=== PATIENT | female | born 1990 | race Caucasian/White ===

== ENCOUNTER → 2016-11-16 | Outpatient (CLI) | payer OTHER | LOC: RAD 15:31 | PROVIDERS: ATTEND Physician Assistant | DX: M54.12 Radiculopathy, cervical region (principal) | CPT/HCPCS: 72141 ==

== ENCOUNTER → 2017-04-09 | Outpatient (CLI) | payer OTHER ==
--- NOTE | 2017-04-10 08:03 | RADIOLOGY REPORT (SQ) ---
EXAM DESCRIPTION: CERV SP 3 VIEW OR LESS COMPLETED DATE/TIME: 04/09/2017 3:37 pm REASON FOR STUDY: CERVICAL RADICULOPATHY COMPARISON: None. NUMBER OF VIEWS: Three views TECHNIQUE: Lateral neutral flexion and extension views LIMITATIONS: None. FINDINGS: MINERALIZATION: Normal. ALIGNMENT: Anatomic. FLEXION/EXTENSION: No instability. VERTEBRAE: Vertebral bodies of normal height. DISCS: No significant osteophytes or sclerosis. Disc height maintained. LATERAL AND POSTERIOR ELEMENTS: Facets, lateral masses, and spinous processes without significant fin dings. HARDWARE: None in the spine. SOFT TISSUES: No masses or calcifications. Lung apices clear. OTHER: No other significant finding. IMPRESSION: NO SIGNIFICANT FINDING IN THE SPINE. NO INSTABILITY ON FLEXION/EXTENSION. TECHNICAL DOCUMENTATION: JOB ID: [id number] [employer]- All Rights Reserved
== END ==
LOC: RAD 15:20
PROVIDERS: ATTEND Specialist
DX: M54.12 Radiculopathy, cervical region (principal)
CPT/HCPCS: 72040

== ENCOUNTER 2017-05-31 21:29 | Emergency (ER) | payer OTHER ==
[2017-05-31 22:41] VITALS: BP 114/72
[2017-05-31 23:57] LABS: ABSOLUTE BASOPHILS # (AUTO) 0.1 10^3/uL (0.0-0.2); ABSOLUTE EOSINOPHILS # (AUTO) 0.1 10^3/uL (0.0-0.6); ABSOLUTE LYMPHOCYTES (AUTO) 1.7 10^3/uL (0.5-4.7); ABSOLUTE MONOCYTES (AUTO) 0.6 10^3/uL (0.1-1.4); ABSOLUTE NEUT (AUTO) 3.7 10^3/uL (1.7-8.2); BASOPHILS % (AUTO) 1.1 % (0-2); EOSINOPHILS % (AUTO) 0.9 % (0-6); HEMATOCRIT 39.3 % (36.0-47.0); HEMOGLOBIN 13.2 g/dL (12.0-15.5); HGB HCT DIFFERENCE 0.3; LYMPHOCYTES % (AUTO) 27.8 % (13-45); MEAN CORPUSCULAR HEMOGLOBIN 29.1 pg (27.0-33.4); MEAN CORPUSCULAR HGB CONC 33.7 g/dL (32.0-36.0); MEAN CORPUSCULAR VOLUME 86 fl (80-97); MONOCYTES % (AUTO) 9.8 % (3-13); RED BLOOD COUNT 4.55 10^6/uL (3.72-5.28); RED CELL DISTRIBUTION WIDTH 15.8 % (11.5-14.0); SEGMENTED NEUTROPHILS % (AUTO) 60.4 % (42-78); WHITE BLOOD COUNT 6.1 10^3/uL (4.0-10.5)
[2017-06-01 00:16] LABS: ALANINE AMINOTRANSFERASE 21 U/L (9-52); ALBUMIN 3.6 g/dL (3.5-5.0); ALKALINE PHOSPHATASE 126 U/L (38-126); ANION GAP 9 (5-19); ASPARTATE AMINO TRANSFERASE 21 U/L (14-36); BILIRUBIN,DIRECT 0.5 mg/dL (0.0-0.4); BILIRUBIN,TOTAL 0.5 mg/dL (0.2-1.3); BLOOD UREA NITROGEN 8 mg/dL (7-20); C-REACTIVE PROTEIN 5.9 mg/L (<10.0); CALCIUM 9.3 mg/dL (8.4-10.2); CARBON DIOXIDE 26 mmol/L (22-30); CHLORIDE 107 mmol/L (98-107); CREATININE RESULT 0.54 mg/dL (0.52-1.25); GLUCOSE 84 mg/dL (75-110); POTASSIUM 3.7 mmol/L (3.6-5.0); SODIUM 141.6 mmol/L (137-145); TOTAL PROTEIN 6.7 g/dL (6.3-8.2)
[2017-06-01 00:24] LABS: APPEARANCE,URINE SLIGHTLY-CLOUDY; BILIRUBIN,URINE NEGATIVE (NEGATIVE); GLUCOSE, URINE NEGATIVE (NEGATIVE); KETONES,URINE NEGATIVE (NEGATIVE); LEUKOCYTE ESTERASE,URINE NEGATIVE (NEGATIVE); NITRITE,URINE NEGATIVE (NEGATIVE); PROTEIN,URINE NEGATIVE (NEGATIVE); URINE SPECIFIC GRAVITY 1.014
[2017-06-01 00:39] LABS: ERYTHROCYTE SEDIMENTATION RATE 30 mm/hr (0-20)
--- NOTE | 2017-06-01 01:07 | RADIOLOGY REPORT (SQ) ---
EXAM DESCRIPTION: CHEST PA/LAT COMPLETED DATE/TIME: 06/01/2017 12:42 am REASON FOR STUDY: recent surgery, cough, fevers COMPARISON: 8.10.16 EXAM PARAMETERS: NUMBER OF VIEWS: two views TECHNIQUE: Digital Frontal and Lateral radiographic views of the chest acquired. RADIATION DOSE: NA LIMITATIONS: none FINDINGS: LUNGS AND PLEURA: No opacities, masses or pneumothorax. No pleural effusion. MEDIASTINUM AND HILAR STRUCTURES: No masses or contour abnormalities. HEART AND VASCULAR STRUCTURES: Heart normal size. No evidence for failure. BONES: No acute findings. HARDWARE: Lower cervical hardware fusion. OTHER: No other significant finding. IMPRESSION: NO SIGNIFICANT RADIOGRAPHIC FINDING IN THE CHEST. TECHNICAL DOCUMENTATION: JOB ID: [id number] [employer]- All Rights Reserved
--- NOTE | 2017-06-01 01:30 | RADIOLOGY REPORT (SQ) ---
EXAM DESCRIPTION: CT SOFT TISSUE NECK WITH COMPLETED DATE/TIME: 06/01/2017 12:45 am REASON FOR STUDY: recent ACDF, pain anteriorly and in posterior neck COMPARISON: None. TECHNIQUE: Post IV contrasted scanning from skull base through lung apices with review of bone, soft tissue and lung windows. Reconstructed coronal and sagittal MPR images reviewed. All images stored on PACS. All CT scanners at this facility use dose modulation, iterative reconstruction, and/or weight based d osing when appropriate to reduce radiation dose to as low as reasonably achievable (ALARA). [facility]: Dose Right [facility]: CareDose [facility]: Dose Right [facility]: Teradose 4D [facility]: [employer] CONTRAST TYPE AND DOSE: contrast/concentration: Isovue 370.00 mg/ml; Total Contrast Delivered: 75.0 ml; Total Saline Delivered: 40.0 ml RENAL FUNCTION: Creatinine 0.5 RADIATION DOSE: Up-to-date CT equipment and radiation dose reduction techniques were employed. CTDIv ol: 17.5 mGy. DLP: 500 mGy-cm. . LIMITATIONS: None. FINDINGS: SKULL BASE: Intact. MAJOR SALIVARY GLANDS: No solid or cystic masses. No inflammatory changes. LYMPHADENOPATHY: [id number] bilateral suprahyoid cervical and submandibular lymphadenopathy inc ludes a 1.4 x 0.6 cm lymph node deep to the left sternocleidomastoid muscle, image 36 of series 2. MUCOSAL MASSES OR ASYMMETRY: No mucosal masses or asymmetry. LARYNX/CORDS: No abnormal findings. VASCULAR STRUCTURES: The major vessels are patent. LUNG APICES: Clear. BONES: Anterior cervical hardware fusion between the C5 and C7 levels. No evidence of metal fracture or loosening. Hardware related beam hardening artifact. No CT evidence of metal fracture or loosen ing. No paraspinal collection. No significant spinal or foraminal compromise. THYROID: Normal size. No masses. PARANASAL SINUSES: Clear. OTHER: No other significant finding. IMPRESSION: 1. Nonspecific [id number] bilateral cervical lymphadenopathy. 2. Anterior cervi samanta hardware fusion between the C5 and C7 levels without CT evidence of complication. TECHNICAL DOCUMENTATION: JOB ID: [id number] Quality ID # [id number]: Final reports with documentation of one or more dose reduction techniques (e.g., Au tomated exposure control, adjustment of the mA and/or kV according to patient size, use of iterative reconstruction technique) 2010 [employer]- All Rights Reserved
--- NOTE | 2017-06-01 02:37 | ER Document Report ---
ED General - General Chief Complaint: Post Surgical Pain Stated Complaint: FEVER AND NECK PAIN Time Seen by Provider: 05/31/17 23:26 TRAVEL OUTSIDE OF THE [place] IN LAST 30 DAYS: No - HPI Severity: Moderate Notes: 27-year-old female presents emergency department stating that she had an anterior cervical discectomy and fusion last Tuesday at [facility], states that for the past 2 days she has been having fevers, chills, nausea, and decreased oral intake since Tuesday associated with a chronic cough that is unchanged as well as drainage from the surgical wound which she describes as clear. Patient states that most the pain is posterior neck going to her shoulders. Also admits rhinorrhea and postnasal drip. Denies numbness, tingling, weakness - Related Data Allergies/Adverse Reactions: ciprofloxacin [From Cipro] Allergy (Severe, Verified 02/25/16 07:49) Anaphylaxis guaifenesin [From Mucinex] Allergy (Severe, Verified 02/25/16 07:49) Anaphylaxis nitrofurantoin macrocrystalline [From Macrobid] Allergy (Severe, Verified 07:49) Anaphylaxis Penicillins Allergy (Severe, Verified 02/25/16 07:49) Anaphylaxis sulfamethoxazole [From Bactrim] Allergy (Severe, Verified 02/25/16 07:49) anaphylaxis/hives tramadol [Tramadol] Allergy (Severe, Verified 02/25/16 07:49) Anaphylaxis hydromorphone HCl [From Dilaudid] Allergy (Intermediate, Verified 02/25/16 07:49 ) Hives amoxicillin [Amoxicillin] Allergy (Verified 02/25/16 07:49) anaphylaxis/hives nitrofurantoin [From Macrobid] Allergy (Verified 02/25/16 07:49) Anaphylaxis trimethoprim [From Bactrim] Allergy (Verified 02/25/16 07:49) Past Medical History - General Information source: Patient - Social History Smoking Status: Current Every Day Smoker Chew tobacco use (# tins/day): No Smoking Education Provided: Yes - >5 mins Frequency of alcohol use: None Drug Abuse: None Family History: Reviewed & Not Pertinent - Past Medical History Cardiac Medical History: Denies: Hx Coronary Artery Disease, Hx Heart Attack, Hx Hypertension Pulmonary Medical History: Reports: Hx Asthma Denies: Hx Bronchitis, Hx COPD, Hx Pneumonia Neurological Medical History: Denies: Hx Cerebrovascular Accident, Hx Seizures Renal/ Medical History: Denies: Hx Peritoneal Dialysis GI Medical History: Denies: Hx Hepatitis, Hx Hiatal Hernia, Hx Ulcer Musculoskeltal Medical History: 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 Infectious Medical History: Denies: Hx Hepatitis Past Surgical History: Denies: Hx Hysterectomy, Hx Mastectomy, Hx Open Heart Surgery, Hx Pacemaker - Immunizations Hx Diphtheria, Pertussis, Tetanus Vaccination: Yes Review of Systems - Review of Systems Constitutional: See HPI, Fever EENT: See HPI, Nose congestion, Nose discharge, Other - neck pain Cardiovascular: No symptoms reported Respiratory: See HPI, Cough Gastrointestinal: No symptoms reported Musculoskeletal: See HPI, Neck pain Neurological/Psychological: No symptoms reported -: Yes All other systems reviewed and negative Physical Exam - Vital signs Vitals: Temp Pulse Resp BP Pulse Ox 98.3 F 91 21 H 114/72 93 05/31/17 22:37 05/31/17 22:37 05/31/17 22:37 05/31/17 22:37 05/31/17 22:37 Interpretation: Normal - Notes Notes: GENERAL: Alert, interacts well. No acute distress. HEAD: Normocephalic, atraumatic EYES: Pupils equal, round and reactive to light, extraocular movements intact. ENT: Oral mucosa moist, tongue midline. Clear rhinorrhea, turbinate edema, postnasal drip, left TM bulging, injected, clear fluid behind TM NECK: Wearing soft cervical collar, able to move neck in all directions, has some pain, no significant limitation of ROM. Trachea midline, left sided anterior incision well-approximated, no discharge, moderate induration without erythema. LUNGS: trace wheeze, no rales or rhonchi, no respiratory distress. HEART: Regular rate and rhythm, no murmurs, gallops, rubs. ABDOMEN: Soft, nontender, nondistended, bowel sounds present in all 4 quadrants. EXTREMITIES: Moves all 4 extremities spontaneously, no edema, radial and dorsalis pedis pulses 2/4 bilaterally. No cyanosis. NEUROLOGICAL: Alert and oriented x3, normal speech, biceps DTRs 2+ bilaterally. PSYCH: Normal mood, normal affect. SKIN: Warm, Dry, normal turgor, no rashes or lesions noted.. Course - Re-evaluation Re-evalutation: 06/01/17 02:43 CBC unremarkable, CMP unremarkable, C-reactive protein negative, ESR slightly elevated at 30, urinalysis negative. Chest x-ray unremarkable, CAT scan of the cervical spine and soft tissue does not show any loosening of the metallic hardware, there is nonspecific mild to moderate bilateral suprahyoid cervical and submandibular lymphadenopathy. Patient does appear to have viral upper respiratory infection and a left-sided serous otitis media. This is likely to be the cause of her neck pain and fevers, I find it unlikely that she has meningitis given how long it has been since surgery and how well she is moving her neck and how mild her symptoms are. I see no indication for antibiotics at this time as her upper respiratory infection appears viral. Patient will follow up with surgery as an outpatient inform them of her symptoms - Vital Signs Vital signs: Temp Pulse Resp BP Pulse Ox 98.3 F 91 21 H 114/72 93 05/31/17 22:37 05/31/17 22:37 05/31/17 22:37 05/31/17 22:37 05/31/17 22:37 - Laboratory Result Diagrams: 05/31/17 23:45 05/31/17 23:45 Laboratory results interpreted by me: 05/31/17 05/31/17 05/31/17 23:45 23:45 23:50 RDW 15.8 H ESR 30 H Direct Bilirubin 0.5 H Urine Urobilinogen 4.0 H Discharge - Discharge Clinical Impression: Viral upper respiratory tract infection, Acute serous otitis media of left ear without rupture Condition: Stable Disposition: HOME, SELF-CARE Additional Instructions: Today we did not find any evidence that you have an infection around her surgical site or around the hardware. It is very important that you follow-up with the surgeon as an outpatient as you are having fevers. At present I feel this is likely coming from your viral upper respiratory infection and your left- sided serous otitis media (viral ear infection). Please use the nasal steroids to help decrease swelling in your nose and this will help to decrease pain. Use Advil and Tylenol for pain and fever. Prescriptions: Fluticasone Propionate 1 spray NS BID #1 spray.susp Referrals: DONNA JOHNSON MD [Primary Care Provider] - Follow up as needed
== END 2017-06-01 03:27 | disposition home or self-care (01) ==
LOC: ER 21:29
DX: J06.9 Acute upper respiratory infection, unspecified (principal); B97.89 Other viral agents as the cause of diseases classified elsewhere; H65.02 Acute serous otitis media, left ear; Z98.1 Arthrodesis status; R50.9 Fever, unspecified; R11.0 Nausea; R05 Cough; M54.2 Cervicalgia; J34.89 Other specified disorders of nose and nasal sinuses; R09.82 Postnasal drip; J45.909 Unspecified asthma, uncomplicated; F17.200 Nicotine dependence, unspecified, uncomplicated; Z71.6 Tobacco abuse counseling; Z87.892 Personal history of anaphylaxis; Z88.1 Allergy status to other antibiotic agents; Z88.8 Allergy status to other drugs, medicaments and biological substances; Z88.0 Allergy status to penicillin; Z88.5 Allergy status to narcotic agent
CPT/HCPCS: 36415; 70491; 71020; 80053; 81001; 85025; 85652; 86140; 99284

== ENCOUNTER 2017-07-14 17:07 | Emergency (ER) | payer OTHER ==
--- NOTE | 2017-07-14 18:03 | ER Document Report ---
ED GI/ - General Chief Complaint: Urinary Frequency Stated Complaint: PAINFUL URINATION,URGENCY,BACK PAIN Mode of Arrival: Ambulatory Information source: Patient TRAVEL OUTSIDE OF THE [place] IN LAST 30 DAYS: No - HPI Patient complains to provider of: Dysuria Onset: Last week Timing/Duration: Gradual, Constant Quality of pain: Achy Severity at maximum: Moderate Severity in ED: Moderate Associated symptoms: Dysuria, Fever, Nausea, Odor, Urinary frequency, Vomiting. denies: Blood in emesis, Blood in stool, Chills, Constipation, Diarrhea, Dizzy , Hematuria, Loss of appetite, Shortness of breath, Urinary hesitancy, Vaginal discharge Exacerbated by: Denies Relieved by: Denies Notes: 07/14/17 18:00 Patient arrives with complaints of dysuria and urinary frequency for the last several days. She has a history of urinary tract infections. She states that she was treated with Keflex approximately 3 weeks ago by joss for UTI. She been feeling better until the last few days. She developed dysuria, urinary frequency. She has some right low back pain. She has had 2 episodes of nausea vomiting associated with this. She has had the chills and felt feverish but has not actually taken her temperature. She does have a history of kidney stones. She has had prior appendectomy. Patient has an extensive allergy list to antibiotics. She has a history of pyelonephritis as well. She denies any other complaints at this moment. - Related Data Allergies/Adverse Reactions: ciprofloxacin [From Cipro] Allergy (Severe, Verified 07/14/17 17:32) Anaphylaxis guaifenesin [From Mucinex] Allergy (Severe, Verified 07/14/17 17:32) Anaphylaxis nitrofurantoin macrocrystalline [From Macrobid] Allergy (Severe, Verified 17:32) Anaphylaxis Penicillins Allergy (Severe, Verified 07/14/17 17:32) Anaphylaxis sulfamethoxazole [From Bactrim] Allergy (Severe, Verified 07/14/17 17:32) anaphylaxis/hives tramadol [Tramadol] Allergy (Severe, Verified 07/14/17 17:32) Anaphylaxis hydromorphone HCl [From Dilaudid] Allergy (Intermediate, Verified 07/14/17 17:32 ) Hives amoxicillin [Amoxicillin] Allergy (Verified 07/14/17 17:32) anaphylaxis/hives nitrofurantoin [From Macrobid] Allergy (Verified 07/14/17 17:32) Anaphylaxis trimethoprim [From Bactrim] Allergy (Verified 07/14/17 17:32) Past Medical History - Social History Smoking Status: Current Every Day Smoker Chew tobacco use (# tins/day): No Frequency of alcohol use: None Drug Abuse: None Family History: Reviewed & Not Pertinent Patient has suicidal ideation: No - Past Medical History Cardiac Medical History: Denies: Hx Coronary Artery Disease, Hx Heart Attack, Hx Hypertension Pulmonary Medical History: Reports: Hx Asthma Denies: Hx Bronchitis, Hx COPD, Hx Pneumonia Neurological Medical History: Denies: Hx Cerebrovascular Accident, Hx Seizures Renal/ Medical History: Denies: Hx Peritoneal Dialysis GI Medical History: Denies: Hx Hepatitis, Hx Hiatal Hernia, Hx Ulcer Musculoskeltal Medical History: 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 HEAD: normocephalic, atraumatic EYES: conjunctiva pink without discharge, no external redness or swelling. EARS: no external swelling, no external redness NOSE: atraumatic, no external swelling MOUTH/THROAT: mucous membranes moist and pink, posterior pharynx without erythema, swelling, exudate. No trismus or drooling. NECK: soft, supple, full range of motion, no meningismus. CHEST: no distress, lungs clear and equal throughout. No wheezing, rales, rhonchi. CARDIAC: regular rate and rhythm, no murmur, normal capillary refill, normal pulses. No peripheral edema noted. ABDOMEN: Soft, nontender. No rigidity, no guarding. BACK: full range of motion, slight tenderness to the right low back. EXTREMITIES: full range of motion of all extremities. No redness, no swelling. NEURO: alert and oriented x 3, no focal deficits, full range of motion of all extremities. PYSCH: appropriate mood, affect. Patient is cooperative. SKIN: pink, warm, dry, no rash. Course - Re-evaluation Re-evalutation: 07/14/17 18:02 Based on the patient's symptoms I have offered to start an IV, check lab work, and check a CT scan to rule out kidney stone. The patient states this does not feel like prior kidney stone she has had in the past and would prefer to only have her urine checked to look for infection. I explained that I cannot come fully evaluate the pain she is having without imaging. I cannot completely rule out a kidney stone or infected kidney stone without imaging. The patient verbalized understanding of this, she states that she would prefer to have her urine checked and be treated without any further evaluation. 07/14/17 19:46 Patient is nontoxic appearing with stable vitals. Her urine shows signs of infection. She does have mild right sided low back/CVA tenderness to percussion. It is possible that she has early pyelonephritis. Is also possible that she could have a kidney stone due to her history of kidney stones. I explained that I cannot fully evaluate that without a CT, the patient declined CT or lab work at this time. She states that she is feeling fine at this time. She will be given a shot of Rocephin here in the emergency department. Urine culture will be sent. Discharged home on Omnicef for infection. Follow-up if not improving in the next 2-4 days. Follow-up sooner for increased pain, fever, persistent vomiting, or any further concerns. The patient's emergency department workup and current diagnosis were explained to the patient and or family. Follow-up instructions were provided. Medications if prescribed were discussed. Instructions for when to return to the emergency department including specific worrisome symptoms were discussed with the patient and/or family. The patient is noted to have elevated blood pressure during today's emergency department visit. The patient was informed of this finding. The patient was instructed that this may be related to pre-hypertension and requires further evaluation with a primary care provider. The patient has no hypertensive symptoms at this time. - Vital Signs Vital signs: Temp Pulse Resp BP Pulse Ox 99.0 F 95 18 125/70 95 07/14/17 17:31 07/14/17 17:31 07/14/17 17:31 07/14/17 17:31 07/14/17 17:31 - Laboratory Laboratory results interpreted by me: 07/14/17 18:00 Urine Blood SMALL H Urine Urobilinogen 2.0 H Ur Leukocyte Esterase LARGE H Discharge - Discharge Clinical Impression: Pyelonephritis UTI (urinary tract infection) Qualifiers: Urinary tract infection type: acute pyelonephritis Qualified Code(s): N10 - Acute pyelonephritis Condition: Stable Disposition: HOME, SELF-CARE Instructions: Rocephin ([facility]), Urinary Tract Infection ([facility]) Additional Instructions: Take medications as prescribed. Drink lots of water. Follow-up with your doctor in 2-4 days for recheck. Follow-up sooner for increased pain, fever, persistent vomiting, or any further concerns. Your blood pressure was elevated during today's visit. Have this rechecked with your doctor. Prescriptions: Cefdinir [Omnicef 300 mg Capsule] 2 cap PO DAILY #20 capsule
[2017-07-14 19:01] LABS: APPEARANCE,URINE SLIGHTLY-CLOUDY; BILIRUBIN,URINE NEGATIVE (NEGATIVE); GLUCOSE, URINE NEGATIVE (NEGATIVE); KETONES,URINE NEGATIVE (NEGATIVE); LEUKOCYTE ESTERASE,URINE LARGE (NEGATIVE); NITRITE,URINE NEGATIVE (NEGATIVE); PROTEIN,URINE NEGATIVE (NEGATIVE); URINE SPECIFIC GRAVITY 1.008
[2017-07-14] MEDS ORDERED: CEFTRIAXONE INJ 1000 MG VIAL IM ONE (19:39)
[2017-07-14] MEDS ORDERED: LIDOCAINE 1% INJ-PF (10 MG/ML) 30 ML SDV INFIL ONE (19:39)
[2017-07-14 20:25] VITALS: BP 124/78
== END 2017-07-14 20:24 | disposition home or self-care (01) ==
LOC: ER 17:07
DX: N10 Acute pyelonephritis (principal); R11.2 Nausea with vomiting, unspecified; R35.0 Frequency of micturition; R68.83 Chills (without fever); R30.0 Dysuria; M54.5 Low back pain; R03.0 Elevated blood-pressure reading, without diagnosis of hypertension; F17.200 Nicotine dependence, unspecified, uncomplicated; J45.909 Unspecified asthma, uncomplicated; Z87.442 Personal history of urinary calculi; Z90.49 Acquired absence of other specified parts of digestive tract; Z87.892 Personal history of anaphylaxis; Z88.1 Allergy status to other antibiotic agents; Z88.8 Allergy status to other drugs, medicaments and biological substances; Z88.0 Allergy status to penicillin; Z88.5 Allergy status to narcotic agent
CPT/HCPCS: 99283; 96372; 81025; 81001; J3490; J0696

== ENCOUNTER 2017-08-29 16:27 | Emergency (ER) | payer OTHER ==
--- NOTE | 2017-08-29 17:40 | ER Document Report ---
ED Skin Rash/Insect Bite/Abscs - General Chief Complaint: Skin Problem Stated Complaint: ABDOMINAL PAIN Time Seen by Provider: 08/29/17 16:52 Mode of Arrival: Ambulatory Information source: Patient Notes: 27-year-old female presented to ED for purulent drainage and blood from her umbilicus since this afternoon. She denies any signs or symptoms of anything else. She states she did not scratch anything and she does not know how the blood and pus got in her umbilicus. TRAVEL OUTSIDE OF THE [place] IN LAST 30 DAYS: No - HPI Patient complains to provider of: Tender/swollen area Onset: This afternoon Onset/Duration: Gradual Severity: Moderate Skin Character: Other - Sore area with purulent and bloody drainage Quality of rash: Painful Identify cause: No Exacerbated by: Other - Palpation Relieved by: Denies Similar symptoms previously: No Recently seen / treated by doctor: No - Related Data Allergies/Adverse Reactions: ciprofloxacin [From Cipro] Allergy (Severe, Verified 08/29/17 16:37) Anaphylaxis guaifenesin [From Mucinex] Allergy (Severe, Verified 08/29/17 16:37) Anaphylaxis nitrofurantoin macrocrystalline [From Macrobid] Allergy (Severe, Verified 16:37) Anaphylaxis Penicillins Allergy (Severe, Verified 08/29/17 16:37) Anaphylaxis sulfamethoxazole [From Bactrim] Allergy (Severe, Verified 08/29/17 16:37) anaphylaxis/hives tramadol [Tramadol] Allergy (Severe, Verified 08/29/17 16:37) Anaphylaxis hydromorphone HCl [From Dilaudid] Allergy (Intermediate, Verified 08/29/17 16:37 ) Hives amoxicillin [Amoxicillin] Allergy (Verified 08/29/17 16:37) anaphylaxis/hives nitrofurantoin [From Macrobid] Allergy (Verified 08/29/17 16:37) Anaphylaxis trimethoprim [From Bactrim] Allergy (Verified 08/29/17 16:37) Past Medical History - General Information source: Patient - Social History Smoking Status: Current Every Day Smoker Cigarette use (# per day): Yes - Half pack a day Chew tobacco use (# tins/day): No Smoking Education Provided: Yes - Less than 2 minutes Frequency of alcohol use: None Drug Abuse: None Occupation: None Lives with: Spouse/Significant other Family History: Reviewed & Not Pertinent. denies: Arthritis, CAD, COPD, CVA, DM , Hyperlipidemia, Hypertension, Malignancy, Thyroid Disfunction Patient has suicidal ideation: No Patient has homicidal ideation: No - Past Medical History Cardiac Medical History: Reports: Other - She states she has sinus tachycardia Pulmonary Medical History: Reports: Hx Asthma EENT Medical History: Reports: None Neurological Medical History: Reports: Hx Migraine Endocrine Medical History: Reports: None Renal/ Medical History: Reports: Hx Kidney Stones, Hx Ovarian Cysts Malignancy Medical History: Reports: None GI Medical History: Reports: Hx Gastroesophageal Reflux Disease Musculoskeltal Medical History: 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, knees, fingers Skin Medical History: Reports None Psychiatric Medical History: Reports: Hx Anxiety, Hx Attention Deficit Hyperactivity Disorder, Hx Bipolar Disorder, Hx Depression, Hx Post Traumatic Stress Disorder Traumatic Medical History: Reports: None Infectious Medical History: Reports: None Past Surgical History: Reports: Hx Appendectomy, Hx Section, Hx Orthopedic Surgery - cervical spine surgery , Other - septoplasty, bilateral knee surgery (miniscus tears, ) , right foot surgery - Immunizations Hx Diphtheria, Pertussis, Tetanus Vaccination: Yes Review of Systems - Review of Systems Constitutional: No symptoms reported EENT: No symptoms reported Cardiovascular: No symptoms reported Respiratory: No symptoms reported Gastrointestinal: Other - Patient states she has pus and blood in her bellybutton Genitourinary: No symptoms reported Female Genitourinary: No symptoms reported Musculoskeletal: No symptoms reported Skin: No symptoms reported, Other - Patient complains she has pus and blood in her bellybutton Hematologic/Lymphatic: No symptoms reported Neurological/Psychological: No symptoms reported Physical Exam - Vital signs Vitals: Temp Pulse Resp BP Pulse Ox 97.9 F 97 16 111/73 96 08/29/17 16:33 08/29/17 16:33 08/29/17 16:33 08/29/17 16:33 08/29/17 16:33 Interpretation: Normal - General General appearance: Appears well, Alert - HEENT Head: Normocephalic, Atraumatic Eyes: Normal Pupils: PERRL - Respiratory Respiratory status: No respiratory distress Chest status: Nontender Breath sounds: Normal Chest palpation: Normal - Cardiovascular Rhythm: Regular Heart sounds: Normal auscultation Murmur: No - Abdominal Inspection: Normal Distension: No distension Bowel sounds: Normal Tenderness: Tender - Umbilicus, Other - Purulent drainage with blood noted in the umbilicus this was cleaned out and the drainage removed from around her bellybutton on her abdomen. No fresh bleeding or drainage noted after it this was cleaned. Organomegaly: No organomegaly - Back Back: Normal, Nontender - Extremities General upper extremity: Normal inspection, Nontender, Normal color, Normal ROM , Normal temperature General lower extremity: Normal inspection, Nontender, Normal color, Normal ROM , Normal temperature, Normal weight bearing. No: Jacques's sign - Neurological Neuro grossly intact: Yes Cognition: Normal Orientation: AAOx4 Golden Coma Scale Eye Opening: Spontaneous Horacio Coma Scale Verbal: Oriented Golden Coma Scale Motor: Obeys Commands Golden Coma Scale Total: 15 Speech: Normal Motor strength normal: LUE, RUE, LLE, RLE Sensory: Normal - Psychological Associated symptoms: Normal affect, Normal mood - Skin Skin Temperature: Warm Skin Moisture: Dry Skin Color: Normal Location of irregularity: Abdomen Irregularity with: Tenderness, Other - Drainage Course - Re-evaluation Re-evalutation: 08/29/17 21:05 Wound culture sent on the drainage from her umbilicus bacitracin applied to the area dressing applied and patient was treated with doxycycline in the emergency room and sent home with a prescription for doxycycline. - Vital Signs Vital signs: Temp Pulse Resp BP Pulse Ox 98.6 F 91 16 114/78 95 08/29/17 17:54 08/29/17 17:54 08/29/17 16:33 08/29/17 17:54 08/29/17 17:54 Discharge - Discharge Clinical Impression: Cutaneous abscess of umbilicus Condition: Stable Disposition: HOME, SELF-CARE Instructions: Family Physicians / Practices Additional Instructions: CELLULITIS: You have an infection of your skin and underlying soft tissues called cellulitis. This is due to bacteria, which can enter through any break in the skin, or even through an irritated hair follicle. Untreated, cellulitis will usually worsen. Antibiotics are required. Usually, warm packs or warm soaks, and elevation of the infected area are recommended. You should start getting better within 24 to 36 hours. Most infections respond quickly to the right medication. Follow-up care is important, however, to check for abscess (boil) formation, unsuspected foreign body, or resistant infection. If you develop fever, chills, or if the area of infection is becoming rapidly more swollen or painful, call the doctor at once. DOXYCYCLINE: Doxycycline (Vibramycin, Doryx) is an antibiotic of the tetracycline family. This type of drug is useful for infections of the respiratory tract and genital tract, and is sometimes used for intestinal infections. Unlike most tetracyclines, doxycycline can be taken with food. It is longer acting, and (usually) less prone to side effects than regular tetracycline. Tetracycline antibiotics can stain immature teeth and SHOULD NOT BE TAKEN BY CHILDREN, NURSING MOTHERS, OR WOMEN. Tetracyclines can make you more prone to sunburn. Abdominal cramping, nausea, and diarrhea are occasional side effects. Women may experience vaginal yeast infections. Call the doctor at once if you develop hives, itching, shortness of breath , or lightheadedness. SOAP CLEANSING: Gently wash the wound daily using a mild soap (like Ivory, Phisoderm, Neutrogena). Use warm water, rubbing gently until all debris, ooze, and crusting have been washed from the wound. Allow to dry briefly (about 10 minutes) after cleaning. Repeat this cleansing at least three times a day for the first two days and then once or twice a day. ANTIBIOTIC OINTMENT PROTECTION: Your wounds are such that dressing them is not practical or optional. After cleansing, you should apply a thin coating of antibiotic ointment ( Bacitracin, not Neosporin) to the wounds at least three times daily. This lessens infection risk, and may decrease the amount of scarring. Use a q-tip or dull butter knife, not your finger, to apply this ointment. Any debris or ooze which builds up in the ointment should be gently rubbed off with a sterile gauze pad. Harder crusting may need to be gently scrubbed off with a clean wash cloth with soap and warm water, perhaps applying a warm, wet wash cloth to the wound for ten minutes first. Development of redness, severe itching, or blistering may mean allergy to the ointment. See the doctor. FOLLOW-UP CARE: If you have been referred to a physician for follow-up care, call the physician s office for an appointment as you were instructed or within the next two days. If you experience worsening or a significant change in your symptoms, notify the physician immediately or return to the Emergency Department at any time for re-evaluation. Prescriptions: Doxycycline Hyclate 100 mg PO BID #20 tablet Forms: Smoking Cessation Education
[2017-08-29] MEDS ORDERED: DOXYCYCLINE HYCLATE 100 MG TABLET PO ONE (17:41)
[2017-08-29 18:00] VITALS: BP 114/78
== END 2017-08-29 17:55 | disposition home or self-care (01) ==
LOC: ER 16:27
DX: L02.216 Cutaneous abscess of umbilicus (principal); R10.9 Unspecified abdominal pain; F17.210 Nicotine dependence, cigarettes, uncomplicated; Z88.0 Allergy status to penicillin; Z88.3 Allergy status to other anti-infective agents; Z87.442 Personal history of urinary calculi
CPT/HCPCS: 87070; 87075; 87077; 87205; 99282

== ENCOUNTER 2017-10-16 21:56 | Emergency (ER) | payer OTHER ==
[2017-10-17] MEDS ORDERED: ONDANSETRON 4 MG TAB.RAPDIS PO ONE (00:08)
--- NOTE | 2017-10-17 00:10 | ER Document Report ---
ED Medical Screen (RME) - General Chief Complaint: Abdominal Pain Stated Complaint: ABDOMINAL PAIN Time Seen by Provider: 10/17/17 00:07 Mode of Arrival: Ambulatory Information source: Patient Notes: Patient presents complaining of right upper quadrant abdominal pain for the past 4 days. Pain wraps around to the back area. Patient states the pain is worse with food. Patient does report nausea vomiting and diarrhea. Patient states she is vomited once today and had diarrhea 2 times. Patient states that Tuesday of this week she was diagnosed with a kidney infection at the [facility] and that yesterday she went to [facility] for this issue and was evaluated by a surgeon there. Patient was advised that if her symptoms were worse or not improved in the next 8 hours she was to return. Patient states she does not like to go to [facility] and therefore did not return as instructed. hx: IBS, GERD, bipolar, , appendectomy, orthopedic surgery I have greeted and performed a rapid initial assessment of this patient. A comprehensive ED assessment and evaluation of the patient, analysis of test results and completion of the medical decision making process will be conducted by additional ED providers. TRAVEL OUTSIDE OF THE [place] IN LAST 30 DAYS: No - Related Data Allergies/Adverse Reactions: ciprofloxacin [From Cipro] Allergy (Severe, Verified 10/16/17 22:26) Anaphylaxis guaifenesin [From Mucinex] Allergy (Severe, Verified 10/16/17 22:26) Anaphylaxis nitrofurantoin macrocrystalline [From Macrobid] Allergy (Severe, Verified 22:26) Anaphylaxis Penicillins Allergy (Severe, Verified 10/16/17 22:26) Anaphylaxis sulfamethoxazole [From Bactrim] Allergy (Severe, Verified 10/16/17 22:26) anaphylaxis/hives tramadol [Tramadol] Allergy (Severe, Verified 10/16/17 22:26) Anaphylaxis hydromorphone HCl [From Dilaudid] Allergy (Intermediate, Verified 10/16/17 22:26 ) Hives amoxicillin [Amoxicillin] Allergy (Verified 10/16/17 22:26) anaphylaxis/hives nitrofurantoin [From Macrobid] Allergy (Verified 10/16/17 22:26) Anaphylaxis trimethoprim [From Bactrim] Allergy (Verified 10/16/17 22:26) Past Medical History - Past Medical History Cardiac Medical History: Denies: Hx Coronary Artery Disease, Hx Heart Attack, Hx Hypertension Pulmonary Medical History: Reports: Hx Asthma Denies: Hx Bronchitis, Hx COPD, Hx Pneumonia Neurological Medical History: Reports: Hx Migraine. Denies: Hx Cerebrovascular Accident, Hx Seizures Renal/ Medical History: Reports: Hx Kidney Stones, Hx Ovarian Cysts. Denies: Hx Peritoneal Dialysis GI Medical History: Reports: Hx Gastroesophageal Reflux Disease. Denies: Hx Hepatitis, Hx Hiatal Hernia, Hx Ulcer Musculoskeltal Medical History: 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, knees, fingers Psychiatric Medical History: Reports: Hx Anxiety, Hx Attention Deficit Hyperactivity Disorder, Hx Bipolar Disorder, Hx Depression, Hx Post Traumatic Stress Disorder Infectious Medical History: Denies: Hx Hepatitis Past Surgical History: Reports: Hx Appendectomy, Hx Section, Hx Orthopedic Surgery - cervical spine surgery , Other - septoplasty, bilateral knee surgery (miniscus tears, ) , right foot surgery. Denies: Hx Hysterectomy, Hx Mastectomy, Hx Open Heart Surgery, Hx Pacemaker - Immunizations Hx Diphtheria, Pertussis, Tetanus Vaccination: Yes Physical Exam - Vital signs Vitals: Temp Pulse Resp BP Pulse Ox 98.2 F 100 16 121/67 97 10/16/17 21:56 10/16/17 21:56 10/16/17 21:56 10/16/17 21:56 10/16/17 21:56 - Abdominal Tenderness: Tender - Right upper quadrant Course - Vital Signs Vital signs: Temp Pulse Resp BP Pulse Ox 98.2 F 100 16 121/67 97 10/16/17 21:56 10/16/17 21:56 10/16/17 21:56 10/16/17 21:56 10/16/17 21:56
[2017-10-17 00:57] LABS: APPEARANCE,URINE CLEAR; BILIRUBIN,URINE NEGATIVE (NEGATIVE); COLOR,URINE STRAW; GLUCOSE, URINE NEGATIVE (NEGATIVE); KETONES,URINE NEGATIVE (NEGATIVE); LEUKOCYTE ESTERASE,URINE NEGATIVE (NEGATIVE); NITRITE,URINE NEGATIVE (NEGATIVE); PROTEIN,URINE NEGATIVE (NEGATIVE); URINE SPECIFIC GRAVITY 1.003; UROBILINOGEN,URINE NEGATIVE mg/dL (<2.0)
[2017-10-17 01:03] LABS: ABSOLUTE BASOPHILS # (AUTO) 0.1 10^3/uL (0.0-0.2); ABSOLUTE EOSINOPHILS # (AUTO) 0.3 10^3/uL (0.0-0.6); ABSOLUTE LYMPHOCYTES (AUTO) 4.1 10^3/uL (0.5-4.7); ABSOLUTE MONOCYTES (AUTO) 0.4 10^3/uL (0.1-1.4); ABSOLUTE NEUT (AUTO) 4.1 10^3/uL (1.7-8.2); EOSINOPHILS % (AUTO) 3.7 % (0-6); HEMATOCRIT 40.8 % (36.0-47.0); HEMOGLOBIN 13.9 g/dL (12.0-15.5); LYMPHOCYTES % (AUTO) 45.2 % (13-45); MEAN CORPUSCULAR HEMOGLOBIN 30.1 pg (27.0-33.4); MEAN CORPUSCULAR VOLUME 89 fl (80-97); MONOCYTES % (AUTO) 4.9 % (3-13); PLATELET COUNT 269 10^3/uL (150-450); RED BLOOD COUNT 4.61 10^6/uL (3.72-5.28); RED CELL DISTRIBUTION WIDTH 15.4 % (11.5-14.0); SEGMENTED NEUTROPHILS % (AUTO) 45.2 % (42-78); TOTAL CELLS COUNTED % (AUTO) 100 %; WHITE BLOOD COUNT 9.1 10^3/uL (4.0-10.5)
[2017-10-17 01:17] LABS: ALANINE AMINOTRANSFERASE 21 U/L (9-52); ALBUMIN 3.7 g/dL (3.5-5.0); ALKALINE PHOSPHATASE 103 U/L (38-126); ANION GAP 9 (5-19); ASPARTATE AMINO TRANSFERASE 14 U/L (14-36); BILIRUBIN,DIRECT 0.2 mg/dL (0.0-0.4); BILIRUBIN,TOTAL 0.2 mg/dL (0.2-1.3); BLOOD UREA NITROGEN 13 mg/dL (7-20); CALCIUM 9.5 mg/dL (8.4-10.2); CARBON DIOXIDE 27 mmol/L (22-30); CHLORIDE 104 mmol/L (98-107); GLUCOSE 93 mg/dL (75-110); LIPASE 38.1 U/L (23-300); POTASSIUM 4.3 mmol/L (3.6-5.0); SODIUM 140.4 mmol/L (137-145); TOTAL PROTEIN 6.3 g/dL (6.3-8.2)
--- NOTE | 2017-10-17 01:32 | RADIOLOGY REPORT (SQ) ---
EXAM DESCRIPTION: U/S ABDOMEN LIMITED W/O DOP CLINICAL HISTORY: RUQ pain COMPARISON: None. TECHNIQUE: Real-time sonographic images of the right upper abdomen were obtained using a curved multihertz transducer. Evaluation is somewhat suboptimal due to overlying bowel gas. FINDINGS: The visualized portions of the pancreas are unremarkable. The visualized portions of the aorta and IVC are unremarkable. The liver has normal contour and increased echogenicity. Hepatopedal flow in the portal vein. Common bile duct measures 0.3 cm. There is wall thickening of the gallbladder with multiple echogenic structures in the gallbladder lumen. No definite pericholecystic fluid. Positive reported sonographic Clemente sign. The right kidney measures 11.2 cm in length. No hydronephrosis, solid renal mass, or shadowing calculi. IMPRESSION: 1. Cholelithiasis with gallbladder wall thickening and positive sonographic Clemente sign. These findings could be seen with acute cholecystitis. 2. Hepatic steatosis.
[2017-10-17] MEDS ORDERED: OXYCODONE HCL IR 5 MG TABLET PO ONE (01:42)
--- NOTE | 2017-10-17 01:48 | ER Document Report ---
ED General - General Chief Complaint: Abdominal Pain Stated Complaint: ABDOMINAL PAIN Time Seen by Provider: 10/17/17 00:07 Mode of Arrival: Ambulatory Notes: Patient is a 27-year-old female who presents with complaint of right upper quadrant abdominal pain and some vomiting. She says she has been seen at [facility] twice for this in the last 2 days. Patient says pain is worse with eating. Patient says she was prescribed Tylenol for the pain. She does denies being prescribed for nausea. Her last visit she was seen by the surgeon who told her is most likely her gallbladder and that if she is still having recurrent pain after 8 hours to return to the ER they would consider taking out her gallbladder. Patient says she does not like [facility] and therefore came here instead despite her already having an established relationship with the surgeon at [facility]. Patient has no other complaints at this time. She denies any dysuria or abnormal vaginal discharge or bleeding. TRAVEL OUTSIDE OF THE [place] IN LAST 30 DAYS: No - Related Data Allergies/Adverse Reactions: ciprofloxacin [From Cipro] Allergy (Severe, Verified 10/16/17 22:26) Anaphylaxis guaifenesin [From Mucinex] Allergy (Severe, Verified 10/16/17 22:26) Anaphylaxis nitrofurantoin macrocrystalline [From Macrobid] Allergy (Severe, Verified 22:26) Anaphylaxis Penicillins Allergy (Severe, Verified 10/16/17 22:26) Anaphylaxis sulfamethoxazole [From Bactrim] Allergy (Severe, Verified 10/16/17 22:26) anaphylaxis/hives tramadol [Tramadol] Allergy (Severe, Verified 10/16/17 22:26) Anaphylaxis hydromorphone HCl [From Dilaudid] Allergy (Intermediate, Verified 10/16/17 22:26 ) Hives amoxicillin [Amoxicillin] Allergy (Verified 10/16/17 22:26) anaphylaxis/hives nitrofurantoin [From Macrobid] Allergy (Verified 10/16/17 22:26) Anaphylaxis trimethoprim [From Bactrim] Allergy (Verified 10/16/17 22:26) Past Medical History - General Information source: Patient - Social History Smoking Status: Unknown if Ever Smoked Frequency of alcohol use: None Drug Abuse: None Family History: Reviewed & Not Pertinent. denies: Arthritis, CAD, COPD, CVA, DM , Hyperlipidemia, Hypertension, Malignancy, Thyroid Disfunction - Past Medical History Cardiac Medical History: Denies: Hx Coronary Artery Disease, Hx Heart Attack, Hx Hypertension Pulmonary Medical History: Reports: Hx Asthma Denies: Hx Bronchitis, Hx COPD, Hx Pneumonia Neurological Medical History: Reports: Hx Migraine. Denies: Hx Cerebrovascular Accident, Hx Seizures Renal/ Medical History: Reports: Hx Kidney Stones, Hx Ovarian Cysts. Denies: Hx Peritoneal Dialysis GI Medical History: Reports: Hx Gastroesophageal Reflux Disease. Denies: Hx Hepatitis, Hx Hiatal Hernia, Hx Ulcer Musculoskeltal Medical History: 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, knees, fingers Psychiatric Medical History: Reports: Hx Anxiety, Hx Attention Deficit Hyperactivity Disorder, Hx Bipolar Disorder, Hx Depression, Hx Post Traumatic Stress Disorder Infectious Medical History: Denies: Hx Hepatitis Past Surgical History: Reports: Hx Appendectomy, Hx Section, Hx Orthopedic Surgery - cervical spine surgery , Other - septoplasty, bilateral knee surgery (miniscus tears, ) , right foot surgery. Denies: Hx Hysterectomy, Hx Mastectomy, Hx Open Heart Surgery, Hx Pacemaker - Immunizations Hx Diphtheria, Pertussis, Tetanus Vaccination: Yes Review of Systems - Review of Systems Notes: My Normal Review Basic REVIEW OF SYSTEMS: CONSTITUTIONAL : Denies fever, chills, or sweats. Denies recent illness. CARDIOVASCULAR: Denies chest pain. RESPIRATORY: Denies cough, cold, or chest congestion. Denies shortness of breath, difficulty breathing, or wheezing. GASTROINTESTINAL: Right upper quadrant abdominal pain. Some nausea and vomiting GENITOURINARY: Denies difficulty urinating, painful urination, burning, frequency, or blood in urine. FEMALE GENITOURINARY: Denies vaginal bleeding, abnormal or irregular periods. LMP: MUSCULOSKELETAL: Denies neck or back pain or joint pain or swelling. SKIN: Denies rash or skin lesions. NEUROLOGICAL: Denies altered mental status or loss of consciousness. Denies headache. Denies weakness or paralysis or loss of use of either side. Denies problems with gait or speech. Denies sensory or motor loss. ALL OTHER SYSTEMS REVIEWED AND NEGATIVE. Physical Exam - Vital signs Vitals: Temp Pulse Resp BP Pulse Ox 98.2 F 100 16 121/67 97 10/16/17 21:56 10/16/17 21:56 10/16/17 21:56 10/16/17 21:56 10/16/17 21:56 - Notes Notes: General Appearance: Well nourished, alert, cooperative, no acute distress, mild obvious discomfort. Vitals: reviewed, See vital signs table. Head: no swelling or tenderness to the head Eyes: PERRL, EOMI, Conjuctiva clear Mouth: No decreasd moisture Throat: No tonsillar inflammation, No airway obstruction, No lymphadenopathy Lungs: No wheezing, No rales, No rhonci, No accessory muscle use, good air exchange bilaterally. Heart: Normal rate, Regular rythm, No murmur, no rub Abdomen: Normal BS, soft, No rigidity, mild right upper quadrant abdominal tenderness palpation, No guarding, no rebound, no abdominal masses, no organomegaly Extremities: strength 5/5 in all extremities, good pulses in all extremities, no swelling or tenderness in the extremities, no edema. Skin: warm, dry, appropriate color, no rash Neuro: speech clear, oriented x 3, normal affect, responds appropriately to questions. Course - Re-evaluation Re-evalutation: 10/17/17 07:01 Patient's ultrasound and laboratory evaluation is unremarkable. Her history and clinical exam is consistent with gallbladder disease. I informed her that I am happy to refer her to her surgery clinic to talk about elective cholecystectomy. Patient's says that she is unsure if her insurance would cover this and she has might take a while to refer back to them. I informed her that we are happy to re-see her any time however she only has an established relationship with the surgeon at [facility] and therefore should probably get her gallbladder taken out faster if she falls back up with her surgeon and saw her at [facility]. Patient is understanding of this. Patient requested oxycodone for pain. I did review her with colonic controlled substance database report and the patient received a 30 day prescription of oxycodone on October 02. She should therefore still have plenty of pills left. Patient says the reason why she is always because she was told she could take them more often than what was prescribed. I informed her I cannot refill her oxycodone prescription based on the fact that her database report suggest that she should still have plenty of pills left. Patient is understanding of this. I told her I would treat her pain here but she will be discharged. She is encouraged to return to ER immediately if she has recurrent pain, fevers, or intractable vomiting. I had will prescribe her Zofran. I did talk to her at length about a nonfat diet and foods to avoid. Patient agrees with plan will be discharged home. Dictation of this chart was performed using voice recognition software; therefore, there may be some unintended grammatical errors. - Vital Signs Vital signs: Temp Pulse Resp BP Pulse Ox 98.7 F 100 20 114/70 96 10/17/17 02:35 10/16/17 21:56 10/17/17 02:35 10/17/17 02:35 10/17/17 00:49 - Laboratory Result Diagrams: 10/17/17 00:50 10/17/17 00:50 Laboratory results interpreted by me: 10/17/17 00:50 RDW 15.4 H Lymphocytes % 45.2 H Discharge - Discharge Clinical Impression: Abdominal pain Qualifiers: Abdominal location: right upper quadrant Qualified Code(s): R10.11 - Right upper quadrant pain Condition: Good Disposition: HOME, SELF-CARE Additional Instructions: GALLBLADDER DISEASE: Your evaluation shows evidence of gallbladder disease. The gallbladder is a pouch under the liver which stores bile. Stones, infection, or irritation of the gallbladder cause attacks of pain. Certain foods -- fats in particular -- may provoke attacks. The usual treatment for gallbladder disease is surgical removal of the gallbladder -- called a cholecystectomy. You will be referred to a physician qualified to advise you on the best treatment for your problem. Hospitalization is not necessary. Take clear liquids only until you are painfree. After that, you should stay on a low-fat diet, with frequent SMALL meals. Call the doctor or return at once if you develop severe pain, repeated vomiting, fever, or jaundice (a yellow color in the skin and whites of the eyes) . LOW-FAT DIET: The physician has recommended a low-fat diet. This diet is often used for gallbladder or pancreas problems. Your meals should be high-carbohydrate (potato, apples, noodles, breads, vegetables). Eat fish or skinless chicken (boiled or baked rather than fried) for protein. Beans and peas are good sources of fat-free protein. Soups are usually very low-fat. Don't eat anything fried. Avoid red meats. Avoid most dairy products. Skim milk and non-fat yogurt are OK. Most popular cheeses are very high-fat. Don't add butter or sauces -- use lemon or pepper instead. If you like salads, use one of the new "non-fat" dressings. "Fast Food" is "fat food." There is virtually nothing from a typical fast- food restaurant that you can eat. Fish patties and chicken nuggets are almost always deep-fat fried. "Special Sauces" are mostly fat. ANTINAUSEA MEDICATION: You have been given a medication to suppress nausea and vomiting. This type of medication can be given as a shot, pill, or suppository. It will usually last for many hours. Pills and shots usually last six to eight hours, suppositories last about 12 hours. For the typical illness, only one or two doses of the medication may be necessary. Mild lightheadedness may occur. This type of medicine can cause drowsiness. Do not drive or operate dangerous machinery while under its influence. Do not mix with alcohol. See your doctor at once if you have muscle spasms or tightness, or uncontrollable motions (particularly of the neck, mouth, or jaw). Persistent vomiting or severe lightheadedness should also be evaluated by the physician. FOLLOW-UP CARE: If you have been referred to a physician for follow-up care, call the physician s office for an appointment as you were instructed or within the next two days. If you experience worsening or a significant change in your symptoms, notify the physician immediately or return to the Emergency Department at any time for re-evaluation. Please consider following up with the Surgeon at [facility] that already evaluated you as you will most liley be able to acquire faster treatment being that you are already established with that surgeon since you were evaluated by him at [facility] and you have [facility]. If you are unable to see [facility] you are welcome to follow up with our surgery clinic, Dr. Davis, for reevaluation and further treatment for your symptoms which I suspect is coming from your gallbladder. You should also see a GI physician since you had episodes of dark emesis last week. Please continue to take prilosec 40mg every day and avoid acidic foods, meats, fatty food, coffee, tea, and any spicy foods. Return to the ER if you have vomiting of blood, worsening pain, intractable vomiting, or feel unwell. Please do not smoke. Prescriptions: Ondansetron [Zofran Odt 4 mg Tablet] 1 tab PO Q4H PRN #15 tab.rapdis PRN Reason: For Nausea/Vomiting Forms: Return to Work Referrals: LEONEL DAVIS MD [ACTIVE STAFF] - Follow up in 3-5 days KAYLA CLEARY MD [ACTIVE STAFF] - Follow up in 3-5 days
[2017-10-17 03:05] VITALS: BP 114/70
== END 2017-10-17 03:04 | disposition home or self-care (01) ==
LOC: ER 21:56
DX: R10.11 Right upper quadrant pain (principal); R11.10 Vomiting, unspecified
CPT/HCPCS: 99284; 36415; 83690; 85025; 81025; 80053; 81001; 76705; S0119

== ENCOUNTER 2017-11-13 13:37 | Emergency (ER) | payer OTHER ==
[2017-11-13] MEDS ORDERED: NORMAL SALINE 1000 ML 1,000 ML IV ONE (14:07)
--- NOTE | 2017-11-13 14:10 | ER Document Report ---
ED Medical Screen (RME) - General Chief Complaint: Chest Pain Stated Complaint: DIZZY,SHAKING,HEADACHE Time Seen by Provider: 11/13/17 14:06 Mode of Arrival: Ambulatory Information source: Patient TRAVEL OUTSIDE OF THE [place] IN LAST 30 DAYS: No - HPI Patient complains to provider of: tachycardia; light-headed Onset: Just prior to arrival - pt with episode of light-headedness and dizziness earlier this afternoon with near syncope and tachycardia. - Related Data Allergies/Adverse Reactions: ciprofloxacin [From Cipro] Allergy (Severe, Verified 11/13/17 13:38) Anaphylaxis guaifenesin [From Mucinex] Allergy (Severe, Verified 11/13/17 13:38) Anaphylaxis nitrofurantoin macrocrystalline [From Macrobid] Allergy (Severe, Verified 13:38) Anaphylaxis Penicillins Allergy (Severe, Verified 11/13/17 13:38) Anaphylaxis sulfamethoxazole [From Bactrim] Allergy (Severe, Verified 11/13/17 13:38) anaphylaxis/hives tramadol [Tramadol] Allergy (Severe, Verified 11/13/17 13:38) Anaphylaxis hydromorphone HCl [From Dilaudid] Allergy (Intermediate, Verified 11/13/17 13:38 ) Hives amoxicillin [Amoxicillin] Allergy (Verified 11/13/17 13:38) anaphylaxis/hives nitrofurantoin [From Macrobid] Allergy (Verified 11/13/17 13:38) Anaphylaxis trimethoprim [From Bactrim] Allergy (Verified 11/13/17 13:38) Past Medical History - Past Medical History Cardiac Medical History: Denies: Hx Coronary Artery Disease, Hx Heart Attack, Hx Hypertension Pulmonary Medical History: Reports: Hx Asthma Denies: Hx Bronchitis, Hx COPD, Hx Pneumonia Neurological Medical History: Reports: Hx Migraine. Denies: Hx Cerebrovascular Accident, Hx Seizures Renal/ Medical History: Reports: Hx Kidney Stones, Hx Ovarian Cysts. Denies: Hx Peritoneal Dialysis GI Medical History: Reports: Hx Gastroesophageal Reflux Disease. Denies: Hx Hepatitis, Hx Hiatal Hernia, Hx Ulcer Musculoskeltal Medical History: 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, knees, fingers Psychiatric Medical History: Reports: Hx Anxiety, Hx Attention Deficit Hyperactivity Disorder, Hx Bipolar Disorder, Hx Depression, Hx Post Traumatic Stress Disorder Infectious Medical History: Denies: Hx Hepatitis Past Surgical History: Reports: Hx Appendectomy, Hx Section, Hx Orthopedic Surgery - cervical spine surgery , Other - septoplasty, bilateral knee surgery (miniscus tears, ) , right foot surgery. Denies: Hx Hysterectomy, Hx Mastectomy, Hx Open Heart Surgery, Hx Pacemaker - Immunizations Hx Diphtheria, Pertussis, Tetanus Vaccination: Yes Physical Exam - Vital signs Vitals: Temp Pulse Resp BP Pulse Ox 98.6 F 78 16 116/73 95 11/13/17 13:50 11/13/17 13:50 11/13/17 13:50 11/13/17 13:50 11/13/17 13:50 Course - Vital Signs Vital signs: Temp Pulse Resp BP Pulse Ox 98.6 F 78 16 116/73 95 11/13/17 13:50 11/13/17 13:50 11/13/17 13:50 11/13/17 13:50 11/13/17 13:50
[2017-11-13 14:50] LABS: APPEARANCE,URINE CLEAR; BILIRUBIN,URINE NEGATIVE (NEGATIVE); COLOR,URINE YELLOW; GLUCOSE, URINE NEGATIVE (NEGATIVE); KETONES,URINE NEGATIVE (NEGATIVE); LEUKOCYTE ESTERASE,URINE NEGATIVE (NEGATIVE); NITRITE,URINE NEGATIVE (NEGATIVE); PROTEIN,URINE NEGATIVE (NEGATIVE); URINE SPECIFIC GRAVITY 1.003; UROBILINOGEN,URINE NEGATIVE mg/dL (<2.0)
[2017-11-13 15:01] LABS: ABSOLUTE BASOPHILS # (AUTO) 0.1 10^3/uL (0.0-0.2); ABSOLUTE EOSINOPHILS # (AUTO) 0.2 10^3/uL (0.0-0.6); ABSOLUTE LYMPHOCYTES (AUTO) 3.1 10^3/uL (0.5-4.7); ABSOLUTE MONOCYTES (AUTO) 0.4 10^3/uL (0.1-1.4); ABSOLUTE NEUT (AUTO) 3.9 10^3/uL (1.7-8.2); BASOPHILS % (AUTO) 0.9 % (0-2); EOSINOPHILS % (AUTO) 2.3 % (0-6); HEMATOCRIT 42.4 % (36.0-47.0); HEMOGLOBIN 14.3 g/dL (12.0-15.5); LYMPHOCYTES % (AUTO) 40.1 % (13-45); MEAN CORPUSCULAR HEMOGLOBIN 30.4 pg (27.0-33.4); MEAN CORPUSCULAR HGB CONC 33.7 g/dL (32.0-36.0); MEAN CORPUSCULAR VOLUME 90 fl (80-97); MONOCYTES % (AUTO) 5.7 % (3-13); PLATELET COUNT 305 10^3/uL (150-450); RED CELL DISTRIBUTION WIDTH 14.1 % (11.5-14.0); TOTAL CELLS COUNTED % (AUTO) 100 %; WHITE BLOOD COUNT 7.7 10^3/uL (4.0-10.5)
[2017-11-13 15:14] LABS: ALANINE AMINOTRANSFERASE 19 U/L (9-52); ALBUMIN 4.2 g/dL (3.5-5.0); ALKALINE PHOSPHATASE 115 U/L (38-126); ANION GAP 9 (5-19); ASPARTATE AMINO TRANSFERASE 18 U/L (14-36); BILIRUBIN,DIRECT 0.3 mg/dL (0.0-0.4); BILIRUBIN,TOTAL 0.3 mg/dL (0.2-1.3); BLOOD UREA NITROGEN 12 mg/dL (7-20); CALCIUM 9.6 mg/dL (8.4-10.2); CARBON DIOXIDE 28 mmol/L (22-30); CHLORIDE 104 mmol/L (98-107); GLUCOSE 81 mg/dL (75-110); SODIUM 140.5 mmol/L (137-145); TOTAL PROTEIN 7.5 g/dL (6.3-8.2)
[2017-11-13] MEDS ORDERED: KETOROLAC TROMETHAMINE 60 MG/2 ML SDV IV ONE (15:35)
[2017-11-13] MEDS ORDERED: PROCHLORPERAZINE EDISYLATE INJ 10 MG/2 ML VIAL IV ONE (15:35)
[2017-11-13] MEDS ORDERED: DIPHENHYDRAMINE HCL 50 MG/ML VIAL IV ONE (15:35)
--- NOTE | 2017-11-13 15:55 | ER Document Report ---
ED General - General Mode of Arrival: Ambulatory Information source: Patient TRAVEL OUTSIDE OF THE [place] IN LAST 30 DAYS: No <MUNA DUKES - Last Filed: 11/13/17 22:28> <MARLEEN CUMMINGS - Last Filed: 11/13/17 22:33> - General Chief Complaint: Chest Pain Stated Complaint: DIZZY,SHAKING,HEADACHE Time Seen by Provider: 11/13/17 14:06 Notes: Patient is a 27 year old female that presents to the emergency department today with complaints of feeling lightheaded and dizzy for the last x3-4 days. Significant other at bedside describes episodes beginning last night where the patient appeared to not be able to "see or talk" and "was twitching". Patient states she sees "spots and flashes of color" during these episodes. Patient states she can hear everything but she feels like she cannot talk. All of these episodes occurred while the patient was standing and she remained standing during the entire episode. Patient has a history of migraine headaches and she states that the headache she has today is worse in intensity and is in a different location than her normal headaches. Patient states that her headache today is more frontal in location which is different from her normal headaches which start in her neck and work their way up the back of her head. Patient has neck pain currently which is baseline for her. Patient states she has had some nausea as well. Patient denies a sore throat, ear pain, vomiting, or diarrhea. ( MUNA DUKES) - Related Data Allergies/Adverse Reactions: ciprofloxacin [From Cipro] Allergy (Severe, Verified 11/13/17 13:38) Anaphylaxis guaifenesin [From Mucinex] Allergy (Severe, Verified 11/13/17 13:38) Anaphylaxis nitrofurantoin macrocrystalline [From Macrobid] Allergy (Severe, Verified 13:38) Anaphylaxis Penicillins Allergy (Severe, Verified 11/13/17 13:38) Anaphylaxis sulfamethoxazole [From Bactrim] Allergy (Severe, Verified 11/13/17 13:38) anaphylaxis/hives tramadol [Tramadol] Allergy (Severe, Verified 11/13/17 13:38) Anaphylaxis hydromorphone HCl [From Dilaudid] Allergy (Intermediate, Verified 11/13/17 13:38 ) Hives amoxicillin [Amoxicillin] Allergy (Verified 11/13/17 13:38) anaphylaxis/hives nitrofurantoin [From Macrobid] Allergy (Verified 11/13/17 13:38) Anaphylaxis trimethoprim [From Bactrim] Allergy (Verified 11/13/17 13:38) Past Medical History - General Information source: Patient - Social History Smoking Status: Current Every Day Smoker Cigarette use (# per day): Yes Chew tobacco use (# tins/day): No Frequency of alcohol use: Occasional Drug Abuse: None Family History: Reviewed & Not Pertinent Patient has suicidal ideation: No Patient has homicidal ideation: No Pulmonary Medical History: Reports: Hx Asthma Neurological Medical History: Reports: Hx Migraine Renal/ Medical History: Reports: Hx Kidney Stones, Hx Ovarian Cysts. Denies: Hx Peritoneal Dialysis GI Medical History: Reports: Hx Gastroesophageal Reflux Disease Musculoskeltal Medical History: 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, knees, fingers Psychiatric Medical History: Reports: Hx Anxiety, Hx Attention Deficit Hyperactivity Disorder, Hx Bipolar Disorder, Hx Depression, Hx Post Traumatic Stress Disorder Infectious Medical History: Denies: Hx Hepatitis Past Surgical History: Reports: Hx Appendectomy, Hx Section, Hx Orthopedic Surgery - cervical spine surgery , Other - septoplasty, bilateral knee surgery (miniscus tears, ) , right foot surgery. Denies: Hx Hysterectomy, Hx Mastectomy, Hx Open Heart Surgery, Hx Pacemaker - Immunizations Hx Diphtheria, Pertussis, Tetanus Vaccination: Yes <MUNA DUKES - Last Filed: 11/13/17 22:28> - Social History Smoking Education Provided: Yes - 4 mins <MARLEEN CUMMINGS - Last Filed: 11/13/17 22:33> Review of Systems - Review of Systems Constitutional: No symptoms reported EENT: See HPI, Other - "seeing spots and colors". denies: Nose pain, Throat pain Cardiovascular: See HPI, Dizziness, Lightheaded Respiratory: No symptoms reported Gastrointestinal: See HPI, Nausea. denies: Diarrhea, Vomiting Genitourinary: No symptoms reported Female Genitourinary: No symptoms reported Musculoskeletal: No symptoms reported Skin: See HPI, Other - clammy Hematologic/Lymphatic: No symptoms reported Neurological/Psychological: See HPI, Seizure - ?, Headaches -: Yes All other systems reviewed and negative <MUNA DUKES - Last Filed: 11/13/17 22:28> Physical Exam <MUNA DUKES - Last Filed: 11/13/17 22:28> <MARLEEN CUMMINGS - Last Filed: 11/13/17 22:33> - Vital signs Vitals: Temp Pulse Resp BP Pulse Ox 98.6 F 78 16 116/73 95 11/13/17 13:50 11/13/17 13:50 11/13/17 13:50 11/13/17 13:50 11/13/17 13:50 - Notes Notes: PHYSICAL EXAM GENERAL: Alert, interacts well. No acute distress. HEAD: Normocephalic, atraumatic. EYES: Pupils equal, round, and reactive to light. Extraocular movements intact. ENT: Oral mucosa moist, tongue midline. Nares patent, no nasal septal hematoma, TM's intact, TMs injected bilaterally, clear fluid behind both TMs, bulging bilaterally. No posterior pharynx erythema or exudate. Frontal sinus tenderness to percussion bilaterally. NECK: Full range of motion. Supple. Trachea midline. LUNGS: Clear to auscultation bilaterally, no wheezes, rales, or rhonchi. No respiratory distress. HEART: Regular rate and rhythm. No murmurs, gallops, or rubs. ABDOMEN: Soft, non-tender. Non-distended. Bowel sounds present in all 4 quadrants. EXTREMITIES: Moves all 4 extremities spontaneously. No edema, radial and dorsalis pedis pulses 2/4 bilaterally. No cyanosis. NEUROLOGICAL: Alert and oriented x3. Normal speech. Cranial nerves II through XII grossly intact. Biceps and patellar DTRs 2+ bilaterally. Finger to nose and heel to malik test intact bilaterally. Mildly photophobic. PSYCH: Normal affect, normal mood. SKIN: Warm, dry, normal turgor. No rashes or lesions noted. (MUNA DUKES) Course - Laboratory Result Diagrams: 11/13/17 14:34 11/13/17 14:34 <MUNA DUKES - Last Filed: 11/13/17 22:28> - Laboratory Result Diagrams: 11/13/17 14:34 11/13/17 14:34 <MARLEEN CUMMINGS - Last Filed: 11/13/17 22:33> - Re-evaluation Re-evalutation: 11/13/17 17:37 CBC unremarkable, CMP unremarkable, urinalysis shows small blood but 0 RBCs, test is negative, EKG is nonischemic. Patient is feeling much better after migraine cocktail and a liter of fluids. She received Toradol, Compazine and Benadryl. Patient has frontal sinus tenderness to percussion with clear fluid behind her tympanic membranes, I suspect that a viral sinusitis is causing her pain and is triggering migraines. Patient will be discharged to home with nasal steroids and nasal saline rinses. The fact that the patient is staying conscious through the streaking episodes and is not following to the ground points away from epileptiform seizures. Discussed with patient that I do not think she is having seizures. Patient will be discharged home. (MARLEEN CUMMINGS) - Vital Signs Vital signs: Temp Pulse Resp BP Pulse Ox 98.6 F 63 18 123/75 97 11/13/17 17:59 11/13/17 17:59 11/13/17 17:59 11/13/17 17:59 11/13/17 17:59 - Laboratory Laboratory results interpreted by me: 11/13/17 11/13/17 14:26 14:34 RDW 14.1 H Urine Blood SMALL H - EKG Interpretation by Me Additional EKG results interpreted by me: 11/13/17 17:38 EKG shows sinus rhythm at a rate of 72, normal axis, normal intervals, no ST segment elevations or depressions, no T-wave inversions per my interpretation. ( MARLEEN CUMMINGS) Discharge <MUNA DUKES - Last Filed: 11/13/17 22:28> <MARLEEN CUMMINGS - Last Filed: 11/13/17 22:33> - Discharge Clinical Impression: Frontal headache, Acute viral sinusitis, Tobacco abuse, Tobacco abuse counseling Condition: Stable Disposition: HOME, SELF-CARE Additional Instructions: I suspect you have a viral sinus infection of your frontal sinuses. This is what is causing the headache in your forehead. I suspect this is triggering you to have migraines as well. Please use nasal saline rinses such as a NetiPot or NeilMed Sinus Rinses. Please also use nasal steroid such as Flonase or Nasonex 1 squirt per nostril twice a day. Return for fevers, neck stiffness that is unusual for you or any new or concerning symptoms. Prescriptions: Fluticasone Propionate [Flonase Nasal Windsor 50 Mcg/Windsor 16 gm] 1 spray NASL Q12 #1 inhaler Forms: Smoking Cessation Education Scribe Attestation: 11/13/17 22:33 I personally performed the services described in the documentation, reviewed and edited the documentation which was dictated to the scribe in my presence, and it accurately records my words and actions. (MARLEEN CUMMINGS) Scribe Documentation - Scribe Written by Mehul:: Mehul Redmond, [id number] acting as scribe for :: Daisy <MUNA DUKES - Last Filed: 11/13/17 22:28>
[2017-11-13 18:01] VITALS: BP 123/75
--- NOTE | 2017-11-13 20:53 | EKG REPORT ---
SEVERITY:- NORMAL ECG - SINUS RHYTHM : Confirmed by: Charli Valente 13-Nov-2017 20:52:58
== END 2017-11-13 18:00 | disposition home or self-care (01) ==
LOC: ER 13:37
DX: J01.90 Acute sinusitis, unspecified (principal); B97.89 Other viral agents as the cause of diseases classified elsewhere; R42 Dizziness and giddiness; H53.8 Other visual disturbances; H53.149 Visual discomfort, unspecified; R11.0 Nausea; J45.909 Unspecified asthma, uncomplicated; F17.210 Nicotine dependence, cigarettes, uncomplicated; Z71.6 Tobacco abuse counseling
CPT/HCPCS: 93005; 99406; 99285; 96361; 96374; 96375; 36415; 85025; 81025; 80053; 81001; 93010; J1200; J1885; J0780; J7030

== ENCOUNTER 2018-02-21 14:55 | Day surgery (SDC) | payer OTHER | END 2018-02-21 16:50 | disposition home or self-care (01) | LOC: END 14:55 | PROVIDERS: ATTEND Internal Medicine Gastroenterology | DX: K21.9 Gastro-esophageal reflux disease without esophagitis (principal) ==

== ENCOUNTER 2019-03-14 15:21 | Emergency (ER) | payer OTHER ==
[2019-03-14 15:40] VITALS: BP 115/73
--- NOTE | 2019-03-14 15:57 | ER Document Report ---
ED Medical Screen (RME) - General Chief Complaint: Abdominal Pain Stated Complaint: ABDOMINAL PAIN Time Seen by Provider: 03/14/19 15:55 Primary Care Provider: HIPOLITO SCHWARZ MD [Primary Care Provider] - Follow up as needed Mode of Arrival: Ambulatory Information source: Patient Notes: 28-year-old female presented to ED for complaint of left pelvic pain. She sta rohit she is not having any vaginal bleeding any nausea vomiting any vaginal discharge and her last bowel movement was last night. She states she had an ovarian cyst about 3 months ago and this feels the same as that did. She states she did not follow-up with WEB SITE ADMINISTRATOR after the last ovarian cyst. I have greeted and performed a rapid initial assessment of this patient. A comprehensive ED assessment and evaluation of the patient, analysis of test results and completion of medical decision making process will be conducted by an additional ED providers. Dictation of this chart was performed using voice recognition software; therefore, there may be some unintended grammatical errors. TRAVEL OUTSIDE OF THE [place] IN LAST 30 DAYS: No - Related Data Allergies/Adverse Reactions: ciprofloxacin [From Cipro] Allergy (Severe, Verified 11/13/17 13:38) Anaphylaxis guaifenesin [From Mucinex] Allergy (Severe, Verified 11/13/17 13:38) Anaphylaxis nitrofurantoin macrocrystalline [From Macrobid] Allergy (Severe, Verified 11/13/17 13:38) Anaphylaxis Penicillins Allergy (Severe, Verified 11/13/17 13:38) Anaphylaxis sulfamethoxazole [From Bactrim] Allergy (Severe, Verified 11/13/17 13:38) anaphylaxis/hives tramadol [Tramadol] Allergy (Severe, Verified 11/13/17 13:38) Anaphylaxis hydromorphone HCl [From Dilaudid] Allergy (Intermediate, Verified 11/13/17 13:38) Hives amoxicillin [Amoxicillin] Allergy (Verified 11/13/17 13:38) anaphylaxis/hives nitrofurantoin [From Macrobid] Allergy (Verified 11/13/17 13:38) Anaphylaxis trimethoprim [From Bactrim] Allergy (Verified 11/13/17 13:38) Past Medical History - Past Medical History Cardiac Medical History: Denies: Hx Coronary Artery Disease, Hx Heart Attack, Hx Hypertension Pulmonary Medical History: Reports: Hx Asthma Denies: Hx Bronchitis, Hx COPD, Hx Pneumonia Neurological Medical History: Reports: Hx Migraine. Denies: Hx Cerebrovascular Accident, Hx Seizures Renal/ Medical History: Reports: Hx Kidney Stones, Hx Ovarian Cysts. Denies: Hx Peritoneal Dialysis GI Medical History: Reports: Hx Gastroesophageal Reflux Disease. Denies: Hx Hepatitis, Hx Hiatal Hernia, Hx Ulcer Musculoskeltal Medical History: 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, knees, fingers Psychiatric Medical History: Reports: Hx Anxiety, Hx Attention Deficit Hyperactivity Disorder, Hx Bipolar Disorder, Hx Depression, Hx Post Traumatic Stress Disorder Infectious Medical History: Denies: Hx Hepatitis Past Surgical History: Reports: Hx Appendectomy, Hx Section, Hx Orthopedic Surgery - cervical spine surgery , Other - septoplasty, bilateral knee surgery (miniscus tears, ) , right foot surgery. Denies: Hx Hysterectomy, Hx Mastectomy, Hx Open Heart Surgery, Hx Pacemaker - Immunizations Hx Diphtheria, Pertussis, Tetanus Vaccination: Yes Physical Exam - Vital signs Vitals: Temp Pulse Resp BP Pulse Ox 98.4 F 103 H 13 115/73 96 03/14/19 15:39 03/14/19 15:39 03/14/19 15:39 03/14/19 15:39 03/14/19 15:39 Course - Vital Signs Vital signs: Temp Pulse Resp BP Pulse Ox 98.4 F 103 H 13 115/73 96 03/14/19 15:39 03/14/19 15:39 03/14/19 15:39 03/14/19 15:39 03/14/19 15:39 Doctor's Discharge - Discharge Referrals: HIPOLITO SCHWARZ MD [Primary Care Provider] - Follow up as needed
[2019-03-14 16:49] LABS: ABSOLUTE EOSINOPHILS # (AUTO) 0.3 10^3/uL (0.0-0.6); ABSOLUTE LYMPHOCYTES (AUTO) 3.2 10^3/uL (0.5-4.7); ABSOLUTE MONOCYTES (AUTO) 0.5 10^3/uL (0.1-1.4); BASOPHILS % (AUTO) 0.5 % (0-2); EOSINOPHILS % (AUTO) 2.5 % (0-6); HEMATOCRIT 41.3 % (36.0-47.0); HEMOGLOBIN 14.2 g/dL (12.0-15.5); MEAN CORPUSCULAR HEMOGLOBIN 32.7 pg (27.0-33.4); MEAN CORPUSCULAR HGB CONC 34.5 g/dL (32.0-36.0); MEAN CORPUSCULAR VOLUME 95 fl (80-97); MONOCYTES % (AUTO) 5.3 % (3-13); PLATELET COUNT 264 10^3/uL (150-450); RED BLOOD COUNT 4.35 10^6/uL (3.72-5.28); RED CELL DISTRIBUTION WIDTH 13.7 % (11.5-14.0); SEGMENTED NEUTROPHILS % (AUTO) 59.7 % (42-78); TOTAL CELLS COUNTED % (AUTO) 100 %
[2019-03-14 16:50] LABS: APPEARANCE,URINE SLIGHTLY-CLOUDY; BILIRUBIN,URINE NEGATIVE (NEGATIVE); COLOR,URINE YELLOW; GLUCOSE, URINE NEGATIVE (NEGATIVE); KETONES,URINE NEGATIVE (NEGATIVE); LEUKOCYTE ESTERASE,URINE NEGATIVE (NEGATIVE); NITRITE,URINE NEGATIVE (NEGATIVE); PROTEIN,URINE NEGATIVE (NEGATIVE); URINE SPECIFIC GRAVITY 1.017; UROBILINOGEN,URINE NEGATIVE mg/dL (<2.0)
[2019-03-14 17:09] LABS: ALANINE AMINOTRANSFERASE 22 U/L (9-52); ALBUMIN 4.1 g/dL (3.5-5.0); ALKALINE PHOSPHATASE 87 U/L (38-126); ANION GAP 8 (5-19); ASPARTATE AMINO TRANSFERASE 19 U/L (14-36); BILIRUBIN,DIRECT 0.2 mg/dL (0.0-0.4); BILIRUBIN,TOTAL 0.2 mg/dL (0.2-1.3); BLOOD UREA NITROGEN 16 mg/dL (7-20); CALCIUM 9.4 mg/dL (8.4-10.2); CARBON DIOXIDE 26 mmol/L (22-30); CHLORIDE 106 mmol/L (98-107); GLUCOSE 99 mg/dL (75-110); POTASSIUM 4.4 mmol/L (3.6-5.0); SODIUM 140.1 mmol/L (137-145); TOTAL PROTEIN 7.1 g/dL (6.3-8.2)
[2019-03-14] MEDS ORDERED: OXYCODONE-ACETAMINOPHEN 5-325 MG TABLET PO ONE (17:51)
--- NOTE | 2019-03-14 17:56 | ER Document Report ---
HPI - HPI Patient complains to provider of: Pelvic pain Time Seen by Provider: 03/14/19 15:55 Onset: This afternoon Onset/Duration: Gradual Quality of pain: Achy Pain Level: 4 Context: Patient presents complaining of left lower pelvic pain that started today. Patient denies any vaginal bleeding discharge urinary symptoms nausea vomiting or diarrhea. Patient states that she has a history of ovarian cyst and suspects the same today. Patient denies any concerns about any STI. Associated Symptoms: Other - Left lower quadrant pain Exacerbated by: Movement Relieved by: Denies Similar symptoms previously: Yes Recently seen / treated by doctor: No - ROS ROS below otherwise negative: Yes Systems Reviewed and Negative: Yes All other systems reviewed and negative - CONSTITUTIONAL Constitutional: DENIES: Fever, Chills - RESPIRATORY Respiratory: DENIES: Coughing - GASTROINTESTINAL Gastrointestinal: REPORTS: Abdominal Pain. DENIES: Nausea, Patient vomiting, D iarrhea - URINARY Urinary: DENIES: Dysuria, Urgency, Frequency - REPRODUCTIVE Reproductive: DENIES: :, Abnormal bleeding / discharge - MUSCULOSKELETAL Musculoskeletal: DENIES: Back Pain - DERM Skin Color: Normal Skin Problems: None Past Medical History - General Information source: Patient - Social History Smoking Status: Current Every Day Smoker Chew tobacco use (# tins/day): No Smoking Education Provided: Yes Frequency of alcohol use: None Drug Abuse: None Occupation: None Lives with: Spouse/Significant other Family History: Reviewed & Not Pertinent Patient has suicidal ideation: No Patient has homicidal ideation: No Pulmonary Medical History: Reports: Hx Asthma Neurological Medical History: Reports: Hx Migraine Renal/ Medical History: Reports: Hx Kidney Stones, Hx Ovarian Cysts GI Medical History: Reports: Hx Gastroesophageal Reflux Disease Musculoskeletal Medical History: 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, knees, fingers Psychiatric Medical History: Reports: Hx Anxiety, Hx Attention Deficit Hyperactivity Disorder, Hx Bipolar Disorder, Hx Depression, Hx Post Traumatic Stress Disorder Past Surgical History: Reports: Hx Appendectomy, Hx Section, Hx Orthopedic Surgery - cervical spine surgery -2016, Other - septoplasty, bilateral knee surgery (miniscus tears, ) , right foot surgery - Immunizations Hx Diphtheria, Pertussis, Tetanus Vaccination: Yes Vertical Provider Document - CONSTITUTIONAL Agree With Documented VS: Yes Exam Limitations: No Limitations General Appearance: WD/WN, No Apparent Distress - INFECTION CONTROL TRAVEL OUTSIDE OF THE [place] IN LAST 30 DAYS: No - HEENT HEENT: Atraumatic, Normocephalic - NECK Neck: Normal Inspection, Supple. negative: Lymphadenopathy-Left, Lymphadenopathy-Right - RESPIRATORY Respiratory: Breath Sounds Normal, No Respiratory Distress - CARDIOVASCULAR Cardiovascular: Regular Rate, Regular Rhythm, No Murmur - GI/ABDOMEN Gastrointestinal: Abdomen Soft, Abdomen Tender - LLQ pelvic tenderness. negative: Abdominal Guarding - BACK Back: Normal Inspection. negative: CVA Tenderness-Right, CVA Tenderness-Left - MUSCULOSKELETAL/EXTREMETIES Musculoskeletal/Extremeties: MAEW - NEURO Level of Consciousness: Awake, Alert, Appropriate Motor/Sensory: No Motor Deficit - DERM Integumentary: Warm, Dry, No Rash Course - Re-evaluation Re-evalutation: 03/14/19 17:52 Patient presents with left lower pelvic pain. Patient states she has history of ovarian cyst and states that this feels typical of ovarian cyst she has had in the past. Patient declines any additional testing or ultrasound to be performed today. Patient states that she feels as though that is a waste of time as she has had this chronically in the past. Patient states that she would just like something for her pain here at this time. Patient states that she has taken Percocet in the past. Review of prescription profile and computer demonstrates that patient has an active prescription for Percocet filled on 02/16/2019 for 30-day supply with 90 tablets. Patient states she does not have this medication anymore because she turned it in to the pharmacy so that she did not have it in her home around her child. Offered patient additional testing to include ultrasound to evaluate for possible TOA or torsion. Patient declines this test at this time stating that she would just like something to help manage her symptoms and would like to be discharged home. Patient with benign diagnostic evaluation while here in the ER today. Patient presents with abdominal pain without signs of peritonitis or other life-threatening or serious etiology. Patient appears stable for discharge and has been instructed to return immediately if the symptoms worsen in any way for reevaluation. - Vital Signs Vital signs: Temp Pulse Resp BP Pulse Ox 98.4 F 103 H 13 115/73 96 03/14/19 15:39 03/14/19 15:39 03/14/19 15:39 03/14/19 15:39 03/14/19 15:39 - Laboratory Result Diagrams: 03/14/19 16:18 03/14/19 16:18 Laboratory results interpreted by me: 03/14/19 16:18 Urine Ascorbic Acid 20 H 03/14/19 17:52 Labs- Entire Visit 03/14/19 03/14/19 03/14/19 16:18 16:18 16:18 WBC 10.0 RBC 4.35 Hgb 14.2 Hct 41.3 MCV 95 MCH 32.7 MCHC 34.5 RDW 13.7 Plt Count 264 Seg Neutrophils % 59.7 Lymphocytes % 32.0 Monocytes % 5.3 Eosinophils % 2.5 Basophils % 0.5 Absolute Neutrophils 6.0 Absolute Lymphocytes 3.2 Absolute Monocytes 0.5 Absolute Eosinophils 0.3 Absolute Basophils 0.0 Sodium 140.1 Potassium 4.4 Chloride 106 Carbon Dioxide 26 Anion Gap 8 BUN 16 Creatinine 0.67 Est GFR ( Amer) > 60 Est GFR (Non-Af Amer) > 60 Glucose 99 Calcium 9.4 Total Bilirubin 0.2 Direct Bilirubin 0.2 Neonat Total Bilirubin Not Reportable Neonat Direct Bilirubin Not Reportable Neonat Indirect Bili Not Reportable AST 19 ALT 22 Alkaline Phosphatase 87 Total Protein 7.1 Albumin 4.1 Beta HCG, Quant < 2.39 Total Beta HCG NEGATIVE Urine Color YELLOW Urine Appearance SLIGHTLY-CLOUDY Urine pH 6.0 Ur Specific [place] 1.017 Urine Protein NEGATIVE Urine Glucose (UA) NEGATIVE Urine Ketones NEGATIVE Urine Blood NEGATIVE Urine Nitrite NEGATIVE Urine Bilirubin NEGATIVE Urine Urobilinogen NEGATIVE Ur Leukocyte Esterase NEGATIVE Urine WBC (Auto) 3 Urine RBC (Auto) 1 Squamous Epi Cells Auto 11 Urine Mucus (Auto) RARE Urine Ascorbic Acid 20 H Discharge - Discharge Clinical Impression: Pelvic pain, Hx of ovarian cyst Condition: Stable Disposition: HOME, SELF-CARE Instructions: Pelvic Pain ([facility]) Additional Instructions: Return immediately for any new or worsening symptoms Followup with your primary care provider, call tomorrow to make a followup appointment Follow-up with a underground conduit installer for further evaluation of pelvic pain Forms: Smoking Cessation Education Referrals: HIPOLITO SCHWARZ MD [Primary Care Provider] - Follow up as needed [facility] [Provider Group] - Follow up as needed
== END 2019-03-14 18:09 | disposition home or self-care (01) ==
LOC: ER 15:21
DX: R10.2 Pelvic and perineal pain (principal); R10.32 Left lower quadrant pain; F17.200 Nicotine dependence, unspecified, uncomplicated; J45.909 Unspecified asthma, uncomplicated; Z87.42 Personal history of other diseases of the female genital tract; Z87.442 Personal history of urinary calculi; Z90.49 Acquired absence of other specified parts of digestive tract
CPT/HCPCS: 36415; 80053; 81001; 84702; 85025; 99284

== ENCOUNTER 2019-03-30 20:47 | Emergency (ER) | payer OTHER ==
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
[2019-03-30] MEDS ORDERED: OXYCODONE-ACETAMINOPHEN 5-325 MG TABLET PO ONE (23:04)
[2019-03-30 23:16] VITALS: BP 131/72
== END 2019-03-30 23:43 | disposition home or self-care (01) ==
LOC: ER 20:47
DX: G89.4 Chronic pain syndrome (principal)
CPT/HCPCS: 99281

== ENCOUNTER 2019-05-05 16:36 | Emergency (ER) | payer OTHER ==
[2019-05-05] MEDS ORDERED: ONDANSETRON 4 MG TAB.RAPDIS PO ONE (17:10)
--- NOTE | 2019-05-05 17:14 | ER Document Report ---
ED Medical Screen (RME) - General Chief Complaint: Pelvic Pain Stated Complaint: PELVIC PAIN Time Seen by Provider: 05/05/19 17:07 Primary Care Provider: DENISE DOE, TELEPHONE SERVICES SALES REPRESENTATIVE [Primary Care Provider] - Follow up as needed Mode of Arrival: Ambulatory Information source: Patient Notes: This 25-year-old female presents emergency department with left lower quad abdominal pain and reports of pelvic pain. She denies fever pain with void vaginal discharge vaginal bleeding. Reports the pain will come and she will vomit. Reports she is vomited at least 5 times today. Reports she has a history of IBS Crohn's and diverticulitis. She also has history of ovarian cyst. Patient reports she does have unprotected sex last menstrual period was April 27. Left lower quad abdomen is tender to palpate. Last Motrin was at 1600. I have greeted and performed a rapid initial assessment of this patient. A comprehensive ED assessment and evaluation of the patient, analysis of test results and completion of the medical decision making process will be conducted by additional ED providers. Dictation of this chart was performed using voice recognition software; therefore, there may be some unintended grammatical errors. TRAVEL OUTSIDE OF THE [place] IN LAST 30 DAYS: No - Related Data Allergies/Adverse Reactions: ciprofloxacin [From Cipro] Allergy (Severe, Verified 11/13/17 13:38) Anaphylaxis guaifenesin [From Mucinex] Allergy (Severe, Verified 11/13/17 13:38) Anaphylaxis nitrofurantoin macrocrystalline [From Macrobid] Allergy (Severe, Verified 11/13/17 13:38) Anaphylaxis Penicillins Allergy (Severe, Verified 11/13/17 13:38) Anaphylaxis sulfamethoxazole [From Bactrim] Allergy (Severe, Verified 11/13/17 13:38) anaphylaxis/hives tramadol [Tramadol] Allergy (Severe, Verified 11/13/17 13:38) Anaphylaxis hydromorphone HCl [From Dilaudid] Allergy (Intermediate, Verified 11/13/17 13:38) Hives acetaminophen [From [place]] Allergy (Verified 05/05/19 16:37) amoxicillin [Amoxicillin] Allergy (Verified 11/13/17 13:38) anaphylaxis/hives hydrocodone [From [place]] Allergy (Verified 05/05/19 16:37) nitrofurantoin [From Macrobid] Allergy (Verified 11/13/17 13:38) Anaphylaxis trimethoprim [From Bactrim] Allergy (Verified 11/13/17 13:38) Past Medical History - Social History Chew tobacco use (# tins/day): No Frequency of alcohol use: None Drug Abuse: None - Past Medical History Cardiac Medical History: Denies: Hx Coronary Artery Disease, Hx Heart Attack, Hx Hypertension Pulmonary Medical History: Reports: Hx Asthma Denies: Hx Bronchitis, Hx COPD, Hx Pneumonia Neurological Medical History: Reports: Hx Migraine. Denies: Hx Cerebrovascular Accident, Hx Seizures Renal/ Medical History: Reports: Hx Kidney Stones, Hx Ovarian Cysts. Denies: Hx Peritoneal Dialysis GI Medical History: Reports: Hx Gastroesophageal Reflux Disease. Denies: Hx Hepatitis, Hx Hiatal Hernia, Hx Ulcer Musculoskeltal Medical History: 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, knees, fingers Psychiatric Medical History: Reports: Hx Anxiety, Hx Attention Deficit Hyperactivity Disorder, Hx Bipolar Disorder, Hx Depression, Hx Post Traumatic Stress Disorder Infectious Medical History: Denies: Hx Hepatitis Past Surgical History: Reports: Hx Appendectomy, Hx Section, Hx Orthopedic Surgery - cervical spine surgery , Other - septoplasty, bilateral knee surgery (miniscus tears, ) , right foot surgery. Denies: Hx Hysterectomy, Hx Mastectomy, Hx Open Heart Surgery, Hx Pacemaker - Immunizations Hx Diphtheria, Pertussis, Tetanus Vaccination: Yes Physical Exam - Vital signs Vitals: Temp Pulse Resp BP Pulse Ox 98.0 F 85 16 121/77 96 05/05/19 16:40 05/05/19 16:40 05/05/19 16:40 05/05/19 16:40 05/05/19 16:40 Course - Vital Signs Vital signs: Temp Pulse Resp BP Pulse Ox 98.0 F 85 16 121/77 96 05/05/19 16:40 05/05/19 16:40 05/05/19 16:40 05/05/19 16:40 05/05/19 16:40 Doctor's Discharge - Discharge Referrals: DENISE DOE NP [Primary Care Provider] - Follow up as needed
[2019-05-05 18:11] LABS: ABSOLUTE EOSINOPHILS # (AUTO) 0.2 10^3/uL (0.0-0.6); ABSOLUTE LYMPHOCYTES (AUTO) 3.5 10^3/uL (0.5-4.7); ABSOLUTE MONOCYTES (AUTO) 0.4 10^3/uL (0.1-1.4); ABSOLUTE NEUT (AUTO) 4.4 10^3/uL (1.7-8.2); APPEARANCE,URINE CLEAR; BASOPHILS % (AUTO) 0.6 % (0-2); BILIRUBIN,URINE NEGATIVE (NEGATIVE); COLOR,URINE YELLOW; EOSINOPHILS % (AUTO) 2.2 % (0-6); GLUCOSE, URINE NEGATIVE (NEGATIVE); HEMATOCRIT 40.1 % (36.0-47.0); HEMOGLOBIN 13.6 g/dL (12.0-15.5); KETONES,URINE NEGATIVE (NEGATIVE); LEUKOCYTE ESTERASE,URINE NEGATIVE (NEGATIVE); MEAN CORPUSCULAR HEMOGLOBIN 31.9 pg (27.0-33.4); MEAN CORPUSCULAR VOLUME 94 fl (80-97); MONOCYTES % (AUTO) 5.2 % (3-13); NITRITE,URINE NEGATIVE (NEGATIVE); PLATELET COUNT 231 10^3/uL (150-450); PROTEIN,URINE NEGATIVE (NEGATIVE); RED BLOOD COUNT 4.27 10^6/uL (3.72-5.28); RED CELL DISTRIBUTION WIDTH 12.8 % (11.5-14.0); TOTAL CELLS COUNTED % (AUTO) 100 %; URINE SPECIFIC GRAVITY 1.023; UROBILINOGEN,URINE NEGATIVE mg/dL (<2.0); WHITE BLOOD COUNT 8.6 10^3/uL (4.0-10.5)
[2019-05-05 18:24] LABS: ALKALINE PHOSPHATASE 92 U/L (38-126); ANION GAP 8 (5-19); ASPARTATE AMINO TRANSFERASE 18 U/L (14-36); BILIRUBIN,DIRECT 0.2 mg/dL (0.0-0.4); BILIRUBIN,TOTAL 0.2 mg/dL (0.2-1.3); BLOOD UREA NITROGEN 17 mg/dL (7-20); CALCIUM 9.4 mg/dL (8.4-10.2); CARBON DIOXIDE 25 mmol/L (22-30); CHLORIDE 107 mmol/L (98-107); GLUCOSE 93 mg/dL (75-110); POTASSIUM 4.4 mmol/L (3.6-5.0)
--- NOTE | 2019-05-05 21:31 | ER Document Report ---
ED GI/ - General Chief Complaint: Pelvic Pain Stated Complaint: PELVIC PAIN Time Seen by Provider: 05/05/19 17:07 Primary Care Provider: DENISE DOE NP [NO LOCAL MD] - Follow up as needed Mode of Arrival: Ambulatory Notes: 29-year-old female patient emergency part chief complaint of left lower quadrant pain. Patient states that she has a long-standing history of pelvic pain. History of ovarian cyst. Patient takes that she has another ovarian cyst. Wants something for the pain. States her last menstrual period was April 27. Denies any fever, chills, sweats. States that she starts vomiting due to the pain. Denies any excessive vaginal discharge. TRAVEL OUTSIDE OF THE [place] IN LAST 30 DAYS: No - HPI Patient complains to provider of: Pelvic pain Onset: Yesterday Timing/Duration: Gradual Quality of pain: Throbbing Severity at maximum: Moderate Pain Level: 3 Location: LLQ Vaginal bleeding (Compared to normal period): None - Related Data Allergies/Adverse Reactions: ciprofloxacin [From Cipro] Allergy (Severe, Verified 11/13/17 13:38) Anaphylaxis guaifenesin [From Mucinex] Allergy (Severe, Verified 11/13/17 13:38) Anaphylaxis nitrofurantoin macrocrystalline [From Macrobid] Allergy (Severe, Verified 11/13/17 13:38) Anaphylaxis Penicillins Allergy (Severe, Verified 11/13/17 13:38) Anaphylaxis sulfamethoxazole [From Bactrim] Allergy (Severe, Verified 11/13/17 13:38) anaphylaxis/hives tramadol [Tramadol] Allergy (Severe, Verified 11/13/17 13:38) Anaphylaxis hydromorphone HCl [From Dilaudid] Allergy (Intermediate, Verified 11/13/17 13:38) Hives acetaminophen [From [place]] Allergy (Verified 05/05/19 16:37) amoxicillin [Amoxicillin] Allergy (Verified 11/13/17 13:38) anaphylaxis/hives hydrocodone [From [place]] Allergy (Verified 05/05/19 16:37) nitrofurantoin [From Macrobid] Allergy (Verified 11/13/17 13:38) Anaphylaxis trimethoprim [From Bactrim] Allergy (Verified 11/13/17 13:38) Past Medical History - General Information source: Patient - Social History Smoking Status: Current Every Day Smoker Chew tobacco use (# tins/day): No Frequency of alcohol use: None Drug Abuse: None Lives with: Spouse/Significant other Family History: Reviewed & Not Pertinent Patient has suicidal ideation: No Patient has homicidal ideation: No - Past Medical History Cardiac Medical History: Denies: Hx Coronary Artery Disease, Hx Heart Attack, Hx Hypertension Pulmonary Medical History: Reports: Hx Asthma Denies: Hx Bronchitis, Hx COPD, Hx Pneumonia Neurological Medical History: Reports: Hx Migraine. Denies: Hx Cerebrovascular Accident, Hx Seizures Renal/ Medical History: Reports: Hx Kidney Stones, Hx Ovarian Cysts. Denies: Hx Peritoneal Dialysis GI Medical History: Reports: Hx Gastroesophageal Reflux Disease. Denies: Hx Hepatitis, Hx Hiatal Hernia, Hx Ulcer Musculoskeletal Medical History: 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, knees, fingers Psychiatric Medical History: Reports: Hx Anxiety, Hx Attention Deficit Hyperactivity Disorder, Hx Bipolar Disorder, Hx Depression, Hx Post Traumatic Stress Disorder Infectious Medical History: Denies: Hx Hepatitis Past Surgical History: Reports: Hx Appendectomy, Hx Section, Hx Orthopedic Surgery - cervical spine surgery , Other - septoplasty, bilateral knee surgery (miniscus tears, ) , right foot surgery. Denies: Hx Hysterectomy, Hx Mastectomy, Hx Open Heart Surgery, Hx Pacemaker - Immunizations Hx Diphtheria, Pertussis, Tetanus Vaccination: Yes Review of Systems - Review of Systems Notes: Constitutional: denies: Chills, Diaphoresis, Fever, Malaise, Weakness EENT: denies: Eye discharge, Blurred vision, Tearing, Double vision, Nose congestion, Nose discharge, Throat swelling, Mouth pain Cardiovascular: denies: Palpitations, Heart racing, Orthopnea, Dyspnea, Chest pain Respiratory: denies: Cough, Hurts to breathe, Wheezing, Shortness of breath Gastrointestinal: denies: Abdominal pain, Diarrhea, Black stools, bright red blood in stool, +Nausea, +Vomiting, Genitourinary: denies: Burning, Dysuria, Discharge, Frequency, Flank pain, Hematuria, + left lower quadrant pelvic pain Musculoskeletal: denies: Joint pain, Joint swelling, Muscle pain, Muscle stiffness, back pain Hematologic/Lymphatic: denies: Anemia, Easy bleeding, Easy bruising, Blood clots Neurological/Psychological: denies: Confusion, Dementia, Depression, Loss of consciousness Skin: No lesions, no masses, no skin breakdown, no abscesses Physical Exam - Vital signs Vitals: Temp Pulse Resp BP Pulse Ox 98.0 F 85 16 121/77 96 05/05/19 16:40 05/05/19 16:40 05/05/19 16:40 05/05/19 16:40 05/05/19 16:40 Interpretation: Normal - General General appearance: Appears well, Alert - HEENT Head: Normocephalic, Atraumatic Eyes: Normal Pupils: PERRL - Respiratory Respiratory status: No respiratory distress Chest status: Nontender Breath sounds: Normal Chest palpation: Normal - Cardiovascular Rhythm: Regular Heart sounds: Normal auscultation Murmur: No - Abdominal Inspection: Normal Distension: No distension Bowel sounds: Normal Tenderness: Tender - Tenderness in the left lower quadrant Organomegaly: No organomegaly - Genitourinary External exam: Normal Speculum exam: Normal Vaginal bleeding: None Bimanuel exam: Adnexal tenderness - left - Back Back: Normal, Nontender - Extremities General upper extremity: Normal inspection, Nontender, Normal color, Normal ROM, Normal temperature General lower extremity: Normal inspection, Nontender, Normal color, Normal ROM, Normal temperature, Normal weight bearing. No: Jacques's sign - Neurological Neuro grossly intact: Yes Cognition: Normal Orientation: AAOx4 [place] Coma Scale Eye Opening: Spontaneous [place] Coma Scale Verbal: Oriented [place] Coma Scale Motor: Obeys Commands Horacio Coma Scale Total: 15 Speech: Normal Motor strength normal: LUE, RUE, LLE, RLE Sensory: Normal - Psychological Associated symptoms: Normal affect, Normal mood - Skin Skin Temperature: Warm Skin Moisture: Dry Skin Color: Normal Course - Re-evaluation Re-evalutation: 05/05/19 21:48 She has been seen here multiple times for similar complaint. She has frequent narcotic prescriptions. 05/05/19 23:05 Pelvic exam is grossly unremarkable. Wet mount did show budding yeast so we will give her some Diflucan. Patient admits that this is a recurrent issue. I review of her prescriptions show that she should still have Percocet available as she has a 30-day supply prescribed on 09 April and dispense 90 Percocets. She did receive a shot of morphine and some Toradol. At this time I believe that her emergency work-up is complete. I find no evidence that she is having any acute life-threatening injuries or illnesses. She has been properly treated for her pain. Her labs are unremarkable. She is not . She does not appear to have a ovarian torsion. She does not have any peritoneal signs. Patient remained stable for discharge at this time. 05/05/19 23:07 Laboratory 05/05/19 05/05/19 05/05/19 17:56 17:56 17:56 WBC 8.6 RBC 4.27 Hgb 13.6 Hct 40.1 MCV 94 MCH 31.9 MCHC 34.0 RDW 12.8 Plt Count 231 Seg Neutrophils % 51.0 Lymphocytes % 41.0 Monocytes % 5.2 Eosinophils % 2.2 Basophils % 0.6 Absolute Neutrophils 4.4 Absolute Lymphocytes 3.5 Absolute Monocytes 0.4 Absolute Eosinophils 0.2 Absolute Basophils 0.0 Sodium 139.9 Potassium 4.4 Chloride 107 Carbon Dioxide 25 Anion Gap 8 BUN 17 Creatinine 0.58 Est GFR ( Amer) > 60 Est GFR (Non-Af Amer) > 60 Glucose 93 Calcium 9.4 Total Bilirubin 0.2 Direct Bilirubin 0.2 Neonat Total Bilirubin Not Reportable Neonat Direct Bilirubin Not Reportable Neonat Indirect Bili Not Reportable AST 18 ALT 16 Alkaline Phosphatase 92 Total Protein 7.0 Albumin 4.0 Lipase 40.6 Urine Color YELLOW Urine Appearance CLEAR Urine pH 6.0 Ur Specific [place] 1.023 Urine Protein NEGATIVE Urine Glucose (UA) NEGATIVE Urine Ketones NEGATIVE Urine Blood NEGATIVE Urine Nitrite NEGATIVE Urine Bilirubin NEGATIVE Urine Urobilinogen NEGATIVE Ur Leukocyte Esterase NEGATIVE Urine RBC (Auto) 11 Squamous Epi Cells Auto 2 Urine Mucus (Auto) RARE Urine Ascorbic Acid NEGATIVE Urine HCG, Qual NEGATIVE Bacteria (Wet Prep) Trichomonas (Wet Prep) Vaginal WBC Vaginal RBC Vaginal Yeast 05/05/19 22:40 WBC RBC Hgb Hct MCV MCH MCHC RDW Plt Count Seg Neutrophils % Lymphocytes % Monocytes % Eosinophils % Basophils % Absolute Neutrophils Absolute Lymphocytes Absolute Monocytes Absolute Eosinophils Absolute Basophils Sodium Potassium Chloride Carbon Dioxide Anion Gap BUN Creatinine Est GFR ( Amer) Est GFR (Non-Af Amer) Glucose Calcium Total Bilirubin Direct Bilirubin Neonat Total Bilirubin Neonat Direct Bilirubin Neonat Indirect Bili AST ALT Alkaline Phosphatase Total Protein Albumin Lipase Urine Color Urine Appearance Urine pH Ur Specific [place] Urine Protein Urine Glucose (UA) Urine Ketones Urine Blood Urine Nitrite Urine Bilirubin Urine Urobilinogen Ur Leukocyte Esterase Urine RBC (Auto) Squamous Epi Cells Auto Urine Mucus (Auto) Urine Ascorbic Acid Urine HCG, Qual Bacteria (Wet Prep) 4+ BACTERIA SEEN Trichomonas (Wet Prep) NO TRICHOMONAS SEEN Vaginal WBC FEW WBCS SEEN Vaginal RBC NO RBCS SEEN Vaginal Yeast BUDDING YEAST SEEN Transvaginal US 05/05/19 21:38 IMPRESSION: No acute findings. Right ovary is not visualized. - Vital Signs Vital signs: Temp Pulse Resp BP Pulse Ox 98.0 F 85 16 121/77 96 05/05/19 16:40 05/05/19 16:40 05/05/19 16:40 05/05/19 16:40 05/05/19 16:40 - Laboratory Result Diagrams: 05/05/19 17:56 05/05/19 17:56 Discharge - Discharge Clinical Impression: Pelvic pain Condition: Good Disposition: HOME, SELF-CARE Instructions: [facility], Pain Medication Injection ([facility]), Toradol Injection ([facility]), Pelvic Pain ([facility]), Vaginal Yeast Infection ([facility]) Additional Instructions: Please continue with your pain medication at home. Follow-up with [facility]. Return for any worsening symptoms or concerns. Referrals: DENISE DOE NP [NO LOCAL MD] - Follow up as needed [facility] [Provider Group] - Follow up in 1 week
[2019-05-05] MEDS ORDERED: MORPHINE SULFATE 10 MG/ML INJ IM ONE (21:39)
[2019-05-05] MEDS ORDERED: KETOROLAC TROMETHAMINE 60 MG/2 ML SDV IM ONE (21:39)
--- NOTE | 2019-05-05 22:54 | RADIOLOGY REPORT (SQ) ---
EXAM DESCRIPTION: US PELVIS TRANSVAGINAL COMPLETED DATE/TME: 05/05/2019 21:38 CLINICAL HISTORY: 29 years Female, LLQ pain Comparison: None. Technique: Transvaginal. LIMITATIONS: None. FINDINGS: 8-cm uterus, 1.2-cm endometrial stripe thickness, nonvisualized right ovary, and 3.6-cm left ovary appear otherwise unremarkable in size, shape, echotexture, and vascularity. No free fluid. IMPRESSION: No acute findings. Right ovary is not visualized.
[2019-05-05 23:03] LABS: BACTERIA (WET MOUNT) 4+ BACTERIA SEEN; RBCS (WET MOUNT) NO RBCS SEEN; T.VAGINALIS (WET MOUNT) NO TRICHOMONAS SEEN; WBCS (WET MOUNT) FEW WBCS SEEN; YEAST (WET MOUNT) BUDDING YEAST SEEN
[2019-05-05] MEDS ORDERED: FLUCONAZOLE 100 MG TABLET PO ONE (23:04)
[2019-05-05] MEDS ORDERED: OXYCODONE-ACETAMINOPHEN 5-325 MG TABLET PO ONE (23:08)
[2019-05-05 23:24] VITALS: BP 115/74
[2019-05-06 00:20] LABS: CHLAM PCR NOT DETECTED (NOT DETECT)
== END 2019-05-05 23:25 | disposition home or self-care (01) ==
LOC: ER 16:36
DX: R10.2 Pelvic and perineal pain (principal); R10.32 Left lower quadrant pain; R11.10 Vomiting, unspecified; F17.200 Nicotine dependence, unspecified, uncomplicated
CPT/HCPCS: 99285; 96372; 36415; 87210; 83690; 85025; 81025; 80053; 81001; 87491; 87591; 76830; 93976; J1885; S0119; J2270

== ENCOUNTER 2019-05-06 23:18 | Emergency (ER) | payer OTHER ==
[2019-05-07] MEDS ORDERED: ONDANSETRON HCL INJ/PF 4 MG/2 ML SDV IV ONE (01:15)
[2019-05-07] MEDS ORDERED: NORMAL SALINE 1000 ML 1,000 ML IV ONE (01:15)
[2019-05-07] MEDS ORDERED: KETOROLAC TROMETHAMINE INJ/PF 30 MG/1 ML SDV IV ONE (01:15)
--- NOTE | 2019-05-07 01:18 | ER Document Report ---
ED Medical Screen (RME) - General Chief Complaint: Pelvic Pain Stated Complaint: PELVIC PAIN Time Seen by Provider: 05/07/19 01:10 Primary Care Provider: MARISA SMITH DO [Primary Care Provider] - Follow up as needed Notes: Patient is a 29-year-old female presents to the emergency department with a chief complaint of left lower quadrant pain. Patient states she was seen in the emergency department yesterday for the same type of pain and diagnosed with a yeast infection. Patient states that doctors in the past have told her she may have endometriosis but she has not followed up with an [facility]. Patient states that she was told to return if her symptoms worsen which is why she is here in the emergency department today. Patient states she has vomited 4 times today due to the increase in pain. Patient denies urinary symptoms. Patient states that the discomfort is like a sharp stabbing-like pain in the left lower quadrant that is nonradiating. Patient reports she had a normal bowel movement today. Patient states that she is here to get some pain control. TRAVEL OUTSIDE OF THE [place] IN LAST 30 DAYS: No - Related Data Allergies/Adverse Reactions: ciprofloxacin [From Cipro] Allergy (Severe, Verified 05/07/19 01:09) Anaphylaxis guaifenesin [From Mucinex] Allergy (Severe, Verified 05/07/19 01:09) Anaphylaxis nitrofurantoin macrocrystalline [From Macrobid] Allergy (Severe, Verified 05/07/19 01:09) Anaphylaxis Penicillins Allergy (Severe, Verified 05/07/19 01:09) Anaphylaxis sulfamethoxazole [From Bactrim] Allergy (Severe, Verified 05/07/19 01:09) anaphylaxis/hives tramadol [Tramadol] Allergy (Severe, Verified 05/07/19 01:09) Anaphylaxis hydromorphone HCl [From Dilaudid] Allergy (Intermediate, Verified 05/07/19 01:0 9) Hives amoxicillin [Amoxicillin] Allergy (Verified 05/07/19 01:09) anaphylaxis/hives hydrocodone [From [place]] Allergy (Verified 05/07/19 01:09) nitrofurantoin [From Macrobid] Allergy (Verified 05/07/19 01:09) Anaphylaxis trimethoprim [From Bactrim] Allergy (Verified 05/07/19 01:09) Past Medical History - Social History Frequency of alcohol use: None Drug Abuse: None - Past Medical History Cardiac Medical History: Denies: Hx Coronary Artery Disease, Hx Heart Attack, Hx Hypertension Pulmonary Medical History: Reports: Hx Asthma Denies: Hx Bronchitis, Hx COPD, Hx Pneumonia Neurological Medical History: Reports: Hx Migraine. Denies: Hx Cerebrovascular Accident, Hx Seizures Renal/ Medical History: Reports: Hx Kidney Stones, Hx Ovarian Cysts. Denies: Hx Peritoneal Dialysis GI Medical History: Reports: Hx Gastroesophageal Reflux Disease. Denies: Hx Hepatitis, Hx Hiatal Hernia, Hx Ulcer Musculoskeltal Medical History: 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, knees, fingers Psychiatric Medical History: Reports: Hx Anxiety, Hx Attention Deficit Hyperactivity Disorder, Hx Bipolar Disorder, Hx Depression, Hx Post Traumatic Stress Disorder Infectious Medical History: Denies: Hx Hepatitis Past Surgical History: Reports: Hx Appendectomy, Hx Section, Hx Orthopedic Surgery - cervical spine surgery , Other - septoplasty, bilateral knee surgery (miniscus tears, ) , right foot surgery. Denies: Hx Hysterectomy, Hx Mastectomy, Hx Open Heart Surgery, Hx Pacemaker - Immunizations Hx Diphtheria, Pertussis, Tetanus Vaccination: Yes Physical Exam - Vital signs Vitals: Temp Pulse Resp BP Pulse Ox 98 F 108 H 20 117/57 L 100 05/06/19 23:20 05/06/19 23:20 05/06/19 23:20 05/06/19 23:20 05/06/19 23:20 - Abdominal Inspection: Normal Distension: No distension Bowel sounds: Normal Tenderness: Tender - LLQ tenderness Organomegaly: No organomegaly Course - Re-evaluation Re-evalutation: 05/07/19 01:17 We will give the patient IV fluids, Zofran for her nausea and Toradol for her pain to start. I have greeted and performed a rapid initial assessment of this patient. A comprehensive ED assessment and evaluation of the patient, analysis of test results and completion of the medical decision making process will be conducted by additional ED providers. - Vital Signs Vital signs: Temp Pulse Resp BP Pulse Ox 98 F 108 H 20 117/57 L 100 05/06/19 23:20 05/06/19 23:20 05/06/19 23:20 05/06/19 23:20 05/06/19 23:20 Doctor's Discharge - Discharge Referrals: MARISA SMITH DO [Primary Care Provider] - Follow up as needed
[2019-05-07] MEDS ORDERED: OXYCODONE-ACETAMINOPHEN 5-325 MG TABLET PO ONE (03:02)
--- NOTE | 2019-05-07 03:03 | ER Document Report ---
ED GI/ - General Chief Complaint: Pelvic Pain Stated Complaint: PELVIC PAIN Time Seen by Provider: 05/07/19 01:10 Primary Care Provider: MARISA SMITH DO [Primary Care Provider] - Follow up as needed Notes: Patient is a 29-year-old female that comes emergency department for chief complaint of left lower quadrant pain. She states that she was seen here yesterday, had a work-up, she states she was told that it was most likely endometriosis that was hurting, and she was treated for a yeast infection. She had an ultrasound, pelvic exam, and laboratory work-up at that time. She states she felt better when she went home but then she started hurting again, she states she vomited 4 times today. She states she vomited from the pain. She denies flank pain, fever/chills, vaginal discharge. Past medical history includes appendectomy, kidney stones, ovarian cysts, fibromyalgia, neck surgery, bipolar/anxiety, IBS. States she had a normal bowel movement earlier today. TRAVEL OUTSIDE OF THE [place] IN LAST 30 DAYS: No - Related Data Allergies/Adverse Reactions: ciprofloxacin [From Cipro] Allergy (Severe, Verified 05/07/19 01:09) Anaphylaxis guaifenesin [From Mucinex] Allergy (Severe, Verified 05/07/19 01:09) Anaphylaxis nitrofurantoin macrocrystalline [From Macrobid] Allergy (Severe, Verified 05/07/19 01:09) Anaphylaxis Penicillins Allergy (Severe, Verified 05/07/19 01:09) Anaphylaxis sulfamethoxazole [From Bactrim] Allergy (Severe, Verified 05/07/19 01:09) anaphylaxis/hives tramadol [Tramadol] Allergy (Severe, Verified 05/07/19 01:09) Anaphylaxis hydromorphone HCl [From Dilaudid] Allergy (Intermediate, Verified 05/07/19 01:09) Hives amoxicillin [Amoxicillin] Allergy (Verified 05/07/19 01:09) anaphylaxis/hives hydrocodone [From [place]] Allergy (Verified 05/07/19 01:09) nitrofurantoin [From Macrobid] Allergy (Verified 05/07/19 01:09) Anaphylaxis trimethoprim [From Bactrim] Allergy (Verified 05/07/19 01:09) Past Medical History - General Information source: Patient - Social History Smoking Status: Current Every Day Smoker Frequency of alcohol use: None Drug Abuse: None Lives with: Family Family History: Reviewed & Not Pertinent Patient has suicidal ideation: No Patient has homicidal ideation: No - Past Medical History Cardiac Medical History: Denies: Hx Coronary Artery Disease, Hx Heart Attack, Hx Hypertension Pulmonary Medical History: Reports: Hx Asthma Denies: Hx Bronchitis, Hx COPD, Hx Pneumonia Neurological Medical History: Reports: Hx Migraine. Denies: Hx Cerebrovascular Accident, Hx Seizures Renal/ Medical History: Reports: Hx Kidney Stones, Hx Ovarian Cysts. Denies: Hx Peritoneal Dialysis GI Medical History: Reports: Hx Gastroesophageal Reflux Disease. Denies: Hx Hepatitis, Hx Hiatal Hernia, Hx Ulcer Musculoskeletal Medical History: 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, knees, fingers Psychiatric Medical History: Reports: Hx Anxiety, Hx Attention Deficit Hyperactivity Disorder, Hx Bipolar Disorder, Hx Depression, Hx Post Traumatic Stress Disorder Infectious Medical History: Denies: Hx Hepatitis Past Surgical History: Reports: Hx Appendectomy, Hx Section, Hx Orthopedic Surgery - cervical spine surgery , Other - septoplasty, bilateral knee surgery (miniscus tears, ) , right foot surgery. Denies: Hx Hysterectomy, Hx Mastectomy, Hx Open Heart Surgery, Hx Pacemaker - Immunizations Hx Diphtheria, Pertussis, Tetanus Vaccination: Yes Review of Systems - Review of Systems Constitutional: No symptoms reported EENT: No symptoms reported Cardiovascular: No symptoms reported Respiratory: No symptoms reported Gastrointestinal: See HPI Genitourinary: No symptoms reported Female Genitourinary: See HPI Musculoskeletal: No symptoms reported Skin: No symptoms reported Hematologic/Lymphatic: No symptoms reported Neurological/Psychological: No symptoms reported Physical Exam - Vital signs Vitals: Temp Pulse Resp BP Pulse Ox 98 F 108 H 20 117/57 L 100 05/06/19 23:20 05/06/19 23:20 05/06/19 23:20 05/06/19 23:20 05/06/19 23:20 - Notes Notes: GENERAL: Sleeping but easily aroused. No signs of distress. HEAD: Normocephalic, atraumatic. EYES: Pupils equal, round, and reactive to light. Extraocular movements intact. ENT: Oral mucosa moist, tongue midline. Oropharynx unremarkable. Airway patent. LUNGS: Clear to auscultation bilaterally, no wheezes, rales, or rhonchi. No respiratory distress. HEART: Regular rate and rhythm. No murmur ABDOMEN: Mild distention. No rigidity, guarding, or significant tenderness. Mild tenderness in the general left lower quadrant. Bowel sounds present in all 4 quadrants. GENITOURINARY: Deferred EXTREMITIES: Moves all 4 extremities spontaneously. No edema, normal radial and dorsalis pedis pulses bilaterally. No cyanosis. BACK: no cervical, thoracic, lumbar midline tenderness. No saddle anesthesia, normal distal neurovascular exam. Moves all extremities in full range of motion. NEUROLOGICAL: Alert and oriented x3. Normal speech. Cranial nerves II through XII grossly intact. PSYCH: Normal affect, normal mood. SKIN: Warm, dry, normal turgor. No rashes or lesions noted. Course - Re-evaluation Re-evalutation: Patient sleeping but easily aroused on my exam. She has some left lower quadrant pain in the abdomen and lower abdomen/pelvic area, however this is not severe. She appears mildly distended but not rigid, there is no guarding. Vital signs unremarkable. CBC, chemistry, urinalysis unremarkable. X-ray showing retained stool throughout the colon, patient does take chronic pain medication. Pelvic exam performed yesterday, ultrasound performed yesterday, test yesterday was negative. Discussed with patient. I do suspect her left lower quadrant pain is from her retained stool, based on her exam and both work-ups I do not suspect acute abdomen or current infection. She remains very well-appearing on exam. I offered magnesium citrate, lactulose, etc., patient declines, she states she will take her MiraLAX at home. She does accept symptom management. Discussed follow-up and return precautions. Patient states understanding and agreement. - Vital Signs Vital signs: Temp Pulse Resp BP Pulse Ox 97.8 F 83 17 106/59 L 100 05/07/19 06:12 05/07/19 06:12 05/07/19 06:12 05/07/19 06:12 05/07/19 06:12 - Laboratory Result Diagrams: 05/07/19 03:36 05/07/19 04:05 Laboratory results interpreted by me: 05/07/19 05/07/19 03:36 04:05 WBC 10.9 H Chloride 111 H Discharge - Discharge Clinical Impression: Abdominal pain Qualifiers: Abdominal location: generalized Qualified Code(s): R10.84 - Generalized abdominal pain Condition: Stable Disposition: HOME, SELF-CARE Additional Instructions: Your work-up shows retained stool in the colon, otherwise no abnormality is noted. I recommend that you drink 1/4 to 1/2 of magnesium citrate (over the counter), then if after several hours you do not have bowel movement results drink another 1/4 to half. You may need to take your stool softener for the next 2-4 days as well. Take bentyl for cramping, Phenergan for nausea. Follow-up with primary care. Return if you worsen including resume vomiting, fever, severe worsening pain, or any other concerning symptoms. Prescriptions: Dicyclomine HCl [Bentyl 20 mg Tablet] 20 mg PO QID PRN #20 tablet PRN Reason: Promethazine HCl [Phenergan 25 mg Tablet] 25 mg PO Q6H PRN #20 tablet PRN Reason: Referrals: MARISA SMITH, [Primary Care Provider] - Follow up as needed
[2019-05-07 03:49] LABS: ABSOLUTE BASOPHILS # (AUTO) 0.1 10^3/uL (0.0-0.2); ABSOLUTE EOSINOPHILS # (AUTO) 0.2 10^3/uL (0.0-0.6); ABSOLUTE LYMPHOCYTES (AUTO) 3.8 10^3/uL (0.5-4.7); ABSOLUTE MONOCYTES (AUTO) 0.5 10^3/uL (0.1-1.4); ABSOLUTE NEUT (AUTO) 6.3 10^3/uL (1.7-8.2); EOSINOPHILS % (AUTO) 2.3 % (0-6); HEMATOCRIT 37.3 % (36.0-47.0); HEMOGLOBIN 12.6 g/dL (12.0-15.5); LYMPHOCYTES % (AUTO) 35.2 % (13-45); MEAN CORPUSCULAR HGB CONC 33.7 g/dL (32.0-36.0); MEAN CORPUSCULAR VOLUME 95 fl (80-97); MONOCYTES % (AUTO) 4.3 % (3-13); PLATELET COUNT 199 10^3/uL (150-450); RED BLOOD COUNT 3.94 10^6/uL (3.72-5.28); RED CELL DISTRIBUTION WIDTH 12.9 % (11.5-14.0); SEGMENTED NEUTROPHILS % (AUTO) 57.2 % (42-78); TOTAL CELLS COUNTED % (AUTO) 100 %; WHITE BLOOD COUNT 10.9 10^3/uL (4.0-10.5)
--- NOTE | 2019-05-07 04:13 | RADIOLOGY REPORT (SQ) ---
EXAM DESCRIPTION: XR ABDOMEN SUPINE AND ERECT WITH CHEST (ABD ACUTE SERIES) COMPLETED DATE/TME: 05/07/2019 03:01 CLINICAL HISTORY: 29 years Female, sharp abd pain/swelling, hx abd surgeries Comparison: None. NUMBER OF VIEWS/TECHNIQUE: 3 LIMITATIONS: None. FINDINGS: Intestinal gas pattern is within normal limits. Paucity of bowel gas. Colonic stool retention. No suspicious calcification. Grossly intact skeletal structures. No acute cardiopulmonary findings. IMPRESSION: No acute findings.
[2019-05-07 04:28] LABS: APPEARANCE,URINE CLEAR; BILIRUBIN,URINE NEGATIVE (NEGATIVE); COLOR,URINE YELLOW; GLUCOSE, URINE NEGATIVE (NEGATIVE); KETONES,URINE NEGATIVE (NEGATIVE); LEUKOCYTE ESTERASE,URINE NEGATIVE (NEGATIVE); NITRITE,URINE NEGATIVE (NEGATIVE); PROTEIN,URINE NEGATIVE (NEGATIVE); URINE SPECIFIC GRAVITY 1.012; UROBILINOGEN,URINE NEGATIVE mg/dL (<2.0)
[2019-05-07 04:39] LABS: ANION GAP 6 (5-19); BLOOD UREA NITROGEN 16 mg/dL (7-20); CALCIUM 8.5 mg/dL (8.4-10.2); CARBON DIOXIDE 24 mmol/L (22-30); CHLORIDE 111 mmol/L (98-107); GLUCOSE 81 mg/dL (75-110)
[2019-05-07] MEDS ORDERED: MAGNESIUM CITRATE 296 ML BOTTLE PO ONE (05:43)
[2019-05-07 06:14] VITALS: BP 106/59
== END 2019-05-07 06:12 | disposition home or self-care (01) ==
LOC: ER 23:18
DX: R10.84 Generalized abdominal pain (principal); R10.2 Pelvic and perineal pain; R10.32 Left lower quadrant pain; F17.200 Nicotine dependence, unspecified, uncomplicated; Z88.3 Allergy status to other anti-infective agents; Z88.0 Allergy status to penicillin; Z88.6 Allergy status to analgesic agent; Z87.442 Personal history of urinary calculi
CPT/HCPCS: 99284; 96361; 96374; 96375; 36415; 85025; 80048; 81001; 74022; J3490; J1885; J2405; J7030

== ENCOUNTER 2019-05-24 11:16 | Emergency (ER) | payer OTHER ==
--- NOTE | 2019-05-24 12:12 | RADIOLOGY REPORT (SQ) ---
EXAM DESCRIPTION: RIBS RIGHT W/PA CHEST COMPLETED DATE/TIME: 05/24/2019 12:02 pm REASON FOR STUDY: fell on right rib, hx of previous rib fx on right COMPARISON: None. TECHNIQUE: Frontal view of the chest and additional views of the right ribs acquired. NUMBER OF VIEWS: 4 LIMITATIONS: None. FINDINGS: FRONTAL CXR: No pneumothorax. No pleural effusion. No atelectasis or infiltrates. RIBS: Acute anterolateral 9th rib fracture. Healed 7th rib fracture. . OTHER: No other significant finding. IMPRESSION: Acute anterolateral 9th rib fracture. No pneumothorax. COMMENT: SITE OF TRAUMA/COMPLAINT MARKED/STAMP COMPLETED: Yes TECHNICAL DOCUMENTATION: JOB ID: [id number]- All Rights Reserved Reading location - IP/workstation name: [email or web address]
[2019-05-24] MEDS ORDERED: KETOROLAC TROMETHAMINE 60 MG/2 ML SDV IM ONE (12:41)
[2019-05-24] MEDS ORDERED: MORPHINE SULFATE 10 MG/ML INJ IM ONE (12:49)
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
[2019-05-24 13:21] VITALS: BP 103/67
== END 2019-05-24 13:22 | disposition home or self-care (01) ==
LOC: ER 11:16
DX: S22.31XD Fracture of one rib, right side, subsequent encounter for fracture with routine healing (principal); R07.81 Pleurodynia; W51.XXXA Accidental striking against or bumped into by another person, initial encounter; W10.9XXD Fall (on) (from) unspecified stairs and steps, subsequent encounter; J45.909 Unspecified asthma, uncomplicated
CPT/HCPCS: 71101; J2270

== ENCOUNTER 2019-05-24 20:05 | Emergency (ER) | payer SELFPAY ==
[2019-05-24] MEDS ORDERED: OXYCODONE-ACETAMINOPHEN 5-325 MG TABLET PO ONE (22:04)
--- NOTE | 2019-05-24 22:08 | ER Document Report ---
ED Medical Screen (RME) - General Chief Complaint: Rib Pain Stated Complaint: RIB PAIN Time Seen by Provider: 05/24/19 22:03 Notes: Patient is a 29-year-old female presents to the emergency department for right upper rib pain. States she was seen at this facility earlier today, diagnosed with rib fractures. States when she got home she was attempting to get away from a stray cats when she accidentally fell onto a wood plank on her right s eris. Patient states she now has increased pain in the right side and is also noted some blood-tinged sputum when she coughs. GENERAL: Alert, interacts well. No acute distress. LUNGS: Shallow breaths yet clear to auscultation bilaterally, no wheezes, rales, or rhonchi. Chest: No crepitus felt, no erythema ecchymosis noted anterior posterior chest wall I have greeted and performed a rapid initial assessment of this patient. A comprehensive ED assessment and evaluation of the patient, analysis of test results and completion of the medical decision making process will be conducted by additional ED providers. I have specifically instructed the patient or family members with the patient to immediately return to any nursing staff should anything change in the patient's condition or with their chief complaint. This medical record was dictated with voice recognizing software. There may be grammatical, syntax errors that are unintended. TRAVEL OUTSIDE OF THE [place] IN LAST 30 DAYS: No - Related Data Allergies/Adverse Reactions: ciprofloxacin [From Cipro] Allergy (Severe, Verified 05/24/19 11:22) Anaphylaxis guaifenesin [From Mucinex] Allergy (Severe, Verified 05/24/19 11:22) Anaphylaxis nitrofurantoin macrocrystalline [From Macrobid] Allergy (Severe, Verified 05/24/19 11:22) Anaphylaxis Penicillins Allergy (Severe, Verified 05/24/19 11:22) Anaphylaxis sulfamethoxazole [From Bactrim] Allergy (Severe, Verified 05/24/19 11:22) anaphylaxis/hives tramadol [Tramadol] Allergy (Severe, Verified 05/24/19 11:22) Anaphylaxis hydromorphone HCl [From Dilaudid] Allergy (Intermediate, Verified 05/24/19 11:22) Hives amoxicillin [Amoxicillin] Allergy (Verified 05/24/19 11:22) anaphylaxis/hives hydrocodone [From [employer]] Allergy (Verified 05/24/19 11:22) nitrofurantoin [From Macrobid] Allergy (Verified 05/24/19 11:22) Anaphylaxis trimethoprim [From Bactrim] Allergy (Verified 05/24/19 11:22) Past Medical History - Past Medical History Cardiac Medical History: Denies: Hx Coronary Artery Disease, Hx Heart Attack, Hx Hypertension Pulmonary Medical History: Reports: Hx Asthma Denies: Hx Bronchitis, Hx COPD, Hx Pneumonia Neurological Medical History: Reports: Hx Migraine. Denies: Hx Cerebrovascular Accident, Hx Seizures Renal/ Medical History: Reports: Hx Kidney Stones, Hx Ovarian Cysts. Denies: Hx Peritoneal Dialysis GI Medical History: Reports: Hx Gastroesophageal Reflux Disease. Denies: Hx Hepatitis, Hx Hiatal Hernia, Hx Ulcer Musculoskeltal Medical History: 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, knees, fingers Psychiatric Medical History: Reports: Hx Anxiety, Hx Attention Deficit Hyperactivity Disorder, Hx Bipolar Disorder, Hx Depression, Hx Post Traumatic Stress Disorder Infectious Medical History: Denies: Hx Hepatitis Past Surgical History: Reports: Hx Appendectomy, Hx Section, Hx Orthopedic Surgery - cervical spine surgery , Other - septoplasty, bilateral knee surgery (miniscus tears, ) , right foot surgery. Denies: Hx Hysterectomy, Hx Mastectomy, Hx Open Heart Surgery, Hx Pacemaker - Immunizations Hx Diphtheria, Pertussis, Tetanus Vaccination: Yes Physical Exam - Vital signs Vitals: Temp Pulse Resp BP Pulse Ox 98.5 F 104 H 17 125/74 96 05/24/19 20:39 05/24/19 20:39 05/24/19 20:39 05/24/19 20:39 05/24/19 20:39 Course - Vital Signs Vital signs: Temp Pulse Resp BP Pulse Ox 98.5 F 104 H 17 125/74 96 05/24/19 20:39 05/24/19 20:39 05/24/19 20:39 05/24/19 20:39 05/24/19 20:39
--- NOTE | 2019-05-24 23:02 | RADIOLOGY REPORT (SQ) ---
EXAM DESCRIPTION: XR RIBS UNILATERAL WITH CHEST COMPLETED DATE/TME: 05/24/2019 22:04 CLINICAL HISTORY: 29 years, Female, right side pain/re-injury after dx rib fx COMPARISON: 05/07/2019 chest x-ray NUMBER OF VIEWS: 3 TECHNIQUE: Frontal view the chest and 2 views of the right ribs LIMITATIONS: None. FINDINGS: The heart size is normal. Lungs are clear. No pneumothorax. There are old healed fractures of the posterior right ninth and 10th ribs. Negative for acute right rib fracture. IMPRESSION: Old healed fractures of the posterior right ninth and 10th ribs. Remainder is unremarkable copyright 2010 [id number]- All Rights Reserved
[2019-05-25] MEDS ORDERED: MORPHINE SULFATE 10 MG/ML INJ IM ONE (01:11)
--- NOTE | 2019-05-25 01:14 | ER Document Report ---
ED General - General Chief Complaint: Rib Pain Stated Complaint: RIB PAIN Time Seen by Provider: 05/24/19 22:03 TRAVEL OUTSIDE OF THE [place] IN LAST 30 DAYS: No - Related Data Allergies/Adverse Reactions: ciprofloxacin [From Cipro] Allergy (Severe, Verified 05/24/19 11:22) Anaphylaxis guaifenesin [From Mucinex] Allergy (Severe, Verified 05/24/19 11:22) Anaphylaxis nitrofurantoin macrocrystalline [From Macrobid] Allergy (Severe, Verified 05/24/19 11:22) Anaphylaxis Penicillins Allergy (Severe, Verified 05/24/19 11:22) Anaphylaxis sulfamethoxazole [From Bactrim] Allergy (Severe, Verified 05/24/19 11:22) anaphylaxis/hives tramadol [Tramadol] Allergy (Severe, Verified 05/24/19 11:22) Anaphylaxis hydromorphone HCl [From Dilaudid] Allergy (Intermediate, Verified 05/24/19 11:22) Hives amoxicillin [Amoxicillin] Allergy (Verified 05/24/19 11:22) anaphylaxis/hives hydrocodone [From [place]] Allergy (Verified 05/24/19 11:22) nitrofurantoin [From Macrobid] Allergy (Verified 05/24/19 11:22) Anaphylaxis trimethoprim [From Bactrim] Allergy (Verified 05/24/19 11:22) Past Medical History - Social History Smoking Status: Unknown if Ever Smoked Family History: Reviewed & Not Pertinent Patient has suicidal ideation: No Patient has homicidal ideation: No - Past Medical History Cardiac Medical History: Denies: Hx Coronary Artery Disease, Hx Heart Attack, Hx Hypertension Pulmonary Medical History: Reports: Hx Asthma Denies: Hx Bronchitis, Hx COPD, Hx Pneumonia Neurological Medical History: Reports: Hx Migraine. Denies: Hx Cerebrovascular Accident, Hx Seizures Renal/ Medical History: Reports: Hx Kidney Stones, Hx Ovarian Cysts. Denies: Hx Peritoneal Dialysis GI Medical History: Reports: Hx Gastroesophageal Reflux Disease. Denies: Hx Hepatitis, Hx Hiatal Hernia, Hx Ulcer Musculoskeletal Medical History: 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, knees, fingers Psychiatric Medical History: Reports: Hx Anxiety, Hx Attention Deficit Hyperactivity Disorder, Hx Bipolar Disorder, Hx Depression, Hx Post Traumatic Stress Disorder Infectious Medical History: Denies: Hx Hepatitis Past Surgical History: Reports: Hx Appendectomy, Hx Section, Hx Orthopedic Surgery - cervical spine surgery , Other - septoplasty, bilateral knee surgery (miniscus tears, ) , right foot surgery. Denies: Hx Hysterectomy, Hx Mastectomy, Hx Open Heart Surgery, Hx Pacemaker - Immunizations Hx Diphtheria, Pertussis, Tetanus Vaccination: Yes Physical Exam - Vital signs Vitals: Temp Pulse Resp BP Pulse Ox 98.5 F 104 H 17 125/74 96 05/24/19 20:39 05/24/19 20:39 05/24/19 20:39 05/24/19 20:39 05/24/19 20:39 Course - Vital Signs Vital signs: Temp Pulse Resp BP Pulse Ox 98.5 F 104 H 17 125/74 96 05/24/19 20:39 05/24/19 20:39 05/24/19 20:39 05/24/19 20:39 05/24/19 20:39 - Diagnostic Test Radiology reviewed: Image reviewed, Reports reviewed Discharge - Discharge Clinical Impression: Rib fracture Qualifiers: Encounter type: initial encounter Rib fracture type: multiple ribs Fracture type: closed Laterality: right Qualified Code(s): S22.41XA - Multiple fractures of ribs, right side, initial encounter for closed fracture Fall Qualifiers: Encounter type: initial encounter Qualified Code(s): W19.XXXA - Unspecified fall, initial encounter Condition: Good Instructions: Rib Injuries and Fractures ([facility]) Additional Instructions: You were prescribed 90 oxycodone tablets on May 09, 2019. I cannot prescribe you any further narcotic medications. It is illegal for the emergency department to treat chronic pain. Please see your primary care physician for any further pain management that is not controlled with Naprosyn or Tylenol.. Your chest wall pain is due to bruising fracture of your ribs. This pain can last for up to 6 weeks. It is very important that you continue to take purposeful deep breaths. For your pain: Continue to take ibuprofen 600 mg every 6 hours or Tylenol 1000 mg every 6 hours. Apply local lidocaine to the area per bottle instructions. There is a product sold [id number] called "Aspercreme with lidocaine" that you can use for this purpose. Please follow-up with her primary care doctor in the next 2-3 days. Return to the emergency department immediately if you develop worsening shortness of breath, increased pain, begin coughing blood, pass out, or have any other symptoms that are worrisome to you. You have been seen in the Emergency Department (ED) today following a fall. Your workup today did not reveal any injuries that require you to stay in the hospital. You can expect, though, to be stiff and sore for the next several days. You can take Tylenol 1000 mg every 6 hours as needed for pain. You can apply a hot pack or electric heating pad to the sore areas. You can also use topical "Aspercreme with lidocaine" to sore areas as needed. Please follow up with your primary care doctor as soon as possible regarding today's ED visit and your recent fall. Call your doctor or return to the ED if you develop a sudden or severe headache, confusion, slurred speech, facial droop, weakness or numbness in any arm or leg, extreme fatigue, vomiting more than two times, severe abdominal pain, or other symptoms that concern you. Recommendations: It is recommended to followup with a primary care doctor within the next 2 days. If you do not have a primary care doctor or you are unable to get an apointment during that time, I left the number for some internal medicine physicians that are affiliated with this [facility]. Dr. Abigail Mccollum [phone], [place] [id number] [phone] Dr Matthews Address: [address] [place] [address] [place] [address] Dr Isbell Address: [address] [place] [address] [place] [address] Forms: Smoking Cessation Education
--- NOTE | 2019-05-25 01:23 | ER Document Report ---
ED General - General Chief Complaint: Rib Pain Stated Complaint: RIB PAIN Time Seen by Provider: 05/24/19 22:03 Mode of Arrival: Ambulatory Information source: Patient, [facility] Records Notes: 29-year-old female with PTSD, bipolar disorder, depression, anxiety presents for the second time today with complaint of right-sided rib pain. Patient reports to me that she fell twice today due to a stray cat trying to get into the house. She states that she fell striking her ribs against a piece of wood. She denies head injury, loss of consciousness. Patient was seen earlier today and gave a completely different history of her rib pain. She reported to this morning's provider that her son jumped on her ribs causing her to have pain. She did not report a fall to the provider this morning but is currently. Patient also did not report to me that she was seen at [facility] for similar symptoms and was prescribed 90 oxycodone's at that time. Patient has pain with breathing. TRAVEL OUTSIDE OF THE [place] IN LAST 30 DAYS: No - HPI Onset: Other Onset/Duration: Gradual, Persistent, Worse Quality of pain: Throbbing Severity: Moderate Pain Level: 2 Associated symptoms: Chest pain, Hurts to breath, Shortness of breath. denies: Nonproductive cough, Productive cough, Fever, Nausea, Vomiting, Sweating, Weakness Exacerbated by: Movement, Coughing Relieved by: Other - Oxycodone Similar symptoms previously: Yes Recently seen / treated by doctor: Yes - Related Data Allergies/Adverse Reactions: ciprofloxacin [From Cipro] Allergy (Severe, Verified 05/24/19 11:22) Anaphylaxis guaifenesin [From Mucinex] Allergy (Severe, Verified 05/24/19 11:22) Anaphylaxis nitrofurantoin macrocrystalline [From Macrobid] Allergy (Severe, Verified 05/24/19 11:22) Anaphylaxis Penicillins Allergy (Severe, Verified 05/24/19 11:22) Anaphylaxis sulfamethoxazole [From Bactrim] Allergy (Severe, Verified 05/24/19 11:22) anaphylaxis/hives tramadol [Tramadol] Allergy (Severe, Verified 05/24/19 11:22) Anaphylaxis hydromorphone HCl [From Dilaudid] Allergy (Intermediate, Verified 05/24/19 11:22) Hives amoxicillin [Amoxicillin] Allergy (Verified 05/24/19 11:22) anaphylaxis/hives hydrocodone [From [place]] Allergy (Verified 05/24/19 11:22) nitrofurantoin [From Macrobid] Allergy (Verified 05/24/19 11:22) Anaphylaxis trimethoprim [From Bactrim] Allergy (Verified 05/24/19 11:22) Past Medical History - General Information source: Patient, [facility] Records - Social History Smoking Status: Current Every Day Smoker Frequency of alcohol use: None Drug Abuse: None Lives with: Spouse/Significant other Family History: Reviewed & Not Pertinent Patient has suicidal ideation: No Patient has homicidal ideation: No - Past Medical History Cardiac Medical History: Denies: Hx Coronary Artery Disease, Hx Heart Attack, Hx Hypertension Pulmonary Medical History: Reports: Hx Asthma Denies: Hx Bronchitis, Hx COPD, Hx Pneumonia Neurological Medical History: Reports: Hx Migraine. Denies: Hx Cerebrovascular Accident, Hx Seizures Renal/ Medical History: Reports: Hx Kidney Stones, Hx Ovarian Cysts. Denies: Hx Peritoneal Dialysis GI Medical History: Reports: Hx Gastroesophageal Reflux Disease. Denies: Hx Hepatitis, Hx Hiatal Hernia, Hx Ulcer Musculoskeletal Medical History: 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, knees, fingers Psychiatric Medical History: Reports: Hx Anxiety, Hx Attention Deficit Hyperactivity Disorder, Hx Bipolar Disorder, Hx Depression, Hx Post Traumatic Stress Disorder Infectious Medical History: Denies: Hx Hepatitis Past Surgical History: Reports: Hx Appendectomy, Hx Section, Hx Orthopedic Surgery - cervical spine surgery , Other - septoplasty, bilateral knee surgery (miniscus tears, ) , right foot surgery. Denies: Hx Hysterectomy, Hx Mastectomy, Hx Open Heart Surgery, Hx Pacemaker - Immunizations Hx Diphtheria, Pertussis, Tetanus Vaccination: Yes Review of Systems - Review of Systems Notes: REVIEW OF SYSTEMS: CONSTITUTIONAL : Denies fever, chills, or sweats. Denies recent illness. Denies weight loss, recent hospitalizations. EENT: Denies visual changes, eye pain. Denies sore throat, oral lesions, difficulty swallowing. CARDIOVASCULAR: Denies chest pain. Denies palpitations. Denies lower extremity edema. RESPIRATORY: Denies cough. Denies shortness of breath, wheezing. GASTROINTESTINAL: Denies abdominal pain or distention. Denies nausea, vomiting, or diarrhea. Denies blood in vomitus, stools, or per rectum. Denies black, tarry stools. Denies constipation. GENITOURINARY: Denies difficulty urinating, painful urination, frequency, blood in urine, or vaginal discharge. MUSCULOSKELETAL: Denies back or neck pain or stiffness. Denies joint pain or swelling. SKIN: Denies rash, lesions or sores. HEMATOLOGIC : Denies easy bruising or bleeding. LYMPHATIC: Denies swollen glands. NEUROLOGICAL: Denies confusion or altered mental status. Denies loss of consciousness. Denies dizziness or lightheadedness. Denies headache. Denies weakness or paralysis. Denies problems difficulty with ambulation, slurred speech. Denies sensory loss, numbness, or tingling. Denies seizures. PSYCHIATRIC: Denies anxiety or stress. Denies depression, suicidal ideation, or homicidal ideation. Denies visual or auditory hallucinations. Physical Exam - Vital signs Vitals: Temp Pulse Resp BP Pulse Ox 98.5 F 104 H 17 125/74 96 05/24/19 20:39 05/24/19 20:39 05/24/19 20:39 05/24/19 20:39 05/24/19 20:39 - Notes Notes: PHYSICAL EXAMINATION: GENERAL: Well-appearing, well-nourished and in no acute distress. HEAD: Atraumatic, normocephalic. Poor dentition EYES: Pupils equal round and reactive to light, extraocular movements intact, conjunctiva are normal. ENT: Nares patent, oropharynx clear without exudates. Moist mucous membranes. NECK: Normal range of motion, supple without lymphadenopathy LUNGS: Breath sounds clear to auscultation bilaterally and equal. No wheezes rales or rhonchi. Tenderness with palpation over the right inferior lateral rib cage without associated ecchymosis, crepitus, flail segment, evidence of trauma. HEART: Regular rate and rhythm without murmurs ABDOMEN: Soft, nontender, nondistended abdomen. No guarding, no rebound. No masses appreciated. Female : deferred Musculoskeletal: Normal range of motion, no pitting or edema. No cyanosis. NEUROLOGICAL: Cranial nerves grossly intact. Normal speech, normal gait. Normal sensory, motor exams PSYCH: Normal mood, normal affect. SKIN: Warm, Dry, normal turgor, no rashes or lesions noted. Course - Re-evaluation Re-evalutation: 05/25/19 01:27 Ribs w/Chest X-Ray 05/24/19 22:04 IMPRESSION: Old healed fractures of the posterior right ninth and 10th ribs. Remainder is unremarkable copyright 2011 [employer] All Rights Reserved Temp Pulse Resp BP Pulse Ox 98.5 F 104 H 17 125/74 96 05/24/19 20:39 05/24/19 20:39 05/24/19 20:39 05/24/19 20:39 05/24/19 20:39 29-year-old female presents for the second time today with complaint of right- sided rib pain. Patient reports to this provider that she had 2 falls today, one this morning and one tonight due to a stray cat trying to get into the home. After reviewing the providers note from this morning this is not the same history that was given. This morning patient stated that her son jumped onto her chest yesterday evening causing her pain. Patient was also seen at [facility] for rib pain where she was diagnosed with a rib fracture and prescribed 90 oxycodone's at that time. Patient was not forthcoming with this information. She did get oxycodone from the provider in triage but will not be discharged home with any narcotic medication. She was advised to use her Naprosyn that was prescribed to her this morning. Patient was evaluated and treated as appropriate for the patient's presenting symptoms and complaint, with consideration of any critical or life threatening conditions that may be associated with their obtained history and exam as noted above. All results were discussed with patient and significant other who is at the bedside. Patient provided the opportunity to ask questions, and express concerns. Patient was educated on treatments based on their presumed diagnosis as noted above. At this time we will discharge the patient with return precautions and follow-up recommendations. Verbal discharge instructions given a the bedside. Medication warnings reviewed. Patient is in agreement with this plan and has verbalized understanding of return precautions. After careful consideration I feel that that patient can be safely discharged from the emergency department, they were advised to followup with a primary care physician in 2-3 days. Dictation on this chart was performed using voice recognition software and may result in unintended grammatical, spelling, syntax or errors. 05/25/19 01:29 - Vital Signs Vital signs: Temp Pulse Resp BP Pulse Ox 98.5 F 104 H 17 125/74 96 05/24/19 20:39 05/24/19 20:39 05/24/19 20:39 05/24/19 20:39 05/24/19 20:39 - Diagnostic Test Radiology reviewed: Image reviewed, Reports reviewed Discharge - Discharge Clinical Impression: Rib fracture Qualifiers: Encounter type: initial encounter Rib fracture type: multiple ribs Fracture type: closed Laterality: right Qualified Code(s): S22.41XA - Multiple fractures of ribs, right side, initial encounter for closed fracture Fall Qualifiers: Encounter type: initial encounter Qualified Code(s): W19.XXXA - Unspecified fall, initial encounter Condition: Good Disposition: HOME, SELF-CARE Instructions: Rib Injuries and Fractures ([facility]) Additional Instructions: You were prescribed 90 oxycodone tablets on May 09, 2019. I cannot prescribe you any further narcotic medications. It is illegal for the emergency department to treat chronic pain. Please see your primary care physician for any further pain management that is not controlled with Naprosyn or Tylenol.. Your chest wall pain is due to bruising fracture of your ribs. This pain can last for up to 6 weeks. It is very important that you continue to take purposeful deep breaths. For your pain: Continue to take ibuprofen 600 mg every 6 hours or Tylenol 1000 mg every 6 hours. Apply local lidocaine to the area per bottle instructions. There is a product sold [id number] called "Aspercreme with lidocaine" that you can use for this purpose. Please follow-up with her primary care doctor in the next 2-3 days. Return to the emergency department immediately if you develop worsening shortness of breath, increased pain, begin coughing blood, pass out, or have any other symptoms that are worrisome to you. You have been seen in the Emergency Department (ED) today following a fall. Your workup today did not reveal any injuries that require you to stay in the hospital. You can expect, though, to be stiff and sore for the next several days. You can take Tylenol 1000 mg every 6 hours as needed for pain. You can apply a hot pack or electric heating pad to the sore areas. You can also use topical "Aspercreme with lidocaine" to sore areas as needed. Please follow up with your primary care doctor as soon as possible regarding today's ED visit and your recent fall. Call your doctor or return to the ED if you develop a sudden or severe headache, confusion, slurred speech, facial droop, weakness or numbness in any arm or leg, extreme fatigue, vomiting more than two times, severe abdominal pain, or other symptoms that concern you. Recommendations: It is recommended to followup with a primary care doctor within the next 2 days. If you do not have a primary care doctor or you are unable to get an apointment during that time, I left the number for some internal medicine physicians that are affiliated with this [facility]. Dr. Abigail Nguyễn [facility] [address], [place] [address] [phone] [address] Matthews Address: [address] [place] [address] [place] [address] Dr sIbell Address: [address] [place] [address] [place] [address] Forms: Smoking Cessation Education
[2019-05-25 01:47] VITALS: BP 103/67
== END 2019-05-25 01:47 | disposition home or self-care (01) ==
LOC: ER 20:05
DX: S22.41XA Multiple fractures of ribs, right side, initial encounter for closed fracture (principal); R07.81 Pleurodynia; W19.XXXA Unspecified fall, initial encounter; F17.200 Nicotine dependence, unspecified, uncomplicated; Z88.0 Allergy status to penicillin; Z88.6 Allergy status to analgesic agent; Z88.3 Allergy status to other anti-infective agents; Z87.442 Personal history of urinary calculi
CPT/HCPCS: J2270

== ENCOUNTER 2019-06-04 08:08 | Emergency (ER) | payer SELFPAY ==
[2019-06-04 08:15] VITALS: BP 121/73
[2019-06-04] MEDS ORDERED: KETOROLAC TROMETHAMINE 60 MG/2 ML SDV IM ONE (08:26)
--- NOTE | 2019-06-04 08:29 | ER Document Report ---
ED General - General Chief Complaint: Headache Stated Complaint: RIB/HEAD PAIN Time Seen by Provider: 06/04/19 08:21 Notes: 29-year female presents with headache "I think all the hardware in my neck and it being cold out" for about 1 day. She also has right chest wall pain worse with breathing and touching after her son jumped on her right chest decided some old rib fractures. Coincidentally she also ran out of her chronic oxycodone in the pain clinic is closed today. TRAVEL OUTSIDE OF THE [place] IN LAST 30 DAYS: No - Related Data Allergies/Adverse Reactions: ciprofloxacin [From Cipro] Allergy (Severe, Verified 06/04/19 08:09) Anaphylaxis guaifenesin [From Mucinex] Allergy (Severe, Verified 06/04/19 08:09) Anaphylaxis nitrofurantoin macrocrystalline [From Macrobid] Allergy (Severe, Verified 06/04/19 08:09) Anaphylaxis Penicillins Allergy (Severe, Verified 06/04/19 08:09) Anaphylaxis sulfamethoxazole [From Bactrim] Allergy (Severe, Verified 06/04/19 08:09) anaphylaxis/hives tramadol [Tramadol] Allergy (Severe, Verified 06/04/19 08:09) Anaphylaxis hydromorphone HCl [From Dilaudid] Allergy (Intermediate, Verified 06/04/19 08:09) Hives amoxicillin [Amoxicillin] Allergy (Verified 06/04/19 08:09) anaphylaxis/hives hydrocodone [From [place]] Allergy (Verified 06/04/19 08:09) nitrofurantoin [From Macrobid] Allergy (Verified 06/04/19 08:09) Anaphylaxis trimethoprim [From Bactrim] Allergy (Verified 06/04/19 08:09) Past Medical History - Social History Smoking Status: Current Every Day Smoker Chew tobacco use (# tins/day): No Frequency of alcohol use: None Drug Abuse: None Family History: Reviewed & Not Pertinent Patient has suicidal ideation: No Patient has homicidal ideation: No - Past Medical History Cardiac Medical History: Denies: Hx Coronary Artery Disease, Hx Heart Attack, Hx Hypertension Pulmonary Medical History: Reports: Hx Asthma Denies: Hx Bronchitis, Hx COPD, Hx Pneumonia Neurological Medical History: Reports: Hx Migraine. Denies: Hx Cerebrovascular Accident, Hx Seizures Renal/ Medical History: Reports: Hx Kidney Stones, Hx Ovarian Cysts. Denies: Hx Peritoneal Dialysis GI Medical History: Reports: Hx Gastroesophageal Reflux Disease. Denies: Hx Hepatitis, Hx Hiatal Hernia, Hx Ulcer Musculoskeletal Medical History: 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, knees, fingers Psychiatric Medical History: Reports: Hx Anxiety, Hx Attention Deficit Hyperactivity Disorder, Hx Bipolar Disorder, Hx Depression, Hx Post Traumatic Stress Disorder Infectious Medical History: Denies: Hx Hepatitis Past Surgical History: Reports: Hx Appendectomy, Hx Section, Hx Orthopedic Surgery - cervical spine surgery , Other - septoplasty, bilateral knee surgery (miniscus tears, ) , right foot surgery. Denies: Hx Hysterectomy, Hx Mastectomy, Hx Open Heart Surgery, Hx Pacemaker - Immunizations Hx Diphtheria, Pertussis, Tetanus Vaccination: Yes Review of Systems - Review of Systems Notes: REVIEW OF SYSTEMS GEN: Denies fever, chills, weight loss ENT: Denies sore throat, nasal discharge, ear pain EYES: Denies blurry vision, eye pain, discharge CV: Denies chest pain, palpitations, edema RESP: Chest wall pain no shortness of breath GI: Denies abdominal pain, nausea, vomiting, diarrhea MSK: Neck pain SKIN: Denies rash, skin lesions LYMPH: Denies swollen glands/lymph nodes NEURO: Denies focal weakness or numbness, dizziness PSYCH: Denies depression, suicidal or homicidal ideation PHYSICAL EXAMINATION General: No acute distress, well-nourished Head: Atraumatic, normocephalic ENT: Mouth normal, oropharynx moist, no exudates or tonsillar enlargement Eyes: Conjunctiva normal, pupils equal, lids normal Neck: No JVD, supple, no guarding CVS: Normal rate, regular rhythm, no murmurs Resp: No resp distress, equal and normal breath sounds bilaterally right chest wall tenderness GI: Nondistended, soft, no tenderness to palpation, no rebound or guarding Ext: No deformities, no edema, normal range of motion in upper and lower ext Back: No CVA or midline TTP Skin: No rash, warm Lymphatic: No lymphadeopathy noted Neuro: Awake, alert. Face symmetric. GCS 15. Physical Exam - Vital signs Vitals: Pulse Resp BP Pulse Ox 84 16 121/73 95 06/04/19 08:12 06/04/19 08:12 06/04/19 08:12 06/04/19 08:12 Course - Re-evaluation Re-evalutation: 06/04/19 08:28 Patient presents with repeat chest wall trauma normal vital signs low suspicion for broken ribs or pneumothorax. She was seen here about a week and a half ago for the same thing during which she said she had rib fractures although her x- ray at that point showed healing old rib fractures. Still has a mild headache but no meningismus or neurologic symptoms to suggest infection also likely exacerbation of chronic neck issues. During a massiel discussion regarding pain management letter know that she will not be receiving narcotics today or prescription for such, we will treat her pain with Toradol rule out pneumothorax and send her home to follow-up with pain clinic I have discussed with the patient there likely diagnosis, aftercare plan, follow-up plans and my usual and customary return precautions. They verbalized understanding of this. 06/04/19 08:31 Informed by nursing 830 that the patient had eloped from the ED without her discharge instructions prior to her x-ray. I do not think she needs to be emergently brought back for the film - Vital Signs Vital signs: Temp Pulse Resp BP Pulse Ox 98.2 F 84 16 121/73 95 06/04/19 08:27 06/04/19 08:12 06/04/19 08:12 06/04/19 08:12 06/04/19 08:12 Discharge - Discharge Clinical Impression: Chest wall pain, Drug-seeking behavior Condition: Good Disposition: HOME, SELF-CARE Instructions: Anti-Inflammatory Medication ([facility]), Chest Wall Pain ([facility]) Additional Instructions: Please call your pain management clinic for all narcotic medicine going forward
== END 2019-06-04 08:36 | disposition home or self-care (01) ==
LOC: ER 08:08
DX: R07.89 Other chest pain (principal); Z76.5 Malingerer [conscious simulation]; R51 Headache; R07.81 Pleurodynia; Z79.899 Other long term (current) drug therapy; F17.200 Nicotine dependence, unspecified, uncomplicated; J45.909 Unspecified asthma, uncomplicated
CPT/HCPCS: 99283

== ENCOUNTER 2019-06-24 19:21 | Emergency (ER) | payer SELFPAY ==
[2019-06-24] MEDS ORDERED: ONDANSETRON 4 MG TAB.RAPDIS PO ONE (19:38)
--- NOTE | 2019-06-24 19:41 | ER Document Report ---
ED Medical Screen (RME) - General Stated Complaint: ABDOMINAL PAIN Time Seen by Provider: 06/24/19 19:32 Mode of Arrival: Ambulatory Information source: Patient Notes: This 29-year-old female with history of diverticulitis IBS and ovarian cyst presents to the emergency department with complaints of left-sided abdominal pain lower abdominal pain for the past 3 days. Reports she is extremely nauseated denies fever vomiting diarrhea. Denies pain with void. I have greeted and performed a rapid initial assessment of this patient. A comprehensive ED assessment and evaluation of the patient, analysis of test results and completion of the medical decision making process will be conducted by additional ED providers. Dictation of this chart was performed using voice recognition software; therefore, there may be some unintended grammatical errors. TRAVEL OUTSIDE OF THE [place] IN LAST 30 DAYS: No - Related Data Allergies/Adverse Reactions: ciprofloxacin [From Cipro] Allergy (Severe, Verified 06/04/19 08:09) Anaphylaxis guaifenesin [From Mucinex] Allergy (Severe, Verified 06/04/19 08:09) Anaphylaxis nitrofurantoin macrocrystalline [From Macrobid] Allergy (Severe, Verified 06/04/19 08:09) Anaphylaxis Penicillins Allergy (Severe, Verified 06/04/19 08:09) Anaphylaxis sulfamethoxazole [From Bactrim] Allergy (Severe, Verified 06/04/19 08:09) anaphylaxis/hives tramadol [Tramadol] Allergy (Severe, Verified 06/04/19 08:09) Anaphylaxis hydromorphone HCl [From Dilaudid] Allergy (Intermediate, Verified 06/04/19 08:09) Hives amoxicillin [Amoxicillin] Allergy (Verified 06/04/19 08:09) anaphylaxis/hives hydrocodone [From [place]] Allergy (Verified 06/04/19 08:09) nitrofurantoin [From Macrobid] Allergy (Verified 06/04/19 08:09) Anaphylaxis trimethoprim [From Bactrim] Allergy (Verified 06/04/19 08:09) Past Medical History - Past Medical History Cardiac Medical History: Denies: Hx Coronary Artery Disease, Hx Heart Attack, Hx Hypertension Pulmonary Medical History: Reports: Hx Asthma Denies: Hx Bronchitis, Hx COPD, Hx Pneumonia Neurological Medical History: Reports: Hx Migraine. Denies: Hx Cerebrovascular Accident, Hx Seizures Renal/ Medical History: Reports: Hx Kidney Stones, Hx Ovarian Cysts. Denies: Hx Peritoneal Dialysis GI Medical History: Reports: Hx Gastroesophageal Reflux Disease. Denies: Hx Hepatitis, Hx Hiatal Hernia, Hx Ulcer Musculoskeltal Medical History: 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, knees, fingers Psychiatric Medical History: Reports: Hx Anxiety, Hx Attention Deficit Hyperactivity Disorder, Hx Bipolar Disorder, Hx Depression, Hx Post Traumatic Stress Disorder Infectious Medical History: Denies: Hx Hepatitis Past Surgical History: Reports: Hx Appendectomy, Hx Section, Hx Orthopedic Surgery - cervical spine surgery , Other - septoplasty, bilateral knee surgery (miniscus tears, ) , right foot surgery. Denies: Hx H ysterectomy, Hx Mastectomy, Hx Open Heart Surgery, Hx Pacemaker - Immunizations Hx Diphtheria, Pertussis, Tetanus Vaccination: Yes
[2019-06-24 20:15] LABS: ABSOLUTE BASOPHILS # (AUTO) 0.1 10^3/uL (0.0-0.2); ABSOLUTE EOSINOPHILS # (AUTO) 0.1 10^3/uL (0.0-0.6); ABSOLUTE LYMPHOCYTES (AUTO) 3.6 10^3/uL (0.5-4.7); ABSOLUTE MONOCYTES (AUTO) 0.4 10^3/uL (0.1-1.4); ABSOLUTE NEUT (AUTO) 3.4 10^3/uL (1.7-8.2); BASOPHILS % (AUTO) 1.7 % (0-2); EOSINOPHILS % (AUTO) 1.8 % (0-6); HEMATOCRIT 43.3 % (36.0-47.0); HEMOGLOBIN 14.6 g/dL (12.0-15.5); LYMPHOCYTES % (AUTO) 47.4 % (13-45); MEAN CORPUSCULAR HEMOGLOBIN 31.5 pg (27.0-33.4); MEAN CORPUSCULAR HGB CONC 33.7 g/dL (32.0-36.0); MEAN CORPUSCULAR VOLUME 93 fl (80-97); MONOCYTES % (AUTO) 4.9 % (3-13); PLATELET COUNT 255 10^3/uL (150-450); RED BLOOD COUNT 4.64 10^6/uL (3.72-5.28); RED CELL DISTRIBUTION WIDTH 13.4 % (11.5-14.0); SEGMENTED NEUTROPHILS % (AUTO) 44.2 % (42-78); TOTAL CELLS COUNTED % (AUTO) 100 %; WHITE BLOOD COUNT 7.6 10^3/uL (4.0-10.5)
[2019-06-24 20:26] LABS: APPEARANCE,URINE CLOUDY; BILIRUBIN,URINE NEGATIVE (NEGATIVE); COLOR,URINE YELLOW; GLUCOSE, URINE NEGATIVE (NEGATIVE); KETONES,URINE NEGATIVE (NEGATIVE); LEUKOCYTE ESTERASE,URINE SMALL (NEGATIVE); NITRITE,URINE NEGATIVE (NEGATIVE); PROTEIN,URINE NEGATIVE (NEGATIVE); URINE SPECIFIC GRAVITY 1.017; UROBILINOGEN,URINE NEGATIVE mg/dL (<2.0)
[2019-06-24 20:46] LABS: ALBUMIN 4.2 g/dL (3.5-5.0); ALKALINE PHOSPHATASE 87 U/L (38-126); ANION GAP 9 (5-19); ASPARTATE AMINO TRANSFERASE 18 U/L (14-36); BILIRUBIN,DIRECT 0.1 mg/dL (0.0-0.4); BILIRUBIN,TOTAL 0.3 mg/dL (0.2-1.3); BLOOD UREA NITROGEN 7 mg/dL (7-20); CALCIUM 9.6 mg/dL (8.4-10.2); CARBON DIOXIDE 26 mmol/L (22-30); CHLORIDE 104 mmol/L (98-107); GLUCOSE 87 mg/dL (75-110); POTASSIUM 4.2 mmol/L (3.6-5.0); TOTAL PROTEIN 7.4 g/dL (6.3-8.2)
--- NOTE | 2019-06-24 21:12 | RADIOLOGY REPORT (SQ) ---
EXAM DESCRIPTION: US PELVIS TRANSVAGINAL COMPLETED DATE/TME: 06/24/2019 19:38 CLINICAL HISTORY: 29 years, Female, low abd pain left side pain hx ovarian cyst COMPARISON: None. TECHNIQUE: Axial 2-D grayscale images of the pelvis were acquired. Doppler was utilized. LIMITATIONS: None. FINDINGS: Uterus measures 7.8 x 3.6 x 4.4 cm in size. Endometrial stripe thickness measures 9 mm, within normal limits for a premenopausal female. Cervix is closed, measuring 2.5 cm in length. Right ovary measures 2.7 x 1.8 x 1.9 cm in size. It demonstrates normal echogenicity as well as normal low resistance arterial waveforms/venous flow. Left ovary measures 2.7 x 2.1 x 1.8 cm in size. It also demonstrates normal echogenicity as well as normal low resistance arterial waveforms/venous flow. No significant free fluid is noted within the pelvis. IMPRESSION: No acute sonographic abnormality. copyright [address] All Rights Reserved
[2019-06-24] MEDS ORDERED: OXYCODONE-ACETAMINOPHEN 5-325 MG TABLET PO ONE (22:03)
--- NOTE | 2019-06-24 22:21 | ER Document Report ---
ED GI/ - General Chief Complaint: Abdominal Pain Stated Complaint: ABDOMINAL PAIN Time Seen by Provider: 06/24/19 19:32 Mode of Arrival: Ambulatory Notes: RMMarti note: This 29-year-old female with history of diverticulitis IBS and ovarian cyst presents to the emergency department with complaints of left-sided abdominal pain lower abdominal pain for the past 3 days. Reports she is extremely nauseated denies fever vomiting diarrhea. Denies pain with void. My HPI: Patient has been treated with antinausea medication in the emergency department she is currently denying any nausea. Continues to deny any diarrhea or fevers. She is denying any dysuria or vaginal discharge. On my assessment she does have left lower abdominal pain noted. Patient voices she does have a history of diverticulitis and this pain feels "similar." Patient voices she is allergic to penicillins, Cipro, Bactrim, Macrobid, Dilaudid, [place]. TRAVEL OUTSIDE OF THE [place] IN LAST 30 DAYS: No - Related Data Allergies/Adverse Reactions: ciprofloxacin [From Cipro] Allergy (Severe, Verified 06/04/19 08:09) Anaphylaxis guaifenesin [From Mucinex] Allergy (Severe, Verified 06/04/19 08:09) Anaphylaxis nitrofurantoin macrocrystalline [From Macrobid] Allergy (Severe, Verified 06/04/19 08:09) Anaphylaxis Penicillins Allergy (Severe, Verified 06/04/19 08:09) Anaphylaxis sulfamethoxazole [From Bactrim] Allergy (Severe, Verified 06/04/19 08:09) anaphylaxis/hives tramadol [Tramadol] Allergy (Severe, Verified 06/04/19 08:09) Anaphylaxis hydromorphone HCl [From Dilaudid] Allergy (Intermediate, Verified 06/04/19 08:09) Hives amoxicillin [Amoxicillin] Allergy (Verified 06/04/19 08:09) anaphylaxis/hives hydrocodone [From [place]] Allergy (Verified 06/04/19 08:09) nitrofurantoin [From Macrobid] Allergy (Verified 06/04/19 08:09) Anaphylaxis trimethoprim [From Bactrim] Allergy (Verified 06/04/19 08:09) Past Medical History - General Information source: Patient - Social History Smoking Status: Current Every Day Smoker Chew tobacco use (# tins/day): No Drug Abuse: None Family History: Reviewed & Not Pertinent Patient has suicidal ideation: No Patient has homicidal ideation: No - Past Medical History Cardiac Medical History: Denies: Hx Coronary Artery Disease, Hx Heart Attack, Hx Hypertension Pulmonary Medical History: Reports: Hx Asthma Denies: Hx Bronchitis, Hx COPD, Hx Pneumonia Neurological Medical History: Reports: Hx Migraine. Denies: Hx Cerebrovascular Accident, Hx Seizures Renal/ Medical History: Reports: Hx Kidney Stones, Hx Ovarian Cysts. Denies: Hx Peritoneal Dialysis GI Medical History: Reports: Hx Gastroesophageal Reflux Disease. Denies: Hx Hepatitis, Hx Hiatal Hernia, Hx Ulcer Musculoskeletal Medical History: 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, knees, fingers Psychiatric Medical History: Reports: Hx Anxiety, Hx Attention Deficit Hyperactivity Disorder, Hx Bipolar Disorder, Hx Depression, Hx Post Traumatic Stress Disorder Infectious Medical History: Denies: Hx Hepatitis Past Surgical History: Reports: Hx Appendectomy, Hx Section, Hx Orthopedic Surgery - cervical spine surgery , Other - septoplasty, bilateral knee surgery (miniscus tears, ) , right foot surgery. Denies: Hx Hysterectomy, Hx Mastectomy, Hx Open Heart Surgery, Hx Pacemaker - Immunizations Hx Diphtheria, Pertussis, Tetanus Vaccination: Yes Review of Systems - Review of Systems Constitutional: denies: Fever EENT: No symptoms reported Cardiovascular: No symptoms reported Respiratory: No symptoms reported Gastrointestinal: See HPI Genitourinary: See HPI Female Genitourinary: No symptoms reported Musculoskeletal: No symptoms reported Skin: No symptoms reported Hematologic/Lymphatic: No symptoms reported Neurological/Psychological: No symptoms reported Physical Exam - Vital signs Vitals: Temp Pulse Resp BP Pulse Ox 97.9 F 103 H 18 131/70 H 99 06/24/19 19:35 06/24/19 19:35 06/24/19 19:35 06/24/19 19:35 06/24/19 19:35 - Notes Notes: GENERAL: Alert, interacts well. No acute distress. HEAD: Normocephalic, atraumatic. EYES: Pupils equal, round, and reactive to light. Extraocular movements intact. ENT: Oral mucosa moist, tongue midline. NECK: Full range of motion. Supple. Trachea midline. LUNGS: Clear to auscultation bilaterally, no wheezes, rales, or rhonchi. No respiratory distress. HEART: Regular rate and rhythm. No murmur ABDOMEN: Soft, no McBurney's point tenderness, no Clemente sign noted. Non- distended. Bowel sounds present in all 4 quadrants. Generalized left lower abdominal pain noted, no pelvic pain noted bilaterally. EXTREMITIES: Moves all 4 extremities spontaneously. No edema, normal radial and dorsalis pedis pulses bilaterally. No cyanosis. BACK: no cervical, thoracic, lumbar midline tenderness. No saddle anesthesia, normal distal neurovascular exam. No CVA tenderness noted bilaterally. NEUROLOGICAL: Alert and oriented x3. Normal speech. cranial nerves II through XII grossly intact PSYCH: Normal affect, normal mood. SKIN: Warm, dry, normal turgor. No rashes or lesions noted. Course - Re-evaluation Re-evalutation: 06/24/19 22:16 Laboratory 06/24/19 06/24/19 06/24/19 19:53 19:53 19:53 WBC 7.6 RBC 4.64 Hgb 14.6 Hct 43.3 MCV 93 MCH 31.5 MCHC 33.7 RDW 13.4 Plt Count 255 Lymph % (Auto) 47.4 H Glenn % (Auto) 4.9 Eos % (Auto) 1.8 Baso % (Auto) 1.7 Absolute Neuts (auto) 3.4 Absolute Lymphs (auto) 3.6 Absolute Monos (auto) 0.4 Absolute Eos (auto) 0.1 Absolute Basos (auto) 0.1 Seg Neutrophils % 44.2 Sodium 138.7 Potassium 4.2 Chloride 104 Carbon Dioxide 26 Anion Gap 9 BUN 7 Creatinine 0.61 Est GFR ( Amer) > 60 Est GFR (MDRD) Non-Af > 60 Glucose 87 Calcium 9.6 Total Bilirubin 0.3 Direct Bilirubin 0.1 Neonat Total Bilirubin Not Reportable Neonat Direct Bilirubin Not Reportable Neonat Indirect Bili Not Reportable AST 18 ALT 17 Alkaline Phosphatase 87 Total Protein 7.4 Albumin 4.2 Urine Color YELLOW Urine Appearance CLOUDY Urine pH 6.0 Ur Specific [place] 1.017 Urine Protein NEGATIVE Urine Glucose (UA) NEGATIVE Urine Ketones NEGATIVE Urine Blood NEGATIVE Urine Nitrite NEGATIVE Urine Bilirubin NEGATIVE Urine Urobilinogen NEGATIVE Ur Leukocyte Esterase SMALL H Urine WBC (Auto) 3 Urine RBC (Auto) 2 Urine Bacteria (Auto) 2+ Squamous Epi Cells Auto 33 Urine Mucus (Auto) MANY Urine Ascorbic Acid NEGATIVE Urine HCG, Qual NEGATIVE Transvaginal US 06/24/19 19:38 IMPRESSION: No acute sonographic abnormality. copyright 2010 [employer]- All Rights Reserved Initial labs and imaging ordered by E provider. Upon my assessment patient is denying any nausea, complaining of generalized pain. States Percocet is the only narcotic pain medicine she is able to take without anaphylaxis. Patient also voices anaphylaxis to multiple antibiotics. States she was told when she was a child her mother told her she was allergic to penicillin. States all other antibiotics are true anaphylactic reactions. States she does have an epinephrine pen at home. I discussed multiple treatment modalities with her at bedside. I discussed clear liquid diet for the next 4 days, pain medication, stool softeners, nausea medication with close follow-up at [facility]. Have also discussed giving her a trial dose of Augmentin here in the emergency department as she is unsure of her exact allergy. Discussed we could then treat her should she have an anaphylactic reaction. Patient voices she does not want to try the option. States she will try clear liquid diet for home and follow-up at [facility]. Patient's labs show no signs of leukocytosis, patient is afebrile in the emergency department. There is no need for CT imaging at this time. Discussed likely diagnosis of diverticulitis and treatment modalities at length with patient at bedside. At this time will discharge with return precautions and follow-up recommendations. Verbal discharge instructions given a the bedside and opportunity for questions given. Medication warnings reviewed. Patient is in agreement with this plan and has verbalized understanding of return precautions and the need for primary care follow-up in the next 24-72 hours. This medical record was dictated with voice recognizing software. There may be grammatical, syntax errors that are unintended. - Vital Signs Vital signs: Temp Pulse Resp BP Pulse Ox 97.9 F 103 H 18 131/70 H 99 06/24/19 19:35 06/24/19 19:35 06/24/19 19:35 06/24/19 19:35 06/24/19 19:35 - Laboratory Result Diagrams: 06/24/19 19:53 06/24/19 19:53 Laboratory results interpreted by me: 06/24/19 06/24/19 19:53 19:53 Lymph % (Auto) 47.4 H Ur Leukocyte Esterase SMALL H Discharge - Discharge Clinical Impression: Diverticulitis Condition: Stable Disposition: HOME, SELF-CARE Instructions: Diverticulitis ([facility]) Additional Instructions: As we discussed you have been seen and treated in the emergency department for likely diverticulitis. You have opted for no antibiotic treatment at this time. Please make sure you are partaking in a clear liquid diet for the next 4 days. Please also take medications as prescribed. Please follow-up with [facility], [facility] in the next 24 to 48 hours for abdominal reexam. Please also return to the emergency room for any concerns. Prescriptions: Docusate Sodium [Colace 100 mg Capsule] 100 mg PO DAILY #30 capsule Oxycodone HCl/Acetaminophen [Percocet 5-325 mg Tablet] 1 - 2 tab PO Q4H PRN #15 tablet PRN Reason: Ondansetron [Zofran Odt 4 mg Tablet] 1 - 2 tab PO Q6 PRN #20 tab.rapdis PRN Reason: For Nausea/Vomiting Forms: Return to Work Referrals: [facility] [Provider Group] - Follow up as needed [facility] [Provider Group] - Follow up as needed
[2019-06-24 22:35] VITALS: BP 138/65
== END 2019-06-24 22:32 | disposition home or self-care (01) ==
LOC: ER 19:21
DX: K57.92 Diverticulitis of intestine, part unspecified, without perforation or abscess without bleeding (principal); R11.0 Nausea; F17.200 Nicotine dependence, unspecified, uncomplicated; J45.909 Unspecified asthma, uncomplicated; Z87.892 Personal history of anaphylaxis; Z88.0 Allergy status to penicillin; Z88.1 Allergy status to other antibiotic agents; Z88.5 Allergy status to narcotic agent; Z88.8 Allergy status to other drugs, medicaments and biological substances
CPT/HCPCS: 99284; 36415; 87086; 85025; 81025; 80053; 81001; 76830; 93976; S0119

== ENCOUNTER 2019-06-29 15:21 | Emergency (ER) | payer SELFPAY ==
[2019-06-29] MEDS ORDERED: MORPHINE SULFATE 10 MG/ML INJ IV ONE (15:51)
[2019-06-29] MEDS ORDERED: RINGERS SOLUTION,LACTATED 1,000 ML IV ONE (15:51)
[2019-06-29] MEDS ORDERED: ONDANSETRON HCL INJ/PF 4 MG/2 ML SDV IV ONE (15:52)
--- NOTE | 2019-06-29 15:55 | ER Document Report ---
ED General - General Chief Complaint: Abdominal Pain Stated Complaint: ABDOMINAL PAIN Time Seen by Provider: 06/29/19 15:43 TRAVEL OUTSIDE OF THE [place] IN LAST 30 DAYS: No - HPI Notes: Patient presents with left lower quadrant pain intermittent nausea and vomiting. She states she has a history of diverticulitis was here on the of this month evaluated with transvaginal ultrasound because she also has a history of ovarian cyst. Per the records in the EMR she deferred any antibiotics to treat diverticulosis at this time is opted for clear fluids. Her symptoms are worsening so she presents to the emergency department. She denies any cough or congestion denies any chest pain or shortness of breath. [place] any vaginal discharge or concern for vaginal infection. - Related Data Allergies/Adverse Reactions: ciprofloxacin [From Cipro] Allergy (Severe, Verified 06/29/19 16:08) Anaphylaxis guaifenesin [From Mucinex] Allergy (Severe, Verified 06/29/19 16:08) Anaphylaxis nitrofurantoin macrocrystalline [From Macrobid] Allergy (Severe, Verified 06/29/19 16:08) Anaphylaxis Penicillins Allergy (Severe, Verified 06/29/19 16:08) Anaphylaxis sulfamethoxazole [From Bactrim] Allergy (Severe, Verified 06/29/19 16:08) anaphylaxis/hives tramadol [Tramadol] Allergy (Severe, Verified 06/29/19 16:08) Anaphylaxis hydromorphone HCl [From Dilaudid] Allergy (Intermediate, Verified 06/29/19 16:08) Hives amoxicillin [Amoxicillin] Allergy (Verified 06/29/19 16:08) anaphylaxis/hives hydrocodone [From [place]] Allergy (Verified 06/29/19 16:08) nitrofurantoin [From Macrobid] Allergy (Verified 06/29/19 16:08) Anaphylaxis trimethoprim [From Bactrim] Allergy (Verified 06/29/19 16:08) Past Medical History - Social History Smoking Status: Current Every Day Smoker Family History: Reviewed & Not Pertinent Patient has suicidal ideation: No Patient has homicidal ideation: No - Past Medical History Cardiac Medical History: Denies: Hx Coronary Artery Disease, Hx Heart Attack, Hx Hypertension Pulmonary Medical History: Reports: Hx Asthma Denies: Hx Bronchitis, Hx COPD, Hx Pneumonia Neurological Medical History: Reports: Hx Migraine. Denies: Hx Cerebrovascular Accident, Hx Seizures Renal/ Medical History: Reports: Hx Kidney Stones, Hx Ovarian Cysts. Denies: Hx Peritoneal Dialysis GI Medical History: Reports: Hx Gastroesophageal Reflux Disease. Denies: Hx Hepatitis, Hx Hiatal Hernia, Hx Ulcer Musculoskeletal Medical History: 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, knees, fingers Psychiatric Medical History: Reports: Hx Anxiety, Hx Attention Deficit Hyperactivity Disorder, Hx Bipolar Disorder, Hx Depression, Hx Post Traumatic Stress Disorder Infectious Medical History: Denies: Hx Hepatitis Past Surgical History: Reports: Hx Appendectomy, Hx Section, Hx Orthop edic Surgery - cervical spine surgery , Other - septoplasty, bilateral knee surgery (miniscus tears, ) , right foot surgery. Denies: Hx Hysterectomy, Hx Mastectomy, Hx Open Heart Surgery, Hx Pacemaker - Immunizations Hx Diphtheria, Pertussis, Tetanus Vaccination: Yes Review of Systems - Review of Systems Constitutional: No symptoms reported EENT: No symptoms reported Cardiovascular: No symptoms reported Respiratory: No symptoms reported Gastrointestinal: See HPI Genitourinary: No symptoms reported Female Genitourinary: No symptoms reported Musculoskeletal: No symptoms reported Skin: No symptoms reported Hematologic/Lymphatic: No symptoms reported Neurological/Psychological: No symptoms reported Physical Exam - Vital signs Vitals: Temp Pulse Resp BP Pulse Ox 98.0 F 89 18 110/78 94 06/29/19 15:25 06/29/19 15:25 06/29/19 15:25 06/29/19 15:25 06/29/19 15:25 - General General appearance: Appears well, Alert - HEENT Head: Normocephalic, Atraumatic Eyes: Normal Pupils: PERRL - Respiratory Respiratory status: No respiratory distress Chest status: Nontender Breath sounds: Normal Chest palpation: Normal - Cardiovascular Rhythm: Regular Heart sounds: Normal auscultation Murmur: No - Abdominal Inspection: Normal Distension: No distension Bowel sounds: Normal Tenderness: Other - Left lower quadrant tenderness to palpation - Back Back: Normal, Nontender - Neurological Neuro grossly intact: Yes Cognition: Normal Orientation: AAOx4 Sensory: Normal Course - Re-evaluation Re-evalutation: 06/29/19 19:06 CT abdomen shows no acute abnormalities, labs are within normal limits are nonsignificant. When she was here several days ago she had a normal transvaginal ultrasound as well. She does have history of depression takes many antidepressant medications. I feel like her symptoms were related to brain gut syndrome versus spasms and will provide Bentyl and MiraLAX with reevaluation next 3 to 5 days if symptoms are not improving. Return precautions provided. Gas - Vital Signs Vital signs: Temp Pulse Resp BP Pulse Ox 98.0 F 89 18 110/78 94 06/29/19 15:25 06/29/19 15:25 06/29/19 15:25 06/29/19 15:25 06/29/19 15:25 - Laboratory Result Diagrams: 06/29/19 16:30 06/29/19 16:30 Laboratory results interpreted by me: 06/29/19 16:30 BUN 6 L Lipase 18.9 L Discharge - Discharge Clinical Impression: Left lower quadrant pain Condition: Good Disposition: HOME, SELF-CARE Instructions: Antispasmodics ([facility]), Abdominal Pain ([facility]) Prescriptions: Dicyclomine HCl [Bentyl 20 mg Tablet] 20 mg PO TID #60 tablet Polyethylene Glycol 3350 [Miralax Powder 17 gm/Packet] 1 packet PO DAILY #30 pkg Referrals: [facility] [NO LOCAL MD] - Follow up as needed
[2019-06-29 16:57] LABS: ABSOLUTE EOSINOPHILS # (AUTO) 0.1 10^3/uL (0.0-0.6); ABSOLUTE LYMPHOCYTES (AUTO) 2.5 10^3/uL (0.5-4.7); ABSOLUTE MONOCYTES (AUTO) 0.4 10^3/uL (0.1-1.4); ABSOLUTE NEUT (AUTO) 2.9 10^3/uL (1.7-8.2); BASOPHILS % (AUTO) 0.8 % (0-2); EOSINOPHILS % (AUTO) 1.5 % (0-6); HEMATOCRIT 41.7 % (36.0-47.0); HEMOGLOBIN 14.1 g/dL (12.0-15.5); LYMPHOCYTES % (AUTO) 41.6 % (13-45); MEAN CORPUSCULAR HEMOGLOBIN 31.5 pg (27.0-33.4); MEAN CORPUSCULAR HGB CONC 33.8 g/dL (32.0-36.0); MEAN CORPUSCULAR VOLUME 93 fl (80-97); MONOCYTES % (AUTO) 6.2 % (3-13); PLATELET COUNT 257 10^3/uL (150-450); RED BLOOD COUNT 4.48 10^6/uL (3.72-5.28); RED CELL DISTRIBUTION WIDTH 13.8 % (11.5-14.0); SEGMENTED NEUTROPHILS % (AUTO) 49.9 % (42-78); TOTAL CELLS COUNTED % (AUTO) 100 %; WHITE BLOOD COUNT 5.9 10^3/uL (4.0-10.5)
[2019-06-29 17:15] LABS: ALKALINE PHOSPHATASE 98 U/L (38-126); ANION GAP 9 (5-19); ASPARTATE AMINO TRANSFERASE 18 U/L (14-36); BILIRUBIN,DIRECT 0.2 mg/dL (0.0-0.4); BILIRUBIN,TOTAL 0.3 mg/dL (0.2-1.3); BLOOD UREA NITROGEN 6 mg/dL (7-20); CALCIUM 9.5 mg/dL (8.4-10.2); CARBON DIOXIDE 24 mmol/L (22-30); CHLORIDE 105 mmol/L (98-107); GLUCOSE 94 mg/dL (75-110); POTASSIUM 4.4 mmol/L (3.6-5.0); TOTAL PROTEIN 6.9 g/dL (6.3-8.2)
[2019-06-29 17:36] LABS: APPEARANCE,URINE SLIGHTLY-CLOUDY; BILIRUBIN,URINE NEGATIVE (NEGATIVE); COLOR,URINE YELLOW; GLUCOSE, URINE NEGATIVE (NEGATIVE); KETONES,URINE NEGATIVE (NEGATIVE); LEUKOCYTE ESTERASE,URINE NEGATIVE (NEGATIVE); NITRITE,URINE NEGATIVE (NEGATIVE); PROTEIN,URINE NEGATIVE (NEGATIVE); URINE SPECIFIC GRAVITY 1.019; UROBILINOGEN,URINE NEGATIVE mg/dL (<2.0)
--- NOTE | 2019-06-29 18:23 | RADIOLOGY REPORT (SQ) ---
EXAM DESCRIPTION: CT ABD/PELVIS WITH IV ONLY COMPLETED DATE/TIME: 06/29/2019 5:58 pm REASON FOR STUDY: LLQ pain, hx of diverticulitis COMPARISON: None. TECHNIQUE: CT scan of the abdomen and pelvis performed using helical scanning technique with dynamic intravenous contrast injection. No oral contrast. Images reviewed with lung, soft tissue, and bone w indows. Reconstructed coronal and sagittal MPR images reviewed. Delayed images for evaluation of the urinary system also acquired. All images stored on PACS. All CT scanners at this facility use dose modulation, iterative reconstruction, and/or weight based d osing when appropriate to reduce radiation dose to as low as reasonably achievable (ALARA). [facility]: Dose Right [facility]: CareDose [facility]: Dose Right [facility]: Teradose 4D [facility]: Karma CONTRAST TYPE AND DOSE: contrast/concentration: Isovue 350.00 mg/ml; Total Contrast Delivered: 100.0 ml; Total Saline Delivered: 72.0 ml RENAL FUNCTION: GFR > 60. RADIATION DOSE: CT Rad equipment meets quality standard of care and radiation dose reduction techniq ues were employed. CTDIvol: 9.8 - 14.0 mGy. DLP: 1279 mGy-cm.. LIMITATIONS: None. FINDINGS: LOWER CHEST: No significant findings. LIVER: Normal size. No enhancing masses. No dilated ducts. SPLEEN: Normal size. No focal lesions. PANCREAS: No masses identified. No significant calcifications. No adjacent inflammation or peripancre atic fluid collections. Pancreatic duct not dilated. GALLBLADDER: No calcified stones. No inflammatory changes to suggest cholecystitis. ADRENAL GLANDS: No significant masses. RIGHT KIDNEY AND URETER: No cysts identified. No solid masses identified. No calcified stones. No hyd ronephrosis or hydroureter. LEFT KIDNEY AND URETER: No cysts identified. No solid masses identified. No calcified stones. No hydr onephrosis or hydroureter. AORTA AND VESSELS: No aneurysm. No dissection. Renal arteries, SMA, celiac without significant stenos is. RETROPERITONEUM: No bulky retroperitoneal adenopathy. BOWEL AND PERITONEAL CAVITY: No obstruction or inflammatory changes. No free fluid. APPENDIX: Surgically absent. PELVIS: No mass. No free fluid. Unremarkable bladder. ABDOMINAL WALL: No masses. No hernias. BONES: No acute findings. OTHER: No other significant finding. IMPRESSION: NO ACUTE FINDINGS IN THE ABDOMEN OR PELVIS ON CT SCAN WITH IV CONTRAST. TECHNICAL DOCUMENTATION: JOB ID: [id number] [place]-72 Quality ID # [id number]: Final reports with documentation of one or more dose reduction techniques (e.g., Au tomated exposure control, adjustment of the mA and/or kV according to patient size, use of iterative reconstruction technique) 2010 [employer]- All Rights Reserved Reading location - IP/workstation name: [employer]
[2019-06-29] MEDS ORDERED: DICYCLOMINE HCL 20 MG TABLET PO ONE (19:09)
[2019-06-29 19:32] VITALS: BP 110/70
== END 2019-06-29 19:33 | disposition home or self-care (01) ==
LOC: ER 15:21
DX: R10.32 Left lower quadrant pain (principal); R11.2 Nausea with vomiting, unspecified; F17.200 Nicotine dependence, unspecified, uncomplicated; Z88.3 Allergy status to other anti-infective agents; Z88.0 Allergy status to penicillin
CPT/HCPCS: 99284; 96361; 96374; 96375; 36415; 83690; 83735; 84703; 85025; 80053; 81001; 74177; J3490; J2270; J2405; J7120

== ENCOUNTER 2019-07-02 21:36 | Emergency (ER) | payer SELFPAY ==
[2019-07-02] MEDS ORDERED: NORMAL SALINE 1000 ML 1,000 ML IV ONE (22:44)
[2019-07-02] MEDS ORDERED: PROMETHAZINE HCL 25 MG TABLET PO ONE (22:44)
--- NOTE | 2019-07-02 22:47 | ER Document Report ---
ED Medical Screen (RME) - General Chief Complaint: Abdominal Pain Stated Complaint: ABDOMINAL AND RECTAL PAIN Time Seen by Provider: 07/02/19 22:39 Notes: 29-year-old female chief complaint of sharp generalized abdominal pain and nausea, pain is worst in the left lower quadrant, she also states that "something is sticking out of the rectum", she states it does not look like a hemorrhoid and she is worried it is something worse. She states she has not had a bowel movement in over a week, history of IBS-C, anxiety/depression, bipolar, PTSD reportedly. Denies abdominal surgeries. States she was here over the past couple of days including CAT scan evaluation and was told that she was having bowel spasms, placed on Bentyl, Zofran, MiraLAX. TRAVEL OUTSIDE OF THE [place] IN LAST 30 DAYS: No - Related Data Allergies/Adverse Reactions: ciprofloxacin [From Cipro] Allergy (Severe, Verified 06/29/19 16:08) Anaphylaxis guaifenesin [From Mucinex] Allergy (Severe, Verified 06/29/19 16:08) Anaphylaxis nitrofurantoin macrocrystalline [From Macrobid] Allergy (Severe, Verified 06/29/19 16:08) Anaphylaxis Penicillins Allergy (Severe, Verified 06/29/19 16:08) Anaphylaxis sulfamethoxazole [From Bactrim] Allergy (Severe, Verified 06/29/19 16:08) anaphylaxis/hives tramadol [Tramadol] Allergy (Severe, Verified 06/29/19 16:08) Anaphylaxis hydromorphone HCl [From Dilaudid] Allergy (Intermediate, Verified 06/29/19 16:08) Hives amoxicillin [Amoxicillin] Allergy (Verified 06/29/19 16:08) anaphylaxis/hives hydrocodone [From [place]] Allergy (Verified 06/29/19 16:08) nitrofurantoin [From Macrobid] Allergy (Verified 06/29/19 16:08) Anaphylaxis trimethoprim [From Bactrim] Allergy (Verified 06/29/19 16:08) Past Medical History - Past Medical History Cardiac Medical History: Denies: Hx Coronary Artery Disease, Hx Heart Attack, Hx Hypertension Pulmonary Medical History: Reports: Hx Asthma Denies: Hx Bronchitis, Hx COPD, Hx Pneumonia Neurological Medical History: Reports: Hx Migraine. Denies: Hx Cerebrovascular Accident, Hx Seizures Renal/ Medical History: Reports: Hx Kidney Stones, Hx Ovarian Cysts. Denies: Hx Peritoneal Dialysis GI Medical History: Reports: Hx Gastroesophageal Reflux Disease. Denies: Hx Hepatitis, Hx Hiatal Hernia, Hx Ulcer Musculoskeltal Medical History: 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, knees, fingers Psychiatric Medical History: Reports: Hx Anxiety, Hx Attention Deficit Hyperactivity Disorder, Hx Bipolar Disorder, Hx Depression, Hx Post Traumatic Stress Disorder Infectious Medical History: Denies: Hx Hepatitis Past Surgical History: Reports: Hx Appendectomy, Hx Section, Hx Orthopedic Surgery - cervical spine surgery , Other - septoplasty, bilateral knee surgery (miniscus tears, ) , right foot surgery. Denies: Hx Hysterectomy, Hx Mastectomy, Hx Open Heart Surgery, Hx Pacemaker - Immunizations Hx Diphtheria, Pertussis, Tetanus Vaccination: Yes Physical Exam - Vital signs Vitals: Temp Pulse Resp BP Pulse Ox 98.0 F 111 H 20 131/92 H 97 07/02/19 21:59 07/02/19 21:59 07/02/19 21:59 07/02/19 21:59 07/02/19 21:59 - Abdominal Tenderness: Tender - Complains of palpation of the abdomen, pain does seem worse to the left lower quadrant, no rigidity or severe guarding, exam limited by sitting position Course - Re-evaluation Re-evalutation: I have greeted and performed a rapid initial assessment of this patient. A comprehensive ED assessment and evaluation of the patient, analysis of test results and completion of the medical decision making process will be conducted by additional ED providers. - Vital Signs Vital signs: Temp Pulse Resp BP Pulse Ox 98.0 F 111 H 20 131/92 H 97 07/02/19 21:59 07/02/19 21:59 07/02/19 21:59 07/02/19 21:59 07/02/19 21:59
[2019-07-02 23:52] LABS: APPEARANCE,URINE SLIGHTLY-CLOUDY; BILIRUBIN,URINE NEGATIVE (NEGATIVE); COLOR,URINE YELLOW; GLUCOSE, URINE NEGATIVE (NEGATIVE); KETONES,URINE NEGATIVE (NEGATIVE); LEUKOCYTE ESTERASE,URINE NEGATIVE (NEGATIVE); NITRITE,URINE NEGATIVE (NEGATIVE); PROTEIN,URINE NEGATIVE (NEGATIVE); URINE SPECIFIC GRAVITY 1.009; UROBILINOGEN,URINE NEGATIVE mg/dL (<2.0)
[2019-07-03 00:25] LABS: ABSOLUTE BASOPHILS # (AUTO) 0.1 10^3/uL (0.0-0.2); ABSOLUTE EOSINOPHILS # (AUTO) 0.2 10^3/uL (0.0-0.6); ABSOLUTE MONOCYTES (AUTO) 0.5 10^3/uL (0.1-1.4); ABSOLUTE NEUT (AUTO) 6.2 10^3/uL (1.7-8.2); BASOPHILS % (AUTO) 1.1 % (0-2); EOSINOPHILS % (AUTO) 1.5 % (0-6); HEMOGLOBIN 14.9 g/dL (12.0-15.5); MEAN CORPUSCULAR HEMOGLOBIN 31.5 pg (27.0-33.4); MEAN CORPUSCULAR VOLUME 93 fl (80-97); MONOCYTES % (AUTO) 4.6 % (3-13); PLATELET COUNT 272 10^3/uL (150-450); RED BLOOD COUNT 4.75 10^6/uL (3.72-5.28); RED CELL DISTRIBUTION WIDTH 13.6 % (11.5-14.0); SEGMENTED NEUTROPHILS % (AUTO) 56.8 % (42-78); TOTAL CELLS COUNTED % (AUTO) 100 %
[2019-07-03 00:44] LABS: ALBUMIN 4.4 g/dL (3.5-5.0); ALKALINE PHOSPHATASE 101 U/L (38-126); ANION GAP 9 (5-19); ASPARTATE AMINO TRANSFERASE 18 U/L (14-36); BILIRUBIN,DIRECT 0.1 mg/dL (0.0-0.4); BILIRUBIN,TOTAL 0.4 mg/dL (0.2-1.3); BLOOD UREA NITROGEN 6 mg/dL (7-20); CARBON DIOXIDE 24 mmol/L (22-30); CHLORIDE 104 mmol/L (98-107); GLUCOSE 96 mg/dL (75-110); TOTAL PROTEIN 7.9 g/dL (6.3-8.2)
--- NOTE | 2019-07-03 01:48 | ER Document Report ---
ED General - General Chief Complaint: Abdominal Pain Stated Complaint: ABDOMINAL AND RECTAL PAIN Time Seen by Provider: 07/02/19 22:39 Mode of Arrival: Ambulatory Information source: Patient TRAVEL OUTSIDE OF THE [place] IN LAST 30 DAYS: No - HPI Notes: Patient arrives complaining of severe abdominal pain. She also states she is having rectal pain. She states the rectal pain is sharp and severe. It is intermittent. It is worse with trying to have a bowel movement or bearing down to have gas. It does not radiate through to her abdomen. She also states she feels like something occasionally is "falling out of her rectum". She states she has had a colonoscopy proxy 1 year ago that showed some polyps and hemorrhoids. No known history of cancer. No incontinence of stool. No dysuria urgency or frequency. She has had some nausea and vomiting as well. She also states she has some chronic abdominal pain. No vaginal discharge or bleeding. She has had approximately 3 visits in the last week to this emergency department for similar concerns. Patient has had an unremarkable work-up during those 2 visits including ultrasound and CT scan of the abdomen. - Related Data Allergies/Adverse Reactions: ciprofloxacin [From Cipro] Allergy (Severe, Verified 06/29/19 16:08) Anaphylaxis guaifenesin [From Mucinex] Allergy (Severe, Verified 06/29/19 16:08) Anaphylaxis nitrofurantoin macrocrystalline [From Macrobid] Allergy (Severe, Verified 06/29/19 16:08) Anaphylaxis Penicillins Allergy (Severe, Verified 06/29/19 16:08) Anaphylaxis sulfamethoxazole [From Bactrim] Allergy (Severe, Verified 06/29/19 16:08) anaphylaxis/hives tramadol [Tramadol] Allergy (Severe, Verified 06/29/19 16:08) Anaphylaxis hydromorphone HCl [From Dilaudid] Allergy (Intermediate, Verified 06/29/19 16:08) Hives amoxicillin [Amoxicillin] Allergy (Verified 06/29/19 16:08) anaphylaxis/hives hydrocodone [From [place]] Allergy (Verified 06/29/19 16:08) nitrofurantoin [From Macrobid] Allergy (Verified 06/29/19 16:08) Anaphylaxis trimethoprim [From Bactrim] Allergy (Verified 06/29/19 16:08) Past Medical History - General Information source: Patient - Social History Smoking Status: Current Every Day Smoker Chew tobacco use (# tins/day): No Frequency of alcohol use: None Drug Abuse: None Family History: Reviewed & Not Pertinent Patient has suicidal ideation: No Patient has homicidal ideation: No - Past Medical History Cardiac Medical History: Denies: Hx Coronary Artery Disease, Hx Heart Attack, Hx Hypertension Pulmonary Medical History: Reports: Hx Asthma Denies: Hx Bronchitis, Hx COPD, Hx Pneumonia Neurological Medical History: Reports: Hx Migraine. Denies: Hx Cerebrovascular Accident, Hx Seizures Renal/ Medical History: Reports: Hx Kidney Stones, Hx Ovarian Cysts. Denies: Hx Peritoneal Dialysis GI Medical History: Reports: Hx Gastroesophageal Reflux Disease. Denies: Hx Hepatitis, Hx Hiatal Hernia, Hx Ulcer Musculoskeletal Medical History: 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, knees, fingers Psychiatric Medical History: Reports: Hx Anxiety, Hx Attention Deficit Hyperactivity Disorder, Hx Bipolar Disorder, Hx Depression, Hx Post Traumatic Stress Disorder Infectious Medical History: Denies: Hx Hepatitis Past Surgical History: Reports: Hx Appendectomy, Hx Section, Hx Orthopedic Surgery - cervical spine surgery , Other - septoplasty, bilateral knee surgery (miniscus tears, ) , right foot surgery. Denies: Hx Hysterectomy, Hx Mastectomy, Hx Open Heart Surgery, Hx Pacemaker - Immunizations Hx Diphtheria, Pertussis, Tetanus Vaccination: Yes Review of Systems - Review of Systems Constitutional: denies: Chills, Fever Cardiovascular: denies: Chest pain, Palpitations Respiratory: denies: Cough, Short of breath Gastrointestinal: Abdominal pain, Vomiting, Constipation -: Yes All other systems reviewed and negative Physical Exam - Vital signs Vitals: Temp Pulse Resp BP Pulse Ox 98.0 F 111 H 20 131/92 H 97 07/02/19 21:59 07/02/19 21:59 07/02/19 21:59 07/02/19 21:59 07/02/19 21:59 Interpretation: Tachycardic, Other - Patient was tachycardic apparently at triage. Currently, on my exam her heart rate is 88. - General General appearance: Appears well, Alert - HEENT Head: Normocephalic, Atraumatic Eyes: Normal Pupils: PERRL - Respiratory Respiratory status: No respiratory distress Chest status: Nontender Breath sounds: Normal Chest palpation: Normal - Cardiovascular Rhythm: Regular Heart sounds: Normal auscultation Murmur: No - Abdominal Inspection: Normal Distension: No distension Bowel sounds: Normal Tenderness: Nontender Organomegaly: No organomegaly - Rectal Tenderness: Yes Hemorrhoids: None Notes: Rectal exam shows no evidence of fissure or hemorrhoid. No masses. She was tender on exam. No gross blood. - Back Back: Normal, Nontender - Extremities General upper extremity: Normal inspection, Nontender, Normal color, Normal ROM, Normal temperature General lower extremity: Normal inspection, Nontender, Normal color, Normal ROM, Normal temperature, Normal weight bearing. No: Jacques's sign - Neurological Neuro grossly intact: Yes Cognition: Normal Orientation: AAOx4 [place] Coma Scale Eye Opening: Spontaneous Horacio Coma Scale Verbal: Oriented Horacio Coma Scale Motor: Obeys Commands [place] Coma Scale Total: 15 Speech: Normal Motor strength normal: LUE, RUE, LLE, RLE Sensory: Normal - Psychological Associated symptoms: Normal affect, Normal mood - Skin Skin Temperature: Warm Skin Moisture: Dry Skin Color: Normal Course - Re-evaluation Re-evalutation: 07/03/19 01:44 Patient presents complaining of severe rectal and abdominal pain. She has had a recent negative ultrasound and CT scan here. Her abdomen is soft and nontender for me. I do not feel that further imaging is necessary. Her rectal exam for me is unremarkable. No evidence of any type of mass or hemorrhoid. No prolapse. No fissure. No abscess. I feel the patient is stable for discharge and to follow-up as an outpatient. Laboratories other than a mildly elevated white blood cell count are unremarkable. Vital signs are currently stable. - Vital Signs Vital signs: Temp Pulse Resp BP Pulse Ox 98.0 F 111 H 14 117/83 100 07/02/19 21:59 07/02/19 21:59 07/03/19 01:18 07/03/19 01:18 07/03/19 01:18 - Laboratory Result Diagrams: 07/03/19 00:15 07/03/19 00:15 Laboratory results interpreted by me: 07/03/19 07/03/19 00:15 00:15 WBC 11.0 H BUN 6 L Discharge - Discharge Clinical Impression: Rectal pain Condition: Stable Disposition: HOME, SELF-CARE Instructions: Abdominal Pain ([facility]), Oral Narcotic Medication ([facility]), Constipation ([facility]) Additional Instructions: Please call Dr. Rascon as soon as possible to arrange follow-up. Prescriptions: Peg 3350/Na Sulf,Bicarb,Cl/KCl [Golytely Solution 4000 ml] 4,000 ml PO DAILY #1 bottle Oxycodone HCl/Acetaminophen [Percocet 5-325 mg Tablet] 1 tab PO Q8 PRN 3 Days #8 tablet PRN Reason: Referrals: MEL RASCON MD [ACTIVE STAFF] - Follow up in 3-5 days
[2019-07-03 01:55] VITALS: BP 106/62
== END 2019-07-03 01:57 | disposition home or self-care (01) ==
LOC: ER 21:36
DX: K62.89 Other specified diseases of anus and rectum (principal); R10.9 Unspecified abdominal pain; K59.00 Constipation, unspecified; F17.200 Nicotine dependence, unspecified, uncomplicated; Z88.3 Allergy status to other anti-infective agents; Z87.442 Personal history of urinary calculi
CPT/HCPCS: 36415; 80053; 81001; 81025; 83690; 85025; 99283

== ENCOUNTER 2019-07-24 20:40 | Emergency (ER) | payer SELFPAY ==
[2019-07-24] MEDS ORDERED: NORMAL SALINE 1000 ML 1,000 ML IV ONE (20:58)
[2019-07-24] MEDS ORDERED: MAG HYDROX/AL HYDROX/SIMETH SUSP 30 ML UDCUP PO ONE (20:59)
[2019-07-24] MEDS ORDERED: METOCLOPRAMIDE HCL ORAL SOLN 10 MG/10 ML UDCUP PO ONE (20:59)
[2019-07-24] MEDS ORDERED: LIDOCAINE 2% VISCOUS SOLN 20 ML UDCUP PO ONE (20:59)
--- NOTE | 2019-07-24 21:02 | ER Document Report ---
ED Medical Screen (RME) - General Stated Complaint: ABDOMINAL PAIN Time Seen by Provider: 07/24/19 20:51 Notes: Patient is a 29-year-old female who presents to the emergency department with a chief complaint of abdominal pain. She has had on and off abdominal pain for the past month. Patient states that the pain is anywhere in the left lower abdomen. She has a history of urinary tract infections and bacterial vaginosis in the past. She also has left upper abdominal pain. She is currently on Prilosec. Patient states that she has been vomiting on and off and last time she vomited was last night. Last menstrual cycle was 2 weeks ago. Exam: Abdominal tenderness to left lower quadrant and left upper quadrant. I have greeted and performed a rapid initial assessment of this patient. A comprehensive ED assessment and evaluation of the patient, analysis of test results and completion of medical decision making process will be conducted by an additional ED providers. TRAVEL OUTSIDE OF THE [place] IN LAST 30 DAYS: No - Related Data Allergies/Adverse Reactions: ciprofloxacin [From Cipro] Allergy (Severe, Verified 06/29/19 16:08) Anaphylaxis guaifenesin [From Mucinex] Allergy (Severe, Verified 06/29/19 16:08) Anaphylaxis nitrofurantoin macrocrystalline [From Macrobid] Allergy (Severe, Verified 06/29/19 16:08) Anaphylaxis Penicillins Allergy (Severe, Verified 06/29/19 16:08) Anaphylaxis sulfamethoxazole [From Bactrim] Allergy (Severe, Verified 06/29/19 16:08) anaphylaxis/hives tramadol [Tramadol] Allergy (Severe, Verified 06/29/19 16:08) Anaphylaxis hydromorphone HCl [From Dilaudid] Allergy (Intermediate, Verified 06/29/19 16:08) Hives amoxicillin [Amoxicillin] Allergy (Verified 06/29/19 16:08) anaphylaxis/hives hydrocodone [From [place]] Allergy (Verified 06/29/19 16:08) nitrofurantoin [From Macrobid] Allergy (Verified 06/29/19 16:08) Anaphylaxis trimethoprim [From Bactrim] Allergy (Verified 06/29/19 16:08) Past Medical History - Past Medical History Cardiac Medical History: Denies: Hx Coronary Artery Disease, Hx Heart Attack, Hx Hypertension Pulmonary Medical History: Reports: Hx Asthma Denies: Hx Bronchitis, Hx COPD, Hx Pneumonia Neurological Medical History: Reports: Hx Migraine. Denies: Hx Cerebrovascular Accident, Hx Seizures Renal/ Medical History: Reports: Hx Kidney Stones, Hx Ovarian Cysts. Denies: Hx Peritoneal Dialysis GI Medical History: Reports: Hx Gastroesophageal Reflux Disease. Denies: Hx Hepatitis, Hx Hiatal Hernia, Hx Ulcer Musculoskeltal Medical History: 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, knees, fingers Psychiatric Medical History: Reports: Hx Anxiety, Hx Attention Deficit Hyperactivity Disorder, Hx Bipolar Disorder, Hx Depression, Hx Post Traumatic Stress Disorder Infectious Medical History: Denies: Hx Hepatitis Past Surgical History: Reports: Hx Appendectomy, Hx Section, Hx Orthopedic Surgery - cervical spine surgery , Other - septoplasty, bilateral knee surgery (miniscus tears, ) , right foot surgery. Denies: Hx Hysterectomy, Hx Mastectomy, Hx Open Heart Surgery, Hx Pacemaker - Immunizations Hx Diphtheria, Pertussis, Tetanus Vaccination: Yes
[2019-07-24 21:58] LABS: APPEARANCE,URINE SLIGHTLY-CLOUDY; BILIRUBIN,URINE NEGATIVE (NEGATIVE); COLOR,URINE YELLOW; GLUCOSE, URINE NEGATIVE (NEGATIVE); KETONES,URINE NEGATIVE (NEGATIVE); PROTEIN,URINE NEGATIVE (NEGATIVE); URINE SPECIFIC GRAVITY 1.015; UROBILINOGEN,URINE NEGATIVE mg/dL (<2.0)
[2019-07-24 22:07] LABS: ABSOLUTE BASOPHILS # (AUTO) 0.1 10^3/uL (0.0-0.2); ABSOLUTE EOSINOPHILS # (AUTO) 0.1 10^3/uL (0.0-0.6); ABSOLUTE LYMPHOCYTES (AUTO) 2.5 10^3/uL (0.5-4.7); ABSOLUTE MONOCYTES (AUTO) 0.4 10^3/uL (0.1-1.4); ABSOLUTE NEUT (AUTO) 3.6 10^3/uL (1.7-8.2); BASOPHILS % (AUTO) 0.9 % (0-2); EOSINOPHILS % (AUTO) 1.6 % (0-6); HEMOGLOBIN 14.1 g/dL (12.0-15.5); LYMPHOCYTES % (AUTO) 37.1 % (13-45); MEAN CORPUSCULAR HEMOGLOBIN 31.6 pg (27.0-33.4); MEAN CORPUSCULAR HGB CONC 33.6 g/dL (32.0-36.0); MEAN CORPUSCULAR VOLUME 94 fl (80-97); MONOCYTES % (AUTO) 5.7 % (3-13); PLATELET COUNT 236 10^3/uL (150-450); RED BLOOD COUNT 4.46 10^6/uL (3.72-5.28); SEGMENTED NEUTROPHILS % (AUTO) 54.7 % (42-78); TOTAL CELLS COUNTED % (AUTO) 100 %; WHITE BLOOD COUNT 6.7 10^3/uL (4.0-10.5)
[2019-07-24 22:25] LABS: ALBUMIN 4.1 g/dL (3.5-5.0); ALKALINE PHOSPHATASE 81 U/L (38-126); ANION GAP 10 (5-19); ASPARTATE AMINO TRANSFERASE 23 U/L (14-36); BILIRUBIN,DIRECT 0.2 mg/dL (0.0-0.4); BILIRUBIN,TOTAL 0.3 mg/dL (0.2-1.3); BLOOD UREA NITROGEN 6 mg/dL (7-20); CALCIUM 9.5 mg/dL (8.4-10.2); CARBON DIOXIDE 24 mmol/L (22-30); CHLORIDE 104 mmol/L (98-107); GLUCOSE 89 mg/dL (75-110); POTASSIUM 4.7 mmol/L (3.6-5.0); TOTAL PROTEIN 7.2 g/dL (6.3-8.2)
[2019-07-24 22:30] LABS: RBCS (WET MOUNT) NO RBCS SEEN; T.VAGINALIS (WET MOUNT) NO TRICHOMONAS SEEN; WBCS (WET MOUNT) FEW WBCS SEEN; YEAST (WET MOUNT) NO YEAST SEEN
--- NOTE | 2019-07-24 22:50 | RADIOLOGY REPORT (SQ) ---
US PELVIS EXAM DATE: 07/24/2019 9:00 PM CDT HISTORY: Pelvic pain. COMPARISON: None. TECHNIQUE: Grayscale, color Doppler, and spectral Doppler ultrasound images of the pelvis were obtained. FINDINGS: The uterus is anteverted and measures 8.9 x 3.6 x 3.3 cm. The endometrium is 8 mm in thickness. The cervix measures 2.3 cm in length. The right ovary is not well visualized. The left ovary contains normal color Doppler blood flow and measures 2.3 x 1.6 x 1.9 cm. No pelvic free fluid. IMPRESSION: Right ovary not visualized. Otherwise unremarkable study.
[2019-07-24] MEDS ORDERED: DICYCLOMINE HCL INJ 20 MG/2 ML AMPULE IM ONE (22:59)
[2019-07-24] MEDS ORDERED: PANTOPRAZOLE SODIUM 40 MG VIAL IV ONE (22:59)
[2019-07-24] MEDS ORDERED: FLUCONAZOLE 200 MG/NS RTU 200 MG/100 ML RTUPB IV ONE (23:00)
[2019-07-24] MEDS ORDERED: FLUCONAZOLE 100 MG TABLET PO ONE (23:22)
[2019-07-24 23:32] LABS: CHLAM PCR NOT DETECTED (NOT DETECT)
[2019-07-25 00:01] VITALS: BP 104/68
--- NOTE | 2019-07-25 05:14 | ER Document Report ---
Entered by MUNA DUKES SCRIBE 07/24/19 [id number] Acting as scribe for:HARSHAD CONTRERAS DO ED GI/ - General Chief Complaint: Urinary Problem Stated Complaint: ABDOMINAL PAIN Time Seen by Provider: 07/24/19 20:51 Mode of Arrival: Ambulatory Information source: Patient Notes: 29-year-old female who presents to the emergency department today with complaints of burning with urination, flank pain, lower abdominal pain, and vaginal discharge. Patient has been seen here 11 times over the past 3 months for these same complaints. Patient states that Bentyl does not work for her and that "Protonix is basically just a medication for GERD" so she does not want that either. TRAVEL OUTSIDE OF THE [place] IN LAST 30 DAYS: No - Related Data Allergies/Adverse Reactions: ciprofloxacin [From Cipro] Allergy (Severe, Verified 06/29/19 16:08) Anaphylaxis guaifenesin [From Mucinex] Allergy (Severe, Verified 06/29/19 16:08) Anaphylaxis nitrofurantoin macrocrystalline [From Macrobid] Allergy (Severe, Verified 06/29/19 16:08) Anaphylaxis Penicillins Allergy (Severe, Verified 06/29/19 16:08) Anaphylaxis sulfamethoxazole [From Bactrim] Allergy (Severe, Verified 06/29/19 16:08) anaphylaxis/hives tramadol [Tramadol] Allergy (Severe, Verified 06/29/19 16:08) Anaphylaxis hydromorphone HCl [From Dilaudid] Allergy (Intermediate, Verified 06/29/19 16:08) Hives amoxicillin [Amoxicillin] Allergy (Verified 06/29/19 16:08) anaphylaxis/hives hydrocodone [From [place]] Allergy (Verified 06/29/19 16:08) nitrofurantoin [From Macrobid] Allergy (Verified 06/29/19 16:08) Anaphylaxis trimethoprim [From Bactrim] Allergy (Verified 06/29/19 16:08) Home Medications: prilosec. potassium. ambien. vistaril. trazadone Past Medical History - General Information source: Patient, [facility] Records - Social History Smoking Status: Current Every Day Smoker Cigarette use (# per day): Yes Frequency of alcohol use: None Drug Abuse: None Lives with: Family Family History: Reviewed & Not Pertinent Patient has suicidal ideation: No Patient has homicidal ideation: No Pulmonary Medical History: Reports: Hx Asthma Neurological Medical History: Reports: Hx Migraine Renal/ Medical History: Reports: Hx Kidney Stones, Hx Ovarian Cysts GI Medical History: Reports: Hx Gastroesophageal Reflux Disease Musculoskeletal Medical History: 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, knees, fingers Psychiatric Medical History: Reports: Hx Anxiety, Hx Attention Deficit Hyperactivity Disorder, Hx Bipolar Disorder, Hx Depression, Hx Post Traumatic Stress Disorder Past Surgical History: Reports: Hx Appendectomy, Hx Section, Hx Orthopedic Surgery - cervical spine surgery , Other - septoplasty, bilateral knee surgery (miniscus tears, ) , right foot surgery - Immunizations Hx Diphtheria, Pertussis, Tetanus Vaccination: Yes Review of Systems - Review of Systems Constitutional: No symptoms reported EENT: No symptoms reported Cardiovascular: No symptoms reported Respiratory: No symptoms reported Gastrointestinal: See HPI, Abdominal pain Genitourinary: See HPI, Burning, Discharge, Flank pain Female Genitourinary: No symptoms reported Musculoskeletal: No symptoms reported Skin: No symptoms reported Hematologic/Lymphatic: No symptoms reported Neurological/Psychological: No symptoms reported -: Yes All other systems reviewed and negative Physical Exam - Vital signs Vitals: Temp Pulse Resp BP Pulse Ox 98.4 F 125 H 16 103/69 98 07/24/19 20:53 07/24/19 20:53 07/24/19 20:53 07/24/19 20:53 07/24/19 20:53 Interpretation: Normal - General General appearance: Appears well, Alert - HEENT Head: Normocephalic, Atraumatic Eyes: Normal Pupils: PERRL - Respiratory Respiratory status: No respiratory distress Chest status: Nontender Breath sounds: Normal Chest palpation: Normal - Cardiovascular Rhythm: Regular Heart sounds: Normal auscultation Murmur: No - Abdominal Inspection: Normal Distension: No distension Bowel sounds: Normal Tenderness: Nontender Organomegaly: No organomegaly - Back Back: Normal, Nontender - Extremities General upper extremity: Normal inspection, Nontender, Normal color, Normal ROM, Normal temperature General lower extremity: Normal inspection, Nontender, Normal color, Normal ROM, Normal temperature, Normal weight bearing. No: Jacques's sign - Neurological Neuro grossly intact: Yes Cognition: Normal Orientation: AAOx4 [place] Coma Scale Eye Opening: Spontaneous Horacio Coma Scale Verbal: Oriented [place] Coma Scale Motor: Obeys Commands [place] Coma Scale Total: 15 Speech: Normal Motor strength normal: LUE, RUE, LLE, RLE Sensory: Normal - Psychological Associated symptoms: Normal affect, Normal mood - Skin Skin Temperature: Warm Skin Moisture: Dry Skin Color: Normal Course - Re-evaluation Re-evalutation: 07/24/19 23:26 Patient is not on Protonix. States that Bentyl does not work for her. Would like to take fluconazole p.o. and be discharged home. Patient is a 29-year-old female with multiple visits for chronic abdominal pain. Did not want Bentyl or Protonix. Wanted to be discharged home. Will be given a prescription for fluconazole and Flagyl as patient is concerned about yeast and BV. Past cultures negative. Stable for discharge. Follow-up with PMD. - Vital Signs Vital signs: Temp Pulse Resp BP Pulse Ox 98.0 F 92 20 104/68 99 07/24/19 23:57 07/24/19 23:57 07/24/19 23:57 07/24/19 23:57 07/24/19 23:57 - Laboratory Result Diagrams: 07/24/19 21:55 07/24/19 21:55 Laboratory results interpreted by me: 07/24/19 07/24/19 21:16 21:55 BUN 6 L Leukocyte Esterase Rfl TRACE H Discharge - Discharge Clinical Impression: Dysuria Abdominal pain Qualifiers: Abdominal location: generalized Qualified Code(s): R10.84 - Generalized abdominal pain Condition: Stable Disposition: HOME, SELF-CARE Instructions: Abdominal Pain ([facility]), Vaginal Yeast Infection ([facility]) Additional Instructions: Please follow-up with your [facility] this week. Prescriptions: Fluconazole [Diflucan] 150 mg PO ONCE PRN #1 tablet PRN Reason: Metronidazole [Flagyl 500 mg Tablet] 500 mg PO BID #14 tablet I personally performed the services described in the documentation, reviewed and edited the documentation which was dictated to the scribe in my presence, and it accurately records my words and actions.
== END 2019-07-25 00:02 | disposition home or self-care (01) ==
LOC: ER 20:40
DX: R30.0 Dysuria (principal); R10.84 Generalized abdominal pain; F17.210 Nicotine dependence, cigarettes, uncomplicated; Z88.3 Allergy status to other anti-infective agents; Z88.6 Allergy status to analgesic agent; Z87.442 Personal history of urinary calculi
CPT/HCPCS: 99284; 96360; 36415; 87086; 87210; 84703; 85025; 80053; 81001; 87491; 87591; 76830; 93976; J3490; J7030; 87088

== ENCOUNTER 2019-08-06 20:54 | Emergency (ER) | payer SELFPAY ==
--- NOTE | 2019-08-06 21:14 | ER Document Report ---
ED Medical Screen (RME) - General Chief Complaint: Abdominal Pain Stated Complaint: ABDOMINAL PAIN Time Seen by Provider: 08/06/19 21:09 Mode of Arrival: Ambulatory Information source: Patient Notes: 29-year-old female presents to ED for complaint of lower abdominal pain mostly on the left but does radiate to the right. She denies nausea or vomiting. She states the pain is been for about 4 hours. She denies any other symptoms. She denies any fevers. She states she smokes about 1/2 pack a day does not drink or do any drugs. She is alert and oriented respirations regular nonlabored s peaking in full sentences. Blood pressure is 96/74 afebrile pulse is 102 O2 sat 99. I have greeted and performed a rapid initial assessment of this patient. A comprehensive ED assessment and evaluation of the patient, analysis of test results and completion of medical decision making process will be conducted by an additional ED providers. TRAVEL OUTSIDE OF THE [place] IN LAST 30 DAYS: No - Related Data Allergies/Adverse Reactions: ciprofloxacin [From Cipro] Allergy (Severe, Verified 06/29/19 16:08) Anaphylaxis guaifenesin [From Mucinex] Allergy (Severe, Verified 06/29/19 16:08) Anaphylaxis nitrofurantoin macrocrystalline [From Macrobid] Allergy (Severe, Verified 06/29/19 16:08) Anaphylaxis Penicillins Allergy (Severe, Verified 06/29/19 16:08) Anaphylaxis sulfamethoxazole [From Bactrim] Allergy (Severe, Verified 06/29/19 16:08) anaphylaxis/hives tramadol [Tramadol] Allergy (Severe, Verified 06/29/19 16:08) Anaphylaxis hydromorphone HCl [From Dilaudid] Allergy (Intermediate, Verified 06/29/19 16:08) Hives amoxicillin [Amoxicillin] Allergy (Verified 06/29/19 16:08) anaphylaxis/hives hydrocodone [From [place]] Allergy (Verified 06/29/19 16:08) nitrofurantoin [From Macrobid] Allergy (Verified 06/29/19 16:08) Anaphylaxis trimethoprim [From Bactrim] Allergy (Verified 06/29/19 16:08) Past Medical History - Past Medical History Cardiac Medical History: Denies: Hx Coronary Artery Disease, Hx Heart Attack, Hx Hypertension Pulmonary Medical History: Reports: Hx Asthma Denies: Hx Bronchitis, Hx COPD, Hx Pneumonia Neurological Medical History: Reports: Hx Migraine. Denies: Hx Cerebrovascular Accident, Hx Seizures Renal/ Medical History: Reports: Hx Kidney Stones, Hx Ovarian Cysts. Denies: Hx Peritoneal Dialysis GI Medical History: Reports: Hx Gastroesophageal Reflux Disease. Denies: Hx Hepatitis, Hx Hiatal Hernia, Hx Ulcer Musculoskeltal Medical History: 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, knees, fingers Psychiatric Medical History: Reports: Hx Anxiety, Hx Attention Deficit Hyperactivity Disorder, Hx Bipolar Disorder, Hx Depression, Hx Post Traumatic Stress Disorder Infectious Medical History: Denies: Hx Hepatitis Past Surgical History: Reports: Hx Appendectomy, Hx Section, Hx Orthopedic Surgery - cervical spine surgery , Other - septoplasty, bilateral knee surgery (miniscus tears, ) , right foot surgery. Denies: Hx Hysterectomy, Hx Mastectomy, Hx Open Heart Surgery, Hx Pacemaker - Immunizations Hx Diphtheria, Pertussis, Tetanus Vaccination: Yes
[2019-08-06 21:49] LABS: APPEARANCE,URINE SLIGHTLY-CLOUDY; BILIRUBIN,URINE NEGATIVE (NEGATIVE); COLOR,URINE YELLOW; GLUCOSE, URINE NEGATIVE (NEGATIVE); KETONES,URINE NEGATIVE (NEGATIVE); PROTEIN,URINE NEGATIVE (NEGATIVE)
--- NOTE | 2019-08-06 22:54 | RADIOLOGY REPORT (SQ) ---
US PELVIS EXAM DATE: 08/06/2019 9:14 PM [employer] HISTORY: Left-sided pelvic pain. COMPARISON: 07/24/2019 TECHNIQUE: Grayscale, color Doppler, and spectral Doppler ultrasound images of the pelvis were obtained. FINDINGS: The uterus is anteverted and measures 6.4 x 3.2 x 4.7 cm. The endometrium is 9 mm in thickness. The cervix measures 2.5 cm in length. The right ovary is obscured by bowel gas. The left ovary measures 3.7 x 3.8 x 3.4 cm and contains a 3.0 x 3.4 x 2.9 cm septated cyst. Color Doppler blood flow is seen in the left ovary. No free fluid. IMPRESSION: 3.4 cm septated left ovarian cyst. Right ovary not seen.
[2019-08-06] MEDS ORDERED: MORPHINE SULFATE 10 MG/ML INJ IM ONE (23:26)
[2019-08-06 23:57] LABS: ABSOLUTE BASOPHILS # (AUTO) 0.1 10^3/uL (0.0-0.2); ABSOLUTE EOSINOPHILS # (AUTO) 0.4 10^3/uL (0.0-0.6); ABSOLUTE LYMPHOCYTES (AUTO) 3.4 10^3/uL (0.5-4.7); ABSOLUTE MONOCYTES (AUTO) 0.5 10^3/uL (0.1-1.4); ABSOLUTE NEUT (AUTO) 6.5 10^3/uL (1.7-8.2); EOSINOPHILS % (AUTO) 3.7 % (0-6); HEMATOCRIT 42.3 % (36.0-47.0); HEMOGLOBIN 14.3 g/dL (12.0-15.5); MEAN CORPUSCULAR HEMOGLOBIN 31.6 pg (27.0-33.4); MEAN CORPUSCULAR HGB CONC 33.8 g/dL (32.0-36.0); MEAN CORPUSCULAR VOLUME 93 fl (80-97); PLATELET COUNT 281 10^3/uL (150-450); RED BLOOD COUNT 4.52 10^6/uL (3.72-5.28); RED CELL DISTRIBUTION WIDTH 13.8 % (11.5-14.0); SEGMENTED NEUTROPHILS % (AUTO) 59.3 % (42-78); TOTAL CELLS COUNTED % (AUTO) 100 %; WHITE BLOOD COUNT 10.9 10^3/uL (4.0-10.5)
[2019-08-07] MEDS ORDERED: ONDANSETRON 4 MG TAB.RAPDIS PO ONE (00:32)
[2019-08-07 00:56] LABS: ALBUMIN 3.6 g/dL (3.5-5.0); ALKALINE PHOSPHATASE 82 U/L (38-126); ANION GAP 8 (5-19); ASPARTATE AMINO TRANSFERASE 18 U/L (14-36); BILIRUBIN,DIRECT 0.1 mg/dL (0.0-0.4); BILIRUBIN,TOTAL 0.1 mg/dL (0.2-1.3); BLOOD UREA NITROGEN 11 mg/dL (7-20); CARBON DIOXIDE 26 mmol/L (22-30); CHLORIDE 105 mmol/L (98-107); GLUCOSE 89 mg/dL (75-110); POTASSIUM 4.1 mmol/L (3.6-5.0); TOTAL PROTEIN 6.6 g/dL (6.3-8.2)
[2019-08-07 01:19] VITALS: BP 134/84
--- NOTE | 2019-08-07 01:44 | ER Document Report ---
ED General - General Chief Complaint: Abdominal Pain Stated Complaint: ABDOMINAL PAIN Time Seen by Provider: 08/06/19 21:09 Mode of Arrival: Ambulatory Notes: Patient is a 29-year-old female who presents the emergency department with a chief complaint of left lower quadrant abdominal pain. Patient states that the pain is on the left and radiates to the right. Her last menstrual cycle was about 2 weeks ago. Patient has history of ovarian cysts in the past. TRAVEL OUTSIDE OF THE [place] IN LAST 30 DAYS: No - Related Data Allergies/Adverse Reactions: ciprofloxacin [From Cipro] Allergy (Severe, Verified 06/29/19 16:08) Anaphylaxis guaifenesin [From Mucinex] Allergy (Severe, Verified 06/29/19 16:08) Anaphylaxis nitrofurantoin macrocrystalline [From Macrobid] Allergy (Severe, Verified 06/29/19 16:08) Anaphylaxis Penicillins Allergy (Severe, Verified 06/29/19 16:08) Anaphylaxis sulfamethoxazole [From Bactrim] Allergy (Severe, Verified 06/29/19 16:08) anaphylaxis/hives tramadol [Tramadol] Allergy (Severe, Verified 06/29/19 16:08) Anaphylaxis hydromorphone HCl [From Dilaudid] Allergy (Intermediate, Verified 06/29/19 16:08) Hives amoxicillin [Amoxicillin] Allergy (Verified 06/29/19 16:08) anaphylaxis/hives hydrocodone [From [place]] Allergy (Verified 06/29/19 16:08) nitrofurantoin [From Macrobid] Allergy (Verified 06/29/19 16:08) Anaphylaxis trimethoprim [From Bactrim] Allergy (Verified 06/29/19 16:08) Past Medical History - General Information source: Patient - Social History Smoking Status: Current Every Day Smoker Family History: Reviewed & Not Pertinent Patient has suicidal ideation: No Patient has homicidal ideation: No - Past Medical History Cardiac Medical History: Denies: Hx Coronary Artery Disease, Hx Heart Attack, Hx Hypertension Pulmonary Medical History: Reports: Hx Asthma Denies: Hx Bronchitis, Hx COPD, Hx Pneumonia Neurological Medical History: Reports: Hx Migraine. Denies: Hx Cerebrovascular Accident, Hx Seizures Renal/ Medical History: Reports: Hx Kidney Stones, Hx Ovarian Cysts. Denies: Hx Peritoneal Dialysis GI Medical History: Reports: Hx Gastroesophageal Reflux Disease. Denies: Hx Hepatitis, Hx Hiatal Hernia, Hx Ulcer Musculoskeletal Medical History: 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, knees, fingers Psychiatric Medical History: Reports: Hx Anxiety, Hx Attention Deficit Hyperactivity Disorder, Hx Bipolar Disorder, Hx Depression, Hx Post Traumatic Stress Disorder Infectious Medical History: Denies: Hx Hepatitis Past Surgical History: Reports: Hx Appendectomy, Hx Section, Hx Orthopedic Surgery - cervical spine surgery , Other - septoplasty, bilateral knee surgery (miniscus tears, ) , right foot surgery. Denies: Hx Hysterectomy, Hx Mastectomy, Hx Open Heart Surgery, Hx Pacemaker - Immunizations Hx Diphtheria, Pertussis, Tetanus Vaccination: Yes Review of Systems - Review of Systems Notes: REVIEW OF SYSTEMS: CONSTITUTIONAL : Denies recent illness. Denies recent unintentional weight loss. Denies fever, chills, or sweats. EENT: Denies eye, ear, throat, or mouth pain, discharge, or symptoms. Denies nasal or sinus congestion. CARDIOVASCULAR: Denies chest pain. RESPIRATORY: Denies shortness of breath, cough, congestion, difficulty breathing, or wheezing. GASTROINTESTINAL: Denies nausea, vomiting, and diarrhea. Denies abdominal pain. Denies constipation. Last BM: GENITOURINARY: Denies difficulty urinating, burning, blood in urine, urgency or frequency. FEMALE GENITOURINARY: See HPI. MUSCULOSKELETAL: Denies neck and back pain. Denies joint pain or swelling. SKIN: Denies rash, itchiness, or lesions HEMATOLOGIC : Denies easy bruising or bleeding. LYMPHATIC: Denies swollen, painful, enlarged glands. NEUROLOGICAL: Denies no numbness or tingling denies weakness. Denies headache. Denies altered mental status. Denies alteration in speech. PSYCHIATRIC: Denies stress, anxiety, alteration in sleep patterns, or depression. All other systems reviewed and negative. Physical Exam - Vital signs Vitals: Temp Pulse Resp BP Pulse Ox 98.8 F 102 H 18 96/74 L 99 08/06/19 21:10 08/06/19 21:10 08/06/19 21:10 08/06/19 21:10 08/06/19 21:10 - Notes Notes: PHYSICAL EXAMINATION: GENERAL: Appears well, healthy, well-nourished, no acute distress. HEAD: Normocephalic, atraumatic. EYES: PERRL, conjunctiva normal, all extraocular movements intact, sclera nonicteric ENT: Dry mucous membranes. NECK: Supple, no noticeable swelling, redness, rash. Normal range of motion. LUNGS: Equal breath sounds bilaterally and clear to auscultation. No wheezes rales or rhonchi. CARDIOVASCULAR: S1-S2, regular rate, regular rhythm. Radial pulses 2+, normal. ABDOMEN: Normoactive bowel sounds. Soft, nontender, no guarding, no rebound tenderness, and no masses palpated. EXTREMITIES: Normal strength and range of motion, no pitting or edema. No cyanosis. NEUROLOGICAL: Moves all extremities upon command. Strength 5/5 in all extremities. PSYCH: Normal mood, normal affect. SKIN: Warm, dry. No rash, lesions, ulcerations noted. Normal skin turgor. Course - Re-evaluation Re-evalutation: 08/07/19 01:41 Patient's hematology is unremarkable. Her chemistries are also unremarkable. Her urine only shows trace leukocytes, but she denies any dysuria. The patient has an ovarian cyst noted on her ultrasound. It is a 3.4 cm left ovarian cyst, which is the most likely cause of her pain. No torsion noted. Patient denies any pain on the right side. Ultrasound did not visualize the right ovary, but patient does not have any pain at that area. Denies any vaginal discharge or foul odors. Patient will be sent home with a small amount of pain medication. She will follow-up with [facility]. Follow-up precautions were given. Verbal discharge instructions were given to the patient. They verbalized understanding. They are stable for discharge. - Vital Signs Vital signs: Temp Pulse Resp BP Pulse Ox 98.2 F 80 16 134/84 H 98 08/07/19 01:11 08/07/19 01:11 08/07/19 01:11 08/07/19 01:11 08/07/19 01:11 - Laboratory Result Diagrams: 08/06/19 23:38 08/07/19 00:30 Laboratory results interpreted by me: 08/06/19 08/06/19 08/07/19 21:10 23:38 00:30 WBC 10.9 H Total Bilirubin 0.1 L Urine Urobilinogen 2.0 H Leukocyte Esterase Rfl TRACE H Discharge - Discharge Clinical Impression: Ovarian cyst Qualifiers: Laterality: left Qualified Code(s): N83.202 - Unspecified ovarian cyst, left side Condition: Stable Disposition: HOME, SELF-CARE Additional Instructions: You were seen today in the emergency department for abdominal pain. You have an ovarian cyst in your left ovary. This is because this is the time that you are ovulating. Cyst usually will go away over time. Please continue ibuprofen 600 mg and acetaminophen 1000 mg every 6 hours for your pain. You are also being sent home with oxycodone for your pain. Please follow-up with [facility] if you continue to have problems with your ovarian cysts. If you develop a fever, have worsening pain, or have any symptoms that are worrisome to you, please return to the emergency department. Prescriptions: Oxycodone HCl [Oxycontin Ir 5 Mg Tablet] 1 mg PO Q4H PRN #7 tablet PRN Reason: For Pain
== END 2019-08-07 01:48 | disposition home or self-care (01) ==
LOC: ER 20:54
DX: N83.292 Other ovarian cyst, left side (principal); R10.32 Left lower quadrant pain; F17.200 Nicotine dependence, unspecified, uncomplicated; J45.909 Unspecified asthma, uncomplicated; Z87.442 Personal history of urinary calculi; Z87.892 Personal history of anaphylaxis; Z88.1 Allergy status to other antibiotic agents; Z88.8 Allergy status to other drugs, medicaments and biological substances; Z88.0 Allergy status to penicillin; Z88.5 Allergy status to narcotic agent
CPT/HCPCS: 36415; 87086; 84703; 85025; 80053; 81001; 76830; S0119; J2270

== ENCOUNTER 2019-08-20 21:27 | Emergency (ER) | payer SELFPAY ==
[2019-08-20] MEDS ORDERED: DIPHENHYDRAMINE HCL 25 MG CAPSULE PO ONE (21:38)
--- NOTE | 2019-08-20 21:40 | ER Document Report ---
ED Medical Screen (RME) - General Chief Complaint: Headache Stated Complaint: HEADACHE,EYE PAIN,VAGINAL DISCHARGE Time Seen by Provider: 08/20/19 21:36 Mode of Arrival: Ambulatory Information source: Patient Notes: 29-year-old female with history of migraines presents emergency department with complaints of migraines for the last couple days. Reports migraine headache, irritated red eye with matting and vaginal discharge for last for 5 days. Denies fever vomiting diarrhea. Reports she feels nauseated. Reports she is taking Motrin without relief of symptoms. I have greeted and performed a rapid initial assessment of this patient. A comprehensive ED assessment and evaluation of the patient, analysis of test results and completion of the medical decision making process will be conducted by additional ED providers. Dictation of this chart was performed using voice recognition software; therefore, there may be some unintended grammatical errors. TRAVEL OUTSIDE OF THE [place] IN LAST 30 DAYS: No - Related Data Allergies/Adverse Reactions: ciprofloxacin [From Cipro] Allergy (Severe, Verified 06/29/19 16:08) Anaphylaxis guaifenesin [From Mucinex] Allergy (Severe, Verified 06/29/19 16:08) Anaphylaxis nitrofurantoin macrocrystalline [From Macrobid] Allergy (Severe, Verified 06/29/19 16:08) Anaphylaxis Penicillins Allergy (Severe, Verified 06/29/19 16:08) Anaphylaxis sulfamethoxazole [From Bactrim] Allergy (Severe, Verified 06/29/19 16:08) anaphylaxis/hives tramadol [Tramadol] Allergy (Severe, Verified 06/29/19 16:08) Anaphylaxis hydromorphone HCl [From Dilaudid] Allergy (Intermediate, Verified 06/29/19 16:08) Hives amoxicillin [Amoxicillin] Allergy (Verified 06/29/19 16:08) anaphylaxis/hives hydrocodone [From [place]] Allergy (Verified 06/29/19 16:08) nitrofurantoin [From Macrobid] Allergy (Verified 06/29/19 16:08) Anaphylaxis trimethoprim [From Bactrim] Allergy (Verified 06/29/19 16:08) Past Medical History - Social History Chew tobacco use (# tins/day): No Frequency of alcohol use: None Drug Abuse: None - Past Medical History Cardiac Medical History: Denies: Hx Coronary Artery Disease, Hx Heart Attack, Hx Hypertension Pulmonary Medical History: Reports: Hx Asthma Denies: Hx Bronchitis, Hx COPD, Hx Pneumonia Neurological Medical History: Reports: Hx Migraine. Denies: Hx Cerebrovascular Accident, Hx Seizures Renal/ Medical History: Reports: Hx Kidney Stones, Hx Ovarian Cysts. Denies: Hx Peritoneal Dialysis GI Medical History: Reports: Hx Gastroesophageal Reflux Disease. Denies: Hx Hepatitis, Hx Hiatal Hernia, Hx Ulcer Musculoskeltal Medical History: 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, knees, fingers Psychiatric Medical History: Reports: Hx Anxiety, Hx Attention Deficit Hyperactivity Disorder, Hx Bipolar Disorder, Hx Depression, Hx Post Traumatic Stress Disorder Infectious Medical History: Denies: Hx Hepatitis Past Surgical History: Reports: Hx Appendectomy, Hx Section, Hx Orthopedic Surgery - cervical spine surgery , Other - septoplasty, bilateral knee surgery (miniscus tears, ) , right foot surgery. Denies: Hx Hysterectomy, Hx Mastectomy, Hx Open Heart Surgery, Hx Pacemaker - Immunizations Hx Diphtheria, Pertussis, Tetanus Vaccination: Yes Physical Exam - Vital signs Vitals: Temp Pulse Resp BP Pulse Ox 98.2 F 114 H 17 112/78 97 08/20/19 21:33 08/20/19 21:33 08/20/19 21:33 08/20/19 21:33 08/20/19 21:33 Course - Vital Signs Vital signs: Temp Pulse Resp BP Pulse Ox 98.2 F 114 H 17 112/78 97 08/20/19 21:33 08/20/19 21:33 08/20/19 21:33 08/20/19 21:33 08/20/19 21:33
[2019-08-20 22:53] LABS: APPEARANCE,URINE SLIGHTLY-CLOUDY; BILIRUBIN,URINE SMALL (NEGATIVE); COLOR,URINE AMBER; GLUCOSE, URINE NEGATIVE (NEGATIVE); KETONES,URINE NEGATIVE (NEGATIVE); LEUKOCYTE ESTERASE,URINE NEGATIVE (NEGATIVE); NITRITE,URINE NEGATIVE (NEGATIVE); PROTEIN,URINE 30 mg/dL (NEGATIVE); URINE SPECIFIC GRAVITY 1.041; UROBILINOGEN,URINE NEGATIVE mg/dL (<2.0)
[2019-08-21 00:19] LABS: CHLAM PCR NOT DETECTED (NOT DETECT)
[2019-08-21] MEDS ORDERED: PROMETHAZINE HCL INJ 25 MG/1 ML VIAL IM ONE (02:34)
[2019-08-21] MEDS ORDERED: KETOROLAC TROMETHAMINE 60 MG/2 ML SDV IM ONE (02:34)
[2019-08-21 02:53] LABS: BACTERIA (WET MOUNT) 3+ BACTERIA SEEN; EPITHELIALS (WET MOUNT) 3+ EPITHELIALS SEEN; T.VAGINALIS (WET MOUNT) NO TRICHOMONAS SEEN; WBCS (WET MOUNT) RARE WBCS SEEN; YEAST (WET MOUNT) NO YEAST SEEN
[2019-08-21 05:23] VITALS: BP 112/74
[2019-08-21] MEDS ORDERED: BUTALB/ACETAMINOPHEN/CAFFEINE 1 TAB EACH PO ONE (05:27)
[2019-08-21] MEDS ORDERED: ERYTHROMYCIN 0.5% OPH OINTMENT 3.5 GM TUBE OD ONE (05:47)
--- NOTE | 2019-08-21 05:50 | ER Document Report ---
HPI - HPI Time Seen by Provider: 08/20/19 21:36 Pain Level: 5 Notes: 29-year-old female with history of migraines presents emergency department with complaints of migraines for the last couple days. Reports migraine headache, irritated red eye with matting and vaginal discharge for last for 5 days. Denies fever vomiting diarrhea. Reports she feels nauseated. Reports she is taking Motrin without relief of symptoms. - NEURO Neurology: REPORTS: Headache - REPRODUCTIVE Reproductive: DENIES: : Past Medical History - General Information source: Patient - Social History Smoking Status: Current Every Day Smoker Chew tobacco use (# tins/day): No Frequency of alcohol use: None Drug Abuse: None Family History: Reviewed & Not Pertinent Patient has suicidal ideation: No Patient has homicidal ideation: No - Past Medical History Cardiac Medical History: Denies: Hx Coronary Artery Disease, Hx Heart Attack, Hx Hypertension Pulmonary Medical History: Reports: Hx Asthma Denies: Hx Bronchitis, Hx COPD, Hx Pneumonia Neurological Medical History: Reports: Hx Migraine. Denies: Hx Cerebrovascular Accident, Hx Seizures Renal/ Medical History: Reports: Hx Kidney Stones, Hx Ovarian Cysts. Denies: Hx Peritoneal Dialysis GI Medical History: Reports: Hx Gastroesophageal Reflux Disease. Denies: Hx Hepatitis, Hx Hiatal Hernia, Hx Ulcer Musculoskeletal Medical History: 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, knees, fingers Psychiatric Medical History: Reports: Hx Anxiety, Hx Attention Deficit Hyperactivity Disorder, Hx Bipolar Disorder, Hx Depression, Hx Post Traumatic Stress Disorder Infectious Medical History: Denies: Hx Hepatitis Past Surgical History: Reports: Hx Appendectomy, Hx Section, Hx Orthopedic Surgery - cervical spine surgery , Other - septoplasty, bilateral knee surgery (miniscus tears, ) , right foot surgery. Denies: Hx Hysterectomy, Hx Mastectomy, Hx Open Heart Surgery, Hx Pacemaker - Immunizations Hx Diphtheria, Pertussis, Tetanus Vaccination: Yes Vertical Provider Document - CONSTITUTIONAL Notes: PHYSICAL EXAMINATION: GENERAL: Well-appearing, well-nourished and in no acute distress. HEAD: Atraumatic, normocephalic. EYES: Pupils equal round and reactive to light, extraocular movements intact, conjunctiva are normal. No uptake of fluorescein dye, no evidence of corneal abrasion or foreign body. ENT: Nares patent, oropharynx clear without exudates. Moist mucous membranes. NECK: Normal range of motion, supple without lymphadenopathy LUNGS: Breath sounds clear to auscultation bilaterally and equal. No wheezes rales or rhonchi. HEART: Regular rate and rhythm without murmurs ABDOMEN: Soft, nontender, nondistended abdomen. No guarding, no rebound. No masses appreciated. Female : Normal external genitalia, no cervical motion or adnexal tenderness. Thin white vaginal discharge. Musculoskeletal: Normal range of motion, no pitting or edema. No cyanosis. NEUROLOGICAL: Cranial nerves grossly intact. Normal speech, normal gait. Normal sensory, motor exams PSYCH: Normal mood, normal affect. SKIN: Warm, Dry, normal turgor, no rashes or lesions noted. - INFECTION CONTROL TRAVEL OUTSIDE OF THE [place] IN LAST 30 DAYS: No Course - Re-evaluation Re-evalutation: Laboratory 08/20/19 08/20/19 08/21/19 22:20 22:20 02:45 Urine Color [place] Urine Appearance SLIGHTLY-CLOUDY Urine pH 5.0 Ur Specific [place] 1.041 Urine Protein 30 H Urine Glucose (UA) NEGATIVE Urine Ketones NEGATIVE Urine Blood NEGATIVE Urine Nitrite NEGATIVE Urine Bilirubin SMALL H Urine Urobilinogen NEGATIVE Ur Leukocyte Esterase NEGATIVE Urine WBC (Auto) 4 Urine RBC (Auto) 5 U Hyaline Cast (Auto) 26 Urine Bacteria (Auto) TRACE Squamous Epi Cells Auto 17 Urine Mucus (Auto) MANY Urine Ascorbic Acid NEGATIVE Urine HCG, Qual NEGATIVE Epi Cells (Wet Prep) 3+ EPITHELIALS SEEN Bacteria (Wet Prep) 3+ BACTERIA SEEN Trichomonas (Wet Prep) NO TRICHOMONAS SEEN Vaginal WBC RARE WBCS SEEN Vaginal Yeast NO YEAST SEEN Chlamydia DNA (PCR) NOT DETECTED N.gonorrhoeae DNA (PCR) NOT DETECTED Patient's headache resolved after administration of medications here in the emergency department. No obvious foreign body noted on eye exam, no uptake of floor seen dye to suggest corneal abrasion. - Vital Signs Vital signs: Temp Pulse Resp BP Pulse Ox 98.2 F 68 14 112/74 99 08/21/19 05:23 08/21/19 05:23 08/21/19 05:23 08/21/19 05:23 08/21/19 05:23 - Laboratory Laboratory results interpreted by me: 08/20/19 22:20 Urine Protein 30 H Urine Bilirubin SMALL H Discharge - Discharge Clinical Impression: Bacterial vaginosis Migraine headache Qualifiers: Migraine type: unspecified Status migrainosus presence: without status migrainosus Intractability: not intractable Qualified Code(s): G43.909 - Migraine, unspecified, not intractable, without status migrainosus Conjunctivitis Qualifiers: Conjunctivitis type: unspecified Laterality: right Qualified Code(s): H10.9 - U nspecified conjunctivitis Condition: Stable Disposition: HOME, SELF-CARE Additional Instructions: You were seen in the emergency department this evening for multiple complaints. Please follow-up with your primary care provider regarding further management of your chronic migraines. In the future please take 600 mg of ibuprofen, 1000 mg of acetaminophen and 50 mg of Benadryl immediately when you start having a headache. Please take the Flagyl as prescribed for bacterial vaginosis. I did provide you with a prescription for Diflucan in case you develop a yeast infection after taking the antibiotics. Please use the erythromycin ointment for the conjunctivitis. If the symptoms of conjunctivitis do not begin resolving in the next 1 to 2 days please follow-up with your eye doctor in 1 to 2 days. Please return to the emergency department with any emergencies. Prescriptions: Fluconazole [Diflucan] 150 mg PO ONCE PRN #1 tablet PRN Reason: Erythromycin Base [Erythromycin Oph 1 gm Oint Ud] 1 applic OP Q4H #1 tube Metronidazole [Flagyl 500 mg Tablet] 500 mg PO BID #14 tablet
== END 2019-08-21 06:09 | disposition home or self-care (01) ==
LOC: ER 21:27
DX: G43.909 Migraine, unspecified, not intractable, without status migrainosus (principal); N76.0 Acute vaginitis; B96.89 Other specified bacterial agents as the cause of diseases classified elsewhere; H10.9 Unspecified conjunctivitis; F17.200 Nicotine dependence, unspecified, uncomplicated; Z87.442 Personal history of urinary calculi
CPT/HCPCS: 87210; 81025; 81001; 87491; 87591; J3490; J1885; J2550; 96374; 96375; 99283

== ENCOUNTER 2019-09-09 04:41 | Emergency (ER) | payer SELFPAY ==
--- NOTE | 2019-09-09 08:33 | ER Document Report ---
HPI - HPI Time Seen by Provider: 09/09/19 08:15 Pain Level: 4 Context: 29-year-old female presents to the emergency department with chief complaint of right neck swelling, sore throat, difficulty opening her mouth secondary to sores in the size of her lips x2 days. Patient states that he just "came out of nowhere" and has dysphagia, right jaw pain, bilateral ear pain. Patient denies any sick contacts or recent illness, denies fevers or chills, is able to handle her secretions. No neck stiffness and patient has good range of motion with the neck. Patient does complain of cough with no shortness of breath, no chest pain, no nausea/vomiting/diarrhea/constipation. No other complaints - EENT EENT: DENIES: Sore Throat - REPRODUCTIVE Reproductive: DENIES: : Past Medical History - Social History Smoking Status: Current Every Day Smoker Frequency of alcohol use: None Drug Abuse: None Family History: Reviewed & Not Pertinent Patient has suicidal ideation: No Patient has homicidal ideation: No - Past Medical History Cardiac Medical History: Denies: Hx Coronary Artery Disease, Hx Heart Attack, Hx Hypertension Pulmonary Medical History: Reports: Hx Asthma Denies: Hx Bronchitis, Hx COPD, Hx Pneumonia Neurological Medical History: Reports: Hx Migraine. Denies: Hx Cerebrovascular Accident, Hx Seizures Renal/ Medical History: Reports: Hx Kidney Stones, Hx Ovarian Cysts. Denies: Hx Peritoneal Dialysis GI Medical History: Reports: Hx Gastroesophageal Reflux Disease. Denies: Hx Hepatitis, Hx Hiatal Hernia, Hx Ulcer Musculoskeletal Medical History: 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, knees, fingers Psychiatric Medical History: Reports: Hx Anxiety, Hx Attention Deficit Hyperactivity Disorder, Hx Bipolar Disorder, Hx Depression, Hx Post Traumatic Stress Disorder Infectious Medical History: Denies: Hx Hepatitis Past Surgical History: Reports: Hx Appendectomy, Hx Section, Hx Orthopedic Surgery - cervical spine surgery , Other - septoplasty, bilateral knee surgery (miniscus tears, ) , right foot surgery. Denies: Hx Hysterectomy, Hx Mastectomy, Hx Open Heart Surgery, Hx Pacemaker - Immunizations Hx Diphtheria, Pertussis, Tetanus Vaccination: Yes Vertical Provider Document - CONSTITUTIONAL Notes: PHYSICAL EXAMINATION: Reviewed vital signs and charting by RN GENERAL: Alert, interacts well. No acute distress. HEAD: Normocephalic, atraumatic. EYES: Pupils equal and round. Extraocular movements intact. ENT: Oral mucosa moist, bilateral sores in the creases of her mouth and on her tongue, tongue midline, tongue ring present. NECK: Full range of motion. Trachea midline. Some mild swelling the right anterior lateral neck with anterior cervical lymphadenopathy LUNGS: Clear to auscultation bilaterally, no wheezes, rales, or rhonchi. No respiratory distress. HEART: Regular rate and rhythm. No murmur ABDOMEN: soft, non-tender. No distention. Bowel sounds present EXTREMITIES: Moves all 4 extremities spontaneously. No edema, No cyanosis. PSYCH: Normal affect, normal mood. SKIN: Warm, dry, normal turgor. No rashes or lesions noted. - INFECTION CONTROL TRAVEL OUTSIDE OF THE [place] IN LAST 30 DAYS: No Course - Re-evaluation Re-evalutation: 09/09/19 09:33 Presentation of several days of sore throat in an otherwise well-appearing patient. Rapid strep is negative. History and exam are not consistent with a retropharyngeal abscess or peritonsillar abscess. Airway is patent. No difficulty handling oral secretions. Vitals within normal limits. Patient was treated with a dose of dexamethasone and advised on symptomatic care. Suspect likely viral pharyngitis. At this time will discharge with return precautions and follow-up recommendations. Verbal discharge instructions given a the beds eris and opportunity for questions given. Medication warnings reviewed. Patient is in agreement with this plan and has verbalized understanding of return precautions and the need for primary care follow-up in the next 24-72 hours. - Vital Signs Vital signs: Temp Pulse Resp BP Pulse Ox 97.9 F 128 H 16 114/66 98 09/09/19 04:48 09/09/19 04:48 09/09/19 04:48 09/09/19 04:48 09/09/19 04:48 Discharge - Discharge Clinical Impression: Sore throat Condition: Good Disposition: HOME, SELF-CARE Additional Instructions: Your strep test is negative. Your symptoms are likely due to an viral infection and will resolve in the next 1-2 weeks. You have also been given a dose of steroids to help with your throat discomfort. Please continue to take ibuprofen 600 mg every 6 hours or Tylenol 1000 mg every 6 hours as needed for throat discomfort. You can also gargle with salt water. Continue to drink plenty of fluids. Follow-up with your primary care doctor in the next several days. Return if you become unable to swallow, have difficulty breathing, pass out, have persistent vomiting that prevents you from being able to tolerate fluids, or have any other symptoms that are concerning to you.
[2019-09-09 09:23] LABS: APPEARANCE,URINE SLIGHTLY-CLOUDY; BILIRUBIN,URINE NEGATIVE (NEGATIVE); COLOR,URINE YELLOW; GLUCOSE, URINE NEGATIVE (NEGATIVE); KETONES,URINE TRACE mg/dL (NEGATIVE); LEUKOCYTE ESTERASE,URINE TRACE (NEGATIVE); NITRITE,URINE NEGATIVE (NEGATIVE); PROTEIN,URINE 30 mg/dL (NEGATIVE); URINE SPECIFIC GRAVITY 1.016; UROBILINOGEN,URINE NEGATIVE mg/dL (<2.0)
[2019-09-09] MEDS ORDERED: DEXAMETHASONE SOD PHOS INJ 10 MG/1 ML VIAL IM ONE (09:35)
[2019-09-09 10:54] VITALS: BP 113/77
== END 2019-09-09 10:38 | disposition home or self-care (01) ==
LOC: ER 04:41
DX: J02.9 Acute pharyngitis, unspecified (principal); R22.1 Localized swelling, mass and lump, neck; F17.200 Nicotine dependence, unspecified, uncomplicated; Z87.442 Personal history of urinary calculi
CPT/HCPCS: 99283; 96374; 87070; 87086; 87880; 81025; 87088; 81001; 87186; J1100

== ENCOUNTER 2019-09-12 14:01 | Emergency (ER) | payer SELFPAY ==
--- NOTE | 2019-09-12 14:59 | ER Document Report ---
ED Medical Screen (RME) - General Chief Complaint: Palpitations Stated Complaint: SORE THROAT Time Seen by Provider: 09/12/19 14:52 Mode of Arrival: Ambulatory Information source: Patient Notes: 29-year-old female presents to ED for complaint of sores to the mouth lips eyes cough congestion and a rapid heartbeat. She states she does have sinus tach but does not have any of her medicines. She states she does not know what is wrong with her heart she just knows it beats fast sometimes. She does smoke 1/2 pack does not drink or do any drugs. She states she is mainly here because she is sore to her face eyes throat and lips. She is not taking any medications at this time. Her pulse is 127. I have greeted and performed a rapid initial assessment of this patient. A comprehensive ED assessment and evaluation of the patient, analysis of test results and completion of medical decision making process will be conducted by an additional ED providers. TRAVEL OUTSIDE OF THE [place] IN LAST 30 DAYS: No - Related Data Allergies/Adverse Reactions: ciprofloxacin [From Cipro] Allergy (Severe, Verified 06/29/19 16:08) Anaphylaxis guaifenesin [From Mucinex] Allergy (Severe, Verified 06/29/19 16:08) Anaphylaxis nitrofurantoin macrocrystalline [From Macrobid] Allergy (Severe, Verified 06/29/19 16:08) Anaphylaxis Penicillins Allergy (Severe, Verified 06/29/19 16:08) Anaphylaxis sulfamethoxazole [From Bactrim] Allergy (Severe, Verified 06/29/19 16:08) anaphylaxis/hives tramadol [Tramadol] Allergy (Severe, Verified 06/29/19 16:08) Anaphylaxis hydromorphone HCl [From Dilaudid] Allergy (Intermediate, Verified 06/29/19 16:08) Hives amoxicillin [Amoxicillin] Allergy (Verified 06/29/19 16:08) anaphylaxis/hives hydrocodone [From [place]] Allergy (Verified 06/29/19 16:08) nitrofurantoin [From Macrobid] Allergy (Verified 06/29/19 16:08) Anaphylaxis trimethoprim [From Bactrim] Allergy (Verified 06/29/19 16:08) Past Medical History - Past Medical History Cardiac Medical History: Denies: Hx Coronary Artery Disease, Hx Heart Attack, Hx Hypertension Pulmonary Medical History: Reports: Hx Asthma Denies: Hx Bronchitis, Hx COPD, Hx Pneumonia Neurological Medical History: Reports: Hx Migraine. Denies: Hx Cerebrovascular Accident, Hx Seizures Renal/ Medical History: Reports: Hx Kidney Stones, Hx Ovarian Cysts. Denies: Hx Peritoneal Dialysis GI Medical History: Reports: Hx Gastroesophageal Reflux Disease. Denies: Hx Hepatitis, Hx Hiatal Hernia, Hx Ulcer Musculoskeltal Medical History: 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, knees, fingers Psychiatric Medical History: Reports: Hx Anxiety, Hx Attention Deficit Hyperactivity Disorder, Hx Bipolar Disorder, Hx Depression, Hx Post Traumatic S tress Disorder Infectious Medical History: Denies: Hx Hepatitis Past Surgical History: Reports: Hx Appendectomy, Hx Section, Hx Orthopedic Surgery - cervical spine surgery , Other - septoplasty, bilateral knee surgery (miniscus tears, ) , right foot surgery. Denies: Hx Hysterectomy, Hx Mastectomy, Hx Open Heart Surgery, Hx Pacemaker - Immunizations Hx Diphtheria, Pertussis, Tetanus Vaccination: Yes Physical Exam - Vital signs Vitals: Temp Pulse Resp BP Pulse Ox 98.4 F 127 H 16 114/85 99 09/12/19 14:06 09/12/19 14:06 09/12/19 14:06 09/12/19 14:06 09/12/19 14:06 Course - Vital Signs Vital signs: Temp Pulse Resp BP Pulse Ox 98.4 F 127 H 16 114/85 99 09/12/19 14:06 09/12/19 14:06 09/12/19 14:06 09/12/19 14:06 09/12/19 14:06
[2019-09-12 15:42] LABS: ABSOLUTE EOSINOPHILS # (AUTO) 0.1 10^3/uL (0.0-0.6); ABSOLUTE LYMPHOCYTES (AUTO) 1.7 10^3/uL (0.5-4.7); ABSOLUTE MONOCYTES (AUTO) 0.6 10^3/uL (0.1-1.4); ABSOLUTE NEUT (AUTO) 10.3 10^3/uL (1.7-8.2); BASOPHILS % (AUTO) 0.3 % (0-2); EOSINOPHILS % (AUTO) 0.5 % (0-6); HEMATOCRIT 43.6 % (36.0-47.0); HEMOGLOBIN 14.9 g/dL (12.0-15.5); LYMPHOCYTES % (AUTO) 13.4 % (13-45); MEAN CORPUSCULAR HEMOGLOBIN 31.3 pg (27.0-33.4); MEAN CORPUSCULAR HGB CONC 34.3 g/dL (32.0-36.0); MEAN CORPUSCULAR VOLUME 91 fl (80-97); MONOCYTES % (AUTO) 4.4 % (3-13); PLATELET COUNT 287 10^3/uL (150-450); RED BLOOD COUNT 4.77 10^6/uL (3.72-5.28); RED CELL DISTRIBUTION WIDTH 13.4 % (11.5-14.0); SEGMENTED NEUTROPHILS % (AUTO) 81.4 % (42-78); TOTAL CELLS COUNTED % (AUTO) 100 %; WHITE BLOOD COUNT 12.7 10^3/uL (4.0-10.5)
[2019-09-12 15:57] LABS: ALBUMIN 4.1 g/dL (3.5-5.0); ALKALINE PHOSPHATASE 123 U/L (38-126); ANION GAP 11 (5-19); ASPARTATE AMINO TRANSFERASE 26 U/L (14-36); BILIRUBIN,DIRECT 0.2 mg/dL (0.0-0.4); BILIRUBIN,TOTAL 0.4 mg/dL (0.2-1.3); BLOOD UREA NITROGEN 8 mg/dL (7-20); CALCIUM 9.5 mg/dL (8.4-10.2); CARBON DIOXIDE 27 mmol/L (22-30); CHLORIDE 100 mmol/L (98-107); GLUCOSE 94 mg/dL (75-110); TOTAL PROTEIN 7.5 g/dL (6.3-8.2)
[2019-09-12 16:03] LABS: POTASSIUM 2.9 mmol/L (3.6-5.0)
[2019-09-12 16:04] LABS: APPEARANCE,URINE SLIGHTLY-CLOUDY; BILIRUBIN,URINE NEGATIVE (NEGATIVE); COLOR,URINE YELLOW; GLUCOSE, URINE NEGATIVE (NEGATIVE); KETONES,URINE TRACE mg/dL (NEGATIVE); PROTEIN,URINE 30 mg/dL (NEGATIVE); URINE SPECIFIC GRAVITY 1.019; UROBILINOGEN,URINE NEGATIVE mg/dL (<2.0)
[2019-09-12] MEDS ORDERED: POTASSIUM CHLORIDE 10 MEQ TABLET.ER PO ONE (16:07)
--- NOTE | 2019-09-12 17:47 | EKG REPORT ---
SEVERITY:- BORDERLINE ECG - SINUS TACHYCARDIA BORDERLINE T ABNORMALITIES, INFERIOR LEADS BORDERLINE PROLONGED QT INTERVAL : Confirmed by: Peng Braden MD 12-Sep-2019 17:46:47
--- NOTE | 2019-09-12 18:34 | ER Document Report ---
ED General - General Chief Complaint: Palpitations Stated Complaint: SORE THROAT Time Seen by Provider: 09/12/19 14:52 Mode of Arrival: Ambulatory Information source: Patient TRAVEL OUTSIDE OF THE [place] IN LAST 30 DAYS: No - HPI Patient complains to provider of: Patient is a 29-year-old female with complaints of skin disorder. Patient Onset: Other - Rash has been occurring over the last week or 2. Onset/Duration: Gradual Severity: Moderate Associated symptoms: Nonproductive cough, Sore throat Similar symptoms previously: No - Related Data Allergies/Adverse Reactions: ciprofloxacin [From Cipro] Allergy (Severe, Verified 06/29/19 16:08) Anaphylaxis guaifenesin [From Mucinex] Allergy (Severe, Verified 06/29/19 16:08) Anaphylaxis nitrofurantoin macrocrystalline [From Macrobid] Allergy (Severe, Verified 06/29/19 16:08) Anaphylaxis Penicillins Allergy (Severe, Verified 06/29/19 16:08) Anaphylaxis sulfamethoxazole [From Bactrim] Allergy (Severe, Verified 06/29/19 16:08) anaphylaxis/hives tramadol [Tramadol] Allergy (Severe, Verified 06/29/19 16:08) Anaphylaxis hydromorphone HCl [From Dilaudid] Allergy (Intermediate, Verified 06/29/19 16:08) Hives amoxicillin [Amoxicillin] Allergy (Verified 06/29/19 16:08) anaphylaxis/hives hydrocodone [From [place]] Allergy (Verified 06/29/19 16:08) nitrofurantoin [From Macrobid] Allergy (Verified 06/29/19 16:08) Anaphylaxis trimethoprim [From Bactrim] Allergy (Verified 06/29/19 16:08) Past Medical History - General Information source: Patient - Social History Smoking Status: Current Some Day Smoker Chew tobacco use (# tins/day): No Frequency of alcohol use: None Drug Abuse: None Family History: Reviewed & Not Pertinent Patient has suicidal ideation: No Patient has homicidal ideation: No - Past Medical History Cardiac Medical History: Denies: Hx Coronary Artery Disease, Hx Heart Attack, Hx Hypertension Pulmonary Medical History: Reports: Hx Asthma Denies: Hx Bronchitis, Hx COPD, Hx Pneumonia Neurological Medical History: Reports: Hx Migraine. Denies: Hx Cerebrovascular Accident, Hx Seizures Renal/ Medical History: Reports: Hx Kidney Stones, Hx Ovarian Cysts. Denies: Hx Peritoneal Dialysis GI Medical History: Reports: Hx Gastroesophageal Reflux Disease. Denies: Hx Hepatitis, Hx Hiatal Hernia, Hx Ulcer Musculoskeletal Medical History: 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, knees, fingers Psychiatric Medical History: Reports: Hx Anxiety, Hx Attention Deficit Hyperact ivity Disorder, Hx Bipolar Disorder, Hx Depression, Hx Post Traumatic Stress Disorder Infectious Medical History: Denies: Hx Hepatitis Past Surgical History: Reports: Hx Appendectomy, Hx Section, Hx Orthopedic Surgery - cervical spine surgery , Other - septoplasty, bilateral knee surgery (miniscus tears, ) , right foot surgery. Denies: Hx Hysterectomy, Hx Mastectomy, Hx Open Heart Surgery, Hx Pacemaker - Immunizations Hx Diphtheria, Pertussis, Tetanus Vaccination: Yes Review of Systems - Review of Systems Constitutional: See HPI EENT: Throat pain, Mouth pain, Dental problem Cardiovascular: Heart racing Respiratory: Cough Gastrointestinal: Other - Irritable bowel syndrome, acid reflux Genitourinary: No symptoms reported Skin: See HPI Physical Exam - Vital signs Vitals: Temp Pulse Resp BP Pulse Ox 98.4 F 125 H 16 114/85 99 09/12/19 14:01 09/12/19 14:01 09/12/19 14:01 09/12/19 14:01 09/12/19 14:01 Interpretation: Normal - General General appearance: Appears well, Alert - HEENT Head: Normocephalic, Atraumatic Eyes: Normal Pupils: PERRL Mouth/Lips: Other - Dry lips dry oral mucosa and ecchymosis at the angle of the lips on both sides. Mucous membranes: Dry Pharynx: Erythema - Also noted poor dentition and multiple missing teeth. Neck: Normal - Respiratory Respiratory status: No respiratory distress Chest status: Nontender Breath sounds: Normal Chest palpation: Normal - Cardiovascular Rhythm: Regular Heart sounds: Normal auscultation Murmur: No - Abdominal Inspection: Normal Distension: No distension Bowel sounds: Normal Tenderness: Nontender Organomegaly: No organomegaly - Back Back: Normal, Nontender - Extremities General upper extremity: Normal inspection, Nontender, Normal color, Normal ROM, Normal temperature General lower extremity: Normal inspection, Nontender, Normal color, Normal ROM, Normal temperature, Normal weight bearing. No: Jacques's sign - Neurological Neuro grossly intact: Yes Cognition: Normal Orientation: AAOx4 [place] Coma Scale Eye Opening: Spontaneous [place] Coma Scale Verbal: Oriented [place] Coma Scale Motor: Obeys Commands [place] Coma Scale Total: 15 Speech: Normal Motor strength normal: LUE, RUE, LLE, RLE Sensory: Normal - Psychological Associated symptoms: Normal affect, Normal mood - Skin Skin Temperature: Warm Skin Moisture: Dry Skin Color: Normal Skin Turgor: Elastic Skin irregularity: Erythema, other - Multiple small and nodular erythema in the scalp face back lower extremities. No active drainage from the sites at this time. They are red in color. Course - Vital Signs Vital signs: Temp Pulse Resp BP Pulse Ox 98.4 F 127 H 20 114/85 99 09/12/19 15:01 09/12/19 15:01 09/12/19 15:01 09/12/19 15:01 09/12/19 15:01 - Laboratory Result Diagrams: 09/12/19 15:16 09/12/19 15:16 Laboratory results interpreted by me: 09/12/19 09/12/19 09/12/19 15:16 15:16 15:16 WBC 12.7 H Absolute Neuts (auto) 10.3 H Seg Neutrophils % 81.4 H Potassium 2.9 L* Urine Protein 30 H Urine Ketones TRACE H Leukocyte Esterase Rfl SMALL H Discharge - Discharge Clinical Impression: Abscess of skin and subcutaneous tissue, Hypokalemia Condition: Stable Disposition: HOME, SELF-CARE Instructions: Abscess ([facility]) Prescriptions: Mupirocin [Bactroban 2% Ointment 22 gm] 1 applic TP TID #1 tube Clindamycin HCl 300 mg PO TID #30 capsule Potassium Chloride 20 meq PO BID 8 Days tablet.er
[2019-09-12 20:22] VITALS: BP 116/70
[2019-09-12] MEDS ORDERED: POTASSIUM CHLORIDE 20 MEQ PACKET PO ONE (20:26)
== END 2019-09-12 20:45 | disposition home or self-care (01) ==
LOC: ER 14:01
DX: L02.212 Cutaneous abscess of back [any part, except buttock and flank] (principal); L02.811 Cutaneous abscess of head [any part, except face]; L02.01 Cutaneous abscess of face; L02.416 Cutaneous abscess of left lower limb; L02.415 Cutaneous abscess of right lower limb; R00.2 Palpitations; E87.6 Hypokalemia
CPT/HCPCS: 36415; 80053; 81001; 84484; 84703; 85025; 87086; 87088; 93005; 93010; 99283

== ENCOUNTER 2019-09-14 21:07 | Emergency (ER) | payer SELFPAY ==
[2019-09-14] MEDS ORDERED: ONDANSETRON 4 MG TAB.RAPDIS PO ONE (21:39)
--- NOTE | 2019-09-14 21:41 | ER Document Report ---
ED Medical Screen (RME) - General Chief Complaint: Vaginal Pain Stated Complaint: VAGINAL PAIN AND DISCHARGE Time Seen by Provider: 09/14/19 21:36 TRAVEL OUTSIDE OF THE [place] IN LAST 30 DAYS: No - HPI Notes: 09/14/19 21:39 Patient is a 29-year-old female who presents for multiple complaints. Patient is having vaginal discharge and odor. She is having a sore throat. Patient states that she also has MRSA on her skin and is having areas flareup on her fingers to her face. She was seen a couple days ago for the skin issues and was placed on clindamycin as well as mupirocin cream. No fever. No abdominal pain otherwise. I have treated and performed a rapid initial assessment of this patient. A comprehensive ED assessment and evaluation of the patient, analysis of test results and completion of medical decision making process will be conducted by additional ED providers. PHYSICAL EXAMINATION: GENERAL: Well-appearing, well-nourished and in no acute distress. A&Ox4. Answers questions appropriately. - Related Data Allergies/Adverse Reactions: ciprofloxacin [From Cipro] Allergy (Severe, Verified 09/14/19 21:34) Anaphylaxis guaifenesin [From Mucinex] Allergy (Severe, Verified 09/14/19 21:34) Anaphylaxis nitrofurantoin macrocrystalline [From Macrobid] Allergy (Severe, Verified 09/14/19 21:34) Anaphylaxis Penicillins Allergy (Severe, Verified 09/14/19 21:34) Anaphylaxis sulfamethoxazole [From Bactrim] Allergy (Severe, Verified 09/14/19 21:34) anaphylaxis/hives tramadol [Tramadol] Allergy (Severe, Verified 09/14/19 21:34) Anaphylaxis hydromorphone HCl [From Dilaudid] Allergy (Intermediate, Verified 09/14/19 21:34) Hives amoxicillin [Amoxicillin] Allergy (Verified 09/14/19 21:34) anaphylaxis/hives hydrocodone [From [place]] Allergy (Verified 09/14/19 21:34) nitrofurantoin [From Macrobid] Allergy (Verified 09/14/19 21:34) Anaphylaxis trimethoprim [From Bactrim] Allergy (Verified 09/14/19 21:34) Past Medical History - Past Medical History Cardiac Medical History: Denies: Hx Coronary Artery Disease, Hx Heart Attack, Hx Hypertension Pulmonary Medical History: Reports: Hx Asthma Denies: Hx Bronchitis, Hx COPD, Hx Pneumonia Neurological Medical History: Reports: Hx Migraine. Denies: Hx Cerebrovascular Accident, Hx Seizures Renal/ Medical History: Reports: Hx Kidney Stones, Hx Ovarian Cysts. Denies: Hx Peritoneal Dialysis GI Medical History: Reports: Hx Gastroesophageal Reflux Disease. Denies: Hx Hepatitis, Hx Hiatal Hernia, Hx Ulcer Musculoskeltal Medical History: 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, knees, fingers Psychiatric Medical History: Reports: Hx Anxiety, Hx Attention Deficit Hyperactivity Disorder, Hx Bipolar Disorder, Hx Depression, Hx Post Traumatic Stress Disorder Infectious Medical History: Denies: Hx Hepatitis Past Surgical History: Reports: Hx Appendectomy, Hx Section, Hx Orthopedic Surgery - cervical spine surgery , Other - septoplasty, bilateral knee surgery (miniscus tears, ) , right foot surgery. Denies: Hx Hysterectomy, Hx Mastectomy, Hx Open Heart Surgery, Hx Pacemaker - Immunizations Hx Diphtheria, Pertussis, Tetanus Vaccination: Yes Physical Exam - Vital signs Vitals: Temp Pulse Resp BP Pulse Ox 98.3 F 128 H 20 109/80 99 09/14/19 21:11 09/14/19 21:11 09/14/19 21:11 09/14/19 21:11 09/14/19 21:11 Course - Vital Signs Vital signs: Temp Pulse Resp BP Pulse Ox 98.3 F 128 H 20 109/80 99 09/14/19 21:11 09/14/19 21:11 09/14/19 21:11 09/14/19 21:11 09/14/19 21:11
[2019-09-15] MEDS ORDERED: ONDANSETRON 4 MG TAB.RAPDIS ONE (05:04)
[2019-09-15 05:29] LABS: BACTERIA (WET MOUNT) 4+ BACTERIA SEEN; EPITHELIALS (WET MOUNT) 4+ EPITHELIALS SEEN; RBCS (WET MOUNT) NO RBCS SEEN; T.VAGINALIS (WET MOUNT) NO TRICHOMONAS SEEN; WBCS (WET MOUNT) 2+ WBCS SEEN; YEAST (WET MOUNT) NO YEAST SEEN
--- NOTE | 2019-09-15 05:29 | ER Document Report ---
ED General - General Chief Complaint: Vaginal Pain Stated Complaint: VAGINAL PAIN AND DISCHARGE Time Seen by Provider: 09/14/19 21:36 Primary Care Provider: SANTY PACHECO MD [ACTIVE STAFF] - Follow up in 3-5 days Notes: 29-year-old female presents with multiple complaints. Patient states she has had a sore throat for "a while." Patient states it is painful to swallow. Patient also states she has some right ear pain. Patient is also complaining of vaginal discharge since yesterday. Patient is also stating that she has continued skin infections that she was seen for a few days ago and prescribed clindamycin. Patient states that these skin infections are getting better. Patient also states she has some pus coming from her bellybutton. TRAVEL OUTSIDE OF THE [place] IN LAST 30 DAYS: No - Related Data Allergies/Adverse Reactions: ciprofloxacin [From Cipro] Allergy (Severe, Verified 09/15/19 18:34) Anaphylaxis guaifenesin [From Mucinex] Allergy (Severe, Verified 09/15/19 18:34) Anaphylaxis nitrofurantoin macrocrystalline [From Macrobid] Allergy (Severe, Verified 09/15/19 18:34) Anaphylaxis Penicillins Allergy (Severe, Verified 09/15/19 18:34) Anaphylaxis sulfamethoxazole [From Bactrim] Allergy (Severe, Verified 09/15/19 18:34) anaphylaxis/hives tramadol [Tramadol] Allergy (Severe, Verified 09/15/19 18:34) Anaphylaxis hydromorphone HCl [From Dilaudid] Allergy (Intermediate, Verified 09/15/19 18:34) Hives amoxicillin [Amoxicillin] Allergy (Verified 09/15/19 18:34) anaphylaxis/hives hydrocodone [From [place]] Allergy (Verified 09/15/19 18:34) nitrofurantoin [From Macrobid] Allergy (Verified 09/15/19 18:34) Anaphylaxis trimethoprim [From Bactrim] Allergy (Verified 09/15/19 18:34) Past Medical History - General Information source: Patient - Social History Smoking Status: Unknown if Ever Smoked Family History: Reviewed & Not Pertinent - Past Medical History Cardiac Medical History: Denies: Hx Coronary Artery Disease, Hx Heart Attack, Hx Hypertension Pulmonary Medical History: Reports: Hx Asthma Denies: Hx Bronchitis, Hx COPD, Hx Pneumonia Neurological Medical History: Reports: Hx Migraine. Denies: Hx Cerebrovascular Accident, Hx Seizures Renal/ Medical History: Reports: Hx Kidney Stones, Hx Ovarian Cysts. Denies: Hx Peritoneal Dialysis GI Medical History: Reports: Hx Gastroesophageal Reflux Disease. Denies: Hx Hepatitis, Hx Hiatal Hernia, Hx Ulcer Musculoskeletal Medical History: 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, knees, fingers Psychiatric Medical History: Reports: Hx Anxiety, Hx Attention Deficit Hyperactivity Disorder, Hx Bipolar Disorder, Hx Depression, Hx Post Traumatic S tress Disorder Infectious Medical History: Denies: Hx Hepatitis Past Surgical History: Reports: Hx Appendectomy, Hx Section, Hx Orthopedic Surgery - cervical spine surgery , Other - septoplasty, bilateral knee surgery (miniscus tears, ) , right foot surgery. Denies: Hx Hysterectomy, Hx Mastectomy, Hx Open Heart Surgery, Hx Pacemaker - Immunizations Hx Diphtheria, Pertussis, Tetanus Vaccination: Yes Review of Systems - Review of Systems Notes: Constitutional: Positive for fever. HENT: Negative for sore throat. Eyes: Negative for visual changes. Cardiovascular: Negative for chest pain. Respiratory: Negative for shortness of breath. Gastrointestinal: Negative for abdominal pain, vomiting or diarrhea. Genitourinary: Positive for vaginal discharge. Negative for dysuria. Musculoskeletal: Negative for back pain. Skin: Positive for skin lesions. Negative for rash. Neurological: Negative for headaches, weakness or numbness. 10 point ROS negative except as marked above and in HPI. Physical Exam - Vital signs Vitals: Temp Pulse Resp BP Pulse Ox 98.3 F 128 H 20 109/80 99 09/14/19 21:11 09/14/19 21:11 09/14/19 21:11 09/14/19 21:11 09/14/19 21:11 - Notes Notes: GENERAL: Well-appearing, well-nourished and in no acute distress. HEAD: Atraumatic, normocephalic. EYES: Pupils equal round and reactive to light, extraocular movements intact, sclera anicteric, conjunctiva are normal. ENT: TMs normal, nares patent, oropharynx clear without exudates. Uvula midline without edema. No trismus. No [employer] [place]. No muffled voice. No tonsillar hypertrophy. No exudates. Moist mucous membranes. Tongue appears to have oral thrush on it. NECK: Normal range of motion, supple without lymphadenopathy or JVD. LUNGS: Breath sounds clear to auscultation bilaterally and equal. No wheezes rales or rhonchi. HEART: Regular rate and rhythm without murmurs, rubs or gallops. ABDOMEN: Soft, nontender. No guarding, no rebound. No masses appreciated. : Declined. Patient elected to self swab. EXTREMITIES: Normal range of motion, no pitting or edema. No clubbing or cyanosis. NEUROLOGICAL: Cranial nerves II through XII grossly intact. Normal speech, normal gait. PSYCH: Normal mood, normal affect. SKIN: Multiple skin lesions seen that are small with surrounding erythema. Including in the umbilicus. Course - Re-evaluation Re-evalutation: 09/15/19 29-year-old female who is nontoxic, well-appearing presents for multiple complaints. Throat exam consistent with acute URI. No [employer] [place]. No muffled voice. No trismus. Uvula is midline without edema. Tongue does feel oral thrush. Patient's abdomen is soft nontender. Lungs are clear heart rate is regular. Patient instructed to continue clindamycin due to skin lesions and in umbilicus. Pelvic cultures are currently pending. Patient denies any reason for STD and declines prophylactic treatment at this time. Pelvic cultures show mild bacteria. Pt treated for vaginal yeast infection and given nystatin. Discussed results with pt. Return precautions given. All questions/concerns addressed prior to discharge. Pt given referral to PCP. - Vital Signs Vital signs: Temp Pulse Resp BP Pulse Ox 98.1 F 85 16 112/71 99 09/15/19 06:30 09/15/19 06:30 09/15/19 06:30 09/15/19 06:30 09/15/19 06:30 Discharge - Discharge Clinical Impression: Acute URI, Vaginal discharge, Oral thrush Condition: Stable Disposition: HOME, SELF-CARE Instructions: Upper Respiratory Illness ([facility]) Additional Instructions: Please take medications as prescribed. Please follow-up with [facility] as listed. Please make sure to finish your clindamycin. We will call you with the results of your gonorrhea/chlamydia tests if positive. Return to ER for any worsening symptoms, including fever, abdominal pain, vomiting, increased skin lesions, or any other symptoms that are concerning to you. Prescriptions: Fexofenadine/Pseudoephedrine [[place]-D 24 Hour Tablet] 1 each PO DAILY #20 tab.er.24h Fluticasone Propionate [Flonase Nasal [place] 50 Mcg/[place] 16 gm] 1 spray NASL Q12 #1 inhaler Nystatin [Mycostatin 303604 Unit/1 ml Susp 60 ml Btl] 100,000 unit PO QID #20 ml Referrals: SANTY PACHECO MD [ACTIVE STAFF] - Follow up in 3-5 days
[2019-09-15 06:38] VITALS: BP 112/71
[2019-09-15 06:39] LABS: CHLAM PCR NOT DETECTED (NOT DETECT)
== END 2019-09-15 06:38 | disposition home or self-care (01) ==
LOC: ER 21:07
DX: J06.9 Acute upper respiratory infection, unspecified (principal); B37.0 Candidal stomatitis; R10.2 Pelvic and perineal pain; N89.8 Other specified noninflammatory disorders of vagina; J02.9 Acute pharyngitis, unspecified; H92.01 Otalgia, right ear; J45.909 Unspecified asthma, uncomplicated
CPT/HCPCS: 87070; 87210; 87880; 87491; 87591; S0119; 99283

== ENCOUNTER 2019-09-15 18:23 | Emergency (ER) | payer SELFPAY ==
--- NOTE | 2019-09-15 18:46 | ER Document Report ---
ED Medical Screen (RME) - General Chief Complaint: Abdominal Pain Stated Complaint: VAGINAL DISCHARGE/ABDOMINAL PAIN Time Seen by Provider: 09/15/19 18:35 Notes: Patient is a 29-year-old female patient is a 29-year-old female who presents to the emergency department with a chief complaint of abdominal pain and vaginal discharge. Patient states that she was seen here 3 days ago and was placed on clindamycin for possible bacterial vaginosis. She is also on Bactroban. She is also on a statin. Patient states that today she ended up having orange and yellow discharge, which is something new and something she has never had before. Exam: Soft, mildly tender mid lower abdomen. I have greeted and performed a rapid initial assessment of this patient. A comprehensive ED assessment and evaluation of the patient, analysis of test results and completion of medical decision making process will be conducted by an additional ED providers. TRAVEL OUTSIDE OF THE [place] IN LAST 30 DAYS: No - Related Data Allergies/Adverse Reactions: ciprofloxacin [From Cipro] Allergy (Severe, Verified 09/15/19 18:34) Anaphylaxis guaifenesin [From Mucinex] Allergy (Severe, Verified 09/15/19 18:34) Anaphylaxis nitrofurantoin macrocrystalline [From Macrobid] Allergy (Severe, Verified 09/15/19 18:34) Anaphylaxis Penicillins Allergy (Severe, Verified 09/15/19 18:34) Anaphylaxis sulfamethoxazole [From Bactrim] Allergy (Severe, Verified 09/15/19 18:34) anaphylaxis/hives tramadol [Tramadol] Allergy (Severe, Verified 09/15/19 18:34) Anaphylaxis hydromorphone HCl [From Dilaudid] Allergy (Intermediate, Verified 09/15/19 18:34) Hives amoxicillin [Amoxicillin] Allergy (Verified 09/15/19 18:34) anaphylaxis/hives hydrocodone [From [place]] Allergy (Verified 09/15/19 18:34) nitrofurantoin [From Macrobid] Allergy (Verified 09/15/19 18:34) Anaphylaxis trimethoprim [From Bactrim] Allergy (Verified 09/15/19 18:34) Home Medications: clindamycin Past Medical History - Social History Chew tobacco use (# tins/day): No Frequency of alcohol use: None Drug Abuse: None - Past Medical History Cardiac Medical History: Denies: Hx Coronary Artery Disease, Hx Heart Attack, Hx Hypertension Pulmonary Medical History: Reports: Hx Asthma Denies: Hx Bronchitis, Hx COPD, Hx Pneumonia Neurological Medical History: Reports: Hx Migraine. Denies: Hx Cerebrovascular Accident, Hx Seizures Renal/ Medical History: Reports: Hx Kidney Stones, Hx Ovarian Cysts. Denies: Hx Peritoneal Dialysis GI Medical History: Reports: Hx Gastroesophageal Reflux Disease. Denies: Hx Hepatitis, Hx Hiatal Hernia, Hx Ulcer Musculoskeltal Medical History: 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, knees, fingers Psychiatric Medical History: Reports: Hx Anxiety, Hx Attention Deficit Hyperactivity Disorder, Hx Bipolar Disorder, Hx Depression, Hx Post Traumatic Stress Disorder Infectious Medical History: Denies: Hx Hepatitis Past Surgical History: Reports: Hx Appendectomy, Hx Section, Hx Orthopedic Surgery - cervical spine surgery , Other - septoplasty, bilateral knee surgery (miniscus tears, ) , right foot surgery. Denies: Hx Hysterectomy, Hx Mastectomy, Hx Open Heart Surgery, Hx Pacemaker - Immunizations Hx Diphtheria, Pertussis, Tetanus Vaccination: Yes Physical Exam - Vital signs Vitals: Temp Pulse Resp BP Pulse Ox 98.7 F 120 H 16 127/85 H 94 09/15/19 18:35 09/15/19 18:35 09/15/19 18:35 09/15/19 18:35 09/15/19 18:35 Course - Vital Signs Vital signs: Temp Pulse Resp BP Pulse Ox 98.7 F 120 H 16 127/85 H 94 09/15/19 18:35 09/15/19 18:35 09/15/19 18:35 09/15/19 18:35 09/15/19 18:35
[2019-09-15 19:29] LABS: ABSOLUTE BASOPHILS # (AUTO) 0.1 10^3/uL (0.0-0.2); ABSOLUTE EOSINOPHILS # (AUTO) 0.1 10^3/uL (0.0-0.6); ABSOLUTE LYMPHOCYTES (AUTO) 2.5 10^3/uL (0.5-4.7); ABSOLUTE MONOCYTES (AUTO) 0.4 10^3/uL (0.1-1.4); ABSOLUTE NEUT (AUTO) 4.7 10^3/uL (1.7-8.2); BASOPHILS % (AUTO) 0.8 % (0-2); HEMATOCRIT 44.4 % (36.0-47.0); HEMOGLOBIN 15.2 g/dL (12.0-15.5); MEAN CORPUSCULAR HEMOGLOBIN 31.3 pg (27.0-33.4); MEAN CORPUSCULAR HGB CONC 34.2 g/dL (32.0-36.0); MEAN CORPUSCULAR VOLUME 91 fl (80-97); MONOCYTES % (AUTO) 5.6 % (3-13); PLATELET COUNT 369 10^3/uL (150-450); RED BLOOD COUNT 4.86 10^6/uL (3.72-5.28); SEGMENTED NEUTROPHILS % (AUTO) 60.6 % (42-78); TOTAL CELLS COUNTED % (AUTO) 100 %; WHITE BLOOD COUNT 7.7 10^3/uL (4.0-10.5)
[2019-09-15 19:39] LABS: APPEARANCE,URINE CLOUDY; BILIRUBIN,URINE SMALL (NEGATIVE); COLOR,URINE AMBER; GLUCOSE, URINE NEGATIVE (NEGATIVE); KETONES,URINE TRACE mg/dL (NEGATIVE); LEUKOCYTE ESTERASE,URINE TRACE (NEGATIVE); NITRITE,URINE NEGATIVE (NEGATIVE); PROTEIN,URINE 100 mg/dL (NEGATIVE); URINE SPECIFIC GRAVITY 1.024
[2019-09-15 19:55] LABS: ALBUMIN 4.2 g/dL (3.5-5.0); ALKALINE PHOSPHATASE 106 U/L (38-126); ANION GAP 14 (5-19); ASPARTATE AMINO TRANSFERASE 23 U/L (14-36); BILIRUBIN,DIRECT 0.2 mg/dL (0.0-0.4); BILIRUBIN,TOTAL 0.4 mg/dL (0.2-1.3); BLOOD UREA NITROGEN 13 mg/dL (7-20); CALCIUM 10.1 mg/dL (8.4-10.2); CARBON DIOXIDE 23 mmol/L (22-30); CHLORIDE 103 mmol/L (98-107); GLUCOSE 130 mg/dL (75-110); TOTAL PROTEIN 7.6 g/dL (6.3-8.2)
[2019-09-15] MEDS ORDERED: NORMAL SALINE 1000 ML 1,000 ML IV ONE (20:29)
[2019-09-15] MEDS ORDERED: POTASSIUM CHLORIDE 20 MEQ PACKET PO ONE (20:30)
--- NOTE | 2019-09-15 21:46 | RADIOLOGY REPORT (SQ) ---
EXAM DESCRIPTION: US PELVIS TRANSVAGINAL COMPLETED DATE/TME: 09/15/2019 18:47 CLINICAL HISTORY: 29 years, Female, vaginal discharge COMPARISON: Prior study from 08/06/2019; 07/24/2019 TECHNIQUE: Axial 2-D grayscale images of the pelvis were acquired. Doppler was utilized. LIMITATIONS: None. FINDINGS: Uterus measures 7.4 x 3.1 x 4.1 cm in size. Endometrial stripe thickness measures 6 mm. Echogenic material is noted within the endometrial cavity, new from the previous exam dated 08/06/2019. The cervix measures 3.2 cm in length, closed. Neither ovary was visualized. No significant free fluid is identified within the pelvis. IMPRESSION: Echogenic material within the endometrial cavity is nonspecific, potentially indicating debris. This appears new from the previous pelvic ultrasound dated 08/06/2019. Nonvisualization of either ovary. copyright 2010 [employer]- All Rights Reserved
--- NOTE | 2019-09-16 00:37 | ER Document Report ---
ED General - General Chief Complaint: Abdominal Pain Stated Complaint: VAGINAL DISCHARGE/ABDOMINAL PAIN Time Seen by Provider: 09/15/19 18:35 TRAVEL OUTSIDE OF THE [place] IN LAST 30 DAYS: No - Related Data Allergies/Adverse Reactions: ciprofloxacin [From Cipro] Allergy (Severe, Verified 09/15/19 18:34) Anaphylaxis guaifenesin [From Mucinex] Allergy (Severe, Verified 09/15/19 18:34) Anaphylaxis nitrofurantoin macrocrystalline [From Macrobid] Allergy (Severe, Verified 09/15/19 18:34) Anaphylaxis Penicillins Allergy (Severe, Verified 09/15/19 18:34) Anaphylaxis sulfamethoxazole [From Bactrim] Allergy (Severe, Verified 09/15/19 18:34) anaphylaxis/hives tramadol [Tramadol] Allergy (Severe, Verified 09/15/19 18:34) Anaphylaxis hydromorphone HCl [From Dilaudid] Allergy (Intermediate, Verified 09/15/19 18:34) Hives amoxicillin [Amoxicillin] Allergy (Verified 09/15/19 18:34) anaphylaxis/hives hydrocodone [From [place]] Allergy (Verified 09/15/19 18:34) nitrofurantoin [From Macrobid] Allergy (Verified 09/15/19 18:34) Anaphylaxis trimethoprim [From Bactrim] Allergy (Verified 09/15/19 18:34) Home Medications: clindamycin Past Medical History - Social History Smoking Status: Never Smoker Chew tobacco use (# tins/day): No Frequency of alcohol use: None Drug Abuse: None Family History: Reviewed & Not Pertinent Patient has suicidal ideation: No Patient has homicidal ideation: No - Past Medical History Cardiac Medical History: Denies: Hx Coronary Artery Disease, Hx Heart Attack, Hx Hypertension Pulmonary Medical History: Reports: Hx Asthma Denies: Hx Bronchitis, Hx COPD, Hx Pneumonia Neurological Medical History: Reports: Hx Migraine. Denies: Hx Cerebrovascular Accident, Hx Seizures Renal/ Medical History: Reports: Hx Kidney Stones, Hx Ovarian Cysts. Denies: Hx Peritoneal Dialysis GI Medical History: Reports: Hx Gastroesophageal Reflux Disease. Denies: Hx Hepatitis, Hx Hiatal Hernia, Hx Ulcer Musculoskeletal Medical History: 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, knees, fingers Psychiatric Medical History: Reports: Hx Anxiety, Hx Attention Deficit Hyperactivity Disorder, Hx Bipolar Disorder, Hx Depression, Hx Post Traumatic Stress Disorder Infectious Medical History: Denies: Hx Hepatitis Past Surgical History: Reports: Hx Appendectomy, Hx Section, Hx Orthopedic Surgery - cervical spine surgery , Other - septoplasty, bilateral knee surgery (miniscus tears, ) , right foot surgery. Denies: Hx Hysterectomy, Hx Mastectomy, Hx Open Heart Surgery, Hx Pacemaker - Immunizations Hx Diphtheria, Pertussis, Tetanus Vaccination: Yes Physical Exam - Vital signs Vitals: Temp Pulse Resp BP Pulse Ox 98.7 F 120 H 16 127/85 H 94 09/15/19 18:35 09/15/19 18:35 09/15/19 18:35 09/15/19 18:35 09/15/19 18:35 Course - Vital Signs Vital signs: Temp Pulse Resp BP Pulse Ox 98.7 F 120 H 16 127/85 H 94 09/15/19 18:35 09/15/19 18:35 09/15/19 18:35 09/15/19 18:35 09/15/19 18:35 - Laboratory Result Diagrams: 09/15/19 19:15 09/15/19 19:15 Laboratory results interpreted by me: 09/15/19 09/15/19 18:50 19:15 Potassium 3.0 L* Glucose 130 H Urine Protein 100 H Urine Ketones TRACE H Urine Bilirubin SMALL H Urine Urobilinogen 2.0 H Ur Leukocyte Esterase TRACE H Discharge - Discharge Clinical Impression: Bacterial vaginosis, Angular cheilosis Condition: Good Disposition: HOME, SELF-CARE Instructions: Vaginosis, Bacterial ([facility])
[2019-09-16 01:53] VITALS: BP 136/72
== END 2019-09-16 01:37 | disposition home or self-care (01) ==
LOC: ER 18:23
DX: N76.0 Acute vaginitis (principal); B96.89 Other specified bacterial agents as the cause of diseases classified elsewhere; K13.0 Diseases of lips; J45.909 Unspecified asthma, uncomplicated; Z79.2 Long term (current) use of antibiotics; Z87.892 Personal history of anaphylaxis; Z88.1 Allergy status to other antibiotic agents; Z88.8 Allergy status to other drugs, medicaments and biological substances; Z88.0 Allergy status to penicillin; Z88.6 Allergy status to analgesic agent; Z88.5 Allergy status to narcotic agent
CPT/HCPCS: 99284; 36415; 85025; 80053; 81001; 76830; 93976; J3490

== ENCOUNTER 2019-09-28 18:57 | Emergency (ER) | payer SELFPAY ==
[2019-09-28] MEDS ORDERED: ONDANSETRON 4 MG TAB.RAPDIS PO ONE (19:20)
--- NOTE | 2019-09-28 19:20 | ER Document Report ---
ED Medical Screen (RME) - General Chief Complaint: Fall Injury Stated Complaint: FALL/HEAD INJURY, NECK PAIN Time Seen by Provider: 09/28/19 19:13 Mode of Arrival: Ambulatory Information source: Patient Notes: 29-year-old female presents to ED for complaint of nausea and vomiting for about the last 6 hours. She states she has vomited about 5 times. She states she is also having some soreness around her nose and eyes and has a history of MRSA. She states about 3 hours ago she fell and hit her head. She states she does not remember some around the time of the hit in her head but she does not think she lost consciousness at all. She states she has continued to vomit since she hit her head but she was vomiting before she hit her head. There is no tenderness to palpation to her scalp or skull area. She states she does have a lot of metal in her neck. She states she has had 2 cervical spine surgeries. Patient is answering all questions appropriately. I have greeted and performed a rapid initial assessment of this patient. A comprehensive ED assessment and evaluation of the patient, analysis of test results and completion of medical decision making process will be conducted by an additional ED providers. TRAVEL OUTSIDE OF THE [place] IN LAST 30 DAYS: No - Related Data Allergies/Adverse Reactions: ciprofloxacin [From Cipro] Allergy (Severe, Verified 09/15/19 18:34) Anaphylaxis guaifenesin [From Mucinex] Allergy (Severe, Verified 09/15/19 18:34) Anaphylaxis nitrofurantoin macrocrystalline [From Macrobid] Allergy (Severe, Verified 09/15/19 18:34) Anaphylaxis Penicillins Allergy (Severe, Verified 09/15/19 18:34) Anaphylaxis sulfamethoxazole [From Bactrim] Allergy (Severe, Verified 09/15/19 18:34) anaphylaxis/hives tramadol [Tramadol] Allergy (Severe, Verified 09/15/19 18:34) Anaphylaxis hydromorphone HCl [From Dilaudid] Allergy (Intermediate, Verified 09/15/19 18:34) Hives amoxicillin [Amoxicillin] Allergy (Verified 09/15/19 18:34) anaphylaxis/hives hydrocodone [From [place]] Allergy (Verified 09/15/19 18:34) nitrofurantoin [From Macrobid] Allergy (Verified 09/15/19 18:34) Anaphylaxis trimethoprim [From Bactrim] Allergy (Verified 09/15/19 18:34) Past Medical History - Past Medical History Cardiac Medical History: Denies: Hx Coronary Artery Disease, Hx Heart Attack, Hx Hypertension Pulmonary Medical History: Reports: Hx Asthma Denies: Hx Bronchitis, Hx COPD, Hx Pneumonia Neurological Medical History: Reports: Hx Migraine. Denies: Hx Cerebrovascular Accident, Hx Seizures Renal/ Medical History: Reports: Hx Kidney Stones, Hx Ovarian Cysts. Denies: Hx Peritoneal Dialysis GI Medical History: Reports: Hx Gastroesophageal Reflux Disease. Denies: Hx Hepatitis, Hx Hiatal Hernia, Hx Ulcer Musculoskeltal Medical History: 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, knees, fingers Psychiatric Medical History: Reports: Hx Anxiety, Hx Attention Deficit Hyperactivity Disorder, Hx Bipolar Disorder, Hx Depression, Hx Post Traumatic Stress Disorder Infectious Medical History: Denies: Hx Hepatitis Past Surgical History: Reports: Hx Appendectomy, Hx Section, Hx Orthopedic Surgery - cervical spine surgery , Other - septoplasty, bilateral knee surgery (miniscus tears, ) , right foot surgery. Denies: Hx Hysterectomy, Hx Mastectomy, Hx Open Heart Surgery, Hx Pacemaker - Immunizations Hx Diphtheria, Pertussis, Tetanus Vaccination: Yes Physical Exam - Vital signs Vitals: Temp Pulse Resp BP Pulse Ox 98.6 F 117 H 16 134/74 H 100 09/28/19 19:05 09/28/19 19:05 09/28/19 19:05 09/28/19 19:05 09/28/19 19:05 Course - Vital Signs Vital signs: Temp Pulse Resp BP Pulse Ox 98.6 F 117 H 16 134/74 H 100 09/28/19 19:05 09/28/19 19:05 09/28/19 19:05 09/28/19 19:05 09/28/19 19:05
[2019-09-28 19:55] LABS: ABSOLUTE BASOPHILS # (AUTO) 0.1 10^3/uL (0.0-0.2); ABSOLUTE EOSINOPHILS # (AUTO) 0.1 10^3/uL (0.0-0.6); ABSOLUTE LYMPHOCYTES (AUTO) 2.2 10^3/uL (0.5-4.7); ABSOLUTE MONOCYTES (AUTO) 0.3 10^3/uL (0.1-1.4); ABSOLUTE NEUT (AUTO) 4.9 10^3/uL (1.7-8.2); BASOPHILS % (AUTO) 0.8 % (0-2); EOSINOPHILS % (AUTO) 1.3 % (0-6); HEMATOCRIT 41.7 % (36.0-47.0); LYMPHOCYTES % (AUTO) 28.7 % (13-45); MEAN CORPUSCULAR HEMOGLOBIN 31.1 pg (27.0-33.4); MEAN CORPUSCULAR HGB CONC 33.6 g/dL (32.0-36.0); MEAN CORPUSCULAR VOLUME 93 fl (80-97); MONOCYTES % (AUTO) 4.5 % (3-13); PLATELET COUNT 248 10^3/uL (150-450); RED CELL DISTRIBUTION WIDTH 13.8 % (11.5-14.0); SEGMENTED NEUTROPHILS % (AUTO) 64.7 % (42-78); TOTAL CELLS COUNTED % (AUTO) 100 %; WHITE BLOOD COUNT 7.5 10^3/uL (4.0-10.5)
[2019-09-28 20:04] LABS: APPEARANCE,URINE SLIGHTLY-CLOUDY; BILIRUBIN,URINE NEGATIVE (NEGATIVE); COLOR,URINE AMBER; GLUCOSE, URINE NEGATIVE (NEGATIVE); KETONES,URINE NEGATIVE (NEGATIVE); PROTEIN,URINE 30 mg/dL (NEGATIVE); URINE SPECIFIC GRAVITY 1.018
[2019-09-28 20:15] LABS: ALBUMIN 3.8 g/dL (3.5-5.0); ALKALINE PHOSPHATASE 68 U/L (38-126); ANION GAP 9 (5-19); ASPARTATE AMINO TRANSFERASE 20 U/L (14-36); BILIRUBIN,DIRECT 0.2 mg/dL (0.0-0.4); BILIRUBIN,TOTAL 0.3 mg/dL (0.2-1.3); BLOOD UREA NITROGEN 6 mg/dL (7-20); CALCIUM 9.3 mg/dL (8.4-10.2); CARBON DIOXIDE 27 mmol/L (22-30); CHLORIDE 106 mmol/L (98-107); GLUCOSE 113 mg/dL (75-110); POTASSIUM 3.3 mmol/L (3.6-5.0); TOTAL PROTEIN 6.7 g/dL (6.3-8.2)
[2019-09-28] MEDS ORDERED: NORMAL SALINE 1000 ML 1,000 ML IV ONE (22:13)
[2019-09-28] MEDS ORDERED: KETOROLAC TROMETHAMINE INJ/PF 30 MG/1 ML SDV IV ONE (22:13)
--- NOTE | 2019-09-28 22:15 | ER Document Report ---
ED General - General Chief Complaint: Nausea/Vomiting Stated Complaint: FALL/HEAD INJURY, NECK PAIN Time Seen by Provider: 09/28/19 19:13 Mode of Arrival: Ambulatory Notes: Patient is a 29-year-old female that comes emergency department with multiple complaints. Chief complaint is "I feel like I got the flu", she states she has generalized body aches, chills, and she started vomiting this evening, she has vomited about 6 times now. She denies diarrhea, cough, congestion. She does state that she has some pain in her nose developing again, she states she was treated for sore there with clindamycin recently. She also states that she slipped on water on the floor and fell back and hit the back of her head on a table. When I asked where she hit her head she points directly to her cervical spine. I asked if she hit her head anywhere else and she states she did not. She denies headache but states she has pain in her neck. She denies focal numbness or weakness. She denies incontinence. Past medical history of asthma, kidney stones, appendectomy, migraine, bipolar disorder, PTSD, anxiety, chronic abdominal pain. TRAVEL OUTSIDE OF THE [place] IN LAST 30 DAYS: No - Related Data Allergies/Adverse Reactions: ciprofloxacin [From Cipro] Allergy (Severe, Verified 09/15/19 18:34) Anaphylaxis guaifenesin [From Mucinex] Allergy (Severe, Verified 09/15/19 18:34) Anaphylaxis nitrofurantoin macrocrystalline [From Macrobid] Allergy (Severe, Verified 09/15/19 18:34) Anaphylaxis Penicillins Allergy (Severe, Verified 09/15/19 18:34) Anaphylaxis sulfamethoxazole [From Bactrim] Allergy (Severe, Verified 09/15/19 18:34) anaphylaxis/hives tramadol [Tramadol] Allergy (Severe, Verified 09/15/19 18:34) Anaphylaxis hydromorphone HCl [From Dilaudid] Allergy (Intermediate, Verified 09/15/19 18:34) Hives amoxicillin [Amoxicillin] Allergy (Verified 09/15/19 18:34) anaphylaxis/hives hydrocodone [From [place]] Allergy (Verified 09/15/19 18:34) nitrofurantoin [From Macrobid] Allergy (Verified 09/15/19 18:34) Anaphylaxis trimethoprim [From Bactrim] Allergy (Verified 09/15/19 18:34) Past Medical History - General Information source: Patient - Social History Smoking Status: Current Every Day Smoker Frequency of alcohol use: None Drug Abuse: None Lives with: Family Family History: Reviewed & Not Pertinent Patient has suicidal ideation: No Patient has homicidal ideation: No - Past Medical History Cardiac Medical History: Denies: Hx Coronary Artery Disease, Hx Heart Attack, Hx Hypertension Pulmonary Medical History: Reports: Hx Asthma Denies: Hx Bronchitis, Hx COPD, Hx Pneumonia Neurological Medical History: Reports: Hx Migraine. Denies: Hx Cerebrovascular Accident, Hx Seizures Renal/ Medical History: Reports: Hx Kidney Stones, Hx Ovarian Cysts. Denies: Hx Peritoneal Dialysis GI Medical History: Reports: Hx Gastroesophageal Reflux Disease. Denies: Hx Hepatitis, Hx Hiatal Hernia, Hx Ulcer Musculoskeletal Medical History: 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, knees, fingers Psychiatric Medical History: Reports: Hx Anxiety, Hx Attention Deficit Hyperactivity Disorder, Hx Bipolar Disorder, Hx Depression, Hx Post Traumatic Stress Disorder Infectious Medical History: Denies: Hx Hepatitis Past Surgical History: Reports: Hx Appendectomy, Hx Section, Hx Orthopedic Surgery - cervical spine surgery , Other - septoplasty, bilateral knee surgery (miniscus tears, ) , right foot surgery. Denies: Hx Hysterectomy, Hx Mastectomy, Hx Open Heart Surgery, Hx Pacemaker - Immunizations Hx Diphtheria, Pertussis, Tetanus Vaccination: Yes Review of Systems - Review of Systems Constitutional: No symptoms reported EENT: See HPI Cardiovascular: No symptoms reported Respiratory: No symptoms reported Gastrointestinal: See HPI Genitourinary: No symptoms reported Female Genitourinary: No symptoms reported Musculoskeletal: See HPI Skin: No symptoms reported Hematologic/Lymphatic: No symptoms reported Neurological/Psychological: No symptoms reported Physical Exam - Vital signs Vitals: Temp Pulse Resp BP Pulse Ox 98.6 F 117 H 16 134/74 H 100 09/28/19 19:05 09/28/19 19:05 09/28/19 19:05 09/28/19 19:05 09/28/19 19:05 - Notes Notes: GENERAL: Alert, interacts well. No acute distress. HEAD: Normocephalic, atraumatic. EYES: Pupils equal, round, and reactive to light. Extraocular movements intact. ENT: Oral mucosa moist, tongue midline. Oropharynx unremarkable. Airway patent. Nares patent, no nasal septal hematoma, TM's intact. NECK: Full range of motion. Supple. Trachea midline. LUNGS: Clear to auscultation bilaterally, no wheezes, rales, or rhonchi. No respiratory distress. HEART: Regular rate and rhythm. No murmur ABDOMEN: Soft, non-tender. Non-distended. Bowel sounds present in all 4 quadrants. GENITOURINARY: Deferred EXTREMITIES: Moves all 4 extremities spontaneously. No edema, normal radial and dorsalis pedis pulses bilaterally. No cyanosis. BACK: Patient complains of tenderness with palpation over the neck generally but there is no wincing or noted tenderness. Thoracic and lumbar areas are nontender. No signs of trauma. No saddle anesthesia, normal distal neurovascular exam. Moves all extremities in full range of motion. NEUROLOGICAL: Alert and oriented x3. Normal speech. Cranial nerves II through XII grossly intact. PSYCH: Normal affect, normal mood. SKIN: Warm, dry, normal turgor. No rashes or lesions noted. Course - Re-evaluation Re-evalutation: Patient is very well-appearing and has very many complaints. Her nasal exam is normal with no signs of infection. She was reassured in regards to this. Her abdomen is completely benign, she has not vomited since she has been here, she was given IV fluids and Zofran, tolerated p.o. without any difficulty. On reevaluation after Toradol she has no complaints. In regards to her neck there is no sign of trauma, she moves her neck and head without any difficulty, she has no signs of pain, she has no neurological deficits. Imaging was performed because she reportedly hit this although initially she was stating she hit her head in triage and now she is stating she hit her neck when I evaluated her. Imaging does not show any obvious acute findings and I have very low suspicion that there is any concerning injury based on her overall evaluation. Vital signs unremarkable. Discussed results with patient at length. Gave potassium for borderline potassium, give nausea medications, discussed how this is most likely viral in nature based on her overall evaluation and that this should simply resolve with time. I did discuss return precautions in regards to her neck and her abdomen. Discussed follow-up. Patient states appreciation and agreement. Stable at time of discharge. - Vital Signs Vital signs: Temp Pulse Resp BP Pulse Ox 97.9 F 82 18 110/74 98 09/29/19 01:55 09/29/19 01:55 09/29/19 01:55 09/29/19 01:55 09/29/19 01:55 - Laboratory Result Diagrams: 09/28/19 19:38 09/28/19 19:38 Laboratory results interpreted by me: 09/28/19 09/28/19 19:38 19:38 Potassium 3.3 L BUN 6 L Creatinine 0.51 L Glucose 113 H Urine Protein 30 H Urine Urobilinogen 2.0 H Leukocyte Esterase Rfl TRACE H Discharge - Discharge Clinical Impression: Neck pain Vomiting Qualifiers: Vomiting type: unspecified Vomiting Intractability: non-intractable Nausea presence: with nausea Qualified Code(s): R11.2 - Nausea with vomiting, unspecified Condition: Stable Disposition: HOME, SELF-CARE Additional Instructions: No concerning findings are noted on your imaging of the neck. Follow-up with your provider for additional management of your ongoing neck pain. In regards to your vomiting based on your exam and symptoms I suspect this is viral. This should resolve with time. Take Phenergan for nausea if needed, drink plenty of fluids, eat bland diet. Symptoms should gradually resolve. Increase potassium in your diet, this was slightly low today. Return if you worsen including severe worsening abdominal pain, fever, uncontrolled vomiting, numbness, or any other concerning or worsening symptoms. Prescriptions: Promethazine HCl [Phenergan 25 mg Tablet] 25 mg PO Q6H PRN #15 tablet PRN Reason: Forms: Return to Work
--- NOTE | 2019-09-28 23:15 | RADIOLOGY REPORT (SQ) ---
EXAM DESCRIPTION: CLINICAL HISTORY: 29 years Female fall, hit back of neck on table, pain, hx surgery COMPARISON: Presurgical MRI from 11/16/2016. TECHNIQUE: Axial images without IV contrast. Sagittal coronal reconstruction. This exam was performed according to our departmental dose-optimization program, which includes automated exposure control, adjustment of the mA and/or kV according to patient size and/or use of iterative reconstruction technique.. FINDINGS: Extensive anterior fusion at C3-4 or C4-5, C5-6 and anterior hardware associated with C7. Relative significant metallic artifact. Suggest correlation with type of hardware use. Very limited evaluation of the vertebral body and disc spaces. There is no obvious dislocation or compression fracture. Internal contents of canal difficult to evaluate because of severe artifact. There is no bony canal narrowing. No obvious soft tissue abnormalities IMPRESSION: Extensive anterior hardware in the cervical spine causing unusually prominent metallic artifact. Very limited study. No obvious acute findings.
[2019-09-29 00:34] LABS: A TYPE INFLUENZA AG NEGATIVE (NEGATIVE); B INFLUENZA AG NEGATIVE (NEGATIVE)
[2019-09-29] MEDS ORDERED: PROMETHAZINE HCL 25 MG TABLET PO ONE (00:58)
[2019-09-29] MEDS ORDERED: POTASSIUM CHLORIDE 10 MEQ TABLET.ER PO ONE (00:58)
[2019-09-29] MEDS ORDERED: OXYCODONE-ACETAMINOPHEN 5-325 MG TABLET PO ONE (00:58)
[2019-09-29 01:55] VITALS: BP 110/74
== END 2019-09-29 01:59 | disposition home or self-care (01) ==
LOC: ER 18:57
DX: R11.2 Nausea with vomiting, unspecified (principal); M54.2 Cervicalgia; W01.190A Fall on same level from slipping, tripping and stumbling with subsequent striking against furniture, initial encounter; R68.83 Chills (without fever); J34.89 Other specified disorders of nose and nasal sinuses; J45.909 Unspecified asthma, uncomplicated; F17.200 Nicotine dependence, unspecified, uncomplicated; Z87.892 Personal history of anaphylaxis; Z88.1 Allergy status to other antibiotic agents; Z88.8 Allergy status to other drugs, medicaments and biological substances; Z88.0 Allergy status to penicillin; Z88.6 Allergy status to analgesic agent; Z88.5 Allergy status to narcotic agent
CPT/HCPCS: 99284; 96361; 96374; 36415; 87086; 84702; 85025; 81025; 87088; 80053; 81001; 87186; 87804; 72125; S0119; J1885; J7030

== ENCOUNTER 2019-10-20 22:45 | Emergency (ER) | payer BC ==
[2019-10-20] MEDS ORDERED: NORMAL SALINE 1000 ML 1,000 ML IV ONE (23:01)
[2019-10-20] MEDS ORDERED: ONDANSETRON 4 MG TAB.RAPDIS PO ONE (23:01)
[2019-10-20] MEDS ORDERED: PANTOPRAZOLE SODIUM 40 MG VIAL IV ONE (23:02)
--- NOTE | 2019-10-20 23:05 | ER Document Report ---
ED Medical Screen (RME) - General Chief Complaint: GI Bleeding Stated Complaint: POSSIBLY VOMITING BLOOD/ABDOMINAL PAIN Time Seen by Provider: 10/20/19 23:01 Notes: HPI: 29-year-old female presenting with epigastric pain onset today with vomiti ng coffee-ground emesis 5 times since 1 PM. Patient reports that she feels lightheaded and dizzy. Denies dark tarry stools. Patient states that she does take anti-inflammatories on a daily basis. Patient does report prior history of laparoscopic surgeries, prior appendectomy and . She denies alcohol use. Denies prior history of GI bleed I have greeted and performed a rapid initial assessment of this patient. A comprehensive ED assessment and evaluation of the patient, analysis of test results and completion of the medical decision making process will be conducted by additional ED providers PHYSICAL EXAMINATION: GENERAL: Ill-appearing, well-nourished and in mild acute distress. HEAD: Atraumatic, normocephalic. EYES: sclera anicteric, conjunctiva are normal. ENT: Moist mucous membranes. NECK: Normal range of motion LUNGS: Normal work of breathing, lung sounds clear to auscultation HEART: 2+ radial pulses bilaterally, tachycardic, no murmur ABD: limited by positioning for exam in triage. Obese. Moderate tenderness in the epigastric right upper quadrant region EXTREMITIES: no pitting or edema. No cyanosis. NEUROLOGICAL: No focal neurological deficits. Moves all extremities spontaneously and on command. PSYCH: Normal mood, normal affect. SKIN: Warm, Dry, normal turgor, no rashes or lesions noted. TRAVEL OUTSIDE OF THE [place] IN LAST 30 DAYS: No - Related Data Allergies/Adverse Reactions: ciprofloxacin [From Cipro] Allergy (Severe, Verified 09/15/19 18:34) Anaphylaxis guaifenesin [From Mucinex] Allergy (Severe, Verified 09/15/19 18:34) Anaphylaxis nitrofurantoin macrocrystalline [From Macrobid] Allergy (Severe, Verified 09/15/19 18:34) Anaphylaxis Penicillins Allergy (Severe, Verified 09/15/19 18:34) Anaphylaxis sulfamethoxazole [From Bactrim] Allergy (Severe, Verified 09/15/19 18:34) anaphylaxis/hives tramadol [Tramadol] Allergy (Severe, Verified 09/15/19 18:34) Anaphylaxis hydromorphone HCl [From Dilaudid] Allergy (Intermediate, Verified 09/15/19 18:34) Hives amoxicillin [Amoxicillin] Allergy (Verified 09/15/19 18:34) anaphylaxis/hives hydrocodone [From [place]] Allergy (Verified 09/15/19 18:34) nitrofurantoin [From Macrobid] Allergy (Verified 09/15/19 18:34) Anaphylaxis trimethoprim [From Bactrim] Allergy (Verified 09/15/19 18:34) Home Medications: prilosec, valtrex, celexa, triliptal, trazadone, ambien, prozasoin, vistaril, propranolol, singular, erika, Past Medical History - Past Medical History Cardiac Medical History: Denies: Hx Coronary Artery Disease, Hx Heart Attack, Hx Hypertension Pulmonary Medical History: Reports: Hx Asthma Denies: Hx Bronchitis, Hx COPD, Hx Pneumonia Neurological Medical History: Reports: Hx Migraine. Denies: Hx Cerebrovascular Accident, Hx Seizures Renal/ Medical History: Reports: Hx Kidney Stones, Hx Ovarian Cysts. Denies: Hx Peritoneal Dialysis GI Medical History: Reports: Hx Gastroesophageal Reflux Disease. Denies: Hx Hepatitis, Hx Hiatal Hernia, Hx Ulcer Musculoskeltal Medical History: 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, knees, fingers Psychiatric Medical History: Reports: Hx Anxiety, Hx Attention Deficit Hyperactivity Disorder, Hx Bipolar Disorder, Hx Depression, Hx Post Traumatic Stress Disorder Infectious Medical History: Denies: Hx Hepatitis Past Surgical History: Reports: Hx Appendectomy, Hx Section, Hx Orthopedic Surgery - cervical spine surgery , Other - septoplasty, bilateral knee surgery (miniscus tears, ) , right foot surgery. Denies: Hx Hysterectomy, Hx Mastectomy, Hx Open Heart Surgery, Hx Pacemaker - Immunizations Hx Diphtheria, Pertussis, Tetanus Vaccination: Yes Physical Exam - Vital signs Vitals: Temp Pulse Resp BP Pulse Ox 97.9 F 112 H 18 111/69 99 10/20/19 22:52 10/20/19 22:52 10/20/19 22:52 10/20/19 22:52 10/20/19 22:52 Course - Vital Signs Vital signs: Temp Pulse Resp BP Pulse Ox 97.9 F 112 H 18 111/69 99 10/20/19 22:52 10/20/19 22:52 10/20/19 22:52 10/20/19 22:52 10/20/19 22:52
[2019-10-20 23:37] LABS: ABSOLUTE BASOPHILS # (AUTO) 0.1 10^3/uL (0.0-0.2); ABSOLUTE EOSINOPHILS # (AUTO) 0.1 10^3/uL (0.0-0.6); ABSOLUTE LYMPHOCYTES (AUTO) 2.3 10^3/uL (0.5-4.7); ABSOLUTE MONOCYTES (AUTO) 0.6 10^3/uL (0.1-1.4); ABSOLUTE NEUT (AUTO) 2.3 10^3/uL (1.7-8.2); EOSINOPHILS % (AUTO) 1.6 % (0-6); HEMATOCRIT 43.8 % (36.0-47.0); HEMOGLOBIN 14.7 g/dL (12.0-15.5); LYMPHOCYTES % (AUTO) 43.5 % (13-45); MEAN CORPUSCULAR HGB CONC 33.6 g/dL (32.0-36.0); MEAN CORPUSCULAR VOLUME 92 fl (80-97); MONOCYTES % (AUTO) 10.9 % (3-13); PLATELET COUNT 214 10^3/uL (150-450); RED BLOOD COUNT 4.74 10^6/uL (3.72-5.28); RED CELL DISTRIBUTION WIDTH 14.1 % (11.5-14.0); TOTAL CELLS COUNTED % (AUTO) 100 %; WHITE BLOOD COUNT 5.3 10^3/uL (4.0-10.5)
[2019-10-20 23:44] LABS: INTERNATIONAL RATION (INR) 0.93; PROTHROMBIN TIME 12.5 SEC (11.4-15.4)
[2019-10-20 23:51] LABS: ALBUMIN 3.7 g/dL (3.5-5.0); ALKALINE PHOSPHATASE 78 U/L (38-126); ANION GAP 8 (5-19); ASPARTATE AMINO TRANSFERASE 26 U/L (14-36); BLOOD UREA NITROGEN 8 mg/dL (7-20); CALCIUM 9.8 mg/dL (8.4-10.2); CARBON DIOXIDE 21 mmol/L (22-30); CHLORIDE 110 mmol/L (98-107); GLUCOSE 102 mg/dL (75-110); POTASSIUM 3.2 mmol/L (3.6-5.0); TOTAL PROTEIN 6.8 g/dL (6.3-8.2)
[2019-10-21 00:04] LABS: BILIRUBIN,TOTAL < 0.1 mg/dL (0.2-1.3)
[2019-10-21 00:24] LABS: APPEARANCE,URINE CLOUDY; BILIRUBIN,URINE NEGATIVE (NEGATIVE); COLOR,URINE YELLOW; GLUCOSE, URINE NEGATIVE (NEGATIVE); KETONES,URINE NEGATIVE (NEGATIVE); LEUKOCYTE ESTERASE,URINE NEGATIVE (NEGATIVE); NITRITE,URINE NEGATIVE (NEGATIVE); PROTEIN,URINE 30 mg/dL (NEGATIVE); URINE SPECIFIC GRAVITY 1.018
--- NOTE | 2019-10-21 03:20 | ER Document Report ---
ED General - General Chief Complaint: GI Bleeding Stated Complaint: POSSIBLY VOMITING BLOOD/ABDOMINAL PAIN Time Seen by Provider: 10/20/19 23:01 Primary Care Provider: KILEY SLATER PA-C [Primary Care Provider] - Follow up as needed Mode of Arrival: Ambulatory Information source: Patient Notes: 29-year-old white female arrives with chief complaint of right upper quadrant abdominal pain and vomiting black emesis with pale stools. Patient has been having some nausea.pt has a history of MRSA 2 months ago tx with clindamycin TRAVEL OUTSIDE OF THE [place] IN LAST 30 DAYS: No - HPI Onset: Yesterday - Related Data Allergies/Adverse Reactions: ciprofloxacin [From Cipro] Allergy (Severe, Verified 09/15/19 18:34) Anaphylaxis guaifenesin [From Mucinex] Allergy (Severe, Verified 09/15/19 18:34) Anaphylaxis nitrofurantoin macrocrystalline [From Macrobid] Allergy (Severe, Verified 09/15/19 18:34) Anaphylaxis Penicillins Allergy (Severe, Verified 09/15/19 18:34) Anaphylaxis sulfamethoxazole [From Bactrim] Allergy (Severe, Verified 09/15/19 18:34) anaphylaxis/hives tramadol [Tramadol] Allergy (Severe, Verified 09/15/19 18:34) Anaphylaxis hydromorphone HCl [From Dilaudid] Allergy (Intermediate, Verified 09/15/19 18:34) Hives amoxicillin [Amoxicillin] Allergy (Verified 09/15/19 18:34) anaphylaxis/hives hydrocodone [From [place]] Allergy (Verified 09/15/19 18:34) nitrofurantoin [From Macrobid] Allergy (Verified 09/15/19 18:34) Anaphylaxis trimethoprim [From Bactrim] Allergy (Verified 09/15/19 18:34) Home Medications: prilosec, valtrex, celexa, triliptal, trazadone, ambien, prozasoin, vistaril, propranolol, singular, erika, Past Medical History - General Information source: Patient - Social History Smoking Status: Current Some Day Smoker Cigarette use (# per day): Yes Chew tobacco use (# tins/day): No Smoking Education Provided: Yes Frequency of alcohol use: Rare Family History: Reviewed & Not Pertinent Patient has suicidal ideation: No Patient has homicidal ideation: No - Past Medical History Cardiac Medical History: Denies: Hx Coronary Artery Disease, Hx Heart Attack, Hx Hypertension Pulmonary Medical History: Reports: Hx Asthma Denies: Hx Bronchitis, Hx COPD, Hx Pneumonia Neurological Medical History: Reports: Hx Migraine. Denies: Hx Cerebrovascular Accident, Hx Seizures Renal/ Medical History: Reports: Hx Kidney Stones, Hx Ovarian Cysts. Denies: Hx Peritoneal Dialysis GI Medical History: Reports: Hx Gastroesophageal Reflux Disease. Denies: Hx Hepatitis, Hx Hiatal Hernia, Hx Ulcer Musculoskeletal Medical History: 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, knees, fingers Psychiatric Medical History: Reports: Hx Anxiety, Hx Attention Deficit Hyperactivity Disorder, Hx Bipolar Disorder, Hx Depression, Hx Post Traumatic Stress Disorder Infectious Medical History: Denies: Hx Hepatitis Past Surgical History: Reports: Hx Appendectomy, Hx Section, Hx Orthopedic Surgery - cervical spine surgery , Other - septoplasty, bilateral knee surgery (miniscus tears, ) , right foot surgery. Denies: Hx Hysterectomy, Hx Mastectomy, Hx Open Heart Surgery, Hx Pacemaker - Immunizations Hx Diphtheria, Pertussis, Tetanus Vaccination: Yes Review of Systems - Review of Systems Constitutional: Malaise EENT: No symptoms reported Cardiovascular: No symptoms reported Respiratory: No symptoms reported Gastrointestinal: Abdominal pain, Nausea, Vomiting Physical Exam - Vital signs Vitals: Temp Pulse Resp BP Pulse Ox 97.9 F 112 H 18 111/69 99 10/20/19 22:52 10/20/19 22:52 10/20/19 22:52 10/20/19 22:52 10/20/19 22:52 Interpretation: Tachycardic - General General appearance: Alert In distress: Mild - Respiratory Respiratory status: No respiratory distress Chest status: Nontender Breath sounds: Normal - Cardiovascular Rhythm: Tachycardia Heart sounds: Normal auscultation Murmur: Yes Friction rub: No Lamberto's crunch: No - Abdominal Inspection: Normal Distension: No distension Bowel sounds: Normal Tenderness: Tender - Extremities General upper extremity: Normal inspection General lower extremity: Normal inspection Shoulder: Normal Arm: Normal Elbow: Normal Forearm: Normal Wrist: Normal - Neurological Neuro grossly intact: Yes Cognition: Normal Orientation: AAOx4 [place] Coma Scale Eye Opening: Spontaneous [place] Coma Scale Verbal: Oriented [place] Coma Scale Motor: Obeys Commands [place] Coma Scale Total: 15 Speech: Normal - Psychological Associated symptoms: Anxious - Skin Skin Temperature: Warm Skin Moisture: Dry Course - Vital Signs Vital signs: Temp Pulse Resp BP Pulse Ox 98.7 F 77 19 96/59 L 100 10/21/19 05:59 10/21/19 06:00 10/21/19 04:31 10/21/19 06:00 10/21/19 06:00 - Laboratory Result Diagrams: 10/20/19 23:10 10/20/19 23:10 Laboratory results interpreted by me: 10/20/19 10/20/19 10/20/19 23:10 23:10 23:55 RDW 14.1 H Potassium 3.2 L Chloride 110 H Carbon Dioxide 21 L Total Bilirubin < 0.1 L Urine Protein 30 H Urine Urobilinogen 2.0 H - Diagnostic Test Radiology reviewed: Image reviewed, Reports reviewed Critical Care Note - Critical Care Note Total time excluding time spent on procedures (mins): 90 Comments: Discussed findings with patient to include labs and CT scan Discharge - Discharge Clinical Impression: Abdominal pain, MRSA (methicillin resistant Staphylococcus aureus) colonization, Hypokalemia Condition: Good Disposition: HOME, SELF-CARE Instructions: Antinausea Medication ([facility]) Additional Instructions: Follow-up with personal doctor return to ER as needed take medicines as directed encourage fluids Prescriptions: Mupirocin [Bactroban 2% Ointment 22 gm] 1 applic NASL HSP PRN #1 tube PRN Reason: Promethazine HCl [Phenergan 25 mg Tablet] 1 tab PO Q6H PRN #15 tablet PRN Reason: Forms: Return to Work Referrals: KILEY SLATER PA-C [Primary Care Provider] - Follow up as needed
[2019-10-21] MEDS ORDERED: MORPHINE SULFATE 10 MG/ML INJ IV ONE (03:30)
[2019-10-21] MEDS ORDERED: PROMETHAZINE HCL INJ 25 MG/1 ML VIAL IV ONE (03:31)
[2019-10-21 06:01] VITALS: BP 96/59
--- NOTE | 2019-10-21 06:19 | RADIOLOGY REPORT (SQ) ---
CT abdomen and pelvis with contrast on 10/21/2019 at 4:37 AM CLINICAL INDICATION: Right upper quadrant pain TECHNIQUE: Multiple axial images are obtained throughout the abdomen and pelvis following the administration of IV contrast, 81 mL of Omnipaque 350 contrast was administered intravenously without complication. This exam was performed according to our departmental dose-optimization program, which includes automated exposure control, adjustment of the mA and/or kV according to patient size and/or use of iterative reconstruction technique. Total DLP is 923.3 mGy*cm. COMPARISON: 06/29/2019 FINDINGS: Abdomen: The lung bases are clear. The solid abdominal organs are unremarkable. There is no abdominal adenopathy. There is no free fluid or free air within the abdomen. The abdominal portion of the GI tract is unremarkable. Pelvis: No free fluid is noted in the pelvis. Pelvic organs appear unremarkable by CT. The patient is status post appendectomy. Pelvic portion of the GI tract is unremarkable. There is no pelvic adenopathy. No bony abnormality is noted. IMPRESSION: No acute abnormality.
== END 2019-10-21 06:57 | disposition home or self-care (01) ==
LOC: ER 22:45
DX: R10.11 Right upper quadrant pain (principal); E87.6 Hypokalemia; Z22.322 Carrier or suspected carrier of Methicillin resistant Staphylococcus aureus; R11.2 Nausea with vomiting, unspecified; R53.81 Other malaise; R00.0 Tachycardia, unspecified; F17.210 Nicotine dependence, cigarettes, uncomplicated; Z86.14 Personal history of Methicillin resistant Staphylococcus aureus infection; Z88.3 Allergy status to other anti-infective agents; Z88.0 Allergy status to penicillin; Z88.6 Allergy status to analgesic agent; Z87.442 Personal history of urinary calculi
CPT/HCPCS: 99285; 96361; 96374; 96375; 86900; 86901; 36415; 86850; 84703; 85025; 85610; 80053; 81001; 74177; S0119; J2270; C9113; J2550; J7030

== ENCOUNTER 2019-10-29 00:14 | Emergency (ER) | payer BC ==
[2019-10-29 01:07] LABS: A TYPE INFLUENZA AG NEGATIVE (NEGATIVE); B INFLUENZA AG NEGATIVE (NEGATIVE)
[2019-10-29] MEDS ORDERED: BENZONATATE 100 MG CAPSULE PO ONE (03:09)
[2019-10-29] MEDS ORDERED: KETOROLAC TROMETHAMINE 60 MG/2 ML SDV IM ONE (03:09)
[2019-10-29] MEDS ORDERED: CETIRIZINE 10 MG TABLET PO ONE (03:10)
--- NOTE | 2019-10-29 03:11 | ER Document Report ---
HPI - HPI Time Seen by Provider: 10/29/19 03:00 Pain Level: 3 Context: Patient is a 29-year-old female who presents to the emergency department with a chief complaint of a cough, runny nose, and upper respiratory symptoms. Patient states that she has had her symptoms for the past 3 days. Denies any past medical history. Does not take any medications. - CONSTITUTIONAL Constitutional: REPORTS: Chills. DENIES: Fever - EENT EENT: REPORTS: Sore Throat, Ear Pain, Nasal Drainage-Clear, Congestion. DENIES: Nasal Drainage-Purulent - NEURO Neurology: REPORTS: Headache - RESPIRATORY Respiratory: REPORTS: Coughing - GASTROINTESTINAL Gastrointestinal: REPORTS: Abdominal Pain. DENIES: Nausea, Patient vomiting - REPRODUCTIVE Reproductive: DENIES: : - MUSCULOSKELETAL Musculoskeletal: DENIES: Extremity pain - DERM Skin Color: Normal Skin Problems: None Past Medical History - Social History Smoking Status: Current Every Day Smoker Family History: Reviewed & Not Pertinent Patient has suicidal ideation: No Patient has homicidal ideation: No - Past Medical History Cardiac Medical History: Denies: Hx Coronary Artery Disease, Hx Heart Attack, Hx Hypertension Pulmonary Medical History: Reports: Hx Asthma Denies: Hx Bronchitis, Hx COPD, Hx Pneumonia Neurological Medical History: Reports: Hx Migraine. Denies: Hx Cerebrovascular Accident, Hx Seizures Renal/ Medical History: Reports: Hx Kidney Stones, Hx Ovarian Cysts. Denies: Hx Peritoneal Dialysis GI Medical History: Reports: Hx Gastroesophageal Reflux Disease. Denies: Hx Hepatitis, Hx Hiatal Hernia, Hx Ulcer Musculoskeletal Medical History: 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, knees, fingers Psychiatric Medical History: Reports: Hx Anxiety, Hx Attention Deficit Hyperactivity Disorder, Hx Bipolar Disorder, Hx Depression, Hx Post Traumatic Stress Disorder Infectious Medical History: Denies: Hx Hepatitis Past Surgical History: Reports: Hx Appendectomy, Hx Section, Hx Orthop edic Surgery - cervical spine surgery , Other - septoplasty, bilateral knee surgery (miniscus tears, ) , right foot surgery. Denies: Hx Hysterectomy, Hx Mastectomy, Hx Open Heart Surgery, Hx Pacemaker - Immunizations Hx Diphtheria, Pertussis, Tetanus Vaccination: Yes Vertical Provider Document - CONSTITUTIONAL Agree With Documented VS: Yes Exam Limitations: No Limitations General Appearance: No Apparent Distress - INFECTION CONTROL TRAVEL OUTSIDE OF THE [place] IN LAST 30 DAYS: No - HEENT HEENT: Atraumatic, Normocephalic, PERRLA - NECK Neck: Normal Inspection - RESPIRATORY Respiratory: Breath Sounds Normal, No Respiratory Distress - CARDIOVASCULAR Cardiovascular: Regular Rate, Regular Rhythm Pulses: Normal: Radial - GI/ABDOMEN Gastrointestinal: Abdomen Soft, Abdomen Tender - Very mildly - MUSCULOSKELETAL/EXTREMETIES Musculoskeletal/Extremeties: FROM - NEURO Level of Consciousness: Awake, Alert, Appropriate Motor/Sensory: No Motor Deficit, No Sensory Deficit - DERM Integumentary: Warm, Dry, No Rash Course - Re-evaluation Re-evalutation: 10/29/19 03:11 Influenza tests and rapid strep test are negative. Presentation is most consistent with a viral upper respiratory infection. Patient is overall well appearance, vitals within normal limits, well-hydrated. Patient denies any headache, neck pain, and has no evidence of meningismus on examination. Lungs are clear bilaterally. No evidence of respiratory distress. Based on clinical exam and history, I do not suspect an acute pneumonia, meningitis, strep pharyngitis, or an acute encephalitis. No laboratory or imaging testing is indicated at this time. Will discharge patient with return precautions and followup recommendations. They are in agreement this plan have verbalized understanding return precautions. - Vital Signs Vital signs: Temp Pulse Resp BP Pulse Ox 98.5 F 105 H 131/77 H 100 10/29/19 00:19 10/29/19 00:19 10/29/19 00:19 10/29/19 00:19 Discharge - Discharge Clinical Impression: Upper respiratory infection, viral, Rhinorrhea, Cough Condition: Stable Disposition: HOME, SELF-CARE Additional Instructions: You were seen today in the emergency department for a cough, cold chills, and sore throat. Your symptoms are most consistent with an upper respiratory viral infection. Please take acetaminophen 1000 mg and ibuprofen 600 mg every 6 hours as needed for any body aches or fever. You have been given cetirizine, medication to help with your runny nose. Take 1 tablet every day while you have symptoms. You have also been given Flonase, medication to help with the inflammation in your nose. Place 1 spray to each nostril twice a day. If you develop a fever greater than 100.4 F while on ibuprofen and acetaminophen, develop shortness of breath, difficulty breathing, or any symptoms that are worrisome to you, please return to the emergency department. You are also being sent home with Tessalon Perles to help with your cough. You received Toradol here in the emergency department. Please do not take any more ibuprofen today. You may resume ibuprofen tomorrow. Prescriptions: Benzonatate [Tessalon Perle 100 mg Capsule] 200 mg PO Q8HP PRN #40 cap PRN Reason: Cetirizine HCl [All Day Allergy] 10 mg PO DAILY #30 tablet Fluticasone Propionate [Flonase Nasal [place] 50 Mcg/[place] 16 gm] 2 sprays NASL DAILY #1 inhaler Referrals: KILEY SLATER PA-C [Primary Care Provider] - Follow up in 1 week
[2019-10-29 03:23] VITALS: BP 111/59
== END 2019-10-29 03:28 | disposition home or self-care (01) ==
LOC: ER 00:14
DX: J06.9 Acute upper respiratory infection, unspecified (principal); J34.89 Other specified disorders of nose and nasal sinuses; R10.9 Unspecified abdominal pain; F17.200 Nicotine dependence, unspecified, uncomplicated
CPT/HCPCS: 99283; 96372; 87070; 87880; 87804; J1885

== ENCOUNTER 2019-11-18 19:27 | Emergency (ER) | payer OTHER, BC ==
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
[2019-11-18] MEDS ORDERED: KETOROLAC TROMETHAMINE 60 MG/2 ML SDV IM ONE (20:23)
[2019-11-18] MEDS ORDERED: DEXAMETHASONE SOD PHOS INJ 10 MG/1 ML VIAL IM ONE (20:23)
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
[2019-11-18 21:22] VITALS: BP 121/72
== END 2019-11-18 21:19 | disposition home or self-care (01) ==
LOC: ER 19:27
DX: M54.5 Low back pain (principal); M79.10 Myalgia, unspecified site; R05 Cough; R07.9 Chest pain, unspecified; R51 Headache; M54.2 Cervicalgia; V89.2XXA Person injured in unspecified motor-vehicle accident, traffic, initial encounter; Z88.8 Allergy status to other drugs, medicaments and biological substances; Z88.0 Allergy status to penicillin; Z79.899 Other long term (current) drug therapy; F17.210 Nicotine dependence, cigarettes, uncomplicated; J45.909 Unspecified asthma, uncomplicated
CPT/HCPCS: 72110; 70450; 72125; J1885; J1100; 96372; 99285

== ENCOUNTER 2019-12-09 17:28 | Emergency (ER) | payer BC, OTHER ==
--- NOTE | 2019-12-09 17:53 | ER Document Report ---
ED Medical Screen (RME) - General Chief Complaint: Abdominal Pain Stated Complaint: ABDOMINAL PAIN,LOW BACK PAIN Time Seen by Provider: 12/09/19 17:43 Primary Care Provider: KILEY SLATER PA-C [Primary Care Provider] - Follow up as needed Mode of Arrival: Ambulatory Information source: Patient Notes: 29-year-old female presented to ED for complaint of lower abdominal pelvic pain as well as low back pain, she also has burning frequency urgency with urination and vaginal discharge. She is alert oriented respirations regular nonlabored speaking in full sentences. She does have a history of IBS reflux ovarian cyst and C-sections. She smokes 1/2 pack a day does not use alcohol or any illicit drugs. She is alert oriented respirations regular nonlabored speaking in full sentences. She states her pain in her back and pelvic area is about a 2 but the burning is a 5. Last menstrual period was on Tuesday. I have greeted and performed a rapid initial assessment of this patient. A comprehensive ED assessment and evaluation of the patient, analysis of test results and completion of medical decision making process will be conducted by an additional ED providers. TRAVEL OUTSIDE OF THE [place] IN LAST 30 DAYS: No - Related Data Allergies/Adverse Reactions: ciprofloxacin [From Cipro] Allergy (Severe, Verified 09/15/19 18:34) Anaphylaxis guaifenesin [From Mucinex] Allergy (Severe, Verified 09/15/19 18:34) Anaphylaxis nitrofurantoin macrocrystalline [From Macrobid] Allergy (Severe, Verified 09/15/19 18:34) Anaphylaxis Penicillins Allergy (Severe, Verified 09/15/19 18:34) Anaphylaxis sulfamethoxazole [From Bactrim] Allergy (Severe, Verified 09/15/19 18:34) anaphylaxis/hives tramadol [Tramadol] Allergy (Severe, Verified 09/15/19 18:34) Anaphylaxis hydromorphone HCl [From Dilaudid] Allergy (Intermediate, Verified 09/15/19 18:34) Hives amoxicillin [Amoxicillin] Allergy (Verified 09/15/19 18:34) anaphylaxis/hives hydrocodone [From [place]] Allergy (Verified 09/15/19 18:34) nitrofurantoin [From Macrobid] Allergy (Verified 09/15/19 18:34) Anaphylaxis trimethoprim [From Bactrim] Allergy (Verified 09/15/19 18:34) Past Medical History - Past Medical History Cardiac Medical History: Denies: Hx Coronary Artery Disease, Hx Heart Attack, Hx Hypertension Pulmonary Medical History: Reports: Hx Asthma Denies: Hx Bronchitis, Hx COPD, Hx Pneumonia Neurological Medical History: Reports: Hx Migraine. Denies: Hx Cerebrovascular Accident, Hx Seizures Renal/ Medical History: Reports: Hx Kidney Stones, Hx Ovarian Cysts. Denies: Hx Peritoneal Dialysis GI Medical History: Reports: Hx Gastroesophageal Reflux Disease. Denies: Hx Hepatitis, Hx Hiatal Hernia, Hx Ulcer Musculoskeltal Medical History: 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, knees, fingers Psychiatric Medical History: Reports: Hx Anxiety, Hx Attention Deficit Hyperactivity Disorder, Hx Bipolar Disorder, Hx Depression, Hx Post Traumatic Stress Disorder Infectious Medical History: Denies: Hx Hepatitis Past Surgical History: Reports: Hx Appendectomy, Hx Section, Hx Orthopedic Surgery - cervical spine surgery , Other - septoplasty, bilateral knee surgery (miniscus tears, ) , right foot surgery. Denies: Hx Hysterectomy, Hx Mastectomy, Hx Open Heart Surgery, Hx Pacemaker - Immunizations Hx Diphtheria, Pertussis, Tetanus Vaccination: Yes Physical Exam - Vital signs Vitals: Temp Pulse Resp BP Pulse Ox 98.2 F 107 H 18 119/83 96 12/09/19 17:32 12/09/19 17:32 12/09/19 17:32 12/09/19 17:32 12/09/19 17:32 Course - Vital Signs Vital signs: Temp Pulse Resp BP Pulse Ox 98.2 F 107 H 18 119/83 96 12/09/19 17:32 12/09/19 17:32 12/09/19 17:32 12/09/19 17:32 12/09/19 17:32 Doctor's Discharge - Discharge Referrals: KILEY SLATER PA-C [Primary Care Provider] - Follow up as needed
[2019-12-09 18:21] LABS: ABSOLUTE BASOPHILS # (AUTO) 0.1 10^3/uL (0.0-0.2); ABSOLUTE EOSINOPHILS # (AUTO) 0.1 10^3/uL (0.0-0.6); ABSOLUTE LYMPHOCYTES (AUTO) 1.8 10^3/uL (0.5-4.7); ABSOLUTE MONOCYTES (AUTO) 0.4 10^3/uL (0.1-1.4); ABSOLUTE NEUT (AUTO) 6.6 10^3/uL (1.7-8.2); BASOPHILS % (AUTO) 0.8 % (0-2); EOSINOPHILS % (AUTO) 0.6 % (0-6); HEMATOCRIT 46.1 % (36.0-47.0); HEMOGLOBIN 15.5 g/dL (12.0-15.5); LYMPHOCYTES % (AUTO) 20.1 % (13-45); MEAN CORPUSCULAR HEMOGLOBIN 30.5 pg (27.0-33.4); MEAN CORPUSCULAR HGB CONC 33.6 g/dL (32.0-36.0); MEAN CORPUSCULAR VOLUME 91 fl (80-97); MONOCYTES % (AUTO) 4.8 % (3-13); PLATELET COUNT 280 10^3/uL (150-450); RED BLOOD COUNT 5.09 10^6/uL (3.72-5.28); RED CELL DISTRIBUTION WIDTH 14.6 % (11.5-14.0); SEGMENTED NEUTROPHILS % (AUTO) 73.7 % (42-78); TOTAL CELLS COUNTED % (AUTO) 100 %
[2019-12-09 18:57] LABS: ALBUMIN 4.5 g/dL (3.5-5.0); ALKALINE PHOSPHATASE 94 U/L (38-126); ANION GAP 11 (5-19); ASPARTATE AMINO TRANSFERASE 27 U/L (14-36); BILIRUBIN,TOTAL 0.4 mg/dL (0.2-1.3); BLOOD UREA NITROGEN 8 mg/dL (7-20); CALCIUM 10.1 mg/dL (8.4-10.2); CARBON DIOXIDE 26 mmol/L (22-30); CHLORIDE 103 mmol/L (98-107); GLUCOSE 99 mg/dL (75-110); POTASSIUM 4.1 mmol/L (3.6-5.0); TOTAL PROTEIN 7.8 g/dL (6.3-8.2)
[2019-12-09 19:33] LABS: APPEARANCE,URINE CLOUDY; BILIRUBIN,URINE NEGATIVE (NEGATIVE); COLOR,URINE AMBER; GLUCOSE, URINE NEGATIVE (NEGATIVE); KETONES,URINE NEGATIVE (NEGATIVE); PROTEIN,URINE 30 mg/dL (NEGATIVE); URINE SPECIFIC GRAVITY 1.023
--- NOTE | 2019-12-09 19:51 | RADIOLOGY REPORT (SQ) ---
EXAM DESCRIPTION: U/S NON-OB PELVIS LTD W/O DOP COMPLETED DATE/TIME: 12/09/2019 7:09 pm REASON FOR STUDY: Pelvic pain COMPARISON: None. TECHNIQUE: Dynamic and static grayscale images acquired of the pelvis via transvaginal approach and recorded on PACS. Additional selected color Doppler and spectral images recorded. LIMITATIONS: None. FINDINGS: UTERUS: Contour normal. No mass. ENDOMETRIAL STRIPE: No focal or generalized thickening. No masses. CERVIX: No nabothian cysts. RIGHT OVARY AND DOPPLER: Normal size. No worrisome masses. Normal arterial vascular flow without evid ence for torsion. LEFT OVARY AND DOPPLER: Normal size. No worrisome masses. Normal arterial vascular flow without evide nce for torsion. FREE FLUID: None noted. OTHER: No other significant finding. MEASUREMENTS: UTERUS: 7.4 x 3.7 x 3.1 cm ENDOMETRIAL STRIPE: 9 mm RIGHT OVARY: 2.3 x 1.6 x 1.5 cm LEFT OVARY: 1.9 x 2.3 x 1.9 cm IMPRESSION: NORMAL TRANSVAGINAL PELVIC ULTRASOUND. TECHNICAL DOCUMENTATION: JOB ID: [id number] [place]-72 2010 [employer]- All Rights Reserved Rev-02/17 Reading location - IP/workstation name: [email or web address]
[2019-12-09 19:59] LABS: CHLAM PCR NOT DETECTED (NOT DETECT)
[2019-12-09] MEDS ORDERED: PHENAZOPYRIDINE HCL 200 MG TABLET PO ONE (20:26)
[2019-12-09] MEDS ORDERED: CEPHALEXIN 500 MG CAPSULE PO ONE (20:26)
--- NOTE | 2019-12-09 20:32 | ER Document Report ---
ED GI/ - General Chief Complaint: Abdominal Pain Stated Complaint: ABDOMINAL PAIN,LOW BACK PAIN Time Seen by Provider: 12/09/19 17:43 Primary Care Provider: KILEY SLATER PA-C [Primary Care Provider] - Follow up as needed Mode of Arrival: Ambulatory Notes: Patient is a 29-year-old female that comes emergency department for chief complaint of lower abdominal pain and cramping along with some discomfort developing in her lower back on both sides. She states she has painful urination with burning and has urinary frequency. She reports a scant amount of vaginal discharge but denies change from her baseline. She denies concerns about STD. She denies fever/chills, nausea/vomiting, or severe abdominal pain. She reports a history of ovarian cysts, she has had an appendectomy and C-sec tion. Past medical history includes orthopedic surgery and bipolar/anxiety. LMP last Tuesday. TRAVEL OUTSIDE OF THE [place] IN LAST 30 DAYS: No - Related Data Allergies/Adverse Reactions: ciprofloxacin [From Cipro] Allergy (Severe, Verified 12/09/19 19:04) Anaphylaxis guaifenesin [From Mucinex] Allergy (Severe, Verified 12/09/19 19:04) Anaphylaxis nitrofurantoin macrocrystalline [From Macrobid] Allergy (Severe, Verified 12/09/19 19:04) Anaphylaxis Penicillins Allergy (Severe, Verified 12/09/19 19:04) Anaphylaxis sulfamethoxazole [From Bactrim] Allergy (Severe, Verified 12/09/19 19:04) anaphylaxis/hives tramadol [Tramadol] Allergy (Severe, Verified 12/09/19 19:04) Anaphylaxis hydromorphone HCl [From Dilaudid] Allergy (Intermediate, Verified 12/09/19 19:04) Hives amoxicillin [Amoxicillin] Allergy (Verified 12/09/19 19:04) anaphylaxis/hives hydrocodone [From [place]] Allergy (Verified 12/09/19 19:04) nitrofurantoin [From Macrobid] Allergy (Verified 12/09/19 19:04) Anaphylaxis trimethoprim [From Bactrim] Allergy (Verified 12/09/19 19:04) Past Medical History - General Information source: Patient - Social History Smoking Status: Current Every Day Smoker Frequency of alcohol use: None Drug Abuse: None Lives with: Family Family History: Reviewed & Not Pertinent Patient has suicidal ideation: No Patient has homicidal ideation: No - Past Medical History Cardiac Medical History: Denies: Hx Coronary Artery Disease, Hx Heart Attack, Hx Hypertension Pulmonary Medical History: Reports: Hx Asthma Denies: Hx Bronchitis, Hx COPD, Hx Pneumonia Neurological Medical History: Reports: Hx Migraine. Denies: Hx Cerebrovascular Accident, Hx Seizures Renal/ Medical History: Reports: Hx Kidney Stones, Hx Ovarian Cysts. Denies: Hx Peritoneal Dialysis GI Medical History: Reports: Hx Gastroesophageal Reflux Disease. Denies: Hx Hepatitis, Hx Hiatal Hernia, Hx Ulcer Musculoskeletal Medical History: 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, knees, fingers Psychiatric Medical History: Reports: Hx Anxiety, Hx Attention Deficit Hyperactivity Disorder, Hx Bipolar Disorder, Hx Depression, Hx Post Traumatic Stress Disorder Infectious Medical History: Denies: Hx Hepatitis Past Surgical History: Reports: Hx Abdominal Surgery - EXPLORATORY LAPX6, Hx Appendectomy, Hx Section, Hx Orthopedic Surgery - cervical spine surgery , BILAT KNEE, NOSE, Other - septoplasty, bilateral knee surgery (miniscus tears, ) , right foot surgery. Denies: Hx Hysterectomy, Hx Mastectomy, Hx Open Heart Surgery, Hx Pacemaker - Immunizations Hx Diphtheria, Pertussis, Tetanus Vaccination: Yes Review of Systems - Review of Systems Constitutional: No symptoms reported EENT: No symptoms reported Cardiovascular: No symptoms reported Respiratory: No symptoms reported Gastrointestinal: See HPI Genitourinary: See HPI Female Genitourinary: See HPI Musculoskeletal: No symptoms reported Skin: No symptoms reported Hematologic/Lymphatic: No symptoms reported Neurological/Psychological: No symptoms reported Physical Exam - Vital signs Vitals: Temp Pulse Resp BP Pulse Ox 98.2 F 107 H 18 119/83 96 12/09/19 17:32 12/09/19 17:32 12/09/19 17:32 12/09/19 17:32 12/09/19 17:32 - Notes Notes: GENERAL: Alert, interacts well. No acute distress. HEAD: Normocephalic, atraumatic. EYES: Pupils equal, round, and reactive to light. Extraocular movements intact. ENT: Oral mucosa moist, tongue midline. Oropharynx unremarkable. Airway patent. LUNGS: Clear to auscultation bilaterally, no wheezes, rales, or rhonchi. No respiratory distress. HEART: Regular rate and rhythm. No murmur ABDOMEN: Mild suprapubic tenderness, otherwise soft benign abdomen. No guarding. EXTREMITIES: Moves all 4 extremities spontaneously. No edema, normal radial and dorsalis pedis pulses bilaterally. No cyanosis. BACK: No CVA tenderness. No cervical, thoracic, lumbar midline tenderness. No saddle anesthesia, normal distal neurovascular exam. Moves all extremities in full range of motion. NEUROLOGICAL: Alert and oriented x3. Normal speech. Cranial nerves II through XII grossly intact. PSYCH: Normal affect, normal mood. SKIN: Warm, dry, normal turgor. No rashes or lesions noted. Course - Re-evaluation Re-evalutation: Patient has some suprapubic tenderness on exam, otherwise her exam is unremarkable, she is smiling, well-appearing. Vital signs unremarkable. CBC, chemistry unremarkable. Urinalysis indicates infection most likely. Culture placed. Gonorrhea chlamydia from urine negative. Ultrasound reviewed and negative. Discussed results with patient. She states she absolutely knows she has a urinary tract infection, she requests treatment for this with Keflex and Diflucan for afterwards. She request discharge. I discussed pelvic exam for the location of her symptoms but she declines, states she has basically a normal discharge and she does not want any additional testing. Discussed follow-up and return precautions. Patient states appreciation and agreement. Stable and well-appearing at time of discharge. - Vital Signs Vital signs: Temp Pulse Resp BP Pulse Ox 98.4 F 91 16 118/74 96 12/09/19 20:44 12/09/19 20:44 12/09/19 20:44 12/09/19 20:44 12/09/19 20:44 - Laboratory Result Diagrams: 12/09/19 18:10 12/09/19 18:10 Laboratory results interpreted by me: 12/09/19 12/09/19 18:10 19:03 RDW 14.6 H Urine Protein 30 H Urine Urobilinogen 4.0 H Leukocyte Esterase Rfl LARGE H Urine Ascorbic Acid 20 H Discharge - Discharge Clinical Impression: Lower abdominal pain, Dysuria Condition: Stable Disposition: HOME, SELF-CARE Additional Instructions: Your evaluation indicates a urinary tract infection, this is most likely cystitis (a bladder infection). Take Keflex as prescribed, Pyridium if needed, after completing the antibiotics take the Diflucan to avoid a yeast infection. Follow-up with primary care. Return if you worsen including severe worsening pain, vomiting, spiking fever, or any other concerning symptoms. Prescriptions: Fluconazole [Diflucan] 150 mg PO ONCE PRN #3 tablet PRN Reason: Cephalexin Monohydrate [Keflex 500 mg Capsule] 500 mg PO BID 7 Days #14 capsule Phenazopyridine HCl [Pyridium 100 Mg Tablet] 200 mg PO TID PRN #6 tablet PRN Reason: Referrals: KILEY SLATER PA-C [Primary Care Provider] - Follow up as needed
[2019-12-09 20:47] VITALS: BP 118/74
== END 2019-12-09 20:44 | disposition home or self-care (01) ==
LOC: ER 17:28
DX: R10.30 Lower abdominal pain, unspecified (principal); R10.819 Abdominal tenderness, unspecified site; R30.0 Dysuria; M54.5 Low back pain; R35.0 Frequency of micturition; N89.8 Other specified noninflammatory disorders of vagina; F17.200 Nicotine dependence, unspecified, uncomplicated; J45.909 Unspecified asthma, uncomplicated; Z87.442 Personal history of urinary calculi; Z87.42 Personal history of other diseases of the female genital tract; Z87.892 Personal history of anaphylaxis; Z88.1 Allergy status to other antibiotic agents; Z88.8 Allergy status to other drugs, medicaments and biological substances; Z88.0 Allergy status to penicillin; Z88.6 Allergy status to analgesic agent; Z88.5 Allergy status to narcotic agent
CPT/HCPCS: 99284; 36415; 84703; 85025; 80053; 81001; 87491; 87591; 76857; J3490

== ENCOUNTER 2019-12-27 18:16 | Emergency (ER) | payer BC ==
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
--- NOTE | 2019-12-27 19:01 | RADIOLOGY REPORT (SQ) ---
EXAM DESCRIPTION: CT HEAD WITHOUT COMPLETED DATE/TIME: 12/27/2019 6:48 pm REASON FOR STUDY: head injry COMPARISON: None. TECHNIQUE: Axial images acquired through the brain without intravenous contrast. Images reviewed wi th bone, brain and subdural windows. Additional sagittal and coronal reconstructions were generated. Images stored on PACS. All CT scanners at this facility use dose modulation, iterative reconstruction, and/or weight based d osing when appropriate to reduce radiation dose to as low as reasonably achievable (ALARA). [facility]: Dose Right [facility]: CareDose [facility]: Dose Right [facility]: Teradose 4D [facility]: [employer] RADIATION DOSE: CT Rad equipment meets quality standard of care and radiation dose reduction techniq ues were employed. CTDIvol: 19.5 - 53.2 mGy. DLP: 1332 mGy-cm. LIMITATIONS: None. FINDINGS: There is no acute intracranial hemorrhage, vascular territorial infarct, extra-axial fluid collection, mass effect or midline shift. The marley-white matter differentiation is preserved. There is no effacement of cerebral sulci or basal subarachnoid cisterns. The caliber the ventricles is con cordant with the degree of sulcation. The orbits and globes are intact. There is no fracture of the calvarium. The paranasal sinuses are clear. IMPRESSION: No acute intracranial abnormality. EVIDENCE OF ACUTE STROKE: NO. COMMENT: Quality ID # [id number]: Final reports with documentation of one or more dose reduction techniques (e.g., Automated exposure control, adjustment of the mA and/or kV according to patient size, use of iterative reconstruction technique) TECHNICAL DOCUMENTATION: JOB ID: [id number] 2010 [employer]- All Rights Reserved Reading location - IP/workstation name: [email or web address]
--- NOTE | 2019-12-27 19:07 | RADIOLOGY REPORT (SQ) ---
EXAM DESCRIPTION: CT CERVICAL SPINE WITHOUT COMPLETED DATE/TIME: 12/27/2019 6:48 pm REASON FOR STUDY: head injry COMPARISON: CT of the cervical spine from 11/18/2019. TECHNIQUE: Axial images acquired through the cervical spine without intravenous contrast. Images re viewed with lung, soft tissue and bone windows. Reconstructed coronal and sagittal MPR images review ed. Images stored on PACS. All CT scanners at this facility use dose modulation, iterative reconstruction, and/or weight based d osing when appropriate to reduce radiation dose to as low as reasonably achievable (ALARA). [facility]: Dose Right [facility]: CareDose [facility]: Dose Right [facility]: Teradose 4D [facility]: [employer] LIMITATIONS: None. FINDINGS: ALIGNMENT: There is straightening of the normal lordotic curvature of the cervical spine. There is no craniocervical or atlantoaxial dissociation. MINERALIZATION: Normal. VERTEBRAL BODIES: The cervical vertebral body heights are preserved. There is no fracture. DISCS: Status post discectomies at C3-C4, C4-C5, C5-C6 and C6-C7 with placement of intervertebral dis c prostheses and placement of an anterior plate from C3 to C5 affixed in place with screws ; the hard robb is intact and the artifact that results from it limits evaluation of the spinal canal. FACETS, LATERAL MASSES, POSTERIOR ELEMENTS: Intact. HARDWARE: As above. VISUALIZED RIBS: No fractures. LUNG APICES AND SOFT TISSUES: No acute findings. OTHER: No other findings. IMPRESSION: No acute fracture malalignment of the cervical spine. Intact spinal fusion hardware. TECHNICAL DOCUMENTATION: JOB ID: [id number] Quality ID # [id number]: Final reports with documentation of one or more dose reduction techniques (e.g., Au tomated exposure control, adjustment of the mA and/or kV according to patient size, use of iterative reconstruction technique) 2010 [employer]- All Rights Reserved Reading location - IP/workstation name: [email or web address]
--- NOTE | 2019-12-27 19:16 | ER Document Report ---
ED Headache - General Chief Complaint: Head Injury Stated Complaint: HEAD PAIN, LUMP Time Seen by Provider: 12/27/19 18:58 Primary Care Provider: KILEY SLATER PA-C [Primary Care Provider] - Follow up as needed Notes: CHIEF COMPLAINT: Head injury yesterday HPI: 29-year-old female presenting to the emergency department complaining of pain to the posterior aspect of the right scalp. Patient states her child threw a heavy plastic Tonka toy at her and it struck her in the head yesterday. There was no swelling yesterday. Only had a mild headache yesterday. Today increased swelling and pain. Took a muscle relaxer at home but did not take any other medications. Denies loss of consciousness. Denies significant neck pain but is concerned because she has a plate in the neck. Denies weakness numbness or tingling in the extremities ROS: See HPI - all other systems were reviewed and are otherwise negative Constitutional: no fever or recent illness Eyes: no drainage, no blurred vision ENT: no runny nose, no sore throat Cardiovascular: no chest pain Resp: no SOB, no cough GI: no vomiting, no diarrhea : no dysuria Integumentary: no rash Allergy: no hives Musculoskeletal: no extremity pain or swelling Neurological: no numbness/tingling, no weakness positive headache MEDICATIONS: I agree with the patient medications as charted by the RN. ALLERGIES: I agree with the allergies as charted by the RN. PAST MEDICAL HISTORY/PAST SURGICAL HISTORY: Reviewed and agree as charted by RN. SOCIAL HISTORY: Reviewed and agree as charted by RN. FAMILY HISTORY: No significant familial comorbid conditions directly related to patient complaint EXAM: Reviewed vital signs as charted by RN. CONSTITUTIONAL: Airway patent; alert and oriented and responds appropriately to questions. Well-appearing, well-nourished HEAD: Normocephalic, small area of soft tissue swelling in the right occipital region that is mildly tender on palpation without visible bruising. EYES: PERRL; EOM intact; Conjunctivae clear, sclerae non-icteric ENT: Midface is stable without tenderness; normal nose; no bleeding; normal pharynx, normal voice, no stridor, no intraoral lacerations or dental trauma noted; no hemotympanum NECK: Trachea is midline; spine non-tender, no step-offs, good range of motion; no contusions or hematomas CARD: Normal symmetric pulses; RRR; no murmurs, no clicks, no rubs, no gallops RESP: Normal chest excursion with respiration ABD/GI: Appears atraumatic without contusions or hematomas; non-distended BACK: The back appears atraumatic, no step-offs; spine is nontender EXT: Normal ROM in all joints; non-tender to palpation; no cyanosis, no effusions, no edema SKIN: Normal color for age and race; warm; dry; good turgor; no apparent lesions NEURO: Moves all extremities equally; Motor and sensory function intact PSYCH: The patient's mood and manner are appropriate. MDM: 29-year-old female with injury to the right posterior scalp yesterday. No loss of consciousness neurologically intact initial CT orders placed in the triage process. CT of the head negative for acute findings. CT of the cervical spine negative for acute findings. Will give Toradol here, antiinflammatories at home, follow up PCP TRAVEL OUTSIDE OF THE [place] IN LAST 30 DAYS: No - Related Data Allergies/Adverse Reactions: ciprofloxacin [From Cipro] Allergy (Severe, Verified 12/09/19 19:04) Anaphylaxis guaifenesin [From Mucinex] Allergy (Severe, Verified 12/09/19 19:04) Anaphylaxis nitrofurantoin macrocrystalline [From Macrobid] Allergy (Severe, Verified 12/09/19 19:04) Anaphylaxis Penicillins Allergy (Severe, Verified 12/09/19 19:04) Anaphylaxis sulfamethoxazole [From Bactrim] Allergy (Severe, Verified 12/09/19 19:04) anaphylaxis/hives tramadol [Tramadol] Allergy (Severe, Verified 12/09/19 19:04) Anaphylaxis hydromorphone HCl [From Dilaudid] Allergy (Intermediate, Verified 12/09/19 19:04) Hives amoxicillin [Amoxicillin] Allergy (Verified 12/09/19 19:04) anaphylaxis/hives hydrocodone [From [place]] Allergy (Verified 12/09/19 19:04) nitrofurantoin [From Macrobid] Allergy (Verified 12/09/19 19:04) Anaphylaxis trimethoprim [From Bactrim] Allergy (Verified 12/09/19 19:04) Past Medical History - Social History Smoking Status: Current Every Day Smoker Family History: Reviewed & Not Pertinent Patient has suicidal ideation: No Patient has homicidal ideation: No - Past Medical History Cardiac Medical History: Denies: Hx Coronary Artery Disease, Hx Heart Attack, Hx Hypertension Pulmonary Medical History: Reports: Hx Asthma Denies: Hx Bronchitis, Hx COPD, Hx Pneumonia Neurological Medical History: Reports: Hx Migraine. Denies: Hx Cerebrovascular Accident, Hx Seizures Renal/ Medical History: Reports: Hx Kidney Stones, Hx Ovarian Cysts. Denies: Hx Peritoneal Dialysis GI Medical History: Reports: Hx Gastroesophageal Reflux Disease. Denies: Hx Hepatitis, Hx Hiatal Hernia, Hx Ulcer Musculoskeletal Medical History: 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, knees, fingers Psychiatric Medical History: Reports: Hx Anxiety, Hx Attention Deficit Hyperactivity Disorder, Hx Bipolar Disorder, Hx Depression, Hx Post Traumatic Stress Disorder Infectious Medical History: Denies: Hx Hepatitis Past Surgical History: Reports: Hx Abdominal Surgery - EXPLORATORY LAPX6, Hx Appendectomy, Hx Section, Hx Orthopedic Surgery - cervical spine surger y , BILAT KNEE, NOSE, Other - septoplasty, bilateral knee surgery (miniscus tears, ) , right foot surgery. Denies: Hx Hysterectomy, Hx Mastectomy, Hx Open Heart Surgery, Hx Pacemaker - Immunizations Hx Diphtheria, Pertussis, Tetanus Vaccination: Yes Physical Exam - Vital signs Vitals: Temp Pulse Resp BP Pulse Ox 98.2 F 100 16 116/72 97 12/27/19 18:20 12/27/19 18:20 12/27/19 18:20 12/27/19 18:20 12/27/19 18:20 Course - Vital Signs Vital signs: Temp Pulse Resp BP Pulse Ox 98.2 F 100 16 116/72 97 12/27/19 18:20 12/27/19 18:20 12/27/19 18:20 12/27/19 18:20 12/27/19 18:20 Discharge - Discharge Clinical Impression: Head injury due to trauma Qualifiers: Encounter type: initial encounter Qualified Code(s): S09.90XA - Unspecified injury of head, initial encounter Condition: Stable Disposition: HOME, SELF-CARE Additional Instructions: Take the anti-inflammatories for pain as prescribed. Ice to the scalp to help with swelling. CT imaging of the head and cervical spine did not show evidence of a fracture or bleeding. Follow-up with your primary care provider for reevaluation of symptoms call for appointment Prescriptions: Diclofenac Sodium [Voltaren 50 Mg Tablet.] 50 mg PO BID #20 tablet. Referrals: KILEY SLATER PA-C [Primary Care Provider] - Follow up as needed
[2019-12-27] MEDS ORDERED: KETOROLAC TROMETHAMINE 60 MG/2 ML SDV IM ONE (19:17)
[2019-12-27 19:47] VITALS: BP 103/55
== END 2019-12-27 19:55 | disposition home or self-care (01) ==
LOC: ER 18:16
DX: S09.90XA Unspecified injury of head, initial encounter (principal); R51 Headache; W22.8XXA Striking against or struck by other objects, initial encounter; Z88.1 Allergy status to other antibiotic agents; Z88.0 Allergy status to penicillin; Z88.2 Allergy status to sulfonamides; Z88.8 Allergy status to other drugs, medicaments and biological substances; F17.200 Nicotine dependence, unspecified, uncomplicated; J45.909 Unspecified asthma, uncomplicated
CPT/HCPCS: 99283; 96372; 70450; 72125; J1885

== ENCOUNTER 2020-01-15 14:19 | Emergency (ER) | payer BC ==
[2020-01-15] MEDS ORDERED: NORMAL SALINE 1000 ML 1,000 ML IV ONE (14:40)
[2020-01-15 14:49] LABS: ABSOLUTE BASOPHILS # (AUTO) 0.1 10^3/uL (0.0-0.2); ABSOLUTE EOSINOPHILS # (AUTO) 0.1 10^3/uL (0.0-0.6); ABSOLUTE MONOCYTES (AUTO) 0.6 10^3/uL (0.1-1.4); ABSOLUTE NEUT (AUTO) 9.1 10^3/uL (1.7-8.2); BASOPHILS % (AUTO) 0.6 % (0-2); EOSINOPHILS % (AUTO) 0.7 % (0-6); HEMATOCRIT 43.7 % (36.0-47.0); HEMOGLOBIN 14.9 g/dL (12.0-15.5); MEAN CORPUSCULAR HEMOGLOBIN 30.9 pg (27.0-33.4); MEAN CORPUSCULAR HGB CONC 34.1 g/dL (32.0-36.0); MEAN CORPUSCULAR VOLUME 91 fl (80-97); MONOCYTES % (AUTO) 5.1 % (3-13); PLATELET COUNT 231 10^3/uL (150-450); RED BLOOD COUNT 4.83 10^6/uL (3.72-5.28); RED CELL DISTRIBUTION WIDTH 14.5 % (11.5-14.0); SEGMENTED NEUTROPHILS % (AUTO) 76.6 % (42-78); TOTAL CELLS COUNTED % (AUTO) 100 %; WHITE BLOOD COUNT 11.8 10^3/uL (4.0-10.5)
[2020-01-15 14:54] LABS: VENOUS BLOOD BASE EXCESS -2.7 mmol/L; VENOUS BLOOD HCO3 21.7 mmol/L (20-32); VENOUS BLOOD PCO2 36.8 mmHg (35-63); VENOUS BLOOD PH 7.39 (7.30-7.42)
[2020-01-15 15:07] LABS: ALKALINE PHOSPHATASE 89 U/L (38-126); ANION GAP 8 (5-19); ASPARTATE AMINO TRANSFERASE 21 U/L (14-36); BILIRUBIN,TOTAL 0.3 mg/dL (0.2-1.3); BLOOD UREA NITROGEN 8 mg/dL (7-20); CALCIUM 9.4 mg/dL (8.4-10.2); CARBON DIOXIDE 22 mmol/L (22-30); CHLORIDE 107 mmol/L (98-107); GLUCOSE 105 mg/dL (75-110); POTASSIUM 3.9 mmol/L (3.6-5.0)
--- NOTE | 2020-01-15 15:07 | ER Document Report ---
Entered by FIDEL BOWENS SCRIBE 01/15/20 1436 Acting as scribe for:ILEANA MENDOZA DO ED General - General Stated Complaint: BACK PAIN Time Seen by Provider: 01/15/20 14:28 Primary Care Provider: KILEY SLATER PA-C [Primary Care Provider] - Follow up as needed Information source: Patient Notes: This 29-year-old female presents to the emergency department with a chief complaint of lower back pain that began 2-3 hours ago. Patient explains that her back pain radiates to her "groin" on the left side. Patient denies radiation down left leg. Patient says that pain is worsened to twist and move. Patient reports that her last menstrual period was 2 weeks ago and explains that her pe riod is usually irregular. Patient denies diarrhea, suicide ideation and homicidal ideation. Patient mentions that she has not been taking her medication for her bipolar disorder, PTSD and anxiety. TRAVEL OUTSIDE OF THE [place] IN LAST 30 DAYS: No - Related Data Allergies/Adverse Reactions: ciprofloxacin [From Cipro] Allergy (Severe, Verified 12/09/19 19:04) Anaphylaxis guaifenesin [From Mucinex] Allergy (Severe, Verified 12/09/19 19:04) Anaphylaxis nitrofurantoin macrocrystalline [From Macrobid] Allergy (Severe, Verified 19:04) Anaphylaxis Penicillins Allergy (Severe, Verified 12/09/19 19:04) Anaphylaxis sulfamethoxazole [From Bactrim] Allergy (Severe, Verified 12/09/19 19:04) anaphylaxis/hives tramadol [Tramadol] Allergy (Severe, Verified 12/09/19 19:04) Anaphylaxis hydromorphone HCl [From Dilaudid] Allergy (Intermediate, Verified 12/09/19 19:04) Hives amoxicillin [Amoxicillin] Allergy (Verified 12/09/19 19:04) anaphylaxis/hives hydrocodone [From [place]] Allergy (Verified 12/09/19 19:04) nitrofurantoin [From Macrobid] Allergy (Verified 12/09/19 19:04) Anaphylaxis trimethoprim [From Bactrim] Allergy (Verified 12/09/19 19:04) Past Medical History - General Information source: Patient - Social History Smoking Status: Never Smoker Cigarette use (# per day): No Chew tobacco use (# tins/day): No Frequency of alcohol use: None Drug Abuse: Marijuana Lives with: Spouse/Significant other Family History: Reviewed & Not Pertinent Pulmonary Medical History: Reports: Hx Asthma Neurological Medical History: Reports: Hx Migraine Renal/ Medical History: Reports: Hx Ovarian Cysts, Hx Peritoneal Dialysis. Denies: Hx Kidney Stones GI Medical History: Reports: Hx Gastroesophageal Reflux Disease Musculoskeletal Medical History: 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, knees, fingers Psychiatric Medical History: Reports: Hx Anxiety, Hx Attention Deficit Hyperactivity Disorder, Hx Bipolar Disorder, Hx Depression, Hx Post Traumatic Stress Disorder Past Surgical History: Reports: Hx Abdominal Surgery - EXPLORATORY LAPX6, Hx Appendectomy, Hx Section, Hx Orthopedic Surgery - cervical spine surgery , septoplasty, bilateral knee, left foot - Immunizations Hx Diphtheria, Pertussis, Tetanus Vaccination: Yes Review of Systems - Review of Systems Constitutional: No symptoms reported EENT: No symptoms reported Cardiovascular: No symptoms reported Respiratory: No symptoms reported Gastrointestinal: See HPI. denies: Abdominal pain, Diarrhea Genitourinary: No symptoms reported Female Genitourinary: See HPI, Last menstrual period Musculoskeletal: See HPI, Back pain Skin: No symptoms reported Hematologic/Lymphatic: No symptoms reported Neurological/Psychological: See HPI. denies: Homicidal ideation, Suicidal ideation -: Yes All other systems reviewed and negative Physical Exam - Vital signs Vitals: Temp Resp BP Pulse Ox 98.4 F 13 120/79 100 01/15/20 14:31 01/15/20 14:31 01/15/20 14:31 01/15/20 14:31 - Notes Notes: Physical Exam: General: Alert, appears well. HEENT: Normocephalic. Atraumatic. PERRL. Extraocular movements intact. Orophary nx clear. Neck: Supple. Non-tender. Respiratory: No respiratory distress. Clear and equal breath sounds bilaterally. Cardiovascular: Regular rate and rhythm. Abdominal: Mild LLQ tenderness to palpation. No distension. Normal Bowel Sounds. Back: Paraspinal tenderness to palpation in the lumbar region. Extremities: Moves all four extremities. Upper extremities: Normal inspection. Normal ROM. Lower extremities: Normal inspection. No edema. Normal ROM. Neurological: Normal cognition. AAOx4. Normal speech. Psychological: Anxious. Stressed. Histronic. Skin: Warm. Dry. Normal color. Course - Vital Signs Vital signs: Temp Pulse Resp BP Pulse Ox 98.4 F 18 121/89 H 99 01/15/20 15:23 01/15/20 16:09 01/15/20 15:01 01/15/20 16:09 - Laboratory Result Diagrams: 01/15/20 14:33 01/15/20 14:33 Laboratory results interpreted by me: 01/15/20 01/15/20 14:33 14:44 WBC 11.8 H RDW 14.5 H Absolute Neuts (auto) 9.1 H Urine Protein 100 H Urine Ketones TRACE H Urine Blood LARGE H Ur Leukocyte Esterase TRACE H - EKG Interpretation by Me EKG shows normal: Sinus rhythm - NSR Nl [place] [address] elevation or depression my interpretation. Discharge - Discharge Clinical Impression: Ureterolithiasis Condition: Good Disposition: HOME, SELF-CARE Instructions: Kidney Stone ([facility]), Colic ([facility]), Hematuria ([facility]) Additional Instructions: See your doctor in follow up and see a Urologist as discussed. Rest. Please return here for any problems or any concerns. Prescriptions: Tamsulosin HCl [Flomax 0.4 mg Cap.sr] 0.4 mg PO DAILY #14 cap.sr.24h Cephalexin Monohydrate [Keflex 500 mg Capsule] 500 mg PO TID #30 capsule Hydrocodone/Acetaminophen [[place] 5-325 mg Tabs (6 Tab/ER Disp)] 6 tab PO TID 2 Days #1 dspk Ondansetron [Zofran Odt 4 mg Tablet] 1 - 2 tab PO Q4H PRN #15 tab.rapdis PRN Reason: For Nausea/Vomiting Referrals: KILEY SLATER PA-C [Primary Care Provider] - Follow up as needed I personally performed the services described in the documentation, reviewed and edited the documentation which was dictated to the scribe in my presence, and it accurately records my words and actions.
[2020-01-15 15:35] LABS: APPEARANCE,URINE SLIGHTLY-CLOUDY; BILIRUBIN,URINE NEGATIVE (NEGATIVE); COLOR,URINE AMBER; GLUCOSE, URINE NEGATIVE (NEGATIVE); KETONES,URINE TRACE mg/dL (NEGATIVE); LEUKOCYTE ESTERASE,URINE TRACE (NEGATIVE); NITRITE,URINE NEGATIVE (NEGATIVE); PROTEIN,URINE 100 mg/dL (NEGATIVE); URINE SPECIFIC GRAVITY 1.018; UROBILINOGEN,URINE NEGATIVE mg/dL (<2.0)
--- NOTE | 2020-01-15 16:23 | RADIOLOGY REPORT (SQ) ---
EXAM DESCRIPTION: CT ABD/PELVIS NO ORAL OR IV IMAGES COMPLETED DATE/TIME: 01/15/2020 4:08 pm REASON FOR STUDY: hematuria left side pain COMPARISON: 10/21/2019 TECHNIQUE: CT scan of the abdomen and pelvis performed without intravenous or oral contrast. Images reviewed with lung, soft tissue, and bone windows. Reconstructed coronal and sagittal MPR images revi ewed. All images stored on PACS. All CT scanners at this facility use dose modulation, iterative reconstruction, and/or weight based d osing when appropriate to reduce radiation dose to as low as reasonably achievable (ALARA). [facility]: Dose Right [facility]: CareDose [facility]: Dose Right [facility]: Teradose 4D [facility]: Smart Macrotherapy RADIATION DOSE: CT Rad equipment meets quality standard of care and radiation dose reduction techniq ues were employed. CTDIvol: 9.0 mGy. DLP: 482 mGy-cm.mGy. LIMITATIONS: None. FINDINGS: LOWER CHEST: No significant findings. No nodules or infiltrates. NON-CONTRASTED LIVER, SPLEEN, ADRENALS: Evaluation limited by lack of IV contrast. No identified sign ificant masses. PANCREAS: No masses. No peripancreatic inflammatory changes. GALLBLADDER: No identified stones by CT criteria. No inflammatory changes to suggest cholecystitis. RIGHT KIDNEY AND URETER: No suspicious masses. Assessment limited by lack of IV contrast. No signif icant calcifications. No hydronephrosis or hydroureter. LEFT KIDNEY AND URETER: No suspicious masses. Assessment limited by lack of IV contrast. There is a 1 to 2 mm proximal left ureteral stone. Mild to moderate dilatation of the left renal pelvis and c alices. AORTA AND RETROPERITONEUM: No aneurysm. No retroperitoneal masses or adenopathy. BOWEL AND PERITONEAL CAVITY: No obvious masses or inflammatory changes. No free fluid. APPENDIX: Surgically absent. PELVIS, BLADDER, AND ABDOMINAL WALL:No abnormal masses. No free fluid. Bladder normal. BONES: No significant findings. OTHER: No other significant finding. IMPRESSION: 1 to 2 mm proximal left ureteral stone with mild to moderate left-sided hydronephrosis. COMMENT: Quality ID # [id number]: Final reports with documentation of one or more dose reduction techniques (e.g., Automated exposure control, adjustment of the mA and/or kV according to patient size, use of iterative reconstruction technique) TECHNICAL DOCUMENTATION: JOB ID: [id number] 2010 [employer]- All Rights Reserved Reading location - IP/workstation name: [email or web address]
[2020-01-15] MEDS ORDERED: ONDANSETRON HCL INJ/PF 4 MG/2 ML SDV IV ONE (16:25)
[2020-01-15] MEDS ORDERED: FENTANYL CITRATE INJ/PF 100 MCG/2 ML AMPUL IV ONE (16:25)
[2020-01-15 16:51] VITALS: BP 122/88
--- NOTE | 2020-01-15 17:41 | EKG REPORT ---
SEVERITY:- DEFECTIVE ECG - ATRIAL FIBRILLATION, V-RATE 64-86,= PROBABLY SINUS RHYTHM WITH PACS , SEVERE BASELINE TREMORS. : Confirmed by: Peng Braden MD 15-Jan-2020 17:41:00
== END 2020-01-15 16:51 | disposition home or self-care (01) ==
LOC: ER 14:19
DX: N20.1 Calculus of ureter (principal); M54.9 Dorsalgia, unspecified; Z88.3 Allergy status to other anti-infective agents; Z88.0 Allergy status to penicillin
CPT/HCPCS: 93005; 99284; 96361; 96374; 96375; 36415; 87040; 83605; 83690; 85025; 81025; 80053; 81001; 82803; 74176; 93010; J3010; J2405; J7030; 87150

== ENCOUNTER 2020-01-25 22:50 | Emergency (ER) | payer BC ==
--- NOTE | 2020-01-25 23:23 | ER Document Report ---
ED GI/ <HIPOLITO QUINONEZ IV - Last Filed: 01/26/20 01:23> - General Mode of Arrival: Ambulatory Information source: Patient TRAVEL OUTSIDE OF THE [place] IN LAST 30 DAYS: No - HPI Patient complains to provider of: Flank pain Onset: Other - 2 weeks Timing/Duration: Intermittent Quality of pain: Throbbing Severity at maximum: Moderate Severity in ED: Moderate Location: Left flank LMP: 01/23/20 Sexual history: Active Associated symptoms: Dysuria, Nausea Exacerbated by: Denies Relieved by: Denies Similar symptoms previously: Yes Recently seen / treated by doctor: Yes - saw pcp 2 days ago referred to Urology referral pending. <BREANNA LOGAN - Last Filed: 01/26/20 01:27> - General Chief Complaint: Flank Pain Stated Complaint: FLANK PAIN Time Seen by Provider: 01/25/20 22:54 Primary Care Provider: KILEY SLATER PA-C [Primary Care Provider] - Follow up as needed Notes: 29-year-old female past medical history significant for asthma, PTSD, anxiety, bipolar, insomnia presents the emergency room with intermittent persistent left flank pain for the past 2 weeks. Patient was seen here 10 days ago was diagnosed with a 2 mm nonobstructing stone with hydronephrosis. Patient was discharged home on Flomax, Keflex, Zofran, and hydrocodone. States she saw her primary care physician 2 days ago who has referred her to urology. States her referral is pending. Does complain of dysuria, with nausea but no vomiting. Denies any fevers. Has been taking Tylenol and Motrin without relief. Last dose of ibuprofen approximately 1 hour prior to arrival. Last dose of Tylenol 3 hours prior to arrival. (BREANNA LOGAN) - Related Data Allergies/Adverse Reactions: ciprofloxacin [From Cipro] Allergy (Severe, Verified 01/25/20 22:58) Anaphylaxis guaifenesin [From Mucinex] Allergy (Severe, Verified 01/25/20 22:58) Anaphylaxis nitrofurantoin macrocrystalline [From Macrobid] Allergy (Severe, Verified 01/25/20 22:58) Anaphylaxis Penicillins Allergy (Severe, Verified 01/25/20 22:58) Anaphylaxis sulfamethoxazole [From Bactrim] Allergy (Severe, Verified 01/25/20 22:58) anaphylaxis/hives tramadol [Tramadol] Allergy (Severe, Verified 01/25/20 22:58) Anaphylaxis hydromorphone HCl [From Dilaudid] Allergy (Intermediate, Verified 01/25/20 22:58) Hives amoxicillin [Amoxicillin] Allergy (Verified 01/25/20 22:58) anaphylaxis/hives hydrocodone [From [place]] Allergy (Verified 01/25/20 22:58) nitrofurantoin [From Macrobid] Allergy (Verified 01/25/20 22:58) Anaphylaxis trimethoprim [From Bactrim] Allergy (Verified 01/25/20 22:58) Past Medical History - General Information source: Patient - Social History Smoking Status: Current Every Day Smoker Smoking Education Provided: Yes Frequency of alcohol use: None Drug Abuse: Marijuana Lives with: Family Family History: Reviewed & Not Pertinent Patient has suicidal ideation: No Patient has homicidal ideation: No - Past Medical History Cardiac Medical History: Denies: Hx Coronary Artery Disease, Hx Heart Attack, Hx Hypertension Pulmonary Medical History: Reports: Hx Asthma Denies: Hx Bronchitis, Hx COPD, Hx Pneumonia Neurological Medical History: Reports: Hx Migraine. Denies: Hx Cerebrovascular Accident, Hx Seizures Renal/ Medical History: Reports: Hx Kidney Stones, Hx Ovarian Cysts, Hx Perit russell Dialysis GI Medical History: Reports: Hx Gastroesophageal Reflux Disease. Denies: Hx Hepatitis, Hx Hiatal Hernia, Hx Ulcer Musculoskeletal Medical History: 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, knees, fingers Psychiatric Medical History: Reports: Hx Anxiety, Hx Attention Deficit Hyperactivity Disorder, Hx Bipolar Disorder, Hx Depression, Hx Post Traumatic Stress Disorder Infectious Medical History: Denies: Hx Hepatitis Past Surgical History: Reports: Hx Abdominal Surgery - EXPLORATORY LAPX6, Hx Appendectomy, Hx Section, Hx Orthopedic Surgery - cervical spine reji mendy , septoplasty, bilateral knee, left foot, Other - septoplasty, bilateral knee surgery (miniscus tears, ) , right foot surgery. Denies: Hx Hysterectomy, Hx Mastectomy, Hx Open Heart Surgery, Hx Pacemaker - Immunizations Hx Diphtheria, Pertussis, Tetanus Vaccination: Yes <BREANNA LOGAN - Last Filed: 01/26/20 01:27> Review of Systems - Review of Systems Constitutional: No symptoms reported EENT: No symptoms reported Cardiovascular: No symptoms reported Respiratory: No symptoms reported Gastrointestinal: Nausea Genitourinary: Dysuria, Flank pain Female Genitourinary: No symptoms reported Musculoskeletal: No symptoms reported Skin: No symptoms reported -: Yes All other systems reviewed and negative <BREANNA LOGAN - Last Filed: 01/26/20 01:27> Physical Exam - General General appearance: Appears well, Alert In distress: Mild - HEENT Head: Normocephalic, Atraumatic Eyes: Normal Pupils: PERRL - Respiratory Respiratory status: No respiratory distress Chest status: Nontender Breath sounds: Normal Chest palpation: Normal - Cardiovascular Rhythm: Regular Heart sounds: Normal auscultation Murmur: No - Abdominal Inspection: Normal Distension: No distension Bowel sounds: Normal Tenderness: Other - left flank pain tender to palpation Organomegaly: No organomegaly - Back Back: CVA tenderness - left - Skin Skin Temperature: Warm Skin Moisture: Dry Skin Color: Normal <BREANNA LOGAN - Last Filed: 01/26/20 01:27> - Vital signs Vitals: Temp Pulse Resp BP Pulse Ox 98.1 F 94 16 118/75 98 01/25/20 22:53 01/25/20 22:53 01/25/20 22:53 01/25/20 22:53 01/25/20 22:53 Course - Laboratory Result Diagrams: 01/26/20 00:07 01/26/20 00:07 <HIPOLITO QUINONEZ IV - Last Filed: 01/26/20 01:23> - Laboratory Result Diagrams: 01/26/20 00:07 01/26/20 00:07 <BREANNA LOGAN - Last Filed: 01/26/20 01:27> - Re-evaluation Re-evalutation: 01/26/20 01:06 All lab test results were reviewed with patient. Patient requesting pain medication. States she has taken morphine in the past which she has tolerated without complications or side effects. Patient also states the only p.o. medication she can take is oxycodone. Patient will be given 1 dose of IV morphine, discharged home on oxycodone. Patient has a pending referral to urology from her primary care physician which she will follow-up with next week. Patient was given strict return to the emergency room guidelines. All questions were answered. Patient verbalized understanding and agreed with plan of care. (BREANNA LOGAN) - Vital Signs Vital signs: Temp Pulse Resp BP Pulse Ox 98.1 F 94 16 118/75 98 01/25/20 22:59 01/25/20 22:53 01/25/20 22:53 01/25/20 22:53 01/25/20 22:53 - Laboratory Laboratory results interpreted by me: 01/25/20 01/26/20 23:53 00:07 RDW 14.3 H Urine Blood MODERATE H Discharge <HIPOLITO QUINONEZ IV - Last Filed: 01/26/20 01:23> <BREANNA LOGAN - Last Filed: 01/26/20 01:27> - Discharge Clinical Impression: Renal colic on left side Condition: Good Disposition: HOME, SELF-CARE Instructions: Kidney Stone ([facility]) Additional Instructions: Outpatient follow-up with urology as per PCP referral. Prescriptions: Oxycodone HCl [Oxy-Ir 5 mg Tablet] 5 mg PO Q6HP PRN #6 tablet PRN Reason: Oxycodone HCl [Roxicodone] 5 mg PO Q6 PRN #6 tablet PRN Reason: For Pain Referrals: KILEY SLATER PA-C [Primary Care Provider] - Follow up as needed
[2020-01-25] MEDS ORDERED: NORMAL SALINE 1000 ML 1,000 ML IV ONE (23:35)
[2020-01-26 00:31] LABS: ABSOLUTE BASOPHILS # (AUTO) 0.1 10^3/uL (0.0-0.2); ABSOLUTE EOSINOPHILS # (AUTO) 0.2 10^3/uL (0.0-0.6); ABSOLUTE LYMPHOCYTES (AUTO) 3.2 10^3/uL (0.5-4.7); ABSOLUTE MONOCYTES (AUTO) 0.6 10^3/uL (0.1-1.4); ABSOLUTE NEUT (AUTO) 6.3 10^3/uL (1.7-8.2); EOSINOPHILS % (AUTO) 1.7 % (0-6); HEMATOCRIT 41.6 % (36.0-47.0); HEMOGLOBIN 14.4 g/dL (12.0-15.5); LYMPHOCYTES % (AUTO) 31.1 % (13-45); MEAN CORPUSCULAR HEMOGLOBIN 31.7 pg (27.0-33.4); MEAN CORPUSCULAR HGB CONC 34.5 g/dL (32.0-36.0); MEAN CORPUSCULAR VOLUME 92 fl (80-97); MONOCYTES % (AUTO) 5.6 % (3-13); PLATELET COUNT 249 10^3/uL (150-450); RED BLOOD COUNT 4.53 10^6/uL (3.72-5.28); RED CELL DISTRIBUTION WIDTH 14.3 % (11.5-14.0); SEGMENTED NEUTROPHILS % (AUTO) 60.6 % (42-78); TOTAL CELLS COUNTED % (AUTO) 100 %; WHITE BLOOD COUNT 10.3 10^3/uL (4.0-10.5)
[2020-01-26 00:34] LABS: APPEARANCE,URINE SLIGHTLY-CLOUDY; BILIRUBIN,URINE NEGATIVE (NEGATIVE); COLOR,URINE YELLOW; GLUCOSE, URINE NEGATIVE (NEGATIVE); KETONES,URINE NEGATIVE (NEGATIVE); LEUKOCYTE ESTERASE,URINE NEGATIVE (NEGATIVE); NITRITE,URINE NEGATIVE (NEGATIVE); PROTEIN,URINE NEGATIVE (NEGATIVE); URINE SPECIFIC GRAVITY 1.013; UROBILINOGEN,URINE NEGATIVE mg/dL (<2.0)
[2020-01-26 00:39] LABS: ALBUMIN 3.9 g/dL (3.5-5.0); ALKALINE PHOSPHATASE 92 U/L (38-126); ANION GAP 8 (5-19); ASPARTATE AMINO TRANSFERASE 19 U/L (14-36); BILIRUBIN,TOTAL 0.3 mg/dL (0.2-1.3); BLOOD UREA NITROGEN 10 mg/dL (7-20); CALCIUM 9.4 mg/dL (8.4-10.2); CARBON DIOXIDE 25 mmol/L (22-30); CHLORIDE 106 mmol/L (98-107); GLUCOSE 93 mg/dL (75-110); POTASSIUM 3.9 mmol/L (3.6-5.0); TOTAL PROTEIN 6.9 g/dL (6.3-8.2)
[2020-01-26] MEDS ORDERED: MORPHINE SULFATE 10 MG/ML INJ IV ONE (01:05)
[2020-01-26] MEDS ORDERED: ONDANSETRON HCL INJ/PF 4 MG/2 ML SDV IV ONE (01:12)
[2020-01-26 01:50] VITALS: BP 105/59
== END 2020-01-26 01:49 | disposition home or self-care (01) ==
LOC: ER 22:50
DX: N23 Unspecified renal colic (principal); R30.0 Dysuria; R11.0 Nausea; F17.210 Nicotine dependence, cigarettes, uncomplicated; Z88.3 Allergy status to other anti-infective agents; Z88.0 Allergy status to penicillin
CPT/HCPCS: 99284; 96361; 96374; 96375; 36415; 83690; 84703; 85025; 80053; 81001; J2270; J2405; J7030

== ENCOUNTER 2020-02-04 23:20 | Emergency (ER) | payer BC ==
[2020-02-05 00:10] LABS: APPEARANCE,URINE CLOUDY; BILIRUBIN,URINE SMALL (NEGATIVE); COLOR,URINE AMBER; GLUCOSE, URINE NEGATIVE (NEGATIVE); KETONES,URINE TRACE mg/dL (NEGATIVE); LEUKOCYTE ESTERASE,URINE MODERATE (NEGATIVE); NITRITE,URINE NEGATIVE (NEGATIVE); PROTEIN,URINE 100 mg/dL (NEGATIVE); URINE SPECIFIC GRAVITY 1.031
[2020-02-05] MEDS ORDERED: CEFTRIAXONE 1 GM/D5W RTU 1 GM/50 ML RTUPB IV ONE (01:56)
[2020-02-05] MEDS ORDERED: MORPHINE SULFATE 10 MG/ML INJ IV ONE (02:29)
[2020-02-05] MEDS ORDERED: NORMAL SALINE 1000 ML 1,000 ML IV ONE (02:29)
[2020-02-05] MEDS ORDERED: ONDANSETRON HCL INJ/PF 4 MG/2 ML SDV IV ONE (02:29)
--- NOTE | 2020-02-05 02:35 | ER Document Report ---
ED GI/ - General Chief Complaint: Pain With Urination Stated Complaint: URINARY COMPLAINTS/POSS MRSA OUTBREAK Time Seen by Provider: 02/05/20 01:46 Primary Care Provider: KILEY SLATER PA-C [Primary Care Provider] - Follow up as needed Notes: Patient is a 29-year-old female that comes emergency department for chief complaint of painful urination and left-sided abdominal pain with radiation to the left flank. She denies nausea or vomiting, fever or chills, symptoms have been worsening for the past 3 days. Patient states she was told she was passing a kidney stone within the past few weeks and she is unsure if she passed this, she had a urology follow-up but this has not come yet. Patient states she has a small amount of vaginal discharge but she was already seen for this and treated with a pelvic exam within the past couple of weeks. She is sexually active. She denies vaginal bleeding. She has had an appendectomy. TRAVEL OUTSIDE OF THE [place] IN LAST 30 DAYS: No - Related Data Allergies/Adverse Reactions: ciprofloxacin [From Cipro] Allergy (Severe, Verified 02/04/20 23:35) Anaphylaxis guaifenesin [From Mucinex] Allergy (Severe, Verified 02/04/20 23:35) Anaphylaxis nitrofurantoin macrocrystalline [From Macrobid] Allergy (Severe, Verified 02/04/20 23:35) Anaphylaxis Penicillins Allergy (Severe, Verified 02/04/20 23:35) Anaphylaxis sulfamethoxazole [From Bactrim] Allergy (Severe, Verified 02/04/20 23:35) anaphylaxis/hives tramadol [Tramadol] Allergy (Severe, Verified 02/04/20 23:35) Anaphylaxis hydromorphone HCl [From Dilaudid] Allergy (Intermediate, Verified 02/04/20 23:35) Hives amoxicillin [Amoxicillin] Allergy (Verified 02/04/20 23:35) anaphylaxis/hives hydrocodone [From [place]] Allergy (Verified 02/04/20 23:35) nitrofurantoin [From Macrobid] Allergy (Verified 02/04/20 23:35) Anaphylaxis trimethoprim [From Bactrim] Allergy (Verified 02/04/20 23:35) Home Medications: AMBIEN. OXYCODONE Past Medical History - General Information source: Patient - Social History Smoking Status: Current Every Day Smoker Frequency of alcohol use: None Drug Abuse: Marijuana Lives with: Family Family History: Reviewed & Not Pertinent Patient has homicidal ideation: No - Past Medical History Cardiac Medical History: Denies: Hx Coronary Artery Disease, Hx Heart Attack, Hx Hypertension Pulmonary Medical History: Reports: Hx Asthma Denies: Hx Bronchitis, Hx COPD, Hx Pneumonia Neurological Medical History: Reports: Hx Migraine. Denies: Hx Cerebrovascular Accident, Hx Seizures Renal/ Medical History: Reports: Hx Kidney Stones, Hx Ovarian Cysts, Hx Peritoneal Dialysis GI Medical History: Reports: Hx Gastroesophageal Reflux Disease. Denies: Hx Hepatitis, Hx Hiatal Hernia, Hx Ulcer Musculoskeletal Medical History: 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, knees, fingers Psychiatric Medical History: Reports: Hx Anxiety, Hx Attention Deficit Hyperactivity Disorder, Hx Bipolar Disorder, Hx Depression, Hx Post Traumatic Stress Disorder Infectious Medical History: Denies: Hx Hepatitis Past Surgical History: Reports: Hx Abdominal Surgery - EXPLORATORY LAPX6, Hx Appendectomy, Hx Section, Hx Orthopedic Surgery - cervical spine surgery , septoplasty, bilateral knee, left foot, Other - septoplasty, bilateral knee surgery (miniscus tears, ) , right foot surgery. Denies: Hx Hysterectomy, Hx Mastectomy, Hx Open Heart Surgery, Hx Pacemaker - Immunizations Hx Diphtheria, Pertussis, Tetanus Vaccination: Yes Review of Systems - Review of Systems Constitutional: No symptoms reported EENT: No symptoms reported Cardiovascular: No symptoms reported Respiratory: No symptoms reported Gastrointestinal: See HPI Genitourinary: See HPI Female Genitourinary: No symptoms reported Musculoskeletal: No symptoms reported Skin: No symptoms reported Hematologic/Lymphatic: No symptoms reported Neurological/Psychological: No symptoms reported Physical Exam - Vital signs Vitals: Temp 98.5 F 02/04/20 23:35 - Notes Notes: GENERAL: Alert, interacts well. Patient does not actually appear to be in pain or distress. HEAD: Normocephalic, atraumatic. EYES: Pupils equal, round, and reactive to light. Extraocular movements intact. ENT: Oral mucosa moist, tongue midline. Oropharynx unremarkable. Airway patent. NECK: Full range of motion. Supple. Trachea midline. No lymphadenopathy. LUNGS: Clear to auscultation bilaterally, no wheezes, rales, or rhonchi. No respiratory distress. Non-tender chest wall. HEART: Regular rate and rhythm. No murmur ABDOMEN: Soft, non-tender. Non-distended. Bowel sounds present in all 4 quadrants. GENITOURINARY: Deferred EXTREMITIES: Moves all 4 extremities spontaneously. No edema, normal radial and dorsalis pedis pulses bilaterally. No cyanosis. BACK: There is some left CVA tenderness which is moderate. No cervical, thoracic, lumbar midline tenderness. No saddle anesthesia, normal distal neurovascular exam. Moves all extremities in full range of motion. NEUROLOGICAL: Alert and oriented x3. Normal speech. Cranial nerves II through XII grossly intact. Strength 5/5 in all extremities. PSYCH: Normal affect, normal mood. SKIN: Picked skin with locations over the lower back, legs, lower abdomen with mild surrounding erythema but no induration or fluctuance. Course - Re-evaluation Re-evalutation: Soft benign abdomen but there is left-sided CVA tenderness. Urine is grossly infected. Urine culture was placed, started on Rocephin. CBC, chemistry unremarkable. Patient is afebrile, not tachycardic, not hypotensive. She is actually quite well-appearing. She is asymptomatic after medications. Because of the noted infection with recent passing ureterolithiasis CAT scan was performed but fortunately the ureterolithiasis has passed. I did discuss pelvic exam but patient just had 1 and declined, she request Diflucan for after the a ntibiotics. She has a few scattered areas where she has clearly scratched and picked at her skin, she states she has a history of MRSA as well, no overt cellulitis or abscess. Patient was treated with doxycycline for UTI/skin infection as a result. She is allergic to a very large amount of medications. Culture was placed. Discussed with patient. She has urology referral already, discussed expectations, discussed return precautions at length. Patient states appreciation and agreement. Stable and well-appearing at time of discharge. - Vital Signs Vital signs: Temp Pulse Resp BP Pulse Ox 98.1 F 79 13 102/60 94 02/05/20 04:50 02/05/20 04:50 02/05/20 04:50 02/05/20 04:50 02/05/20 04:50 - Laboratory Result Diagrams: 02/05/20 02:27 02/05/20 02:27 Laboratory results interpreted by me: 02/04/20 02/05/20 02/05/20 23:50 02:27 02:27 RDW 14.3 H Sodium 136.1 L Potassium 3.5 L Urine Protein 100 H Urine Ketones TRACE H Urine Blood MODERATE H Urine Bilirubin SMALL H Urine Urobilinogen 4.0 H Ur Leukocyte Esterase MODERATE H Discharge - Discharge Clinical Impression: Flank pain, Dysuria Urinary tract infection Qualifiers: Urinary tract infection type: site unspecified Hematuria presence: without hematuria Qualified Code(s): N39.0 - Urinary tract infection, site not specified Condition: Stable Disposition: HOME, SELF-CARE Additional Instructions: Your work-up shows a urinary tract infection, fortunately the stone that you were passing has completely passed. You have additional stones in your kidneys but no current passing or obstructing stones. Follow-up with urology as planned. Take antibiotics as prescribed, when completed take the Diflucan. Only take the pain and nausea medication if needed. Drink plenty of fluids. Return to the emergency department for any concerning symptoms including vomiting, severe worsening pain, fever of 100.4 greater, or any other concerning symptoms. Prescriptions: Fluconazole [Diflucan] 150 mg PO ONCE PRN #3 tablet PRN Reason: Oxycodone HCl/Acetaminophen [Percocet 5-325 mg Tablet] 1 - 2 tab PO TID PRN #8 tablet PRN Reason: Promethazine HCl [Phenergan 25 mg Tablet] 25 mg PO Q6H PRN #15 tablet PRN Reason: Doxycycline Hyclate [Vibramycin 100 mg Tablet] 100 mg PO BID 7 Days #14 tablet Referrals: KILEY SLATER PA-C [Primary Care Provider] - Follow up as needed
[2020-02-05 02:38] LABS: ABSOLUTE BASOPHILS # (AUTO) 0.1 10^3/uL (0.0-0.2); ABSOLUTE EOSINOPHILS # (AUTO) 0.1 10^3/uL (0.0-0.6); ABSOLUTE LYMPHOCYTES (AUTO) 2.7 10^3/uL (0.5-4.7); ABSOLUTE MONOCYTES (AUTO) 0.6 10^3/uL (0.1-1.4); ABSOLUTE NEUT (AUTO) 5.4 10^3/uL (1.7-8.2); BASOPHILS % (AUTO) 0.8 % (0-2); EOSINOPHILS % (AUTO) 1.2 % (0-6); HEMOGLOBIN 14.1 g/dL (12.0-15.5); LYMPHOCYTES % (AUTO) 29.9 % (13-45); MEAN CORPUSCULAR HEMOGLOBIN 31.8 pg (27.0-33.4); MEAN CORPUSCULAR HGB CONC 35.3 g/dL (32.0-36.0); MEAN CORPUSCULAR VOLUME 90 fl (80-97); MONOCYTES % (AUTO) 6.9 % (3-13); PLATELET COUNT 246 10^3/uL (150-450); RED BLOOD COUNT 4.45 10^6/uL (3.72-5.28); RED CELL DISTRIBUTION WIDTH 14.3 % (11.5-14.0); SEGMENTED NEUTROPHILS % (AUTO) 61.2 % (42-78); TOTAL CELLS COUNTED % (AUTO) 100 %; WHITE BLOOD COUNT 8.9 10^3/uL (4.0-10.5)
[2020-02-05 02:50] LABS: ALBUMIN 3.8 g/dL (3.5-5.0); ALKALINE PHOSPHATASE 88 U/L (38-126); ANION GAP 7 (5-19); ASPARTATE AMINO TRANSFERASE 25 U/L (14-36); BILIRUBIN,TOTAL 0.3 mg/dL (0.2-1.3); BLOOD UREA NITROGEN 12 mg/dL (7-20); CALCIUM 9.1 mg/dL (8.4-10.2); CARBON DIOXIDE 26 mmol/L (22-30); CHLORIDE 103 mmol/L (98-107); GLUCOSE 92 mg/dL (75-110); POTASSIUM 3.5 mmol/L (3.6-5.0); TOTAL PROTEIN 6.8 g/dL (6.3-8.2)
--- NOTE | 2020-02-05 04:13 | RADIOLOGY REPORT (SQ) ---
EXAM DESCRIPTION: CT ABDOMEN PELVIS WITHOUT IV CONTRAST COMPLETED DATE/TME: 02/05/2020 02:30 CLINICAL HISTORY: 29 years, Female, UTI, left abd/flank pain, hx stones. HCG NEG COMPARISON: 01/15/2020 TECHNIQUE: Axial CT images of the abdomen and pelvis were obtained without contrast. Sagittal and coronal reformats were performed. DLP 346 Images stored on PACS. All CT scanners at this facility use dose modulation, iterative reconstruction, and/or weight based dosing when appropriate to reduce radiation dose to as low as reasonably achievable (ALARA). [facility]: Dose Right [facility]: CareDose [facility]: Dose Right [facility]: Teradose 4D [facility]: [employer] LIMITATIONS: None. FINDINGS: The lung bases are clear. The liver, gallbladder, pancreas, spleen, and adrenal glands are unremarkable. There is a 2 mm nonobstructing stone along the upper pole of the right kidney. No evidence of left-sided urolithiasis or hydronephrosis. There is no intraperitoneal free air or fluid. There is no lymphadenopathy. The abdominal aorta is normal in caliber. The stomach and small bowel are unremarkable. Appendectomy. The colon contains a moderate amount of stool. The uterus and urinary bladder are unremarkable. There are no lytic or blastic bone lesions. IMPRESSION: No acute findings. Nonobstructing right-sided nephrolithiasis. No evidence of left-sided urolithiasis or hydronephrosis. TECHNICAL DOCUMENTATION: Quality ID # [id number]: Final reports with documentation of one or more dose reduction techniques (e.g., Automated exposure control, adjustment of the mA and/or kV according to patient size, use of iterative reconstruction technique) copyright 2011 [employer]- All Rights Reserved
[2020-02-05] MEDS ORDERED: ONDANSETRON ODT 4 MG TAB (6 TAB/ER DISP) PO PRN (04:21)
[2020-02-05 04:52] VITALS: BP 102/60
== END 2020-02-05 05:09 | disposition home or self-care (01) ==
LOC: ER 23:20
DX: N39.0 Urinary tract infection, site not specified (principal); R30.0 Dysuria; R10.9 Unspecified abdominal pain; F17.200 Nicotine dependence, unspecified, uncomplicated; Z88.3 Allergy status to other anti-infective agents; Z88.0 Allergy status to penicillin; Z87.442 Personal history of urinary calculi
CPT/HCPCS: 99284; 96361; 96375; 96365; 36415; 85025; 81025; 80053; 81001; 74176; J2270; J2405; J7030; J0696; 87086

== ENCOUNTER 2020-02-09 20:05 | Emergency (ER) | payer BC ==
--- NOTE | 2020-02-09 20:34 | ER Document Report ---
ED Medical Screen (RME) - General Chief Complaint: Flank Pain Stated Complaint: FLANK PAIN Time Seen by Provider: 02/09/20 20:29 Primary Care Provider: KILEY CAMEJO PA-C [Primary Care Provider] - Follow up as needed Mode of Arrival: Ambulatory Information source: Patient Notes: 29-year-old female with history of kidney stones, recent UTI mental health issues presents today with complaints of burning when she reports nausea vomiting and left-sided flank pain. Patient reports she has been treated here on Tuesday for bed UTI. She has been taking doxy since that time. She reports she started feel better and then on she started with a burning again. She reports now very nauseated and vomiting all day long. Denies fever and diarrhea. Patient reports that she has a history of kidney stones UTI. Her primary care provider, Dexter gold Camejo, has placed a referral for urology but she still waiting. I have greeted and performed a rapid initial assessment of this patient. A comprehensive ED assessment and evaluation of the patient, analysis of test results and completion of the medical decision making process will be conducted by additional ED providers. TRAVEL OUTSIDE OF THE [place] IN LAST 30 DAYS: No - Related Data Allergies/Adverse Reactions: ciprofloxacin [From Cipro] Allergy (Severe, Verified 02/04/20 23:35) Anaphylaxis guaifenesin [From Mucinex] Allergy (Severe, Verified 02/04/20 23:35) Anaphylaxis nitrofurantoin macrocrystalline [From Macrobid] Allergy (Severe, Verified 02/04/20 23:35) Anaphylaxis Penicillins Allergy (Severe, Verified 02/04/20 23:35) Anaphylaxis sulfamethoxazole [From Bactrim] Allergy (Severe, Verified 02/04/20 23:35) anaphylaxis/hives tramadol [Tramadol] Allergy (Severe, Verified 02/04/20 23:35) Anaphylaxis hydromorphone HCl [From Dilaudid] Allergy (Intermediate, Verified 02/04/20 23:35) Hives amoxicillin [Amoxicillin] Allergy (Verified 02/04/20 23:35) anaphylaxis/hives hydrocodone [From [place]] Allergy (Verified 02/04/20 23:35) nitrofurantoin [From Macrobid] Allergy (Verified 02/04/20 23:35) Anaphylaxis trimethoprim [From Bactrim] Allergy (Verified 02/04/20 23:35) Past Medical History - Past Medical History Cardiac Medical History: Denies: Hx Coronary Artery Disease, Hx Heart Attack, Hx Hypertension Pulmonary Medical History: Reports: Hx Asthma Denies: Hx Bronchitis, Hx COPD, Hx Pneumonia Neurological Medical History: Reports: Hx Migraine. Denies: Hx Cerebrovascular Accident, Hx Seizures Renal/ Medical History: Reports: Hx Kidney Stones, Hx Ovarian Cysts, Hx Peritoneal Dialysis GI Medical History: Reports: Hx Gastroesophageal Reflux Disease. Denies: Hx Hepatitis, Hx Hiatal Hernia, Hx Ulcer Musculoskeltal Medical History: 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, knees, fingers Psychiatric Medical History: Reports: Hx Anxiety, Hx Attention Deficit Hyperactivity Disorder, Hx Bipolar Disorder, Hx Depression, Hx Post Traumatic Stress Disorder Infectious Medical History: Denies: Hx Hepatitis Past Surgical History: Reports: Hx Abdominal Surgery - EXPLORATORY LAPX6, Hx Appendectomy, Hx Section, Hx Orthopedic Surgery - cervical spine surgery , septoplasty, bilateral knee, left foot, Other - septoplasty, bilateral knee surgery (miniscus tears, ) , right foot surgery. Denies: Hx Hysterectomy, Hx Mastectomy, Hx Open Heart Surgery, Hx Pacemaker - Immunizations Hx Diphtheria, Pertussis, Tetanus Vaccination: Yes Physical Exam - Vital signs Vitals: Temp Pulse Resp BP Pulse Ox 98.1 F 83 16 109/71 99 02/09/20 20:12 02/09/20 20:12 02/09/20 20:12 02/09/20 20:12 02/09/20 20:12 Course - Vital Signs Vital signs: Temp Pulse Resp BP Pulse Ox 98.1 F 83 16 109/71 99 02/09/20 20:29 02/09/20 20:12 02/09/20 20:12 02/09/20 20:12 02/09/20 20:12 Doctor's Discharge - Discharge Referrals: KILEY CAMEJO PA-C [Primary Care Provider] - Follow up as needed
[2020-02-09 21:06] LABS: ABSOLUTE BASOPHILS # (AUTO) 0.1 10^3/uL (0.0-0.2); ABSOLUTE EOSINOPHILS # (AUTO) 0.1 10^3/uL (0.0-0.6); ABSOLUTE LYMPHOCYTES (AUTO) 3.2 10^3/uL (0.5-4.7); ABSOLUTE MONOCYTES (AUTO) 0.5 10^3/uL (0.1-1.4); ABSOLUTE NEUT (AUTO) 7.1 10^3/uL (1.7-8.2); BASOPHILS % (AUTO) 0.5 % (0-2); EOSINOPHILS % (AUTO) 1.3 % (0-6); HEMATOCRIT 43.9 % (36.0-47.0); HEMOGLOBIN 15.3 g/dL (12.0-15.5); LYMPHOCYTES % (AUTO) 29.4 % (13-45); MEAN CORPUSCULAR HEMOGLOBIN 31.8 pg (27.0-33.4); MEAN CORPUSCULAR HGB CONC 34.9 g/dL (32.0-36.0); MEAN CORPUSCULAR VOLUME 91 fl (80-97); MONOCYTES % (AUTO) 4.3 % (3-13); PLATELET COUNT 294 10^3/uL (150-450); RED BLOOD COUNT 4.83 10^6/uL (3.72-5.28); RED CELL DISTRIBUTION WIDTH 14.4 % (11.5-14.0); SEGMENTED NEUTROPHILS % (AUTO) 64.5 % (42-78); TOTAL CELLS COUNTED % (AUTO) 100 %
[2020-02-09 21:12] LABS: APPEARANCE,URINE SLIGHTLY-CLOUDY; BILIRUBIN,URINE NEGATIVE (NEGATIVE); COLOR,URINE YELLOW; GLUCOSE, URINE NEGATIVE (NEGATIVE); KETONES,URINE NEGATIVE (NEGATIVE); LEUKOCYTE ESTERASE,URINE TRACE (NEGATIVE); NITRITE,URINE NEGATIVE (NEGATIVE); PROTEIN,URINE NEGATIVE (NEGATIVE); URINE SPECIFIC GRAVITY 1.015; UROBILINOGEN,URINE NEGATIVE mg/dL (<2.0)
[2020-02-09 21:23] LABS: ALBUMIN 4.1 g/dL (3.5-5.0); ALKALINE PHOSPHATASE 89 U/L (38-126); ANION GAP 8 (5-19); ASPARTATE AMINO TRANSFERASE 19 U/L (14-36); BILIRUBIN,TOTAL 0.3 mg/dL (0.2-1.3); BLOOD UREA NITROGEN 9 mg/dL (7-20); CALCIUM 9.7 mg/dL (8.4-10.2); CARBON DIOXIDE 27 mmol/L (22-30); CHLORIDE 104 mmol/L (98-107); GLUCOSE 94 mg/dL (75-110); POTASSIUM 3.5 mmol/L (3.6-5.0); TOTAL PROTEIN 7.2 g/dL (6.3-8.2)
[2020-02-09] MEDS ORDERED: OXYCODONE-ACETAMINOPHEN 5-325 MG TABLET PO ONE (22:46)
[2020-02-09] MEDS ORDERED: ONDANSETRON 4 MG TAB.RAPDIS PO ONE (22:48)
--- NOTE | 2020-02-09 22:48 | ER Document Report ---
ED GI/ - General Chief Complaint: Urinary Problem Stated Complaint: FLANK PAIN Time Seen by Provider: 02/09/20 22:29 Primary Care Provider: [facility] [Provider Group] - Follow up in 3-5 days KILEY SLATER PA-C [Primary Care Provider] - Follow up as needed Mode of Arrival: Ambulatory Information source: Patient Notes: Patient presents complaining of left flank pain. Patient states she has had some vaginal discharge. Patient reports nausea vomiting x6 episodes. Patient states she has had pain for the past month and was here last week and diagnosed with a UTI. Patient was placed on doxycycline for which she still has about 2 days left of the prescription. Patient denies any fever. Patient states she does have a history of kidney stones. TRAVEL OUTSIDE OF THE [place] IN LAST 30 DAYS: No - HPI Patient complains to provider of: Abdominal pain, Flank pain, Vomiting Onset: Last week Timing/Duration: Persistent Quality of pain: Sharp Pain Level: 4 Location: Left flank Vaginal bleeding (Compared to normal period): None Menstrual period history: denies: Associated symptoms: Dysuria, Nausea, Urinary frequency, Vomiting. denies: Diarrhea, Fever Exacerbated by: Denies Relieved by: Denies Similar symptoms previously: Yes Recently seen / treated by doctor: Yes - Related Data Allergies/Adverse Reactions: ciprofloxacin [From Cipro] Allergy (Severe, Verified 02/04/20 23:35) Anaphylaxis guaifenesin [From Mucinex] Allergy (Severe, Verified 02/04/20 23:35) Anaphylaxis nitrofurantoin macrocrystalline [From Macrobid] Allergy (Severe, Verified 02/04/20 23:35) Anaphylaxis Penicillins Allergy (Severe, Verified 02/04/20 23:35) Anaphylaxis sulfamethoxazole [From Bactrim] Allergy (Severe, Verified 02/04/20 23:35) anaphylaxis/hives tramadol [Tramadol] Allergy (Severe, Verified 02/04/20 23:35) Anaphylaxis hydromorphone HCl [From Dilaudid] Allergy (Intermediate, Verified 02/04/20 23:35) Hives amoxicillin [Amoxicillin] Allergy (Verified 02/04/20 23:35) anaphylaxis/hives hydrocodone [From [place]] Allergy (Verified 02/04/20 23:35) nitrofurantoin [From Macrobid] Allergy (Verified 02/04/20 23:35) Anaphylaxis trimethoprim [From Bactrim] Allergy (Verified 02/04/20 23:35) Home Medications: ambien, singulair, erika, doxycycline. Past Medical History - General Information source: Patient - Social History Smoking Status: Current Every Day Smoker Frequency of alcohol use: None Drug Abuse: None Occupation: none Lives with: Family Family History: Reviewed & Not Pertinent Patient has homicidal ideation: No - Past Medical History Cardiac Medical History: Denies: Hx Coronary Artery Disease, Hx Heart Attack, Hx Hypertension Pulmonary Medical History: Reports: Hx Asthma Denies: Hx Bronchitis, Hx COPD, Hx Pneumonia Neurological Medical History: Reports: Hx Migraine. Denies: Hx Cerebrovascular Accident, Hx Seizures Renal/ Medical History: Reports: Hx Kidney Stones, Hx Ovarian Cysts, Hx Peritoneal Dialysis GI Medical History: Reports: Hx Gastroesophageal Reflux Disease. Denies: Hx Hepatitis, Hx Hiatal Hernia, Hx Ulcer Musculoskeletal Medical History: 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, knees, fingers Psychiatric Medical History: Reports: Hx Anxiety, Hx Attention Deficit Hyperactivity Disorder, Hx Bipolar Disorder, Hx Depression, Hx Post Traumatic Stress Disorder Infectious Medical History: Denies: Hx Hepatitis Past Surgical History: Reports: Hx Abdominal Surgery - EXPLORATORY LAPX6, Hx A ppendectomy, Hx Section, Hx Orthopedic Surgery - cervical spine surgery -2017, septoplasty, bilateral knee, left foot, Other - septoplasty, bilateral knee surgery (miniscus tears, ) , right foot surgery - Immunizations Hx Diphtheria, Pertussis, Tetanus Vaccination: Yes Review of Systems - Review of Systems Constitutional: Recent illness - UTI. denies: Fever EENT: No symptoms reported Cardiovascular: No symptoms reported. denies: Chest pain Respiratory: No symptoms reported. denies: Cough, Short of breath Gastrointestinal: Abdominal pain, Nausea, Vomiting. denies: Diarrhea Genitourinary: Dysuria, Frequency, Flank pain Female Genitourinary: Vaginal discharge. denies: Vaginal bleeding Musculoskeletal: Back pain Skin: No symptoms reported Hematologic/Lymphatic: No symptoms reported Neurological/Psychological: No symptoms reported Physical Exam - Vital signs Vitals: Temp Pulse Resp BP Pulse Ox 98.1 F 83 16 109/71 99 02/09/20 20:12 02/09/20 20:12 02/09/20 20:12 02/09/20 20:12 02/09/20 20:12 - General General appearance: Appears well, Alert In distress: None - HEENT Head: Normocephalic, Atraumatic Eyes: Normal Conjunctiva: Normal Nasal: Normal Mouth/Lips: Normal Mucous membranes: Normal Neck: Normal, Supple. No: Lymphadenopathy - Respiratory Respiratory status: No respiratory distress Chest status: Nontender Breath sounds: Normal Chest palpation: Normal - Cardiovascular Rhythm: Regular Heart sounds: S1 appreciated, S2 appreciated - Abdominal Inspection: Morbidly Obese Distension: No distension Bowel sounds: Normal Tenderness: Nontender Organomegaly: No organomegaly - Genitourinary External exam: Normal Speculum exam: Cervix closed, Vaginal discharge Vaginal bleeding: None Bimanuel exam: Normal. No: Cervical motion tender, Adnexal tenderness Notes: PCT Chastity as standby - Back Back: CVA tenderness - left - Extremities General upper extremity: Normal inspection, Normal ROM General lower extremity: Normal inspection, Normal ROM - Neurological Neuro grossly intact: Yes Cognition: Normal [place] Coma Scale Eye Opening: Spontaneous [place] Coma Scale Verbal: Oriented [place] Coma Scale Motor: Obeys Commands [place] Coma Scale Total: 15 - Psychological Associated symptoms: Normal affect, Normal mood - Skin Skin Temperature: Warm Skin Moisture: Dry Skin Color: Normal Course - Re-evaluation Re-evalutation: 02/10/20 02:51 Patient declined staying for ultrasound. Patient states that she only has left flank pain and some dysuria symptoms. Patient does not feel that she needs to have an ultrasound performed. Patient is requesting to be discharged at this time. Patient is requesting some nausea medication due to the side effects of the doxycycline which she has been taking. Patient notified of incidental finding of BV. Will start patient on metronidazole as well. Reviewed patient's CT from previous ER visit on 02/05/2020 as well as her urinalysis. Patient with much improved urinalysis today. Patient CT did not demonstrate any left-sided kidney or ureteral stones - Vital Signs Vital signs: Temp Pulse Resp BP Pulse Ox 98.7 F 67 22 H 123/73 100 02/10/20 03:30 02/10/20 03:30 02/10/20 03:30 02/10/20 03:30 02/10/20 03:30 - Laboratory Result Diagrams: 02/09/20 20:46 02/09/20 20:46 Laboratory results interpreted by me: 02/09/20 02/09/20 02/09/20 20:46 20:46 20:46 WBC 11.0 H RDW 14.4 H Potassium 3.5 L Creatinine 0.51 L Ur Leukocyte Esterase TRACE H 02/10/20 02:51 Labs- Entire Visit 02/09/20 02/09/20 02/09/20 20:46 20:46 20:46 WBC 11.0 H RBC 4.83 Hgb 15.3 Hct 43.9 MCV 91 MCH 31.8 MCHC 34.9 RDW 14.4 H Plt Count 294 Lymph % (Auto) 29.4 [place] % (Auto) 4.3 Eos % (Auto) 1.3 Baso % (Auto) 0.5 Absolute Neuts (auto) 7.1 Absolute Lymphs (auto) 3.2 Absolute Monos (auto) 0.5 Absolute Eos (auto) 0.1 Absolute Basos (auto) 0.1 Seg Neutrophils % 64.5 Sodium 138.9 Potassium 3.5 L Chloride 104 Carbon Dioxide 27 Anion Gap 8 BUN 9 Creatinine 0.51 L Est GFR ( Amer) > 60 Est GFR (MDRD) Non-Af > 60 Glucose 94 Calcium 9.7 Total Bilirubin 0.3 Direct Bilirubin 0.0 Neonat Total Bilirubin Not Reportable Neonat Direct Bilirubin Not Reportable Neonat Indirect Bili Not Reportable AST 19 ALT 16 Alkaline Phosphatase 89 Total Protein 7.2 Albumin 4.1 Urine Color YELLOW Urine Appearance SLIGHTLY-CLOUDY Urine pH 6.0 Ur Specific [place] 1.015 Urine Protein NEGATIVE Urine Glucose (UA) NEGATIVE Urine Ketones NEGATIVE Urine Blood NEGATIVE Urine Nitrite NEGATIVE Urine Bilirubin NEGATIVE Urine Urobilinogen NEGATIVE Ur Leukocyte Esterase TRACE H Urine WBC (Auto) 3 Urine RBC (Auto) 1 Urine Bacteria (Auto) TRACE Squamous Epi Cells Auto 7 Urine Mucus (Auto) RARE Urine Ascorbic Acid NEGATIVE Urine HCG, Qual NEGATIVE Epi Cells (Wet Prep) Bacteria (Wet Prep) Trichomonas (Wet Prep) Vaginal WBC Vaginal RBC Vaginal Yeast Chlamydia DNA (PCR) N.gonorrhoeae DNA (PCR) 02/09/20 02/09/20 23:10 23:10 WBC RBC Hgb Hct MCV MCH MCHC RDW Plt Count Lymph % (Auto) [place] % (Auto) Eos % (Auto) Baso % (Auto) Absolute Neuts (auto) Absolute Lymphs (auto) Absolute Monos (auto) Absolute Eos (auto) Absolute Basos (auto) Seg Neutrophils % Sodium Potassium Chloride Carbon Dioxide Anion Gap BUN Creatinine Est GFR ( Amer) Est GFR (MDRD) Non-Af Glucose Calcium Total Bilirubin Direct Bilirubin Neonat Total Bilirubin Neonat Direct Bilirubin Neonat Indirect Bili AST ALT Alkaline Phosphatase Total Protein Albumin Urine Color Urine Appearance Urine pH Ur Specific [place] Urine Protein Urine Glucose (UA) Urine Ketones Urine Blood Urine Nitrite Urine Bilirubin Urine Urobilinogen Ur Leukocyte Esterase Urine WBC (Auto) Urine RBC (Auto) Urine Bacteria (Auto) Squamous Epi Cells Auto Urine Mucus (Auto) Urine Ascorbic Acid Urine HCG, Qual Epi Cells (Wet Prep) 4+ EPITHELIALS SEEN Bacteria (Wet Prep) 4+ BACTERIA SEEN Trichomonas (Wet Prep) TRICHOMONAS SEEN Vaginal WBC 3+ WBCS SEEN Vaginal RBC NO RBCS SEEN Vaginal Yeast NO YEAST SEEN Chlamydia DNA (PCR) NOT DETECTED N.gonorrhoeae DNA (PCR) NOT DETECTED - Diagnostic Test Radiology reviewed: Reports reviewed - CT reviewed from 02/05/2020 Discharge - Discharge Clinical Impression: Flank pain, Dysuria, Bacterial vaginosis Condition: Stable Disposition: HOME, SELF-CARE Instructions: Antinausea Medication ([facility]), Flank Pain ([facility]), Metronidazole ([facility]), Vaginosis, Bacterial ([facility]) Additional Instructions: Return immediately for any new or worsening symptoms Followup with your primary care provider, call tomorrow to make a followup appointment Follow-up with urology for further evaluation Finish taking your antibiotics as previously prescribed Prescriptions: Metronidazole [Flagyl 500 mg Tablet] 500 mg PO BID #14 tablet Ondansetron [Zofran Odt 4 mg Tablet] 1 tab PO Q6H #15 tab.rapdis Referrals: KILEY SLATER PA-C [Primary Care Provider] - Follow up as needed [facility] [Provider Group] - Follow up in 3-5 days
[2020-02-09 23:19] LABS: BACTERIA (WET MOUNT) 4+ BACTERIA SEEN; EPITHELIALS (WET MOUNT) 4+ EPITHELIALS SEEN; RBCS (WET MOUNT) NO RBCS SEEN; T.VAGINALIS (WET MOUNT) TRICHOMONAS SEEN; WBCS (WET MOUNT) 3+ WBCS SEEN; YEAST (WET MOUNT) NO YEAST SEEN
[2020-02-10 00:46] LABS: CHLAM PCR NOT DETECTED (NOT DETECT)
[2020-02-10 03:31] VITALS: BP 123/73
== END 2020-02-10 03:30 | disposition home or self-care (01) ==
LOC: ER 20:05
DX: N76.0 Acute vaginitis (principal); B96.89 Other specified bacterial agents as the cause of diseases classified elsewhere; R10.9 Unspecified abdominal pain; R30.0 Dysuria
CPT/HCPCS: 99284; 36415; 87210; 85025; 81025; 80053; 81001; 87491; 87591; S0119

== ENCOUNTER 2020-02-19 21:38 | Emergency (ER) | payer BC ==
--- NOTE | 2020-02-19 22:54 | ER Document Report ---
ED Medical Screen (RME) - General Chief Complaint: Flank Pain Stated Complaint: BACK PAIN Time Seen by Provider: 02/19/20 22:50 Primary Care Provider: KILEY SLATER PA-C [Primary Care Provider] - Follow up as needed Mode of Arrival: Ambulatory Information source: Patient Notes: 29-year-old female presented to ED for complaint of right flank pain. She states she is always had pain on her left side but today she has been on her left right side. She states she does not have any frequency burning or blood in her urine. She is alert oriented respirations regular nonlabored. She states she has been seen multiple times for kidney stones in the last couple months. She states the right flank pain started this morning and got worse around 3 PM. She states she has had some nausea but no vomiting. I have greeted and performed a rapid initial assessment of this patient. A comprehensive ED assessment and evaluation of the patient, analysis of test results and completion of medical decision making process will be conducted by an additional ED providers. TRAVEL OUTSIDE OF THE [place] IN LAST 30 DAYS: No - Related Data Allergies/Adverse Reactions: ciprofloxacin [From Cipro] Allergy (Severe, Verified 02/04/20 23:35) Anaphylaxis guaifenesin [From Mucinex] Allergy (Severe, Verified 02/04/20 23:35) Anaphylaxis nitrofurantoin macrocrystalline [From Macrobid] Allergy (Severe, Verified 02/04/20 23:35) Anaphylaxis Penicillins Allergy (Severe, Verified 02/04/20 23:35) Anaphylaxis sulfamethoxazole [From Bactrim] Allergy (Severe, Verified 02/04/20 23:35) anaphylaxis/hives tramadol [Tramadol] Allergy (Severe, Verified 02/04/20 23:35) Anaphylaxis hydromorphone HCl [From Dilaudid] Allergy (Intermediate, Verified 02/04/20 23:35) Hives amoxicillin [Amoxicillin] Allergy (Verified 02/04/20 23:35) anaphylaxis/hives hydrocodone [From [place]] Allergy (Verified 02/04/20 23:35) nitrofurantoin [From Macrobid] Allergy (Verified 02/04/20 23:35) Anaphylaxis trimethoprim [From Bactrim] Allergy (Verified 02/04/20 23:35) Home Medications: CARMEN, ZYRTEC, AMBIEN Past Medical History - Social History Frequency of alcohol use: None Drug Abuse: None - Past Medical History Cardiac Medical History: Denies: Hx Coronary Artery Disease, Hx Heart Attack, Hx Hypertension Pulmonary Medical History: Reports: Hx Asthma Denies: Hx Bronchitis, Hx COPD, Hx Pneumonia Neurological Medical History: Reports: Hx Migraine. Denies: Hx Cerebrovascular Accident, Hx Seizures Renal/ Medical History: Reports: Hx Kidney Stones, Hx Ovarian Cysts, Hx Peritoneal Dialysis GI Medical History: Reports: Hx Gastroesophageal Reflux Disease. Denies: Hx Hepatitis, Hx Hiatal Hernia, Hx Ulcer Musculoskeltal Medical History: 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, knees, fingers Psychiatric Medical History: Reports: Hx Anxiety, Hx Attention Deficit Hyperactivity Disorder, Hx Bipolar Disorder, Hx Depression, Hx Post Traumatic Stress Disorder Infectious Medical History: Denies: Hx Hepatitis Past Surgical History: Reports: Hx Abdominal Surgery - EXPLORATORY LAPX6, Hx Appendectomy, Hx Section, Hx Orthopedic Surgery - cervical spine surgery , septoplasty, bilateral knee, left foot, Other - septoplasty, bilateral knee surgery (miniscus tears, ) , right foot surgery. Denies: Hx Hysterectomy, Hx Mastectomy, Hx Open Heart Surgery, Hx Pacemaker - Immunizations Hx Diphtheria, Pertussis, Tetanus Vaccination: Yes Physical Exam - Vital signs Vitals: Temp 98.7 F 02/19/20 21:39 Course - Vital Signs Vital signs: Temp Pulse Resp BP Pulse Ox 98.7 F 02/19/20 21:39 Doctor's Discharge - Discharge Referrals: KILEY SLATER PA-C [Primary Care Provider] - Follow up as needed
[2020-02-19] MEDS ORDERED: ONDANSETRON 4 MG TAB.RAPDIS PO ONE (22:55)
[2020-02-19 23:19] LABS: ABSOLUTE BASOPHILS # (AUTO) 0.1 10^3/uL (0.0-0.2); ABSOLUTE EOSINOPHILS # (AUTO) 0.1 10^3/uL (0.0-0.6); ABSOLUTE LYMPHOCYTES (AUTO) 2.1 10^3/uL (0.5-4.7); ABSOLUTE MONOCYTES (AUTO) 0.4 10^3/uL (0.1-1.4); ABSOLUTE NEUT (AUTO) 5.5 10^3/uL (1.7-8.2); EOSINOPHILS % (AUTO) 1.4 % (0-6); HEMATOCRIT 42.4 % (36.0-47.0); HEMOGLOBIN 14.4 g/dL (12.0-15.5); LYMPHOCYTES % (AUTO) 25.6 % (13-45); MEAN CORPUSCULAR VOLUME 91 fl (80-97); MONOCYTES % (AUTO) 4.7 % (3-13); PLATELET COUNT 291 10^3/uL (150-450); RED BLOOD COUNT 4.65 10^6/uL (3.72-5.28); RED CELL DISTRIBUTION WIDTH 14.1 % (11.5-14.0); SEGMENTED NEUTROPHILS % (AUTO) 67.3 % (42-78); TOTAL CELLS COUNTED % (AUTO) 100 %; WHITE BLOOD COUNT 8.2 10^3/uL (4.0-10.5)
[2020-02-19 23:21] LABS: APPEARANCE,URINE CLOUDY; BILIRUBIN,URINE NEGATIVE (NEGATIVE); COLOR,URINE YELLOW; GLUCOSE, URINE NEGATIVE (NEGATIVE); KETONES,URINE NEGATIVE (NEGATIVE); LEUKOCYTE ESTERASE,URINE NEGATIVE (NEGATIVE); NITRITE,URINE NEGATIVE (NEGATIVE); PROTEIN,URINE NEGATIVE (NEGATIVE); URINE SPECIFIC GRAVITY 1.018
[2020-02-19 23:31] LABS: BLOOD UREA NITROGEN 8 mg/dL (7-20); CALCIUM 9.4 mg/dL (8.4-10.2); GLUCOSE 105 mg/dL (75-110)
[2020-02-19 23:32] LABS: ALKALINE PHOSPHATASE 74 U/L (38-126); ANION GAP 7 (5-19); ASPARTATE AMINO TRANSFERASE 19 U/L (14-36); BILIRUBIN,TOTAL 0.2 mg/dL (0.2-1.3); CARBON DIOXIDE 27 mmol/L (22-30); CHLORIDE 103 mmol/L (98-107); POTASSIUM 4.1 mmol/L (3.6-5.0)
[2020-02-20] MEDS ORDERED: ONDANSETRON 4 MG TAB.RAPDIS PO ONE ×2 (01:04→04:10)
--- NOTE | 2020-02-20 01:11 | ER Document Report ---
ED GI/ - General Chief Complaint: Flank Pain Stated Complaint: BACK PAIN Time Seen by Provider: 02/19/20 22:50 Primary Care Provider: KILEY SLATER PA-C [Primary Care Provider] - Follow up as needed Mode of Arrival: Ambulatory Information source: Patient Notes: 29-year-old female presenting today with right flank pain starting earlier today but worsening around 3 PM. Notes mild nausea. States that her pain is a 4 out of 5. States that taking Tylenol and ibuprofen did not alleviate her pain. Denies taking any other pain medication for her pain. Patient reports a history of kidney stones on the left side. Patient was seen earlier this month with a CT scan performed which showed a 2 mm nonobstructing kidney stone on the right side. Patient reports that after that visit she was unable to schedule an appointment with urology for follow-up. Patient denies any fevers, chills, abdominal pain, chest pain, shortness of breath, suprapubic pain, dysuria or hematuria TRAVEL OUTSIDE OF THE [place] IN LAST 30 DAYS: No - Related Data Allergies/Adverse Reactions: ciprofloxacin [From Cipro] Allergy (Severe, Verified 02/04/20 23:35) Anaphylaxis guaifenesin [From Mucinex] Allergy (Severe, Verified 02/04/20 23:35) Anaphylaxis nitrofurantoin macrocrystalline [From Macrobid] Allergy (Severe, Verified 02/04/20 23:35) Anaphylaxis Penicillins Allergy (Severe, Verified 02/04/20 23:35) Anaphylaxis sulfamethoxazole [From Bactrim] Allergy (Severe, Verified 02/04/20 23:35) anaphylaxis/hives tramadol [Tramadol] Allergy (Severe, Verified 02/04/20 23:35) Anaphylaxis hydromorphone HCl [From Dilaudid] Allergy (Intermediate, Verified 02/04/20 23:35) Hives amoxicillin [Amoxicillin] Allergy (Verified 02/04/20 23:35) anaphylaxis/hives hydrocodone [From [place]] Allergy (Verified 02/04/20 23:35) nitrofurantoin [From Macrobid] Allergy (Verified 02/04/20 23:35) Anaphylaxis trimethoprim [From Bactrim] Allergy (Verified 02/04/20 23:35) Home Medications: CARMEN, ZYRTEC, AMBIEN Past Medical History - General Information source: Patient - Social History Smoking Status: Current Every Day Smoker Frequency of alcohol use: None Drug Abuse: None Lives with: Family Family History: Reviewed & Not Pertinent Patient has homicidal ideation: No - Past Medical History Cardiac Medical History: Denies: Hx Coronary Artery Disease, Hx Heart Attack, Hx Hypertension Pulmonary Medical History: Reports: Hx Asthma Denies: Hx Bronchitis, Hx COPD, Hx Pneumonia Neurological Medical History: Reports: Hx Migraine. Denies: Hx Cerebrovascular Accident, Hx Seizures Renal/ Medical History: Reports: Hx Kidney Stones, Hx Ovarian Cysts, Hx Peritoneal Dialysis GI Medical History: Reports: Hx Gastroesophageal Reflux Disease. Denies: Hx Hepatitis, Hx Hiatal Hernia, Hx Ulcer Musculoskeletal Medical History: 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, knees, fingers Psychiatric Medical History: Reports: Hx Anxiety, Hx Attention Deficit Hyperactivity Disorder, Hx Bipolar Disorder, Hx Depression, Hx Post Traumatic Stress Disorder Infectious Medical History: Denies: Hx Hepatitis Past Surgical History: Reports: Hx Abdominal Surgery - EXPLORATORY LAPX6, Hx Appendectomy, Hx Section, Hx Orthopedic Surgery - cervical spine surgery , septoplasty, bilateral knee, left foot, Other - septoplasty, bilateral knee surgery (miniscus tears, ) , right foot surgery. Denies: Hx Hysterectomy, Hx Mastectomy, Hx Open Heart Surgery, Hx Pacemaker - Immunizations Hx Diphtheria, Pertussis, Tetanus Vaccination: Yes Review of Systems - Review of Systems Constitutional: No symptoms reported EENT: No symptoms reported Cardiovascular: No symptoms reported Respiratory: No symptoms reported Gastrointestinal: No symptoms reported Genitourinary: Flank pain. denies: Burning, Dysuria, Discharge, Frequency, Hematuria, Urgency, Retention Female Genitourinary: No symptoms reported Physical Exam - Vital signs Vitals: Temp 98.7 F 02/19/20 21:39 Interpretation: Normal - General General appearance: Appears well, Alert In distress: None - HEENT Head: Normocephalic, Atraumatic Eyes: Normal Pupils: PERRL - Respiratory Respiratory status: No respiratory distress Chest status: Nontender Breath sounds: Normal - Cardiovascular Rhythm: Regular Heart sounds: Normal auscultation Murmur: Yes Friction rub: Yes - Back Back: CVA tenderness - right side - Neurological Neuro grossly intact: Yes Cognition: Normal Orientation: AAOx4 - Psychological Associated symptoms: Normal affect, Normal mood Course - Re-evaluation Re-evalutation: 02/20/20 03:50 0.9 cm right kidney stone noted on Ultrasound. 02/20/20 04:02 Patient notes that she continues to have 4/5 pain and her nausea has returned again as well. 02/20/20 04:02 02/20/20 04:59 Patient with continued right flank pain due to a kidney stone. Patient provided analgesics and antiemetics. They will need to follow-up with urology for additional treatment. 02/20/20 05:03 - Vital Signs Vital signs: Temp Pulse Resp BP Pulse Ox 98.8 F 67 16 105/64 98 02/20/20 05:08 02/20/20 05:08 02/20/20 05:08 02/20/20 05:08 02/20/20 05:08 - Laboratory Result Diagrams: 02/19/20 23:00 02/19/20 23:00 Laboratory results interpreted by me: 02/19/20 02/19/20 02/19/20 23:00 23:00 23:00 RDW 14.1 H Sodium 136.5 L Urine Blood MODERATE H Urine Urobilinogen 4.0 H Discharge - Discharge Clinical Impression: Nephrolithiasis Condition: Stable Disposition: HOME, SELF-CARE Additional Instructions: You have been diagnosed with a right sided kidney stone. Please call [facility] to schedule a follow up appointment for further evaluation. Return to the emergency if you develop fever, chills, worsening pain or development of new symptoms. [facility] [address] [place] [address]. [place], [place] [phone] [facility] [address] [place] [phone] Referrals: KILEY SLATER PA-C [Primary Care Provider] - Follow up as needed
--- NOTE | 2020-02-20 03:39 | RADIOLOGY REPORT (SQ) ---
EXAM DESCRIPTION: US RETROPERITONEUM LIMITED COMPLETED DATE/TME: 02/20/2020 01:19 CLINICAL HISTORY: 29 years Female, concern for hydronephrosis Comparison: None. LIMITATIONS: Bowel gas and body habitus artifact. FINDINGS: No acute findings. 0.9 cm right renal stone. 10-cm right kidney, 10-cm left kidney, urinary bladder, and visualized vasculature appear otherwise of normal size, shape, echotexture, and vascularity. IMPRESSION: No acute findings. 0.9 cm right renal stone.
[2020-02-20] MEDS ORDERED: MORPHINE SULFATE IR 15 MG TABLET PO ONE (04:05)
[2020-02-20 05:09] VITALS: BP 105/64
== END 2020-02-20 05:08 | disposition home or self-care (01) ==
LOC: ER 21:38
DX: N20.0 Calculus of kidney (principal); M54.9 Dorsalgia, unspecified; R10.9 Unspecified abdominal pain; R11.0 Nausea; Z79.899 Other long term (current) drug therapy; Z88.8 Allergy status to other drugs, medicaments and biological substances; Z88.1 Allergy status to other antibiotic agents; Z88.0 Allergy status to penicillin; Z88.2 Allergy status to sulfonamides; F17.200 Nicotine dependence, unspecified, uncomplicated; J45.909 Unspecified asthma, uncomplicated
CPT/HCPCS: 99284; 36415; 85025; 81025; 80053; 81001; 76775; S0119 ×2

== ENCOUNTER 2020-03-04 22:07 | Emergency (ER) | payer BC ==
--- NOTE | 2020-03-04 22:46 | ER Document Report ---
ED Medical Screen (RME) - General Stated Complaint: ABDOMINAL PAIN/VAGINAL DISCHARGE/SORES Time Seen by Provider: 03/04/20 22:39 Primary Care Provider: KILEY SLATER PA-C [Primary Care Provider] - Follow up as needed Notes: Patient is a 29-year-old female who presents to the emergency department with a chief complaint of pelvic pain. Patient states that she started to have pain 3 days ago. Patient was recently treated for trichomonas. Patient states her partner was also treated. Exam: Mildly tender mid lower abdomen. Exam limited due to patient in sitting position. I have greeted and performed a rapid initial assessment of this patient. A comprehensive ED assessment and evaluation of the patient, analysis of test results and completion of medical decision making process will be conducted by an additional ED providers. TRAVEL OUTSIDE OF THE [place] IN LAST 30 DAYS: No - Related Data Allergies/Adverse Reactions: ciprofloxacin [From Cipro] Allergy (Severe, Verified 02/04/20 23:35) Anaphylaxis guaifenesin [From Mucinex] Allergy (Severe, Verified 02/04/20 23:35) Anaphylaxis nitrofurantoin macrocrystalline [From Macrobid] Allergy (Severe, Verified 02/04/20 23:35) Anaphylaxis Penicillins Allergy (Severe, Verified 02/04/20 23:35) Anaphylaxis sulfamethoxazole [From Bactrim] Allergy (Severe, Verified 02/04/20 23:35) anaphylaxis/hives tramadol [Tramadol] Allergy (Severe, Verified 02/04/20 23:35) Anaphylaxis hydromorphone HCl [From Dilaudid] Allergy (Intermediate, Verified 02/04/20 23:35) Hives amoxicillin [Amoxicillin] Allergy (Verified 02/04/20 23:35) anaphylaxis/hives hydrocodone [From [place]] Allergy (Verified 02/04/20 23:35) nitrofurantoin [From Macrobid] Allergy (Verified 02/04/20 23:35) Anaphylaxis trimethoprim [From Bactrim] Allergy (Verified 02/04/20 23:35) Past Medical History - Past Medical History Cardiac Medical History: Denies: Hx Coronary Artery Disease, Hx Heart Attack, Hx Hypertension Pulmonary Medical History: Reports: Hx Asthma Denies: Hx Bronchitis, Hx COPD, Hx Pneumonia Neurological Medical History: Reports: Hx Migraine. Denies: Hx Cerebrovascular Accident, Hx Seizures Renal/ Medical History: Reports: Hx Kidney Stones, Hx Ovarian Cysts, Hx Peritoneal Dialysis GI Medical History: Reports: Hx Gastroesophageal Reflux Disease. Denies: Hx Hepatitis, Hx Hiatal Hernia, Hx Ulcer Musculoskeltal Medical History: 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, knees, fingers Psychiatric Medical History: Reports: Hx Anxiety, Hx Attention Deficit Hyperactivity Disorder, Hx Bipolar Disorder, Hx Depression, Hx Post Traumatic Stress Disorder Infectious Medical History: Denies: Hx Hepatitis Past Surgical History: Reports: Hx Abdominal Surgery - EXPLORATORY LAPX6, Hx Appendectomy, Hx Section, Hx Orthopedic Surgery - cervical spine surgery , septoplasty, bilateral knee, left foot, Other - septoplasty, bilateral knee surgery (miniscus tears, ) , right foot surgery. Denies: Hx Hysterectomy, Hx Mastectomy, Hx Open Heart Surgery, Hx Pacemaker - Immunizations Hx Diphtheria, Pertussis, Tetanus Vaccination: Yes Physical Exam - Vital signs Vitals: Temp Pulse Resp BP Pulse Ox 98.3 F 102 H 18 116/91 H 97 03/04/20 22:16 03/04/20 22:16 03/04/20 22:16 03/04/20 22:16 03/04/20 22:16 Course - Vital Signs Vital signs: Temp Pulse Resp BP Pulse Ox 98.3 F 102 H 18 116/91 H 97 03/04/20 22:16 03/04/20 22:16 03/04/20 22:16 03/04/20 22:16 03/04/20 22:16 Doctor's Discharge - Discharge Referrals: KILEY SLATER PA-C [Primary Care Provider] - Follow up as needed
[2020-03-04 23:20] LABS: ABSOLUTE BASOPHILS # (AUTO) 0.1 10^3/uL (0.0-0.2); ABSOLUTE EOSINOPHILS # (AUTO) 0.1 10^3/uL (0.0-0.6); ABSOLUTE LYMPHOCYTES (AUTO) 1.7 10^3/uL (0.5-4.7); ABSOLUTE MONOCYTES (AUTO) 0.6 10^3/uL (0.1-1.4); ABSOLUTE NEUT (AUTO) 6.6 10^3/uL (1.7-8.2); BASOPHILS % (AUTO) 0.9 % (0-2); EOSINOPHILS % (AUTO) 0.7 % (0-6); HEMATOCRIT 43.1 % (36.0-47.0); HEMOGLOBIN 14.9 g/dL (12.0-15.5); LYMPHOCYTES % (AUTO) 18.8 % (13-45); MEAN CORPUSCULAR HEMOGLOBIN 31.3 pg (27.0-33.4); MEAN CORPUSCULAR HGB CONC 34.6 g/dL (32.0-36.0); MEAN CORPUSCULAR VOLUME 90 fl (80-97); MONOCYTES % (AUTO) 6.7 % (3-13); PLATELET COUNT 244 10^3/uL (150-450); RED BLOOD COUNT 4.76 10^6/uL (3.72-5.28); RED CELL DISTRIBUTION WIDTH 13.9 % (11.5-14.0); SEGMENTED NEUTROPHILS % (AUTO) 72.9 % (42-78); TOTAL CELLS COUNTED % (AUTO) 100 %
[2020-03-04 23:31] LABS: APPEARANCE,URINE SLIGHTLY-CLOUDY; BILIRUBIN,URINE NEGATIVE (NEGATIVE); COLOR,URINE AMBER; GLUCOSE, URINE NEGATIVE (NEGATIVE); KETONES,URINE TRACE mg/dL (NEGATIVE); LEUKOCYTE ESTERASE,URINE TRACE (NEGATIVE); NITRITE,URINE NEGATIVE (NEGATIVE); PROTEIN,URINE 30 mg/dL (NEGATIVE)
[2020-03-04 23:36] LABS: ALBUMIN 4.3 g/dL (3.5-5.0); ALKALINE PHOSPHATASE 74 U/L (38-126); ANION GAP 9 (5-19); ASPARTATE AMINO TRANSFERASE 36 U/L (14-36); BILIRUBIN,DIRECT 0.1 mg/dL (0.0-0.4); BILIRUBIN,TOTAL 0.4 mg/dL (0.2-1.3); BLOOD UREA NITROGEN 7 mg/dL (7-20); CALCIUM 9.7 mg/dL (8.4-10.2); CARBON DIOXIDE 28 mmol/L (22-30); CHLORIDE 101 mmol/L (98-107); GLUCOSE 110 mg/dL (75-110); POTASSIUM 3.4 mmol/L (3.6-5.0); TOTAL PROTEIN 7.5 g/dL (6.3-8.2)
[2020-03-05] MEDS ORDERED: CEFTRIAXONE INJ 250 MG VIAL IM ONE (02:09)
[2020-03-05] MEDS ORDERED: DOXYCYCLINE HYCLATE 100 MG TABLET PO ONE (02:11)
[2020-03-05] MEDS ORDERED: DIPHENHYDRAMINE HCL 50 MG/ML VIAL IV ONE (02:13)
[2020-03-05 02:36] LABS: RBCS (WET MOUNT) NO RBCS SEEN; T.VAGINALIS (WET MOUNT) NO TRICHOMONAS SEEN; WBCS (WET MOUNT) RARE WBCS SEEN; YEAST (WET MOUNT) NO YEAST SEEN
--- NOTE | 2020-03-05 02:53 | ER Document Report ---
ED General - General Chief Complaint: Vaginal Discharge Stated Complaint: ABDOMINAL PAIN/VAGINAL DISCHARGE/SORES Time Seen by Provider: 03/04/20 22:39 Primary Care Provider: KILEY SLATER PA-C [Primary Care Provider] - Follow up as needed TRAVEL OUTSIDE OF THE [place] IN LAST 30 DAYS: No - HPI Notes: 29-year-old female with psych history no significant medical history other than recent treatment for trich vaginal infection presents with approximately 3 days of white vaginal discharge and vaginal discomfort associated with constant moderate non-radiating dull left-sided pelvic pain. Patient denies any prior episodes, aggravating or alleviating factors. Mention "sores "in triage, but patient states that she did not come without complaints and that she has had "sores "on few parts of her body but are healing and almost gone right now. Patient says she is sexually active with 1 partner without protection. Patient denies any STD history, , immune compromise, diabetes, HIV, vaginal bleeding, vomiting, bowel symptoms, urinary symptoms - Related Data Allergies/Adverse Reactions: ciprofloxacin [From Cipro] Allergy (Severe, Verified 02/04/20 23:35) Anaphylaxis guaifenesin [From Mucinex] Allergy (Severe, Verified 02/04/20 23:35) Anaphylaxis nitrofurantoin macrocrystalline [From Macrobid] Allergy (Severe, Verified 02/04/20 23:35) Anaphylaxis Penicillins Allergy (Severe, Verified 02/04/20 23:35) Anaphylaxis sulfamethoxazole [From Bactrim] Allergy (Severe, Verified 02/04/20 23:35) anaphylaxis/hives tramadol [Tramadol] Allergy (Severe, Verified 02/04/20 23:35) Anaphylaxis hydromorphone HCl [From Dilaudid] Allergy (Intermediate, Verified 02/04/20 23:35) Hives amoxicillin [Amoxicillin] Allergy (Verified 02/04/20 23:35) anaphylaxis/hives hydrocodone [From [place]] Allergy (Verified 02/04/20 23:35) nitrofurantoin [From Macrobid] Allergy (Verified 02/04/20 23:35) Anaphylaxis trimethoprim [From Bactrim] Allergy (Verified 02/04/20 23:35) Home Medications: ambien, singluair, zyrtec Past Medical History - General Information source: Patient, [facility] Records Last Menstrual Period: 02/20/2020 - Social History Smoking Status: Current Every Day Smoker Family History: Reviewed & Not Pertinent Patient has homicidal ideation: No - Past Medical History Cardiac Medical History: Denies: Hx Coronary Artery Disease, Hx Heart Attack, Hx Hypertension Pulmonary Medical History: Reports: Hx Asthma Denies: Hx Bronchitis, Hx COPD, Hx Pneumonia Neurological Medical History: Reports: Hx Migraine. Denies: Hx Cerebrovascular Accident, Hx Seizures Renal/ Medical History: Reports: Hx Kidney Stones, Hx Ovarian Cysts, Hx Peritoneal Dialysis GI Medical History: Reports: Hx Gastroesophageal Reflux Disease. Denies: Hx Hepatitis, Hx Hiatal Hernia, Hx Ulcer Musculoskeletal Medical History: 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, knees, fingers Psychiatric Medical History: Reports: Hx Anxiety, Hx Attention Deficit Hyperactivity Disorder, Hx Bipolar Disorder, Hx Depression, Hx Post Traumatic Stress Disorder Infectious Medical History: Denies: Hx Hepatitis Past Surgical History: Reports: Hx Abdominal Surgery - EXPLORATORY LAPX6, Hx Appendectomy, Hx Section, Hx Orthopedic Surgery - cervical spine surgery -2016, septoplasty, bilateral knee, left foot, Other - septoplasty, bilateral knee surgery (miniscus tears, ) , right foot surgery. Denies: Hx Hysterectomy, Hx Mastectomy, Hx Open Heart Surgery, Hx Pacemaker - Immunizations Hx Diphtheria, Pertussis, Tetanus Vaccination: Yes Review of Systems - Review of Systems Notes: REVIEW OF SYSTEMS: CONSTITUTIONAL : Denies fever, chills, or sweats. EENT: Denies recent cold/sinus symptoms, denies throat pain CARDIOVASCULAR: Denies chest pain, PHIL RESPIRATORY: Denies cough, denies shortness of breath. GASTROINTESTINAL: Denies abdominal pain, nausea/vomiting. GENITOURINARY: Denies difficulty urinating, painful urination. FEMALE GENITOURINARY: Denies abnormal vaginal bleeding, +vaginal discharge. MUSCULOSKELETAL: Denies neck pain, back pain. SKIN: +rash +skin lesions. HEMATOLOGIC : Denies easy bruising or bleeding. LYMPHATIC: Denies swollen, enlarged glands. NEUROLOGICAL: Denies headache, denies change in gait. PSYCHIATRIC: Denies anxiety or stress or depression. Physical Exam - Vital signs Vitals: Temp Pulse Resp BP Pulse Ox 98.3 F 102 H 18 116/91 H 97 03/04/20 22:16 03/04/20 22:16 03/04/20 22:16 03/04/20 22:16 03/04/20 22:16 - Notes Notes: PHYSICAL EXAMINATION: GENERAL: Well-appearing, well-nourished and in no acute distress. HEAD: Atraumatic, normocephalic. EYES: Pupils equal round and appropriate constriction, sclera anicteric, conjunctiva are normal. ENT: nares patent, moist mucous membranes, poor dentition NECK: Normal range of motion, supple without lymphadenopathy LUNGS: Breath sounds clear to auscultation bilaterally and equal. No wheezes rales or rhonchi. HEART: Regular rate and rhythm without murmurs ABDOMEN: Soft, nontender, no guarding, no masses, no CVAT PELVIC: Copious white discharge in vaginal vault with positive CMT, reports discomfort on palpating in left adnexal area but no pain reaction, no masses EXTREMITIES: Normal range of motion, no pitting or edema. No cyanosis. NEUROLOGICAL: Awake, alert, conversing appropriately, moves all extremities spontaneously. PSYCH: Normal mood, normal affect. SKIN: Warm, Dry, normal turgor, few healing approximately half centimeter scabs on back and buttocks without any erythema or discharge Course - Re-evaluation Re-evalutation: 03/05/20 03:04 Exam with positive CMT concerning for PID, a minimal discomfort on palpating left adnexa but will obtain ultrasound to rule out TOA but low pretest probability. Presentation not consistent with ovarian torsion but will assess blood flow and ovarian size on ultrasound, given pretest probability being low this is sufficient to rule it out. Patient has had anaphylaxis to multiple drugs but none to doxycycline, despite having allergy low cross sensitivity with third-generation cephalosporins although patient at high risk for anaphylaxis given patient has anaphylaxis to numerous classes of antibiotics and other medications. Will observe in the ED after administering ceftriaxone and doxycycline and discharged on doxycycline with COLLECTIVE BARGAINING SPECIALIST follow-up. Gave patient extensive return to ED precautions that she demonstrated understanding of. Advised her to avoid sexual intercourse until her and her partner both treated and asymptomatic. Heart rate was mildly elevated on initial triage vitals likely secondary to exertion just before taking vitals, patient had normal heart rate without any intervention at time of my evaluation. - Vital Signs Vital signs: Temp Pulse Resp BP Pulse Ox 98.3 F 102 H 18 116/91 H 97 03/04/20 22:38 03/04/20 22:16 03/04/20 22:16 03/04/20 22:16 03/04/20 22:16 - Laboratory Result Diagrams: 03/04/20 23:06 03/04/20 23:06 Laboratory results interpreted by me: 03/04/20 03/04/20 23:06 23:06 Potassium 3.4 L Urine Protein 30 H Urine Ketones TRACE H Urine Urobilinogen 4.0 H Ur Leukocyte Esterase TRACE H Discharge - Discharge Clinical Impression: PID (acute pelvic inflammatory disease) Condition: Stable Disposition: HOME, SELF-CARE Additional Instructions: Pelvic Pain There are many causes of pain in the pelvic area. The cause could be the tubes, ovaries, uterus, intestines, appendix, pelvic muscles and connective tissue, or the urinary tract. The cause of your pelvic pain is not clear. However, it seems safe to treat you outside the hospital. If the pain sounds like a temporary problem, we sometimes wait to see if it goes away. Other patients may need additional tests, such as pelvic ultrasound or cultures. Conditions may change. Call us or come back for reexamination if any problems occur, such as: (1) Pain that becomes more severe, steady, or becomes concentrated in one specific area. Also, pain that is more severe with movement or coughing. (2) Vomiting that persists or becomes more frequent. (3) Blood in the vomitus, urine, or bowel movements. Blood in the stool may have a tarry or black appearance. (4) Shaking chills or fever greater than 100 degrees. (5) The abdomen becomes more distended or swollen. (6) Bowel movements cease. (7) Heavy vaginal bleeding. Pelvic Inflammatory Disease You have been diagnosed as having pelvic inflammatory disease (PID). This is an infection of the fallopian tubes and surrounding areas of the pelvis. Symptoms are usually pelvic pain and discharge. The infection can do permanent damage to the tubes and ovaries. It should be taken very seriously. Treatment is antibiotics, which may be given by vein or by injection if the infection seems serious. It's important that you receive all recommended medication. Condoms help prevent spread of this infection to others. Because this infection is spread sexually, it's important that your sexual partner be checked before resuming sexual relations. If a culture shows gonorrhea or chlamydia organisms, the law requires that this be reported to the health department. Call the doctor or return at once if you develop increasing fever, rash, severe pelvic pain, vaginal bleeding (other than your period), or problems with your bladder or bowels. Follow up with systems software manager within 1 week. Prescriptions: Doxycycline Hyclate 100 mg PO BID #[id number] tablet.dr Referrals: KILEY SLATER PA-C [Primary Care Provider] - Follow up as needed [facility] [Provider Group] - Follow up as needed
--- NOTE | 2020-03-05 02:57 | RADIOLOGY REPORT (SQ) ---
EXAM: US Pelvis Transvaginal EXAM DATE/TIME: 03/05/2020 2:36 AM CLINICAL HISTORY: The patient is 29 years old and is Female; discharge left pelvic pain adnexal tenderness TECHNIQUE: Real-time transvaginal pelvic ultrasound with image documentation. Transvaginal imaging was used for better evaluation of the endometrium and adnexa. COMPARISON: CT abdomen pelvis from 02/05/2020; ultrasound pelvis from 12/09/2019 FINDINGS: LIMITATIONS: Suboptimal exam due to bowel gas and patient body habitus. UTERUS/CERVIX: The uterus measures 8.1 x 3.9 x 3.4 cm. No myometrial mass. Endometrial stripe measures 9 mm. The cervix is unremarkable. RIGHT OVARY: The right ovary measures 2.3 x 1.5 x 1.5 cm and appears unremarkable. Dominant follicle noted. No ovarian mass. Blood flow is demonstrated in the right ovary. LEFT OVARY: The left ovary measures 2.5 x 1.8 x 2.1 cm and appears unremarkable. Normal follicles noted. No ovarian mass. Blood flow is demonstrated in the left ovary. FREE FLUID: No free fluid. BLADDER: Empty bladder which cannot be evaluated with this probe. IMPRESSION: No acute findings in the pelvis.
[2020-03-05 03:12] VITALS: BP 106/76
[2020-03-05 03:49] LABS: CHLAM PCR NOT DETECTED (NOT DETECT)
== END 2020-03-05 04:09 | disposition home or self-care (01) ==
LOC: ER 22:07
DX: N73.0 Acute parametritis and pelvic cellulitis (principal); R10.9 Unspecified abdominal pain; F17.200 Nicotine dependence, unspecified, uncomplicated; Z88.3 Allergy status to other anti-infective agents; Z88.0 Allergy status to penicillin; Z88.6 Allergy status to analgesic agent; Z87.442 Personal history of urinary calculi
CPT/HCPCS: 99284; 96372; 96374; 36415; 87040; 87070; 87205; 87210; 84703; 85025; 87077; 80053; 81001; 87491; 87591; 76830; J1200; J0696

== ENCOUNTER 2020-03-13 17:44 | Emergency (ER) | payer BC ==
[2020-03-13] MEDS ORDERED: ASPIRIN 81 MG TABLET, CHEWABLE PO ONE (18:11)
--- NOTE | 2020-03-13 18:13 | ER Document Report ---
ED Medical Screen (RME) - General Chief Complaint: Chest Pain Stated Complaint: CHEST PAIN Time Seen by Provider: 03/13/20 18:06 Primary Care Provider: KILEY SLATER PA-C [Primary Care Provider] - Follow up as needed Mode of Arrival: Ambulatory Information source: Patient Notes: 29-year-old female presented to ED for complaint of chest pain that was achy since a.m. She states at times she has a racing heartbeat with shortness of breath and lightheadedness. She has pain through the chest through the back both shoulders. She states her last menstrual period was 02/25/2020. She states she does have a history of kidney stones sinus tachycardia. She states she does smoke half pack a day does not drink or do any drugs. Patient is alert oriented respirations regular nonlabored speaking in full sentences. Her pulse was 101 in the triage area her EKG showed a pulse of 100. I have greeted and performed a rapid initial assessment of this patient. A comp rehensive ED assessment and evaluation of the patient, analysis of test results and completion of medical decision making process will be conducted by an additional ED providers. TRAVEL OUTSIDE OF THE [place] IN LAST 30 DAYS: No - Related Data Allergies/Adverse Reactions: ciprofloxacin [From Cipro] Allergy (Severe, Verified 02/04/20 23:35) Anaphylaxis guaifenesin [From Mucinex] Allergy (Severe, Verified 02/04/20 23:35) Anaphylaxis nitrofurantoin macrocrystalline [From Macrobid] Allergy (Severe, Verified 02/04/20 23:35) Anaphylaxis Penicillins Allergy (Severe, Verified 02/04/20 23:35) Anaphylaxis sulfamethoxazole [From Bactrim] Allergy (Severe, Verified 02/04/20 23:35) anaphylaxis/hives tramadol [Tramadol] Allergy (Severe, Verified 02/04/20 23:35) Anaphylaxis hydromorphone HCl [From Dilaudid] Allergy (Intermediate, Verified 02/04/20 23:35) Hives amoxicillin [Amoxicillin] Allergy (Verified 02/04/20 23:35) anaphylaxis/hives hydrocodone [From [place]] Allergy (Verified 02/04/20 23:35) nitrofurantoin [From Macrobid] Allergy (Verified 02/04/20 23:35) Anaphylaxis trimethoprim [From Bactrim] Allergy (Verified 02/04/20 23:35) Home Medications: Singular, [place], Ambien and Doxycycline Past Medical History - Past Medical History Cardiac Medical History: Denies: Hx Coronary Artery Disease, Hx Heart Attack, Hx Hypertension Pulmonary Medical History: Reports: Hx Asthma Denies: Hx Bronchitis, Hx COPD, Hx Pneumonia Neurological Medical History: Reports: Hx Migraine. Denies: Hx Cerebrovascular Accident, Hx Seizures Renal/ Medical History: Reports: Hx Kidney Stones, Hx Ovarian Cysts, Hx Peritoneal Dialysis GI Medical History: Reports: Hx Gastroesophageal Reflux Disease. Denies: Hx Hepatitis, Hx Hiatal Hernia, Hx Ulcer Musculoskeltal Medical History: 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, knees, fingers Psychiatric Medical History: Reports: Hx Anxiety, Hx Attention Deficit Hyperactivity Disorder, Hx Bipolar Disorder, Hx Depression, Hx Post Traumatic Stress Disorder Infectious Medical History: Denies: Hx Hepatitis Past Surgical History: Reports: Hx Abdominal Surgery - EXPLORATORY LAPX6, Hx Appendectomy, Hx Section, Hx Orthopedic Surgery - cervical spine surgery , septoplasty, bilateral knee, left foot, Other - septoplasty, bilateral knee surgery (miniscus tears, ) , right foot surgery. Denies: Hx Hysterectomy, Hx Mastectomy, Hx Open Heart Surgery, Hx Pacemaker - Immunizations Hx Diphtheria, Pertussis, Tetanus Vaccination: Yes Physical Exam - Vital signs Vitals: Temp Pulse Resp BP Pulse Ox 98.7 F 98 16 120/66 96 03/13/20 17:57 03/13/20 17:57 03/13/20 17:57 03/13/20 17:57 03/13/20 17:57 Course - Vital Signs Vital signs: Temp Pulse Resp BP Pulse Ox 98.7 F 98 16 120/66 96 03/13/20 18:08 03/13/20 17:57 03/13/20 17:57 03/13/20 17:57 03/13/20 17:57 Doctor's Discharge - Discharge Referrals: KILEY SLATER PA-C [Primary Care Provider] - Follow up as needed
--- NOTE | 2020-03-13 18:30 | RADIOLOGY REPORT (SQ) ---
EXAM DESCRIPTION: CHEST 2 VIEWS IMAGES COMPLETED DATE/TIME: 03/13/2020 6:21 pm REASON FOR STUDY: Chest pain heart racing COMPARISON: None. EXAM PARAMETERS: NUMBER OF VIEWS: two views TECHNIQUE: Digital Frontal and Lateral radiographic views of the chest acquired. RADIATION DOSE: NA LIMITATIONS: none FINDINGS: LUNGS AND PLEURA: No opacities, masses or pneumothorax. No pleural effusion. MEDIASTINUM AND HILAR STRUCTURES: No masses or contour abnormalities. HEART AND VASCULAR STRUCTURES: Heart normal size. No evidence for failure. BONES: No acute findings. HARDWARE: None in the chest. OTHER: No other significant finding. IMPRESSION: NO ACUTE RADIOGRAPHIC FINDING IN THE CHEST. TECHNICAL DOCUMENTATION: JOB ID: [id number] 2010 [employer]- All Rights Reserved Reading location - IP/workstation name: [email or web address]
[2020-03-13 18:55] LABS: ABSOLUTE BASOPHILS # (AUTO) 0.1 10^3/uL (0.0-0.2); ABSOLUTE EOSINOPHILS # (AUTO) 0.1 10^3/uL (0.0-0.6); ABSOLUTE LYMPHOCYTES (AUTO) 2.3 10^3/uL (0.5-4.7); ABSOLUTE MONOCYTES (AUTO) 0.4 10^3/uL (0.1-1.4); ABSOLUTE NEUT (AUTO) 6.1 10^3/uL (1.7-8.2); BASOPHILS % (AUTO) 0.8 % (0-2); EOSINOPHILS % (AUTO) 1.1 % (0-6); HEMATOCRIT 43.5 % (36.0-47.0); HEMOGLOBIN 14.6 g/dL (12.0-15.5); LYMPHOCYTES % (AUTO) 25.4 % (13-45); MEAN CORPUSCULAR HEMOGLOBIN 30.7 pg (27.0-33.4); MEAN CORPUSCULAR HGB CONC 33.6 g/dL (32.0-36.0); MEAN CORPUSCULAR VOLUME 92 fl (80-97); MONOCYTES % (AUTO) 4.8 % (3-13); PLATELET COUNT 241 10^3/uL (150-450); RED BLOOD COUNT 4.75 10^6/uL (3.72-5.28); RED CELL DISTRIBUTION WIDTH 14.2 % (11.5-14.0); SEGMENTED NEUTROPHILS % (AUTO) 67.9 % (42-78); TOTAL CELLS COUNTED % (AUTO) 100 %
[2020-03-13 19:15] LABS: ALBUMIN 3.8 g/dL (3.5-5.0); ALKALINE PHOSPHATASE 91 U/L (38-126); ANION GAP 6 (5-19); ASPARTATE AMINO TRANSFERASE 18 U/L (14-36); BILIRUBIN,DIRECT 0.1 mg/dL (0.0-0.4); BILIRUBIN,TOTAL 0.2 mg/dL (0.2-1.3); BLOOD UREA NITROGEN 8 mg/dL (7-20); CALCIUM 9.6 mg/dL (8.4-10.2); CARBON DIOXIDE 24 mmol/L (22-30); CHLORIDE 110 mmol/L (98-107); GLUCOSE 96 mg/dL (75-110); POTASSIUM 3.7 mmol/L (3.6-5.0); TOTAL PROTEIN 6.8 g/dL (6.3-8.2)
[2020-03-14] MEDS ORDERED: KETOROLAC TROMETHAMINE INJ/PF 30 MG/1 ML SDV IV ONE (00:26)
--- NOTE | 2020-03-14 00:32 | ER Document Report ---
ED General - General Chief Complaint: Chest Pain Stated Complaint: CHEST PAIN Time Seen by Provider: 03/13/20 18:06 Primary Care Provider: KILEY SLATER PA-C [Primary Care Provider] - Follow up as needed Mode of Arrival: Ambulatory TRAVEL OUTSIDE OF THE [place] IN LAST 30 DAYS: No - HPI Notes: Patient is a 29-year-old female who presents to the emergency department for evaluation of chest pain and "kidney pain." She states that she woke this morning with an achy feeling in her chest. She states she had occasional shortness of breath and palpitations. She states throughout the day the pain seemed to get worse. Is worsened with deep breaths, worsened with coughing. She states her cough seems to be at baseline. Nothing seems to make it better. Patient also states she has "kidney pain." She is been diagnosed with frequent and multiple kidney stones, states most recently she was told she has them on the right. She has follow-up with urology scheduled next week. She describes that is sharp and achy, really cannot say anything that makes it better or worse. No fevers or chills. No nausea or vomiting. No visible blood in the urine. - Related Data Allergies/Adverse Reactions: ciprofloxacin [From Cipro] Allergy (Severe, Verified 02/04/20 23:35) Anaphylaxis guaifenesin [From Mucinex] Allergy (Severe, Verified 02/04/20 23:35) Anaphylaxis nitrofurantoin macrocrystalline [From Macrobid] Allergy (Severe, Verified 02/04/20 23:35) Anaphylaxis Penicillins Allergy (Severe, Verified 02/04/20 23:35) Anaphylaxis sulfamethoxazole [From Bactrim] Allergy (Severe, Verified 02/04/20 23:35) anaphylaxis/hives tramadol [Tramadol] Allergy (Severe, Verified 02/04/20 23:35) Anaphylaxis hydromorphone HCl [From Dilaudid] Allergy (Intermediate, Verified 02/04/20 23:35) Hives amoxicillin [Amoxicillin] Allergy (Verified 02/04/20 23:35) anaphylaxis/hives hydrocodone [From [place]] Allergy (Verified 02/04/20 23:35) nitrofurantoin [From Macrobid] Allergy (Verified 02/04/20 23:35) Anaphylaxis trimethoprim [From Bactrim] Allergy (Verified 02/04/20 23:35) Home Medications: Singular, [place], Ambien and Doxycycline Past Medical History - General Information source: Patient - Social History Smoking Status: Current Every Day Smoker Family History: Reviewed & Not Pertinent, Hypertension, Malignancy Patient has homicidal ideation: No - Past Medical History Cardiac Medical History: Reports: Other - Sinus tachycardia Denies: Hx Coronary Artery Disease, Hx Heart Attack, Hx Hypertension Pulmonary Medical History: Reports: Hx Asthma Denies: Hx Bronchitis, Hx COPD, Hx Pneumonia Neurological Medical History: Reports: Hx Migraine. Denies: Hx Cerebrovascular Accident, Hx Seizures Renal/ Medical History: Reports: Hx Kidney Stones, Hx Ovarian Cysts GI Medical History: Reports: Hx Gastroesophageal Reflux Disease. Denies: Hx Hepatitis, Hx Hiatal Hernia, Hx Ulcer Musculoskeletal Medical History: 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, knees, fingers Psychiatric Medical History: Reports: Hx Anxiety, Hx Attention Deficit Hyperactivity Disorder, Hx Bipolar Disorder, Hx Depression, Hx Post Traumatic Stress Disorder Infectious Medical History: Denies: Hx Hepatitis Past Surgical History: Reports: Hx Abdominal Surgery - EXPLORATORY LAPX6, Hx Appendectomy, Hx Section, Hx Orthopedic Surgery - cervical spine surgery , septoplasty, bilateral knee, left foot, Other - septoplasty, bilateral knee surgery (miniscus tears, ) , right foot surgery. Denies: Hx Hysterectomy, Hx Mastectomy, Hx Open Heart Surgery, Hx Pacemaker - Immunizations Hx Diphtheria, Pertussis, Tetanus Vaccination: Yes Review of Systems - Review of Systems Cardiovascular: See HPI Respiratory: See HPI Genitourinary: See HPI -: Yes All other systems reviewed and negative Physical Exam - Vital signs Vitals: Temp Pulse Resp BP Pulse Ox 98.7 F 98 16 120/66 96 03/13/20 17:57 03/13/20 17:57 03/13/20 17:57 03/13/20 17:57 03/13/20 17:57 - Notes Notes: Vital signs reviewed, please refer to chart. Head is normocephalic, atraumatic. Pupils equal round, reactive to light. Neck is supple without meningismus. Heart is regular rate and rhythm. Lungs are clear to auscultation bilaterally. No abnormalities to visual inspection of the chest wall. Patient is tender over the sternum and medial ribs bilaterally, no associated crepitance. Chest wall excursion is equal bilaterally. Abdomen is soft, nontender, normoactive bowel sounds throughout. Extremities without cyanosis, clubbing. Posterior calves are nontender. Peripheral pulses are equal. Skin is warm and dry. Patient is aba ke, alert, neurological exam is nonfocal. Course - Re-evaluation Re-evalutation: 03/14/20 00:31 Patient presents to the emergency department for evaluation of chest pain. She was initially seen through triage. She had laboratory investigations as ordered. Her pain seems more likely to be chest wall. She is low risk. Her troponin is negative, her EKG shows no abnormality. I will go and treat her with Toradol for chest wall pain. She is complaining of "kidney pain" so urinalysis was ordered as well. Patient is stable at this time, we will continue to monitor. 03/14/20 00:58 Urinalysis fails to reveal any signs of bleeding or infection. The patient's pain all seems to be musculoskeletal in nature. We will send her home with anti-inflammatories and close follow-up. She is to follow-up with primary care as well as urology, return to the ED with worsening. - Vital Signs Vital signs: Temp Pulse Resp BP Pulse Ox 98.3 F 73 16 113/66 100 03/13/20 23:09 03/13/20 23:09 03/13/20 23:09 03/13/20 23:09 03/14/20 00:21 - Laboratory Result Diagrams: 03/13/20 18:30 03/13/20 18:30 Laboratory results interpreted by me: 03/13/20 03/13/20 18:30 18:30 RDW 14.2 H Chloride 110 H Creatinine 0.50 L Lipase 20.9 L - Diagnostic Test Radiology reviewed: Reports reviewed Radiology results interpreted by me: 03/14/20 00:31 Chest X-Ray 03/13/20 18:11 IMPRESSION: NO ACUTE RADIOGRAPHIC FINDING IN THE CHEST. - EKG Interpretation by Me Additional EKG results interpreted by wv: 03/14/20 00:31 Initial reveals a sinus mechanism with a rate of 100 bpm. Normal axis and intervals. No acute ST changes concerning for ischemia or infarction. Second EKG showed a sinus mechanism with a rate of 79, no change from prior. Discharge - Discharge Clinical Impression: Chest wall pain, Right flank pain Condition: Stable Disposition: HOME, SELF-CARE Instructions: Anti-Inflammatory Medication ([facility]), Chest Pain of Unclear Cause ([facility]), Flank Pain ([facility]) Additional Instructions: Follow-up with your primary care provider and urology next week. Take medications as prescribed, with food. Return to the emergency department with worsening or new concerning symptoms of any sort. Referrals: KILEY SLATER PA-C [Primary Care Provider] - Follow up as needed
[2020-03-14 00:48] LABS: APPEARANCE,URINE CLOUDY; BILIRUBIN,URINE NEGATIVE (NEGATIVE); COLOR,URINE YELLOW; GLUCOSE, URINE NEGATIVE (NEGATIVE); KETONES,URINE NEGATIVE (NEGATIVE); LEUKOCYTE ESTERASE,URINE NEGATIVE (NEGATIVE); NITRITE,URINE NEGATIVE (NEGATIVE); PROTEIN,URINE NEGATIVE (NEGATIVE); URINE SPECIFIC GRAVITY 1.014; UROBILINOGEN,URINE NEGATIVE mg/dL (<2.0)
[2020-03-14] MEDS ORDERED: KETOROLAC TROMETHAMINE 60 MG/2 ML SDV IM ONE (00:56)
[2020-03-14] MEDS ORDERED: OXYCODONE-ACETAMINOPHEN 5-325 MG TABLET PO ONE (01:05)
[2020-03-14 01:24] VITALS: BP 115/74
--- NOTE | 2020-03-14 19:12 | EKG REPORT ---
SEVERITY:- NORMAL ECG - SINUS RHYTHM : Confirmed by: Vivien Austin MD 14-Mar-2020 19:12:21
--- NOTE | 2020-03-14 19:13 | EKG REPORT ---
SEVERITY:- OTHERWISE NORMAL ECG - SINUS TACHYCARDIA : Confirmed by: Vivien Austin MD 14-Mar-2020 19:12:28
== END 2020-03-14 01:24 | disposition home or self-care (01) ==
LOC: ER 17:44
DX: R07.89 Other chest pain (principal); R10.9 Unspecified abdominal pain; R07.9 Chest pain, unspecified; R06.02 Shortness of breath; R00.2 Palpitations; R05 Cough; Z88.8 Allergy status to other drugs, medicaments and biological substances; Z88.0 Allergy status to penicillin; Z88.2 Allergy status to sulfonamides; Z88.1 Allergy status to other antibiotic agents; F17.200 Nicotine dependence, unspecified, uncomplicated
CPT/HCPCS: 36415; 71046; 80053; 81001; 83690; 83735; 84443; 84484; 84703; 85025; 93005; 93010; 99285

== ENCOUNTER → 2020-04-08 | Outpatient (CLI) | payer BC ==
[~2020-04-08] MED LIST: FUROSEMIDE INJ/PF 40 MG/4 ML SDV ONE
--- NOTE | 2020-04-08 16:32 | RADIOLOGY REPORT (SQ) ---
EXAM DESCRIPTION: NM RENAL WITH LASIX IMAGES COMPLETED DATE/TIME: 04/08/2020 3:01 pm REASON FOR STUDY: N20.0 CALCULUS OF KIDNEY, R10.9 LEFT FLANK PAIN N20.0 CALCULUS OF KIDNEY COMPARISON: Recent CT and renal ultrasound studies. RADIONUCLIDE AND DOSE: 5.3 millicuries Tc-99m MAG 3 The route of agent administration: Intravenous ADDITIONAL DRUGS AND DOSES: Lasix 20 mg. TECHNIQUE: Following administration of the radionuclide, flow images of the kidneys were acquired fo llowed by sequential imaging for 60 minutes. Intravenous Lasix was given at the midpoint of the study . Time activity curves were generated. LIMITATIONS: None. FINDINGS: ACTIVITY LEFT KIDNEY: 46.1 %. ACTIVITY RIGHT KIDNEY: 53.9 %. There is prompt uptake of activity in the kidneys bilaterally simultaneous with passage of the aortic bolus. There is normal excretion with progression of activity from the renal cortex into the collec ting system and subsequently into the ureters. Time activity curves demonstrate normal excretory pat tern with no abnormal retention. No obstructive changes. IMPRESSION: NORMAL LASIX RENOGRAM. TECHNICAL DOCUMENTATION: JOB ID: [id number] 2010 [employer]- All Rights Reserved Reading location - IP/workstation name: [email or web address]-
== END ==
LOC: RAD 13:49
PROVIDERS: ATTEND Urology
DX: N20.0 Calculus of kidney (principal)
CPT/HCPCS: 78708; A9562; J1940

== ENCOUNTER 2020-04-18 12:42 | Emergency (ER) | payer BC ==
--- NOTE | 2020-04-18 12:57 | ER Document Report ---
ED Medical Screen (RME) - General Chief Complaint: Flank Pain Stated Complaint: FLANK PAIN Time Seen by Provider: 04/18/20 12:54 Primary Care Provider: TORITO OTT MD [Primary Care Provider] - Follow up as needed Mode of Arrival: Ambulatory Information source: Patient Notes: 30-year-old female presented to ED for complaint of bilateral flank pain with vaginal pain or pelvic pain. She states that she went to her primary care doctor and her urine was very concerning for pyelonephritis. The primary care did call and stated she wanted to be ruled out for pyelonephritis. Patient states her last menstrual period was April 05. Will get hCG before doing a CT. She does smoke a half a pack a day does not drink or use any drugs. I have greeted and performed a rapid initial assessment of this patient. A comprehensive ED assessment and evaluation of the patient, analysis of test results and completion of medical decision making process will be conducted by an additional ED providers. TRAVEL OUTSIDE OF THE [place] IN LAST 30 DAYS: No - Related Data Allergies/Adverse Reactions: ciprofloxacin [From Cipro] Allergy (Severe, Verified 02/04/20 23:35) Anaphylaxis guaifenesin [From Mucinex] Allergy (Severe, Verified 02/04/20 23:35) Anaphylaxis nitrofurantoin macrocrystalline [From Macrobid] Allergy (Severe, Verified 02/04/20 23:35) Anaphylaxis Penicillins Allergy (Severe, Verified 02/04/20 23:35) Anaphylaxis sulfamethoxazole [From Bactrim] Allergy (Severe, Verified 02/04/20 23:35) anaphylaxis/hives tramadol [Tramadol] Allergy (Severe, Verified 02/04/20 23:35) Anaphylaxis hydromorphone HCl [From Dilaudid] Allergy (Intermediate, Verified 02/04/20 23:35) Hives amoxicillin [Amoxicillin] Allergy (Verified 02/04/20 23:35) anaphylaxis/hives hydrocodone [From [place]] Allergy (Verified 02/04/20 23:35) nitrofurantoin [From Macrobid] Allergy (Verified 02/04/20 23:35) Anaphylaxis trimethoprim [From Bactrim] Allergy (Verified 02/04/20 23:35) Home Medications: Ambien, Zyrtec, [place] Past Medical History - Past Medical History Cardiac Medical History: Denies: Hx Coronary Artery Disease, Hx Heart Attack, Hx Hypertension Pulmonary Medical History: Reports: Hx Asthma Denies: Hx Bronchitis, Hx COPD, Hx Pneumonia Neurological Medical History: Reports: Hx Migraine. Denies: Hx Cerebrovascular Accident, Hx Seizures Renal/ Medical History: Reports: Hx Kidney Stones, Hx Ovarian Cysts, Hx Peritoneal Dialysis GI Medical History: Reports: Hx Gastroesophageal Reflux Disease. Denies: Hx Hepatitis, Hx Hiatal Hernia, Hx Ulcer Musculoskeltal Medical History: 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, knees, fingers Psychiatric Medical History: Reports: Hx Anxiety, Hx Attention Deficit Hyperactivity Disorder, Hx Bipolar Disorder, Hx Depression, Hx Post Traumatic Stress Disorder Infectious Medical History: Denies: Hx Hepatitis Past Surgical History: Reports: Hx Abdominal Surgery - EXPLORATORY LAPX6, Hx Appendectomy, Hx Section, Hx Orthopedic Surgery - cervical spine surgery , septoplasty, bilateral knee, left foot, Other - septoplasty, bilateral knee surgery (miniscus tears, ) , right foot surgery. Denies: Hx Hysterectomy, Hx Mastectomy, Hx Open Heart Surgery, Hx Pacemaker - Immunizations Hx Diphtheria, Pertussis, Tetanus Vaccination: Yes Physical Exam - Vital signs Vitals: Temp Pulse Resp BP Pulse Ox 99.0 F 102 H 20 110/71 97 04/18/20 12:45 04/18/20 12:45 04/18/20 12:45 04/18/20 12:45 04/18/20 12:45 Course - Vital Signs Vital signs: Temp Pulse Resp BP Pulse Ox 99.0 F 102 H 20 110/71 97 04/18/20 12:45 04/18/20 12:45 04/18/20 12:45 04/18/20 12:45 04/18/20 12:45 Doctor's Discharge - Discharge Referrals: TORITO OTT MD [Primary Care Provider] - Follow up as needed
[2020-04-18 13:48] LABS: ABSOLUTE BASOPHILS # (AUTO) 0.1 10^3/uL (0.0-0.2); ABSOLUTE EOSINOPHILS # (AUTO) 0.1 10^3/uL (0.0-0.6); ABSOLUTE LYMPHOCYTES (AUTO) 1.8 10^3/uL (0.5-4.7); ABSOLUTE MONOCYTES (AUTO) 0.5 10^3/uL (0.1-1.4); ABSOLUTE NEUT (AUTO) 9.8 10^3/uL (1.7-8.2); BASOPHILS % (AUTO) 0.6 % (0-2); EOSINOPHILS % (AUTO) 0.7 % (0-6); HEMATOCRIT 43.9 % (36.0-47.0); LYMPHOCYTES % (AUTO) 14.5 % (13-45); MEAN CORPUSCULAR HEMOGLOBIN 31.1 pg (27.0-33.4); MEAN CORPUSCULAR HGB CONC 34.1 g/dL (32.0-36.0); MEAN CORPUSCULAR VOLUME 91 fl (80-97); MONOCYTES % (AUTO) 4.2 % (3-13); PLATELET COUNT 242 10^3/uL (150-450); RED BLOOD COUNT 4.82 10^6/uL (3.72-5.28); RED CELL DISTRIBUTION WIDTH 14.5 % (11.5-14.0); TOTAL CELLS COUNTED % (AUTO) 100 %; WHITE BLOOD COUNT 12.2 10^3/uL (4.0-10.5)
[2020-04-18 13:58] LABS: APPEARANCE,URINE TURBID; BILIRUBIN,URINE NEGATIVE (NEGATIVE); CALCIUM OXALATE CRYSTALS,URINE TOO NUMEROUS TO CNT /HPF; COLOR,URINE YELLOW; GLUCOSE, URINE NEGATIVE (NEGATIVE); KETONES,URINE TRACE mg/dL (NEGATIVE); LEUKOCYTE ESTERASE,URINE LARGE (NEGATIVE); NITRITE,URINE NEGATIVE (NEGATIVE); PROTEIN,URINE 100 mg/dL (NEGATIVE)
[2020-04-18 14:08] LABS: ALBUMIN 4.1 g/dL (3.5-5.0); ALKALINE PHOSPHATASE 98 U/L (38-126); ANION GAP 9 (5-19); ASPARTATE AMINO TRANSFERASE 25 U/L (14-36); BILIRUBIN,TOTAL 0.4 mg/dL (0.2-1.3); BLOOD UREA NITROGEN 7 mg/dL (7-20); CALCIUM 9.8 mg/dL (8.4-10.2); CARBON DIOXIDE 23 mmol/L (22-30); CHLORIDE 106 mmol/L (98-107); GLUCOSE 101 mg/dL (75-110); TOTAL PROTEIN 7.2 g/dL (6.3-8.2)
[2020-04-18] MEDS ORDERED: NORMAL SALINE 1000 ML 1,000 ML IV PRN (15:13)
[2020-04-18] MEDS ORDERED: KETOROLAC TROMETHAMINE 60 MG/2 ML SDV IV ONE (15:13)
--- NOTE | 2020-04-18 15:15 | ER Document Report ---
ED GI/ - General Chief Complaint: Flank Pain Stated Complaint: FLANK PAIN Time Seen by Provider: 04/18/20 12:54 Primary Care Provider: TORITO OTT MD [NO LOCAL MD] - Follow up as needed Mode of Arrival: Ambulatory Information source: Patient TRAVEL OUTSIDE OF THE [place] IN LAST 30 DAYS: No - HPI Patient complains to provider of: Dysuria, Other - This 30-year-old female with known kidney stones who presents to the emergency room after being referred from her PMD she went to the office today stating that she had flank pain right sided radiating around to the groin noticed that her urine was intermittently pink Onset: Just prior to arrival Timing/Duration: Waxing and waning Quality of pain: Achy Severity at maximum: Moderate - Related Data Allergies/Adverse Reactions: ciprofloxacin [From Cipro] Allergy (Severe, Verified 02/04/20 23:35) Anaphylaxis guaifenesin [From Mucinex] Allergy (Severe, Verified 02/04/20 23:35) Anaphylaxis nitrofurantoin macrocrystalline [From Macrobid] Allergy (Severe, Verified 02/04/20 23:35) Anaphylaxis Penicillins Allergy (Severe, Verified 02/04/20 23:35) Anaphylaxis sulfamethoxazole [From Bactrim] Allergy (Severe, Verified 02/04/20 23:35) anaphylaxis/hives tramadol [Tramadol] Allergy (Severe, Verified 02/04/20 23:35) Anaphylaxis hydromorphone HCl [From Dilaudid] Allergy (Intermediate, Verified 02/04/20 23:35) Hives amoxicillin [Amoxicillin] Allergy (Verified 02/04/20 23:35) anaphylaxis/hives hydrocodone [From [place]] Allergy (Verified 02/04/20 23:35) nitrofurantoin [From Macrobid] Allergy (Verified 02/04/20 23:35) Anaphylaxis trimethoprim [From Bactrim] Allergy (Verified 02/04/20 23:35) Home Medications: Ambien, Zyrtec, [place] Past Medical History - General Information source: Patient - Social History Smoking Status: Current Every Day Smoker Cigarette use (# per day): Yes - 20 Frequency of alcohol use: Occasional Lives with: Family Family History: Reviewed & Not Pertinent, Hypertension, Malignancy - Past Medical History Cardiac Medical History: Denies: Hx Coronary Artery Disease, Hx Heart Attack, Hx Hypertension Pulmonary Medical History: Reports: Hx Asthma Denies: Hx Bronchitis, Hx COPD, Hx Pneumonia Neurological Medical History: Reports: Hx Migraine. Denies: Hx Cerebrovascular Accident, Hx Seizures Renal/ Medical History: Reports: Hx Kidney Stones, Hx Ovarian Cysts, Hx Peritoneal Dialysis GI Medical History: Reports: Hx Gastroesophageal Reflux Disease. Denies: Hx Hepatitis, Hx Hiatal Hernia, Hx Ulcer Musculoskeletal Medical History: 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, knees, fingers Psychiatric Medical History: Reports: Hx Anxiety, Hx Attention Deficit Hyperactivity Disorder, Hx Bipolar Disorder, Hx Depression, Hx Post Traumatic Stress Disorder Infectious Medical History: Denies: Hx Hepatitis Past Surgical History: Reports: Hx Abdominal Surgery - EXPLORATORY LAPX6, Hx Appendectomy, Hx Section, Hx Orthopedic Surgery - cervical spine surgery , septoplasty, bilateral knee, left foot, Other - septoplasty, bilateral knee surgery (miniscus tears, ) , right foot surgery. Denies: Hx Hysterectomy, Hx Mastectomy, Hx Open Heart Surgery, Hx Pacemaker - Immunizations Hx Diphtheria, Pertussis, Tetanus Vaccination: Yes Review of Systems - Review of Systems Constitutional: No symptoms reported EENT: No symptoms reported Cardiovascular: No symptoms reported Respiratory: No symptoms reported Gastrointestinal: No symptoms reported, Nausea, Other - Right flank pain with radiation around to the groin.. denies: Diarrhea Genitourinary: No symptoms reported Female Genitourinary: No symptoms reported Musculoskeletal: No symptoms reported Skin: No symptoms reported Hematologic/Lymphatic: No symptoms reported Neurological/Psychological: No symptoms reported Physical Exam - Vital signs Vitals: Temp Pulse Resp BP Pulse Ox 99.0 F 102 H 20 110/71 97 04/18/20 12:45 04/18/20 12:45 04/18/20 12:45 04/18/20 12:45 04/18/20 12:45 Interpretation: Normal - General General appearance: Appears well, Alert - HEENT Head: Normocephalic, Atraumatic Eyes: Normal Pupils: PERRL - Respiratory Respiratory status: No respiratory distress Chest status: Nontender Breath sounds: Normal Chest palpation: Normal - Cardiovascular Rhythm: Regular Heart sounds: Normal auscultation Murmur: No - Abdominal Inspection: Normal Distension: No distension Bowel sounds: Normal Tenderness: Nontender. No: Tender, McBurney's point, Clemente's sign, Guarding Organomegaly: No organomegaly - Back Back: Normal, Nontender - Extremities General upper extremity: Normal inspection, Nontender, Normal color, Normal ROM, Normal temperature General lower extremity: Normal inspection, Nontender, Normal color, Normal ROM, Normal temperature, Normal weight bearing. No: Jacques's sign - Neurological Neuro grossly intact: Yes Cognition: Normal Orientation: AAOx4 [place] Coma Scale Eye Opening: Spontaneous Horacio Coma Scale Verbal: Oriented Horacio Coma Scale Motor: Obeys Commands Dorrance Coma Scale Total: 15 Speech: Normal Motor strength normal: LUE, RUE, LLE, RLE Sensory: Normal - Psychological Associated symptoms: Normal affect, Normal mood - Skin Skin Temperature: Warm Skin Moisture: Dry Skin Color: Normal Course - Re-evaluation Re-evalutation: 04/18/20 16:16 Patient feels quite a bit better after being provided with Toradol here in the department her results were discussed with her patient feels as though she gets frequent UTIs I concurred she has limited spectrum of antibiotics that she can take based on community findings it was suggested to put her on Keflex with follow-up with PMD and culture will be sent. 04/18/20 16:17 She has no nausea she has no emesis she has no fever she is able to hold down p.o. food and fluid she has no CVA tenderness. - Vital Signs Vital signs: Temp Pulse Resp BP Pulse Ox 99.0 F 102 H 20 110/71 97 04/18/20 12:45 04/18/20 12:45 04/18/20 12:45 04/18/20 12:45 04/18/20 12:45 - Laboratory Result Diagrams: 04/18/20 13:18 04/18/20 13:18 Laboratory results interpreted by me: 04/18/20 04/18/20 13:18 13:18 WBC 12.2 H RDW 14.5 H Absolute Neuts (auto) 9.8 H Seg Neutrophils % 80.0 H Urine Protein 100 H Urine Ketones TRACE H Urine Blood SMALL H Urine Urobilinogen 4.0 H Ur Leukocyte Esterase LARGE H 04/18/20 16:16 Labs- All tests 24 hr 04/18/20 04/18/20 04/18/20 13:18 13:18 13:18 WBC 12.2 H RBC 4.82 Hgb 15.0 Hct 43.9 MCV 91 MCH 31.1 MCHC 34.1 RDW 14.5 H Plt Count 242 Lymph % (Auto) 14.5 [place] % (Auto) 4.2 Eos % (Auto) 0.7 Baso % (Auto) 0.6 Absolute Neuts (auto) 9.8 H Absolute Lymphs (auto) 1.8 Absolute Monos (auto) 0.5 Absolute Eos (auto) 0.1 Absolute Basos (auto) 0.1 Seg Neutrophils % 80.0 H Sodium 138.4 Potassium 4.0 Chloride 106 Carbon Dioxide 23 Anion Gap 9 BUN 7 Creatinine 0.52 Est GFR ( Amer) > 60 Est GFR (MDRD) Non-Af > 60 Glucose 101 Calcium 9.8 Total Bilirubin 0.4 Direct Bilirubin 0.0 Neonat Total Bilirubin Not Reportable Neonat Direct Bilirubin Not Reportable Neonat Indirect Bili Not Reportable AST 25 ALT 17 Alkaline Phosphatase 98 Total Protein 7.2 Albumin 4.1 Beta HCG, Quant < 2.39 Total Beta HCG NEGATIVE Urine Color YELLOW Urine Appearance TURBID Urine pH 6.0 Ur Specific [place] 1.020 Urine Protein 100 H Urine Glucose (UA) NEGATIVE Urine Ketones TRACE H Urine Blood SMALL H Urine Nitrite NEGATIVE Urine Bilirubin NEGATIVE Urine Urobilinogen 4.0 H Ur Leukocyte Esterase LARGE H Urine WBC (Auto) >182 Urine RBC (Auto) 66 Urine Bacteria (Auto) TRACE Urine WBC Clumps MANY U Non-Squamous Epis Auto 4 Calcium Oxalate Cr Auto TOO NUMEROUS TO CNT Urine Mucus (Auto) FEW Urine Ascorbic Acid NEGATIVE - Diagnostic Test Radiology results interpreted by me: 04/18/20 16:16 Abdomen/Pelvis CT 04/18/20 12:55 IMPRESSION: NO SIGNIFICANT OR ACUTE PROCESS IN THE ABDOMEN OR PELVIS. Discharge - Discharge Clinical Impression: UTI (urinary tract infection) Qualifiers: Urinary tract infection type: site unspecified Hematuria presence: with hematuria Qualified Code(s): N39.0 - Urinary tract infection, site not specified; R31.9 - Hematuria, unspecified Condition: Good Disposition: HOME, SELF-CARE Instructions: Cephalexin ([facility]), Urinary Tract Infection ([facility]) Additional Instructions: Increase fluid intake. Consider cranberry supplementation. Must follow-up PMD in 2 to 3 days. Return to the ER for any change or worsening. Prescriptions: Ketorolac Tromethamine [Toradol 10 mg Tablet] 10 mg PO Q6HP PRN #20 tablet PRN Reason: Pain Scale Of 1 Cephalexin Monohydrate [Keflex 500 mg Capsule] 500 mg PO QID #20 capsule Referrals: TORITO OTT MD [NO LOCAL MD] - Follow up as needed
[2020-04-18] MEDS ORDERED: MORPHINE SULFATE 10 MG/ML INJ IV ONE (15:30)
--- NOTE | 2020-04-18 15:50 | RADIOLOGY REPORT (SQ) ---
EXAM DESCRIPTION: CT ABD/PELVIS NO ORAL OR IV IMAGES COMPLETED DATE/TIME: 04/18/2020 3:35 pm REASON FOR STUDY: bilateral flank R/O pyelonephritis wait for hcg COMPARISON: None. TECHNIQUE: CT scan of the abdomen and pelvis performed without intravenous or oral contrast. Images reviewed with lung, soft tissue, and bone windows. Reconstructed coronal and sagittal MPR images revi ewed. All images stored on PACS. All CT scanners at this facility use dose modulation, iterative reconstruction, and/or weight based d osing when appropriate to reduce radiation dose to as low as reasonably achievable (ALARA). [facility]: Dose Right [facility]: CareDose [facility]: Dose Right [facility]: Teradose 4D [facility]: [employer] RADIATION DOSE: CT Rad equipment meets quality standard of care and radiation dose reduction techniq ues were employed. CTDIvol: 5.0 mGy. DLP: 252 mGy-cm.mGy. LIMITATIONS: None. FINDINGS: LOWER CHEST: No significant findings. No nodules or infiltrates. NON-CONTRASTED LIVER, SPLEEN, ADRENALS: Evaluation limited by lack of IV contrast. No identified sign ificant masses. PANCREAS: No masses. No peripancreatic inflammatory changes. GALLBLADDER: No identified stones by CT criteria. No inflammatory changes to suggest cholecystitis. RIGHT KIDNEY AND URETER: No suspicious masses. Assessment limited by lack of IV contrast. Small 3 t o 4 mm nonobstructing stone. No hydronephrosis or hydroureter. LEFT KIDNEY AND URETER: No suspicious masses. Assessment limited by lack of IV contrast. No signifi cant calcifications. No hydronephrosis or hydroureter. AORTA AND RETROPERITONEUM: No aneurysm. No retroperitoneal masses or adenopathy. BOWEL AND PERITONEAL CAVITY: No obvious masses or inflammatory changes. No free fluid. APPENDIX: Surgically absent. PELVIS, BLADDER, AND ABDOMINAL WALL:No abnormal masses. No free fluid. Bladder normal. BONES: No significant findings. OTHER: No other significant finding. IMPRESSION: NO SIGNIFICANT OR ACUTE PROCESS IN THE ABDOMEN OR PELVIS. COMMENT: Quality ID # [id number]: Final reports with documentation of one or more dose reduction techniques (e.g., Automated exposure control, adjustment of the mA and/or kV according to patient size, use of iterative reconstruction technique) TECHNICAL DOCUMENTATION: JOB ID: [id number] 2010 [employer]- All Rights Reserved Reading location - IP/workstation name: [email or web address]
[2020-04-18] MEDS ORDERED: ONDANSETRON 4 MG TAB.RAPDIS PO ONE (15:58)
[2020-04-18] MEDS ORDERED: CEFTRIAXONE INJ 1000 MG VIAL IM ONE (16:13)
[2020-04-18 16:35] VITALS: BP 110/51
== END 2020-04-18 16:39 | disposition home or self-care (01) ==
LOC: ER 12:42
DX: N39.0 Urinary tract infection, site not specified (principal); R31.9 Hematuria, unspecified; R10.9 Unspecified abdominal pain; R30.0 Dysuria; Z88.1 Allergy status to other antibiotic agents; Z88.0 Allergy status to penicillin; Z88.2 Allergy status to sulfonamides; Z88.8 Allergy status to other drugs, medicaments and biological substances; F17.210 Nicotine dependence, cigarettes, uncomplicated; J45.909 Unspecified asthma, uncomplicated
CPT/HCPCS: 99284; 96361; 96374; 96372; 96375; 36415; 87086; 84702; 85025; 87088; 80053; 81001; 74176; J1885; S0119; J2270; J0696; J7030

== ENCOUNTER 2020-06-14 17:53 | Emergency (ER) | payer BC ==
[2020-06-14] MEDS ORDERED: NORMAL SALINE 1000 ML 1,000 ML IV ONE (18:14)
[2020-06-14] MEDS ORDERED: KETOROLAC TROMETHAMINE INJ/PF 30 MG/1 ML SDV IV ONE (18:17)
--- NOTE | 2020-06-14 18:17 | ER Document Report ---
ED Medical Screen (RME) - General Chief Complaint: Flank Pain Stated Complaint: ABDOMINAL PAIN Time Seen by Provider: 06/14/20 18:09 Notes: Patient is a 30-year-old female presents emergency department with a chief complaint of bilateral flank pain. Patient states that she has had on and off flank pain since January. Patient states that she feels that the past few days she has had increased pain in her flank area. Patient is on azithromycin for an ear infection. She states that she has seen urology and is waiting to see nephrology. Patient states, "I feel like I am peeing razor blades." Exam: Bilateral CVA tenderness. I have greeted and performed a rapid initial assessment of this patient. A comprehensive ED assessment and evaluation of the patient, analysis of test results and completion of medical decision making process will be conducted by an additional ED providers. TRAVEL OUTSIDE OF THE [place] IN LAST 30 DAYS: No - Related Data Allergies/Adverse Reactions: ciprofloxacin [From Cipro] Allergy (Severe, Verified 06/14/20 18:09) Anaphylaxis guaifenesin [From Mucinex] Allergy (Severe, Verified 06/14/20 18:09) Anaphylaxis nitrofurantoin macrocrystalline [From Macrobid] Allergy (Severe, Verified 06/14/20 18:09) Anaphylaxis Penicillins Allergy (Severe, Verified 06/14/20 18:09) Anaphylaxis sulfamethoxazole [From Bactrim] Allergy (Severe, Verified 06/14/20 18:09) anaphylaxis/hives tramadol [Tramadol] Allergy (Severe, Verified 06/14/20 18:09) Anaphylaxis hydromorphone HCl [From Dilaudid] Allergy (Intermediate, Verified 06/14/20 18:09) Hives amoxicillin [Amoxicillin] Allergy (Verified 06/14/20 18:09) anaphylaxis/hives hydrocodone [From [place]] Allergy (Verified 06/14/20 18:09) nitrofurantoin [From Macrobid] Allergy (Verified 06/14/20 18:09) Anaphylaxis trimethoprim [From Bactrim] Allergy (Verified 06/14/20 18:09) Past Medical History - Past Medical History Cardiac Medical History: Denies: Hx Coronary Artery Disease, Hx Heart Attack, Hx Hypertension Pulmonary Medical History: Reports: Hx Asthma Denies: Hx Bronchitis, Hx COPD, Hx Pneumonia Neurological Medical History: Reports: Hx Migraine. Denies: Hx Cerebrovascular Accident, Hx Seizures Renal/ Medical History: Reports: Hx Kidney Stones, Hx Ovarian Cysts, Hx Peritoneal Dialysis GI Medical History: Reports: Hx Gastroesophageal Reflux Disease. Denies: Hx Hepatitis, Hx Hiatal Hernia, Hx Ulcer Musculoskeltal Medical History: 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, knees, fingers Psychiatric Medical History: Reports: Hx Anxiety, Hx Attention Deficit Hyperactivity Disorder, Hx Bipolar Disorder, Hx Depression, Hx Post Traumatic Stress Disorder Infectious Medical History: Denies: Hx Hepatitis Past Surgical History: Reports: Hx Abdominal Surgery - EXPLORATORY LAPX6, Hx Appendectomy, Hx Section, Hx Orthopedic Surgery - cervical spine surgery , septoplasty, bilateral knee, left foot, Other - septoplasty, bilateral knee surgery (miniscus tears, ) , right foot surgery. Denies: Hx Hysterectomy, Hx Mastectomy, Hx Open Heart Surgery, Hx Pacemaker - Immunizations Hx Diphtheria, Pertussis, Tetanus Vaccination: Yes Physical Exam - Vital signs Vitals: Temp Pulse Resp BP Pulse Ox 99.0 F 98 18 110/74 98 06/14/20 17:56 06/14/20 17:56 06/14/20 17:56 06/14/20 17:56 06/14/20 17:56 Course - Vital Signs Vital signs: Temp Pulse Resp BP Pulse Ox 99.0 F 98 18 110/74 98 06/14/20 17:56 06/14/20 17:56 06/14/20 17:56 06/14/20 17:56 06/14/20 17:56
[2020-06-14 19:03] LABS: ABSOLUTE BASOPHILS # (AUTO) 0.2 10^3/uL (0.0-0.2); ABSOLUTE EOSINOPHILS # (AUTO) 0.2 10^3/uL (0.0-0.6); ABSOLUTE LYMPHOCYTES (AUTO) 3.8 10^3/uL (0.5-4.7); ABSOLUTE MONOCYTES (AUTO) 0.6 10^3/uL (0.1-1.4); ABSOLUTE NEUT (AUTO) 6.7 10^3/uL (1.7-8.2); BASOPHILS % (AUTO) 1.4 % (0-2); EOSINOPHILS % (AUTO) 1.5 % (0-6); HEMATOCRIT 42.1 % (36.0-47.0); HEMOGLOBIN 14.4 g/dL (12.0-15.5); LYMPHOCYTES % (AUTO) 33.4 % (13-45); MEAN CORPUSCULAR HEMOGLOBIN 31.3 pg (27.0-33.4); MEAN CORPUSCULAR HGB CONC 34.2 g/dL (32.0-36.0); MEAN CORPUSCULAR VOLUME 91 fl (80-97); MONOCYTES % (AUTO) 5.1 % (3-13); PLATELET COUNT 235 10^3/uL (150-450); RED BLOOD COUNT 4.61 10^6/uL (3.72-5.28); RED CELL DISTRIBUTION WIDTH 14.8 % (11.5-14.0); SEGMENTED NEUTROPHILS % (AUTO) 58.6 % (42-78); TOTAL CELLS COUNTED % (AUTO) 100 %; WHITE BLOOD COUNT 11.4 10^3/uL (4.0-10.5)
[2020-06-14 19:07] LABS: APPEARANCE,URINE CLEAR; BILIRUBIN,URINE NEGATIVE (NEGATIVE); COLOR,URINE YELLOW; GLUCOSE, URINE NEGATIVE (NEGATIVE); KETONES,URINE NEGATIVE (NEGATIVE); LEUKOCYTE ESTERASE,URINE NEGATIVE (NEGATIVE); NITRITE,URINE NEGATIVE (NEGATIVE); PROTEIN,URINE NEGATIVE (NEGATIVE); URINE SPECIFIC GRAVITY 1.013; UROBILINOGEN,URINE NEGATIVE mg/dL (<2.0)
[2020-06-14 19:23] LABS: ALBUMIN 4.1 g/dL (3.5-5.0); ALKALINE PHOSPHATASE 71 U/L (38-126); ANION GAP 7 (5-19); ASPARTATE AMINO TRANSFERASE 19 U/L (14-36); BILIRUBIN,DIRECT 0.3 mg/dL (0.0-0.4); BILIRUBIN,TOTAL 0.3 mg/dL (0.2-1.3); BLOOD UREA NITROGEN 10 mg/dL (7-20); CALCIUM 9.4 mg/dL (8.4-10.2); CARBON DIOXIDE 23 mmol/L (22-30); CHLORIDE 109 mmol/L (98-107); GLUCOSE 123 mg/dL (75-110); TOTAL PROTEIN 6.9 g/dL (6.3-8.2)
--- NOTE | 2020-06-14 19:30 | ER Document Report ---
ED GI/ - General Chief Complaint: Flank Pain Stated Complaint: ABDOMINAL PAIN Time Seen by Provider: 06/14/20 18:09 Notes: CHIEF COMPLAINT: Bilateral flank pain today with vomiting HPI: 30-year-old female presenting for evaluation of bilateral flank pain, states she feels like she is peeing razors today. Has had some nausea vomiting no fever. States she has been worked up since January by urology for possible kidney stone issues. States that she has had multiple studies and they are now referring her to nephrology for evaluation. States she did have vaginal discharge last week was tested for BV which was negative was positive for yeast infection for which she is being treated with Diflucan and a vaginal cream. ROS: See HPI - all other systems were reviewed and are otherwise negative Constitutional: no fever Eyes: no drainage, no blurred vision ENT: no runny nose, no sore throat Cardiovascular: no chest pain Resp: no SOB, no cough GI: + vomiting, no diarrhea, no abdominal pain : + dysuria Integumentary: no rash Allergy: no hives Musculoskeletal: no extremity pain or swelling Neurological: no numbness/tingling, no weakness MEDICATIONS: I agree with the patient medications as charted by the RN. ALLERGIES: I agree with the allergies as charted by the RN. PAST MEDICAL HISTORY/PAST SURGICAL HISTORY: Reviewed and agree as charted by RN. SOCIAL HISTORY: Reviewed and agree as charted by RN. FAMILY HISTORY: No significant familial comorbid conditions directly related to patient complaint EXAM: Reviewed vital signs as charted by RN. CONSTITUTIONAL: Alert and oriented and responds appropriately to questions. Well-appearing; well-nourished HEAD: Normocephalic; atraumatic EYES: PERRL; Conjunctivae clear, sclerae non-icteric ENT: normal nose; no rhinorrhea; moist mucous membranes; pharynx without lesions noted, no uvula edema or deviation, no tonsillar hypertrophy, phonation normal NECK: Supple without meningismus; non-tender; no cervical lymphadenopathy, no masses CARD: RRR; no murmurs, no clicks, no rubs, no gallops; symmetric distal pulses RESP: Normal chest excursion without splinting or tachypnea; breath sounds clear and equal bilaterally; no wheezes, no rhonchi, no rales, pulse oximetry 98% on room air not hypoxic ABD/GI: Normal bowel sounds; non-distended; soft, non-tender, no rebound, no gu arding; no palpable organomegaly or masses. BACK: The back appears normal and is non-tender to palpation, there is mild bilateral CVA tenderness EXT: Normal ROM in all joints; non-tender to palpation; no cyanosis, no effusions, no edema SKIN: Normal color for age and race; warm; dry; good turgor; no acute lesions noted NEURO: Moves all extremities equally; Motor and sensory function intact PSYCH: The patient's mood and manner are appropriate. Grooming and personal hygiene are appropriate. MDM: 30-year-old female presenting for bilateral back and flank pain worse today on the left side states it seems to radiate around into the abdomen. There is being treated for vaginal Peggy currently. Does report some discomfort with urination. Initial screening labs ordered by triage process show clean urine, no other significant lab abnormalities. On review of the records she had renal imaging in April, will obtain CT with contrast today given the flank pain to evaluate for hydronephrosis, hydroureter, kidney stone, obstruction. Declines pelvic exam at this time as she is not worried about vaginitis TRAVEL OUTSIDE OF THE [place] IN LAST 30 DAYS: No - Related Data Allergies/Adverse Reactions: ciprofloxacin [From Cipro] Allergy (Severe, Verified 06/14/20 18:09) Anaphylaxis guaifenesin [From Mucinex] Allergy (Severe, Verified 06/14/20 18:09) Anaphylaxis nitrofurantoin macrocrystalline [From Macrobid] Allergy (Severe, Verified 06/14/20 18:09) Anaphylaxis Penicillins Allergy (Severe, Verified 06/14/20 18:09) Anaphylaxis sulfamethoxazole [From Bactrim] Allergy (Severe, Verified 06/14/20 18:09) anaphylaxis/hives tramadol [Tramadol] Allergy (Severe, Verified 06/14/20 18:09) Anaphylaxis hydromorphone HCl [From Dilaudid] Allergy (Intermediate, Verified 06/14/20 18:09) Hives amoxicillin [Amoxicillin] Allergy (Verified 06/14/20 18:09) anaphylaxis/hives hydrocodone [From [place]] Allergy (Verified 06/14/20 18:09) nitrofurantoin [From Macrobid] Allergy (Verified 06/14/20 18:09) Anaphylaxis trimethoprim [From Bactrim] Allergy (Verified 06/14/20 18:09) Past Medical History - Social History Smoking Status: Current Every Day Smoker Family History: Reviewed & Not Pertinent, Hypertension, Malignancy Patient has homicidal ideation: No - Past Medical History Cardiac Medical History: Denies: Hx Coronary Artery Disease, Hx Heart Attack, Hx Hypertension Pulmonary Medical History: Reports: Hx Asthma Denies: Hx Bronchitis, Hx COPD, Hx Pneumonia Neurological Medical History: Reports: Hx Migraine. Denies: Hx Cerebrovascular Accident, Hx Seizures Renal/ Medical History: Reports: Hx Kidney Stones, Hx Ovarian Cysts, Hx Peritoneal Dialysis GI Medical History: Reports: Hx Gastroesophageal Reflux Disease. Denies: Hx Hepatitis, Hx Hiatal Hernia, Hx Ulcer Musculoskeletal Medical History: 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, knees, fingers Psychiatric Medical History: Reports: Hx Anxiety, Hx Attention Deficit Hyperactivity Disorder, Hx Bipolar Disorder, Hx Depression, Hx Post Traumatic Stress Disorder Infectious Medical History: Denies: Hx Hepatitis Past Surgical History: Reports: Hx Abdominal Surgery - EXPLORATORY LAPX6, Hx Appendectomy, Hx Section, Hx Orthopedic Surgery - cervical spine surgery , septoplasty, bilateral knee, left foot, Other - septoplasty, bilateral knee surgery (miniscus tears, ) , right foot surgery. Denies: Hx Hysterectomy, Hx Mastectomy, Hx Open Heart Surgery, Hx Pacemaker - Immunizations Hx Diphtheria, Pertussis, Tetanus Vaccination: Yes Physical Exam - Vital signs Vitals: Temp Pulse Resp BP Pulse Ox 99.0 F 98 18 110/74 98 06/14/20 17:56 06/14/20 17:56 06/14/20 17:56 06/14/20 17:56 06/14/20 17:56 Course - Re-evaluation Re-evalutation: 06/14/20 20:32 CT imaging and lab work did not show acute emergent abnormalities on my review of her CT she does have moderate to significant constipation will give her mag citrate here. She will be referred back to nephrology for follow-up will place her on Bentyl for abdominal pain or spasm - Vital Signs Vital signs: Temp Pulse Resp BP Pulse Ox 99.0 F 98 18 110/74 98 06/14/20 17:56 06/14/20 17:56 06/14/20 17:56 06/14/20 17:56 06/14/20 17:56 - Laboratory Result Diagrams: 06/14/20 18:50 09/12/20 18:50 Laboratory results interpreted by me: 06/14/20 06/14/20 18:50 18:50 WBC 11.4 H RDW 14.8 H Chloride 109 H Glucose 123 H Discharge - Discharge Clinical Impression: Flank pain Condition: Stable Disposition: HOME, SELF-CARE Additional Instructions: Your imaging studies and lab work did not show acute emergent abnormalities. There was a suggestion of constipation on your CT imaging but no other acute findings. Take the magnesium citrate when you get home tonight. Take the Bentyl for abdominal pain or spasm. Take MiraLAX daily for constipation. Follow-up with your ship/rec/doc control for further evaluation and treatment. Prescriptions: Dicyclomine HCl [Bentyl 20 mg Tablet] 20 mg PO Q6H PRN #20 tablet PRN Reason:
--- NOTE | 2020-06-14 20:25 | RADIOLOGY REPORT (SQ) ---
CLINICAL INDICATION: bilateral flank pain. . TECHNIQUE: Contrast enhanced spiral axial CT imaging was obtained of the abdomen and pelvis with multiplanar reconstructions. This exam was performed according to our departmental dose-optimization program, which includes automated exposure control, adjustment of the mA and/or kV according to patient size and/or use of iterative reconstruction techniques. Additional delayed phase imaging. COMPARISON: April 18, 2020. CORRELATION: None. FINDINGS: Abdomen: The lung bases are grossly clear. The heart is of normal size. No evidence of pleural or pericardial fluid. The liver is homogeneous. The gallbladder is nondistended without inflammatory change. The pancreas is unremarkable. The spleen is unremarkable. The adrenals are unremarkable. The kidneys appear grossly normal without evidence of urolithiasis or hydronephrosis. There is no evidence of free air. No free fluid. No bulky adenopathy. Abdominal aorta is nonaneurysmal. Pelvis: The bowel is nonobstructed. The bowel is unopacified with oral contrast. Pelvic contents are unremarkable. The appendix is normal. Visualized bones are unremarkable. IMPRESSION: No acute intra-abdominal process identified. The cause of the patient's abdominal pain is not identified on this examination..
[2020-06-14] MEDS ORDERED: MAGNESIUM CITRATE 296 ML BOTTLE PO ONE (20:32)
[2020-06-14] MEDS ORDERED: DICYCLOMINE HCL 20 MG TABLET PO ONE (21:09)
[2020-06-14 22:10] VITALS: BP 104/69
== END 2020-06-14 22:03 | disposition home or self-care (01) ==
LOC: ER 17:53
DX: R10.9 Unspecified abdominal pain (principal); R11.2 Nausea with vomiting, unspecified; R30.0 Dysuria; F17.200 Nicotine dependence, unspecified, uncomplicated; Z87.442 Personal history of urinary calculi; Z88.6 Allergy status to analgesic agent
CPT/HCPCS: 99285; 96361; 96374; 36415; 83690; 84703; 85025; 80053; 81001; 74177; J3490 ×2; J1885; J7030

== ENCOUNTER 2020-06-21 14:15 | Emergency (ER) | payer BC ==
--- NOTE | 2020-06-21 15:23 | ER Document Report ---
ED Medical Screen (RME) - General Chief Complaint: Abdominal Pain Stated Complaint: ABDOMINAL PAIN,BACK PAIN,NAUSEA Time Seen by Provider: 06/21/20 15:19 Primary Care Provider: KILEY SLATER PA-C [Primary Care Provider] - Follow up as needed Mode of Arrival: Ambulatory Information source: Patient Notes: 30-year-old female presents to ED for bilateral abdominal back pain worse on the right. She is has right flank pain that she is holding. She states is been for about 2 days worse last night. She states she has had some nausea but no fever diarrhea or vomiting. She is alert oriented respirations regular nonlabored speaking in full sentences. She states the pain comes in waves and right now it is a level 4. She does have a history of IBS kidney stone psych issues and ovarian cyst. She states her last menstrual cycle was on June 06. She does smoke half a pack does not use alcohol or drugs. Patient is alert oriented respirations regular nonlabored speaking in full sentences. We will get urine blood and a CT of the abdomen pelvis noncontrasted. Will need to get hCG before doing CT scan. I have greeted and performed a rapid initial assessment of this patient. A comprehensive ED assessment and evaluation of the patient, analysis of test results and completion of medical decision making process will be conducted by an additional ED providers. TRAVEL OUTSIDE OF THE [place] IN LAST 30 DAYS: No - Related Data Allergies/Adverse Reactions: ciprofloxacin [From Cipro] Allergy (Severe, Verified 06/14/20 18:09) Anaphylaxis guaifenesin [From Mucinex] Allergy (Severe, Verified 06/14/20 18:09) Anaphylaxis nitrofurantoin macrocrystalline [From Macrobid] Allergy (Severe, Verified 06/14/20 18:09) Anaphylaxis Penicillins Allergy (Severe, Verified 06/14/20 18:09) Anaphylaxis sulfamethoxazole [From Bactrim] Allergy (Severe, Verified 06/14/20 18:09) anaphylaxis/hives tramadol [Tramadol] Allergy (Severe, Verified 06/14/20 18:09) Anaphylaxis hydromorphone HCl [From Dilaudid] Allergy (Intermediate, Verified 06/14/20 18:09) Hives amoxicillin [Amoxicillin] Allergy (Verified 06/14/20 18:09) anaphylaxis/hives hydrocodone [From [place]] Allergy (Verified 06/14/20 18:09) nitrofurantoin [From Macrobid] Allergy (Verified 06/14/20 18:09) Anaphylaxis trimethoprim [From Bactrim] Allergy (Verified 06/14/20 18:09) Past Medical History - Past Medical History Cardiac Medical History: Denies: Hx Coronary Artery Disease, Hx Heart Attack, Hx Hypertension Pulmonary Medical History: Reports: Hx Asthma Denies: Hx Bronchitis, Hx COPD, Hx Pneumonia Neurological Medical History: Reports: Hx Migraine. Denies: Hx Cerebrovascular Accident, Hx Seizures Renal/ Medical History: Reports: Hx Kidney Stones, Hx Ovarian Cysts, Hx Peritoneal Dialysis GI Medical History: Reports: Hx Gastroesophageal Reflux Disease. Denies: Hx Hepatitis, Hx Hiatal Hernia, Hx Ulcer Musculoskeltal Medical History: 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, knees, fingers Psychiatric Medical History: Reports: Hx Anxiety, Hx Attention Deficit Hyperactivity Disorder, Hx Bipolar Disorder, Hx Depression, Hx Post Traumatic Stress Disorder Infectious Medical History: Denies: Hx Hepatitis Past Surgical History: Reports: Hx Abdominal Surgery - EXPLORATORY LAPX6, Hx Appendectomy, Hx Section, Hx Orthopedic Surgery - cervical spine surgery , septoplasty, bilateral knee, left foot, Other - septoplasty, bilateral knee surgery (miniscus tears, ) , right foot surgery. Denies: Hx Hysterectomy, Hx Mastectomy, Hx Open Heart Surgery, Hx Pacemaker - Immunizations Hx Diphtheria, Pertussis, Tetanus Vaccination: Yes Physical Exam - Vital signs Vitals: Temp Pulse Resp BP Pulse Ox 98.2 F 92 18 116/66 98 06/21/20 14:20 06/21/20 14:20 06/21/20 14:20 06/21/20 14:20 06/21/20 14:20 Course - Vital Signs Vital signs: Temp Pulse Resp BP Pulse Ox 98.2 F 92 18 116/66 98 06/21/20 14:20 06/21/20 14:20 06/21/20 14:20 06/21/20 14:20 06/21/20 14:20 Doctor's Discharge - Discharge Referrals: KILEY SLATER PA-C [Primary Care Provider] - Follow up as needed
[2020-06-21 16:26] LABS: APPEARANCE,URINE SLIGHTLY-CLOUDY; BILIRUBIN,URINE NEGATIVE (NEGATIVE); COLOR,URINE YELLOW; GLUCOSE, URINE NEGATIVE (NEGATIVE); KETONES,URINE NEGATIVE (NEGATIVE); LEUKOCYTE ESTERASE,URINE NEGATIVE (NEGATIVE); NITRITE,URINE NEGATIVE (NEGATIVE); PROTEIN,URINE NEGATIVE (NEGATIVE); URINE SPECIFIC GRAVITY 1.016; UROBILINOGEN,URINE NEGATIVE mg/dL (<2.0)
[2020-06-21 16:32] LABS: ABSOLUTE BASOPHILS # (AUTO) 0.1 10^3/uL (0.0-0.2); ABSOLUTE EOSINOPHILS # (AUTO) 0.2 10^3/uL (0.0-0.6); ABSOLUTE LYMPHOCYTES (AUTO) 3.6 10^3/uL (0.5-4.7); ABSOLUTE MONOCYTES (AUTO) 0.4 10^3/uL (0.1-1.4); ABSOLUTE NEUT (AUTO) 6.5 10^3/uL (1.7-8.2); BASOPHILS % (AUTO) 0.9 % (0-2); EOSINOPHILS % (AUTO) 1.5 % (0-6); HEMATOCRIT 43.7 % (36.0-47.0); HEMOGLOBIN 15.3 g/dL (12.0-15.5); LYMPHOCYTES % (AUTO) 33.2 % (13-45); MEAN CORPUSCULAR HGB CONC 34.9 g/dL (32.0-36.0); MEAN CORPUSCULAR VOLUME 92 fl (80-97); MONOCYTES % (AUTO) 3.9 % (3-13); PLATELET COUNT 240 10^3/uL (150-450); RED BLOOD COUNT 4.76 10^6/uL (3.72-5.28); RED CELL DISTRIBUTION WIDTH 14.7 % (11.5-14.0); SEGMENTED NEUTROPHILS % (AUTO) 60.5 % (42-78); TOTAL CELLS COUNTED % (AUTO) 100 %; WHITE BLOOD COUNT 10.7 10^3/uL (4.0-10.5)
[2020-06-21 16:36] LABS: ALBUMIN 4.6 g/dL (3.5-5.0); ALKALINE PHOSPHATASE 81 U/L (38-126); ANION GAP 8 (5-19); ASPARTATE AMINO TRANSFERASE 20 U/L (14-36); BILIRUBIN,DIRECT 0.3 mg/dL (0.0-0.4); BILIRUBIN,TOTAL 0.4 mg/dL (0.2-1.3); BLOOD UREA NITROGEN 9 mg/dL (7-20); CALCIUM 9.8 mg/dL (8.4-10.2); CARBON DIOXIDE 24 mmol/L (22-30); CHLORIDE 109 mmol/L (98-107); GLUCOSE 86 mg/dL (75-110); POTASSIUM 3.9 mmol/L (3.6-5.0); TOTAL PROTEIN 7.9 g/dL (6.3-8.2)
[2020-06-21] MEDS ORDERED: OXYCODONE-ACETAMINOPHEN 5-325 MG TABLET PO ONE (17:05)
--- NOTE | 2020-06-21 17:11 | ER Document Report ---
ED GI/ - General Chief Complaint: Back Pain Stated Complaint: ABDOMINAL PAIN,BACK PAIN,NAUSEA Time Seen by Provider: 06/21/20 15:19 Primary Care Provider: KILEY SLATER PA-C [Primary Care Provider] - Follow up as needed Mode of Arrival: Ambulatory Notes: HPI: 30-year-old female with past medical history as recorded being evaluated here multiple times for flank pain and abdominal pain who presents with 2 days of some right flank and right lower quadrant abdominal discomfort. No real agg ravating relieving factors other than worse with movement. Nausea and vomiting without cough, shortness of breath, dysuria, diarrhea, or missed menstrual periods. Patient denies any weakness of her legs. She states she has had an extensive examination by [facility] GEOLOGIST within the last week checking for STDs which were normal. Patient was seen here on the , 8 days ago with an unremarkable CT scan of the abdomen and pelvis. ROS: See HPI All other review of systems reviewed and otherwise negative Reviewed vital signs and nursing note as charted by RN. PHYSICAL EXAM: CONSTITUTIONAL: Alert and oriented and responds appropriately to questions. Well-appearing; well-nourished HEAD: Normocephalic; atraumatic EYES: Sclerae non-icteric ENT: Normal nose; no rhinorrhea; moist mucous membranes; pharynx without lesions noted NECK: Supple without meningismus; non-tender; no cervical lymphadenopathy, no masses CARD: Regular rate and rhythm; no murmurs; symmetric distal pulses RESP: Normal chest excursion without splinting or tachypnea; breath sounds clear and equal bilaterally; no wheezes, no rhonchi, no rales ABD/GI: Normal bowel sounds; non-distended; soft, mild tenderness of the right lower quadrant without rebound or guarding BACK: The back appears normal and is non-tender to palpation along the midline spine; patient has some right-sided CVA tenderness with no swelling or erythema EXT: Normal ROM in all joints; non-tender to palpation; no edema SKIN: No acute lesions noted NEURO: CN 2-12 intact; 5/5 bilateral upper and lower extremity strength with sensation intact to light touch PSYCH: The patient's mood and manner are appropriate. Grooming and personal hygiene are appropriate. TRAVEL OUTSIDE OF THE [place] IN LAST 30 DAYS: No - Related Data Allergies/Adverse Reactions: ciprofloxacin [From Cipro] Allergy (Severe, Verified 06/14/20 18:09) Anaphylaxis guaifenesin [From Mucinex] Allergy (Severe, Verified 06/14/20 18:09) Anaphylaxis nitrofurantoin macrocrystalline [From Macrobid] Allergy (Severe, Verified 06/14/20 18:09) Anaphylaxis Penicillins Allergy (Severe, Verified 06/14/20 18:09) Anaphylaxis sulfamethoxazole [From Bactrim] Allergy (Severe, Verified 06/14/20 18:09) anaphylaxis/hives tramadol [Tramadol] Allergy (Severe, Verified 06/14/20 18:09) Anaphylaxis hydromorphone HCl [From Dilaudid] Allergy (Intermediate, Verified 06/14/20 18:09) Hives amoxicillin [Amoxicillin] Allergy (Verified 06/14/20 18:09) anaphylaxis/hives hydrocodone [From [place]] Allergy (Verified 06/14/20 18:09) nitrofurantoin [From Macrobid] Allergy (Verified 06/14/20 18:09) Anaphylaxis trimethoprim [From Bactrim] Allergy (Verified 06/14/20 18:09) Past Medical History - General Information source: Patient - Social History Smoking Status: Current Every Day Smoker Chew tobacco use (# tins/day): No Frequency of alcohol use: None Drug Abuse: None Family History: Reviewed & Not Pertinent, Hypertension, Malignancy - Past Medical History Cardiac Medical History: Denies: Hx Coronary Artery Disease, Hx Heart Attack, Hx Hypertension Pulmonary Medical History: Reports: Hx Asthma Denies: Hx Bronchitis, Hx COPD, Hx Pneumonia Neurological Medical History: Reports: Hx Migraine. Denies: Hx Cerebrovascular Accident, Hx Seizures Renal/ Medical History: Reports: Hx Kidney Stones, Hx Ovarian Cysts, Hx Peritoneal Dialysis GI Medical History: Reports: Hx Gastroesophageal Reflux Disease. Denies: Hx Hepatitis, Hx Hiatal Hernia, Hx Ulcer Musculoskeletal Medical History: 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, knees, fingers Psychiatric Medical History: Reports: Hx Anxiety, Hx Attention Deficit Hyperactivity Disorder, Hx Bipolar Disorder, Hx Depression, Hx Post Traumatic Stress Disorder Infectious Medical History: Denies: Hx Hepatitis Past Surgical History: Reports: Hx Abdominal Surgery - EXPLORATORY LAPX6, Hx Appendectomy, Hx Section, Hx Orthopedic Surgery - cervical spine surgery -2016, septoplasty, bilateral knee, left foot, Other - septoplasty, bilateral knee surgery (miniscus tears, ) , right foot surgery. Denies: Hx Hysterectomy, Hx Mastectomy, Hx Open Heart Surgery, Hx Pacemaker - Immunizations Hx Diphtheria, Pertussis, Tetanus Vaccination: Yes Physical Exam - Vital signs Vitals: Temp Pulse Resp BP Pulse Ox 98.2 F 92 18 116/66 98 06/21/20 14:20 06/21/20 14:20 06/21/20 14:20 06/21/20 14:20 06/21/20 14:20 Course - Re-evaluation Re-evalutation: Given the above history and physical examination, laboratory values and a CT scan renal colic protocol was ordered in triage. Given the patient's history and physical with recent CT that was unremarkable, I have discontinued the renal colic protocol CT scan and will obtain a transvaginal ultrasound to evaluate the possibility of ovarian cysts. We will also order basic labs including urine analysis and test to evaluate the possibility of an ectopic . Patient has refused/deferred pelvic examination stating that she just had a recent pelvic examination last week with full STD testing. 06/21/20 17:13 Patient has a positive test. 06/21/20 18:56 Rest of the labs and imaging as recorded. Patient's pain is improved without intervention. I have spoken directly to the MINE GEOLOGIST on-call doctor well. Patient has been here numerous times within the last year for right flank pain. She believes the quantitative hCG is too low to obviously see an ectopic or probably to cause pain given the negative last week. I am in agreement with this. We have provided strict return precautions. I will hold on any narcotic prescriptions. The MINE GEOLOGIST was gracious enough to allow the patient to come to that facility for repeat quantitative hCG on Tuesday or Tuesday. She states that they can reassess the abdomen with no quantitative hCG is elevated enough they will perform an ultrasound to reassess the location. Patient is in agreement with this plan. She understands strict return precautions I have explained. - Vital Signs Vital signs: Temp Pulse Resp BP Pulse Ox 98.2 F 92 18 116/66 98 06/21/20 14:20 06/21/20 14:20 06/21/20 14:20 06/21/20 14:20 06/21/20 14:20 - Laboratory Result Diagrams: 06/21/20 16:07 06/21/20 16:07 Laboratory results interpreted by me: 06/21/20 06/21/20 06/21/20 15:57 16:07 16:07 WBC 10.7 H RDW 14.7 H Chloride 109 H Beta HCG, Quant Urine Blood LARGE H Urine HCG, Qual POSITIVE H 06/21/20 16:07 WBC RDW Chloride Beta HCG, Quant 28.88 H Urine Blood Urine HCG, Qual Discharge - Discharge Clinical Impression: Right flank pain Condition: Good Disposition: HOME, SELF-CARE Additional Instructions: Come back immediately for any increased pain, change in location or quality of pain, vaginal discharge, lightheadedness or dizziness, fevers or vomiting, or any other acute problems. Please follow-up with your primary care physician, your MINE GEOLOGIST, or the practice we have provided for repeat quantitative hCG and reassessment on Tuesday as discussed. Referrals: KILEY SLATER PA-C [Primary Care Provider] - Follow up as needed FERNANDO ROBLES MD [ACTIVE PROVISIONAL STAFF] - Follow up as needed
--- NOTE | 2020-06-21 18:25 | RADIOLOGY REPORT (SQ) ---
EXAM DESCRIPTION: U/S OB TRANSVAG W/DOPPLER IMAGES COMPLETED DATE/TIME: 06/21/2020 4:56 pm REASON FOR STUDY: 2; RLQ pain and . COMPARISON: None. TECHNIQUE: Transvaginal static and realtime grayscale images acquired of the pelvis. Additional daniel cted spectral and color Doppler images recorded. All images stored on PACs. CLINICAL AGE: Unknown [facility].88 LIMITATIONS: None. FINDINGS: UTERUS: No visualized intrauterine . Normal uterine contour. No myometrial mass . The endometrium measures 15 mm thickness. No abnormal free fluid within the endometrial canal. T he uterine cervix has normal contour and appearance. No endocervical fluid or debris. RIGHT ADNEXA: The right ovary is not visualized. No adnexal free fluid. No adnexal masses. LEFT ADNEXA: The left ovary is not visualized. No adnexal free fluid. No adnexal masses. FREE FLUID: None. OTHER: No other significant finding. IMPRESSION: NO VISUALIZED INTRA- OR EXTRAUTERINE . bHCG LEVEL TOO LOW TO EXPECT VISUALIZATION OF . ECTOPIC CANNOT BE EXCLUDED. FOLLOW-UP ULTRASOUND AND SERIAL BHCG LEVELS STRONGLY RECOMMENDED TO ACCURATELY ASSESS STATU S. TECHNICAL DOCUMENTATION: JOB ID: [id number] 2010 [employer]- All Rights Reserved Reading location - IP/workstation name: [email or web address]
[2020-06-21 19:10] VITALS: BP 120/70
== END 2020-06-21 19:11 | disposition home or self-care (01) ==
LOC: ER 14:15
DX: O26.91 Pregnancy related conditions, unspecified, first trimester (principal); R10.31 Right lower quadrant pain; M54.9 Dorsalgia, unspecified; R11.0 Nausea; F17.200 Nicotine dependence, unspecified, uncomplicated; Z3A.01 Less than 8 weeks gestation of pregnancy
CPT/HCPCS: 36415; 76817; 80053; 81001; 81025; 83690; 84702; 85025; 87086; 93976; 99284

== ENCOUNTER 2020-07-07 04:31 | Emergency (ER) | payer BC ==
[2020-07-07 05:24] LABS: ABSOLUTE BASOPHILS # (AUTO) 0.1 10^3/uL (0.0-0.2); ABSOLUTE EOSINOPHILS # (AUTO) 0.1 10^3/uL (0.0-0.6); ABSOLUTE LYMPHOCYTES (AUTO) 3.3 10^3/uL (0.5-4.7); ABSOLUTE MONOCYTES (AUTO) 0.6 10^3/uL (0.1-1.4); ABSOLUTE NEUT (AUTO) 6.1 10^3/uL (1.7-8.2); BASOPHILS % (AUTO) 0.7 % (0-2); HEMATOCRIT 41.1 % (36.0-47.0); HEMOGLOBIN 14.5 g/dL (12.0-15.5); LYMPHOCYTES % (AUTO) 32.5 % (13-45); MEAN CORPUSCULAR HEMOGLOBIN 32.3 pg (27.0-33.4); MEAN CORPUSCULAR HGB CONC 35.3 g/dL (32.0-36.0); MEAN CORPUSCULAR VOLUME 92 fl (80-97); MONOCYTES % (AUTO) 5.6 % (3-13); PLATELET COUNT 253 10^3/uL (150-450); RED BLOOD COUNT 4.49 10^6/uL (3.72-5.28); RED CELL DISTRIBUTION WIDTH 14.1 % (11.5-14.0); SEGMENTED NEUTROPHILS % (AUTO) 60.2 % (42-78); TOTAL CELLS COUNTED % (AUTO) 100 %; WHITE BLOOD COUNT 10.2 10^3/uL (4.0-10.5)
[2020-07-07] MEDS ORDERED: ACETAMINOPHEN 1 GM/100 ML RTUPB IV ONE (05:31)
[2020-07-07 05:33] LABS: APPEARANCE,URINE CLOUDY; BILIRUBIN,URINE NEGATIVE (NEGATIVE); CALCIUM OXALATE CRYSTALS,URINE MODERATE /HPF; COLOR,URINE YELLOW; GLUCOSE, URINE NEGATIVE (NEGATIVE); KETONES,URINE NEGATIVE (NEGATIVE); LEUKOCYTE ESTERASE,URINE SMALL (NEGATIVE); NITRITE,URINE NEGATIVE (NEGATIVE); PROTEIN,URINE 30 mg/dL (NEGATIVE); URINE SPECIFIC GRAVITY 1.019
[2020-07-07 05:43] LABS: ALKALINE PHOSPHATASE 82 U/L (38-126); ANION GAP 13 (5-19); ASPARTATE AMINO TRANSFERASE 25 U/L (14-36); BILIRUBIN,DIRECT 0.2 mg/dL (0.0-0.4); BILIRUBIN,TOTAL 0.4 mg/dL (0.2-1.3); BLOOD UREA NITROGEN 8 mg/dL (7-20); CALCIUM 9.1 mg/dL (8.4-10.2); CARBON DIOXIDE 20 mmol/L (22-30); CHLORIDE 106 mmol/L (98-107); GLUCOSE 113 mg/dL (75-110); TOTAL PROTEIN 7.1 g/dL (6.3-8.2)
[2020-07-07] MEDS ORDERED: NORMAL SALINE 1000 ML 1,000 ML IV ONE (07:12)
[2020-07-07] MEDS ORDERED: MORPHINE SULFATE 10 MG/ML INJ IV ONE ×3 (07:13→11:28)
[2020-07-07] MEDS ORDERED: ONDANSETRON HCL INJ/PF 4 MG/2 ML SDV IV ONE ×3 (07:13→11:28)
--- NOTE | 2020-07-07 07:33 | RADIOLOGY REPORT (SQ) ---
FIRST TRIMESTER OBSTETRIC ULTRASOUND: 07/07/2020 6:30 AM CDT COMPARISON: None available HISTORY: 30-year old patient with right-sided flank pain. TECHNIQUE: Multiple laughlin scale and color Doppler images of the pelvis were obtained transvaginally. FINDINGS: The uterus measures 7.9 x 4.2 x 4.5 cm. There is a single intrauterine saclike structure without evidence of a pole measuring 5 mm. There may be a yolk sac. No perigestational hemorrhage is seen. The cervix measures at least 2.5 cm in length. The bilateral ovaries were not visualized and are likely scarred by overlying bowel gas. No free fluid is seen in the cul-de-sac. IMPRESSION: There is a single intrauterine saclike structure without evidence of a pole. There may be a yolk sac. This may represent a normal early of less than five weeks. Obstetric follow up for routine care should be performed.
--- NOTE | 2020-07-07 07:33 | RADIOLOGY REPORT (SQ) ---
RENAL ULTRASOUND: 07/07/2020 6:29 AM CDT HISTORY: 30-year old with right-sided flank pain. COMPARISON: None available TECHNIQUE: Limited sonographic evaluation of the kidneys was performed. FINDINGS: Both kidneys demonstrate normal cortical echogenicity. The right kidney measures up to 10.9 cm in length. The left kidney measures up to 10.4 cm in length. There is mild right hydronephrosis suggested. No hydronephrosis is seen on the left side. No free intraperitoneal fluid is seen. The urinary bladder is not visualized. The abdominal aorta and inferior vena cava are not well visualized. IMPRESSION: There is mild right hydronephrosis present. There is no evidence of hydronephrosis on the left side.
[2020-07-07] MEDS: POTASSI CL 20 MEQ/50 ML RIDER 20 MEQ/50 ML RTUPB IV SCH ×2 (08:09→11:53)
[2020-07-07] MEDS ORDERED: POTASSIUM CHLORIDE 10 MEQ TABLET.ER PO ONE (10:23)
--- NOTE | 2020-07-07 11:27 | ER Document Report ---
Entered by ZACK CARDOZA SCRIBE 07/07/20 0618 Acting as scribe for:AUSTIN BUSTILLO MD ED GI/ - General Chief Complaint: Possible Kidney Stone Stated Complaint: FLANK PAIN Primary Care Provider: KILEY SLATER PA-C [Primary Care Provider] - Follow up as needed Mode of Arrival: Medic Information source: Patient Notes: This 30 year old female patient with a history of kidney stones brought in by EMS presents to the ED today with complaints of right flank pain that radiates to her RLQ that started last night and got worse around 0200 this morning. Patient reports associated nausea without emesis and states that this pain does not feel like kidney stones. She states that on her last visit here on 06/21, she was told that she was and had an U/S done, but no IUP was visualized because it was too early in gestation. She notes that she has seen an [employer] since that visit, but does not known far along she is. Denies fever, chills, sore throat, headache, rash, or any sick contacts. TRAVEL OUTSIDE OF THE [place] IN LAST 30 DAYS: No - Related Data Allergies/Adverse Reactions: ciprofloxacin [From Cipro] Allergy (Severe, Verified 06/14/20 18:09) Anaphylaxis guaifenesin [From Mucinex] Allergy (Severe, Verified 06/14/20 18:09) Anaphylaxis nitrofurantoin macrocrystalline [From Macrobid] Allergy (Severe, Verified 06/14/20 18:09) Anaphylaxis Penicillins Allergy (Severe, Verified 06/14/20 18:09) Anaphylaxis sulfamethoxazole [From Bactrim] Allergy (Severe, Verified 06/14/20 18:09) anaphylaxis/hives tramadol [Tramadol] Allergy (Severe, Verified 06/14/20 18:09) Anaphylaxis hydromorphone HCl [From Dilaudid] Allergy (Intermediate, Verified 06/14/20 18:09) Hives amoxicillin [Amoxicillin] Allergy (Verified 06/14/20 18:09) anaphylaxis/hives hydrocodone [From [place]] Allergy (Verified 06/14/20 18:09) nitrofurantoin [From Macrobid] Allergy (Verified 06/14/20 18:09) Anaphylaxis trimethoprim [From Bactrim] Allergy (Verified 09/12/20 18:09) Past Medical History - General Information source: Patient, [facility] Records - Social History Smoking Status: Current Every Day Smoker Smoking Education Provided: No Family History: Reviewed & Not Pertinent, Hypertension, Malignancy Patient has suicidal ideation: No Patient has homicidal ideation: No Pulmonary Medical History: Reports: Hx Asthma Neurological Medical History: Reports: Hx Migraine Renal/ Medical History: Reports: Hx Kidney Stones, Hx Ovarian Cysts, Hx Peritoneal Dialysis GI Medical History: Reports: Hx Gastroesophageal Reflux Disease Musculoskeletal Medical History: 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, knees, fingers Psychiatric Medical History: Reports: Hx Anxiety, Hx Attention Deficit Hyperactivity Disorder, Hx Bipolar Disorder, Hx Depression, Hx Post Traumatic Stress Disorder Past Surgical History: Reports: Hx Abdominal Surgery - EXPLORATORY LAP X6, Hx Appendectomy, Hx Section, Hx Neurologic Surgery - Cervical spine surg matt -2017, Hx Nose Surgery - Septoplasty, Hx Orthopedic Surgery - Bilateral knee r/t meniscus tears, left foot - Immunizations Hx Diphtheria, Pertussis, Tetanus Vaccination: Yes Review of Systems - Review of Systems Constitutional: See HPI. denies: Chills, Fever EENT: See HPI. denies: Throat pain Cardiovascular: No symptoms reported Respiratory: No symptoms reported Gastrointestinal: Abdominal pain, Nausea. denies: Vomiting Genitourinary: See HPI, Flank pain Female Genitourinary: See HPI, Musculoskeletal: No symptoms reported Skin: See HPI. denies: Rash Hematologic/Lymphatic: No symptoms reported Neurological/Psychological: See HPI. denies: Headaches -: Yes All other systems reviewed and negative Physical Exam - Vital signs Vitals: Pulse Ox 100 07/07/20 04:44 - General General appearance: Alert In distress: Moderate - HEENT Head: Normocephalic, Atraumatic Eyes: Normal Pupils: PERRL Mouth/Lips: Other - Poor dentition Pharynx: Erythema Neck: Normal, Supple - Respiratory Respiratory status: No respiratory distress Chest status: Nontender Breath sounds: Normal Chest palpation: Normal - Cardiovascular Rhythm: Regular Heart sounds: Normal auscultation, S1 appreciated, S2 appreciated Murmur: No Friction rub: No Gallop: None auscultated - Abdominal Inspection: Normal Distension: No distension Bowel sounds: Normal Tenderness: Tender - RLQ tenderness to palpation, Other - Abdomen soft Organomegaly: No organomegaly - Back Back: CVA tenderness - Right CVA percussion tenderness - Extremities General upper extremity: Normal inspection General lower extremity: Normal inspection. No: Edema - Neurological Neuro grossly intact: Yes Orientation: AAOx4 Scenic Coma Scale Eye Opening: Spontaneous Horacio Coma Scale Verbal: Oriented Scenic Coma Scale Motor: Obeys Commands Scenic Coma Scale Total: 15 - Psychological Associated symptoms: Normal affect, Normal mood - Skin Skin Temperature: Warm Skin Moisture: Dry Skin Color: Normal Course - Re-evaluation Re-evalutation: 07/07/20 11:[address] Woodard hotel casino floorperson OB medical director occupational health who is seen patient 2 weeks ago in the OB clinic. Patient has an appointment on at [address] Woodard stated that patient should follow-up on as an outpatient. Patient most likely has a kidney stone on the right side with hydronephrosis noted on ultrasound. Ultrasound of the pelvis shows that there was an intrauterine sac however there was no pole noted at this time. This could be an early or failed developing. Plan is for patient to be treated for kidney stone to help her have pain management and relief of this discomfort while patient will follow-up with Dr. Woodard on for the OB issues. - Vital Signs Vital signs: Temp Pulse Resp BP Pulse Ox 98.3 F 19 132/74 H 100 07/07/20 08:27 07/07/20 09:01 07/07/20 09:01 07/07/20 09:01 07/07/20 11:13 Vital signs stable - Laboratory Result Diagrams: 07/07/20 04:50 07/07/20 04:50 Laboratory results interpreted by me: 07/07/20 07/07/20 07/07/20 04:50 04:50 04:50 RDW 14.1 H Potassium 3.0 L* Carbon Dioxide 20 L Glucose 113 H Lipase 19.5 L Serum HCG, Qual POSITIVE H Beta HCG, Quant Urine Protein Urine Blood Urine Urobilinogen Ur Leukocyte Esterase 07/07/20 07/07/20 04:50 04:50 RDW Potassium Carbon Dioxide Glucose Lipase Serum HCG, Qual Beta HCG, Quant 1361.70 H Urine Protein 30 H Urine Blood MODERATE H Urine Urobilinogen 2.0 H Ur Leukocyte Esterase SMALL H 07/07/20 11:13 Laboratories show moderate amount of blood in the urine beta-hCG quant is 1361 which is elevated from 28 3 weeks ago Patient's potassium is low at 3.0. Patient states that she takes 40 mEq of potassium tablets every day but has not done so in several months. - Diagnostic Test Radiology reviewed: Image reviewed, Reports reviewed Radiology results interpreted by me: 07/07/20 11:14 Obstetrics Ultrasound 07/07/20 05:28 IMPRESSION: There is a single intrauterine saclike structure without evidence of a pole. There may be a yolk sac. This may represent a normal early of less than five weeks. Obstetric follow up for routine care should be performed. Renal Ultrasound 07/07/20 05:28 IMPRESSION: There is mild right hydronephrosis present. There is no evidence of hydronephrosis on the left side. OB ultrasound shows a single intrauterine saclike structure without evidence of pole this may be an early or a failed development. Renal ultrasound shows mild right hydronephrosis on the right no hydronephrosis noted on the left side. Most likely this is probably due to a kidney stone inasmuch as patient had a kidney stone in the past and also has right-sided CVA flank tenderness. Patient also has blood in urine. - Consults Dr. Woodard, [employer] [facility] Time consulted: 10:54 Consulted provider: follow-up in office Discharge - Discharge Clinical Impression: Kidney stone on right side, First trimester Condition: Fair Disposition: HOME, SELF-CARE Additional Instructions: Hypokalemia You have an abnormally decreased level of serum potassium. Hypokalemia may cause weakness, fatigue, or heart rhythm abnormalities. Sometimes there are no symptoms at all. Usually, low serum potassium is due to taking diuretics (water pills). It can also be due to excessive vomiting or diarrhea. If no obvious cause is evident, further evaluation will be necessary. Treatment is usually oral potassium supplements. Take these exactly as prescribed. You may also want to select foods which are naturally high in potassium -- fruits (such as bananas, cantaloupe, grapes, oranges, prunes, tomatoes), fresh vegetables (potatoes, spinach, beans, peas), orange or tomato juice, tomato pasta sauce, milk, fish (halibut, tuna, salmon, antelmo) A follow-up blood test is usually performed to assure that the potassium is returning to normal. Call the physician if you suffer severe weakness, muscle twitching or cramping, palpitations (pounding or irregular heartbeat), or any other new or alarming symptoms. You are . care is best started as early in as possible. If you're unsure about continuing this , you should discuss this with your physician or with fire protection fabricator at [facility]. You should take only medications approved by your physician. Acetaminophen can safely be taken for minor pains. As a rule, medication for chronic conditio ns such as asthma or seizures can safely be continued. You should discuss with the physician every medicine you take. Any regular exercise program can be continued. Talk to your physician, however, before engaging in competitive or demanding sports. Alcohol, smoking, and "street drugs" are dangerous to your baby. Cocaine is especially dangerous. Don't use any illicit drugs! Kidney Stone You are passing or have passed a kidney stone. These stones are usually due to increased calcium or uric acid concentrations in your urine. Stones within the kidney itself are not painful. The pain occurs as the stone leaves the kidney to pass down the long tube, called the ureter, leading to the bladder. If the stone is small, it will usually pass by itself. Most patients can pass the stone at home. You will usually receive medications for pain, nausea or vomiting, and sometimes a medication to assist in passing the kidney stone. However, if the pain is very severe or if vomiting prevents you from taking oral pain medications, you may need to return for further treatment. Drink three or four quarts of fluids per day. You will be given pain medication (if needed) and urine strainers. Strain all your urine to see if the stone passes. If your doctor has asked you to bring the stone in for analysis, return with the stone once it has passed. Return if pain or vomiting become severe, if you develop a high fever, if you are unable to pass your urine, or if other unusual symptoms occur. Prescriptions: Morphine Sulfate [Morphine Ir 15 mg Tablet] 15 mg PO Q6HP PRN #12 tablet PRN Reason: Potassium Chloride 20 meq PO DAILY 30 Days #60 tablet.er Ondansetron [Zofran Odt 4 mg Tablet] 1 - 2 tab PO Q4H PRN #15 tab.rapdis PRN Reason: For Nausea/Vomiting Referrals: KILEY SLATER PA-C [Primary Care Provider] - Follow up as needed GRAY WOODARD MD [ACTIVE STAFF] - 07/10/20 10:45 am ZOHRA DEJESUS MD [NO LOCAL MD] - Follow up as needed I personally performed the services described in the documentation, reviewed and edited the documentation which was dictated to the scribe in my presence, and it accurately records my words and actions.
[2020-07-07 11:45] VITALS: BP 107/60
== END 2020-07-07 12:01 | disposition home or self-care (01) ==
LOC: ER 04:31
DX: O26.891 Other specified pregnancy related conditions, first trimester (principal); N20.0 Calculus of kidney; R11.0 Nausea; R31.9 Hematuria, unspecified; O99.891 Other specified diseases and conditions complicating pregnancy; N13.30 Unspecified hydronephrosis; O99.511 Diseases of the respiratory system complicating pregnancy, first trimester; J45.909 Unspecified asthma, uncomplicated; O99.331 Smoking (tobacco) complicating pregnancy, first trimester; F17.200 Nicotine dependence, unspecified, uncomplicated; Z3A.00 Weeks of gestation of pregnancy not specified; Z87.892 Personal history of anaphylaxis; Z88.1 Allergy status to other antibiotic agents; Z88.0 Allergy status to penicillin; Z88.8 Allergy status to other drugs, medicaments and biological substances; Z88.6 Allergy status to analgesic agent; Z88.5 Allergy status to narcotic agent
CPT/HCPCS: 96376; 99285; 96375; 96365; 96366; 36415; 84702; 83690; 84703; 85025; 80053; 81001; 76817; 76770; J2270; J2405; J3480; J7030; J0131

== ENCOUNTER 2020-07-21 11:12 | Day surgery (SDC) | payer BC ==
[~2020-07-21 11:12] MED LIST changes: -FUROSEMIDE INJ/PF 40 MG/4 ML SDV ONE; +LACTATED RINGERS 1000 ML IV PRN; +LIDOCAINE 0.5% INJ-PF (5 MG/ML) 50 ML SDV SUBCUT PRN
[2020-07-21] MEDS ORDERED: FENTANYL CITRATE INJ/PF 100 MCG/2 ML AMPUL ONE (12:04)
[2020-07-21] MEDS ORDERED: PROPOFOL INJ 200 MG/20 ML VIAL IV ONE (12:04)
[2020-07-21] MEDS ORDERED: MIDAZOLAM 2 MG/2 ML INJ ONE (12:04)
[2020-07-21] MEDS ORDERED: DEXAMETHASONE SOD PHOSPHATE INJ 4 MG/1 ML VIAL ONE (12:04)
[2020-07-21] MEDS ORDERED: ONDANSETRON HCL INJ/PF 4 MG/2 ML SDV ONE (12:04)
[2020-07-21] MEDS ORDERED: KETOROLAC TROMETHAMINE 60 MG/2 ML SDV ONE (12:04)
[2020-07-21] MEDS ORDERED: PROMETHAZINE HCL INJ 25 MG/1 ML VIAL IV PRN ×2 (13:50)
[2020-07-21] MEDS ORDERED: FENTANYL CITRATE INJ/PF 100 MCG/2 ML AMPUL IV PRN ×3 (13:50)
[2020-07-21] MEDS ORDERED: MEPERIDINE HCL/PF INJ 25 MG/1 ML DISP.SYRIN IV PRN (13:50)
[2020-07-21] MEDS ORDERED: DIPHENHYDRAMINE HCL 50 MG/ML VIAL IV PRN (13:50)
[2020-07-21] MEDS ORDERED: ONDANSETRON HCL INJ/PF 4 MG/2 ML SDV IV PRN (13:50)
--- NOTE | 2020-07-21 14:10 | Operative Report ---
Operative Report DATE OF SURGERY: 07/21/20 PREOPERATIVE DIAGNOSIS: INtrauterine loss at approximately 7-8 weeks. Missed POSTOPERATIVE DIAGNOSIS: same as above OPERATION: Suction dilation and curettage SURGEON: FERNANDO ROBLES ANESTHESIA: GA TISSUE REMOVED OR ALTERED: Products of conception COMPLICATIONS: None ESTIMATED BLOOD LOSS: 100cc INTRAOPERATIVE FINDINGS: Uterus approximately 8 weeks size at beginning of procedure. Products of concetion noted on suction Dilation and curettage with size 8 curette. Uterus felt smaller and firm at end of procedure PROCEDURE: IV fluids: Crystalloid IV fluids per anesthesia record Disposition: To recovery room in stable condition Description of the procedure: The patient was taken to the operating room where monitored anesthesia was administered and found to be adequate. She was then placed in the dorsol lithotomy position and prepped and draped in the usual sterile fashion. A timeout was taken. A weighted speculum was placed in the vagina and a Dykes retractor was used to bring the cervix into good view. A single-tooth tenaculum was used to grasp the anterior lip of the cervix and the cervix was serially dilated. The uterus sounded to approximately 8 cm and the cervix was serially dilated to approximately 8mm. The #8 suction curette was inserted and using suction, the products of conception were removed. The suction curette was removed and a regular curette was advanced to the uterine fundus. Gentle curettage was done in a circumferential manner until a gritty texture was noted. The curette was removed and suction curette re-inserted to the fundus. Suction curettage done once more. The tissue obtained will be sent to the lab as products of conception. Part of sample sent fresh for Chromosomes. The procedure was then terminated all instrument to remove the patient's vagina. The patient tolerated the procedure well all instrument sponge and needle counts were correct x2 for the procedure she will proceed to recovery room in stable condition
--- NOTE | 2020-07-21 14:11 | Discharge Summary ---
Discharge Summary (SDC) - Discharge Final Diagnosis: missed at 7-8 weeks estimated gestational age Date of Surgery: 07/21/20 Condition: Stable Treatment or Instructions: Pelvic rest for 6 weeks Vaginal bleeding expected like a period for 4-6 weeks Walking and activity encouraged Return to regular diet at discharge as tolerating Hydration encouraged Prescriptions: Ibuprofen [Motrin 800 mg Tablet] 800 mg PO Q8H PRN 10 Days #30 tab PRN Reason: Doxycycline Hyclate [Vibramycin 100 mg Tablet] 100 mg PO BID 5 Days #10 tablet Referrals: KILEY SLATER PA-C [Primary Care Provider] - Respiratory Treatments at Home: Deep Breathing/Coughing Discharge Activity: Activity As Tolerated, Pelvic Rest, Slowly Increase Activity, No tub bath, Walk Frequently Home Care Assistance: None Needed Report the Following to Your Physician Immediately: Shortness of Breath, Vomiting, Increase in Pain, Fever over 101 Degrees, Unusual Bleeding, Increased Vaginal Bleed, IV Site Infection Signs
[2020-07-21] MEDS ORDERED: OXYCODONE-ACETAMINOPHEN 5-325 MG TABLET ONE (14:22)
[2020-07-21] MEDS ORDERED: OXYCODONE-ACETAMINOPHEN 5-325 MG TABLET PO PRN (14:27)
[2020-07-21] MEDS ORDERED: OXYCODONE HCL IR 5 MG TABLET PO PRN (14:28)
[2020-07-21 16:19] VITALS: BP 106/59
== END 2020-07-21 16:15 | disposition home or self-care (01) ==
LOC: OROUT 11:12
PROVIDERS: ATTEND Obstetrics & Gynecology
DX: O02.1 Missed abortion (principal); Z03.818 Encounter for observation for suspected exposure to other biological agents ruled out; Z90.49 Acquired absence of other specified parts of digestive tract
CPT/HCPCS: 59820; 88305 ×2; 01965; U0003; J2250; J1100; J1885; J3010; J2405; J2704; C9803; 1965; 87635

== ENCOUNTER 2020-07-21 17:14 | Emergency (ER) | payer BC ==
[2020-07-21] MEDS ORDERED: OXYCODONE-ACETAMINOPHEN 5-325 MG TABLET PO ONE (18:27)
--- NOTE | 2020-07-21 18:36 | ER Document Report ---
ED General - General Chief Complaint: Post Surgical Pain Stated Complaint: POST SURGICAL PAIN Time Seen by Provider: 07/21/20 18:18 Primary Care Provider: KILEY SLATER PA-C [Primary Care Provider] - Follow up as needed Mode of Arrival: Wheelchair Information source: Patient Notes: 30-year-old female presents to ED for complaint of postop pain. She states she had a D&C at the surgical center earlier this afternoon. She states she was told she would have a pain medicine and antibiotic in the pharmacy when she got the [facility] they told her they will was for doxycycline. She states she did take 800 mg ibuprofen [id number] and it did not help her with her pain. I did consult Dr. Lindo who did the D&C. She states she usually always gives ibuprofen 800 I did look at the discharge papers and she did send the prescription to [facility]. She states she would call the [facility] herself to make sure it did go through. She said I could give her 1 narcotic in the emergency room but not to send any prescription as she is on pain management. She states pain management did call to find out what she was going to prescribe so make sure the patient tells the for your pain: Take ibuprofen 600 mg and acetaminophen 1000 mg every 6 hours together as needed for pain. If this does not control your pain you may take 15 mg of oral morphine every 4 hours as needed. Please be very careful about using the oral morphine and only use this for severe pain management that she did get 1 pill. REVIEW OF SYSTEMS: CONSTITUTIONAL : Denies fever, chills, or sweats. Denies recent illness. EENT: Denies eye, ear, throat, or mouth pain or symptoms. Denies nasal or sinus congestion. CARDIOVASCULAR: Denies chest pain. RESPIRATORY: Denies cough, cold, or chest congestion. Denies shortness of breath, difficulty breathing, or wheezing. GASTROINTESTINAL: Denies abdominal pain. Denies nausea, vomiting, or diarrhea. Denies constipation. Last BM: GENITOURINARY: Denies difficulty urinating, painful urination, burning, frequency, or blood in urine. FEMALE GENITOURINARY: Denies vaginal bleeding, abnormal or irregular periods. LMP: MUSCULOSKELETAL: Denies neck or back pain or joint pain or swelling. SKIN: Denies rash or skin lesions. HEMATOLOGIC : Denies easy bruising or bleeding. LYMPHATIC: Denies swollen, enlarged glands. NEUROLOGICAL: Denies altered mental status or loss of consciousness. Denies headache. Denies weakness or paralysis or loss of use of either side. Denies problems with gait or speech. Denies sensory or motor loss. PSYCHIATRIC: Denies anxiety or stress or depression. ALL OTHER SYSTEMS REVIEWED AND NEGATIVE. VITAL SIGNS: Within normal limits. GENERAL: No acute distress, non-toxic appearance. HEAD: Normal with no signs of head trauma. EYES: PERRLA, EOMI, conjunctiva normal, no discharge. EARS: Hearing grossly intact. NOSE: Normal. THROAT: Oropharynx is normal. NECK: Normal range of motion, no tenderness, supple, no lymphadenopathy, No adenopathy, no JVD. CHEST: Clear breath sounds bilaterally. No wheezes, rales, or rhonchi. CARDIAC: Regular rate and rhythm. S1 and S2, without murmurs, gallops, or rubs. VASCULAR: No Edema. Peripheral pulses normal and equal in all extremities. ABDOMEN: Normal and soft with no tenderness, no masses or pulsatile masses. GASTROINTESTINAL: Bowel sounds normal GENITOURINARY: Normal, No tenderness LYMPATHTIC: No lymphadenopathy noted. MUSCULOSKELETAL: Good range of motion of all major joints. Extremities without clubbing, cyanosis or edema. NEUROLOGICAL: Alert and oriented x 3. No focal sensory or strength deficits. Speech normal. Follows commands appropriately. PSYCHIATRIC: Normal Affect, judgement and mood. SKIN: Normal appearance with no rashes or lesions. TRAVEL OUTSIDE OF THE [place] IN LAST 30 DAYS: No - HPI Onset: This afternoon Onset/Duration: Persistent Quality of pain: Cramping, Sharp Severity: Severe Pain Level: 5 Associated symptoms: Other Exacerbated by: Movement - Sharp cramping Similar symptoms previously: Yes Recently seen / treated by doctor: Yes - Related Data Allergies/Adverse Reactions: amoxicillin [Amoxicillin] Allergy (Severe, Verified 07/17/20 07:51) anaphylaxis/hives ciprofloxacin [From Cipro] Allergy (Severe, Verified 06/14/20 18:09) Anaphylaxis guaifenesin [From Mucinex] Allergy (Severe, Verified 06/14/20 18:09) Anaphylaxis hydrocodone [From [place]] Allergy (Severe, Verified 07/17/20 07:51) Anaphylaxis nitrofurantoin [From Macrobid] Allergy (Severe, Verified 07/17/20 07:51) Anaphylaxis nitrofurantoin macrocrystalline [From Macrobid] Allergy (Severe, Verified 06/14/20 18:09) Anaphylaxis Penicillins Allergy (Severe, Verified 06/14/20 18:09) Anaphylaxis sulfamethoxazole [From Bactrim] Allergy (Severe, Verified 06/14/20 18:09) anaphylaxis/hives tramadol [Tramadol] Allergy (Severe, Verified 06/14/20 18:09) Anaphylaxis trimethoprim [From Bactrim] Allergy (Severe, Verified 07/17/20 07:52) Anaphylaxis hydromorphone HCl [From Dilaudid] Allergy (Intermediate, Verified 06/14/20 18:09) Hives Home Medications: Ambien. Doxycycline. oxycodone 10mg Past Medical History - Social History Smoking Status: Never Smoker Chew tobacco use (# tins/day): No Frequency of alcohol use: None Drug Abuse: None Family History: Reviewed & Not Pertinent, Hypertension, Malignancy Patient has suicidal ideation: No Patient has homicidal ideation: No - Past Medical History Cardiac Medical History: Reports: None Pulmonary Medical History: Reports: Hx Asthma EENT Medical History: Reports: None Neurological Medical History: Reports: Hx Migraine Endocrine Medical History: Reports: None Renal/ Medical History: Reports: Hx Kidney Stones, Hx Ovarian Cysts, Hx Peritoneal Dialysis Malignancy Medical History: Reports: None GI Medical History: Reports: Hx Gastroesophageal Reflux Disease Musculoskeletal Medical History: 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, knees, fingers Skin Medical History: Reports None Psychiatric Medical History: Reports: Hx Anxiety, Hx Attention Deficit Hyperactivity Disorder, Hx Bipolar Disorder, Hx Depression, Hx Post Traumatic Stress Disorder Traumatic Medical History: Reports: None Infectious Medical History: Reports: None Past Surgical History: Reports: Hx Abdominal Surgery - EXPLORATORY LAP X6, Hx Appendectomy, Hx Section, Hx Neurologic Surgery - Cervical spine surgery -2017, Hx Nose Surgery - Septoplasty, Hx Orthopedic Surgery - Bilateral knee r/t meniscus tears, left foot, Other - septoplasty, bilateral knee surgery (miniscus tears, ) , right foot surgery - Immunizations Hx Diphtheria, Pertussis, Tetanus Vaccination: Yes Physical Exam - Vital signs Vitals: Temp Pulse Resp BP Pulse Ox 98.1 F 108 H 20 127/55 H 96 07/21/20 17:20 07/21/20 17:20 07/21/20 17:20 07/21/20 17:20 07/21/20 17:20 Course - Vital Signs Vital signs: Temp Pulse Resp BP Pulse Ox 98.1 F 108 H 20 127/55 H 96 07/21/20 17:20 07/21/20 17:20 07/21/20 17:20 07/21/20 17:20 07/21/20 17:20 Discharge - Discharge Clinical Impression: Postoperative pain Condition: Stable Disposition: HOME, SELF-CARE Additional Instructions: Please follow all postop instructions given to you by Dr. Christian. Given you 1 Percocet in the emergency room. You will not be given a prescription you need to follow-up with pain management medications as prescribed and follow-up with them for further prescriptions. I did speak with Dr. Christian she stated that she should take the ibuprofen 800 as she prescribed. She states she will call [facility] and ensure that the prescription does go through. Ice Packs Apply ice packs frequently against the painful area. Many different schedules are recommended, such as "20 minutes on, 20 minutes off" or "one hour ice, two hours rest." If you need to work, you may need to go longer between ice treatments. You should plan to have the area ice packed AT LEAST one fourth of the time. The ice should be applied over the wrap, tape, or splint, or over a layer of cloth -- not directly against the skin. Some ice bags have a built-in cloth and can be put directly on the skin. Warm Packs After approximately two days, apply gentle heat (such as a heating pad or hot water bottle) for about 20 to 30 minutes about every two hours -- at least four times daily. Warmth and elevation will help you make a more rapid recovery, and will ease the pain considerably. Do not use HOT heat, and never apply heat for longer than 30 minutes. The continuous heat can invisibly damage skin and muscles -- even when no burn is seen on the surface. Damaged muscles can make you MORE sore. FOLLOW-UP CARE: If you have been referred to a physician for follow-up care, call the ysicians office for an appointment as you were instructed or within the next two days. If you experience worsening or a significant change in your symptoms, notify the physician immediately or return to the Emergency Department at any time for re-evaluation. Referrals: KILEY SLATER PA-C [Primary Care Provider] - Follow up as needed FERNANDO CHRISTIAN MD [ACTIVE PROVISIONAL STAFF] - Follow up as needed
[2020-07-21 18:41] VITALS: BP 100/62
== END 2020-07-21 18:39 | disposition home or self-care (01) ==
LOC: ER 17:14
DX: G89.18 Other acute postprocedural pain (principal); Z98.890 Other specified postprocedural states; Z88.0 Allergy status to penicillin; Z88.1 Allergy status to other antibiotic agents; Z88.2 Allergy status to sulfonamides; Z88.8 Allergy status to other drugs, medicaments and biological substances; J45.909 Unspecified asthma, uncomplicated
CPT/HCPCS: 99283

== ENCOUNTER 2020-07-26 01:37 | Emergency (ER) | payer BC ==
--- NOTE | 2020-07-26 01:51 | ER Document Report ---
ED Medical Screen (RME) - General Stated Complaint: POSS INFECTION OF BELLY BUTTON/POSS ANKLE INJURY Time Seen by Provider: 07/26/20 01:48 Primary Care Provider: KILEY SLATER PA-C [Primary Care Provider] - Follow up as needed Mode of Arrival: Ambulatory Information source: Patient Notes: 30-year-old female presenting for pain in her left proximal foot that started today without any obvious injury. Also having drainage/possible infection at her umbilical piercing site. No fevers or chills. No nausea or vomiting. General exam nontoxic Musculoskeletal tenderness to palpation left proximal lateral foot. No fifth metatarsal tenderness Derm: umbilical Piercing site with signs of mucoid drainage. No erythema. I have greeted and performed a rapid initial assessment of this patient. A comprehensive ED assessment and evaluation of the patient, analysis of test results and completion of the medical decision making process will be conducted by additional ED providers. TRAVEL OUTSIDE OF THE [place] IN LAST 30 DAYS: No - Related Data Allergies/Adverse Reactions: amoxicillin [Amoxicillin] Allergy (Severe, Verified 07/17/20 07:51) anaphylaxis/hives ciprofloxacin [From Cipro] Allergy (Severe, Verified 06/14/20 18:09) Anaphylaxis guaifenesin [From Mucinex] Allergy (Severe, Verified 06/14/20 18:09) Anaphylaxis hydrocodone [From [place]] Allergy (Severe, Verified 07/17/20 07:51) Anaphylaxis nitrofurantoin [From Macrobid] Allergy (Severe, Verified 07/17/20 07:51) Anaphylaxis nitrofurantoin macrocrystalline [From Macrobid] Allergy (Severe, Verified 06/14/20 18:09) Anaphylaxis Penicillins Allergy (Severe, Verified 06/14/20 18:09) Anaphylaxis sulfamethoxazole [From Bactrim] Allergy (Severe, Verified 06/14/20 18:09) anaphylaxis/hives tramadol [Tramadol] Allergy (Severe, Verified 06/14/20 18:09) Anaphylaxis trimethoprim [From Bactrim] Allergy (Severe, Verified 07/17/20 07:52) Anaphylaxis hydromorphone HCl [From Dilaudid] Allergy (Intermediate, Verified 06/14/20 18:09) Hives Past Medical History - Past Medical History Cardiac Medical History: Denies: Hx Coronary Artery Disease, Hx Heart Attack, Hx Hypertension Pulmonary Medical History: Reports: Hx Asthma Denies: Hx Bronchitis, Hx COPD, Hx Pneumonia Neurological Medical History: Reports: Hx Migraine. Denies: Hx Cerebrovascular Accident, Hx Seizures Renal/ Medical History: Reports: Hx Kidney Stones, Hx Ovarian Cysts, Hx Peritoneal Dialysis GI Medical History: Reports: Hx Gastroesophageal Reflux Disease. Denies: Hx Hepatitis, Hx Hiatal Hernia, Hx Ulcer Musculoskeltal Medical History: 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, knees, fingers Psychiatric Medical History: Reports: Hx Anxiety, Hx Attention Deficit Hypera ctivity Disorder, Hx Bipolar Disorder, Hx Depression, Hx Post Traumatic Stress Disorder Infectious Medical History: Denies: Hx Hepatitis Past Surgical History: Reports: Hx Abdominal Surgery - EXPLORATORY LAP X6, Hx Appendectomy, Hx Section, Hx Neurologic Surgery - Cervical spine surgery 8-2017, Hx Nose Surgery - Septoplasty, Hx Orthopedic Surgery - Bilateral knee r/t meniscus tears, left foot, Other - septoplasty, bilateral knee surgery (miniscus tears, ) , right foot surgery. Denies: Hx Hysterectomy, Hx Mastectomy, Hx Open Heart Surgery, Hx Pacemaker - Immunizations Hx Diphtheria, Pertussis, Tetanus Vaccination: Yes Physical Exam - Vital signs Vitals: Temp Pulse Resp BP Pulse Ox 98.3 F 106 H 16 112/70 95 07/26/20 01:44 07/26/20 01:44 07/26/20 01:44 07/26/20 01:44 07/26/20 01:44 Course - Vital Signs Vital signs: Temp Pulse Resp BP Pulse Ox 98.3 F 106 H 16 112/70 95 07/26/20 01:44 07/26/20 01:44 07/26/20 01:44 07/26/20 01:44 07/26/20 01:44 Doctor's Discharge - Discharge Referrals: KILEY SLATER PA-C [Primary Care Provider] - Follow up as needed
--- NOTE | 2020-07-26 03:17 | RADIOLOGY REPORT (SQ) ---
CLINICAL HISTORY: foot pain COMPARISON: None. TECHNIQUE: XR FOOT 3 OR MORE VIEWS 07/26/2020 1:49 AM CDT FINDINGS: There is no fracture. Joint spaces are preserved. Soft tissues are unremarkable. IMPRESSION: No acute osseous findings.
--- NOTE | 2020-07-26 04:02 | ER Document Report ---
ED General - General Chief Complaint: Ankle Injury Stated Complaint: POSS INFECTION OF BELLY BUTTON/POSS ANKLE INJURY Time Seen by Provider: 07/26/20 01:48 Primary Care Provider: KILEY SLATER PA-C [Primary Care Provider] - Follow up as needed Mode of Arrival: Ambulatory Notes: CHIEF COMPLAINT: Multiple complaints HPI: 30-year-old female presenting with multiple complaints. Patient has had some discharge and redness from the umbilicus underneath her bellybutton piercing for 3 to 4 days no fever. States she is concerned she has an infection has been using peroxide on it at home. Patient also rolled her ankle yesterday complains of pain over the lateral and proximal left foot. Has been able to weight-bear on the ankle. ROS: See HPI - all other systems were reviewed and are otherwise negative Constitutional: no fever GI: no vomiting, no diarrhea, no abdominal pain : no dysuria Integumentary: + rash Allergy: no hives Musculoskeletal: + extremity pain or swelling Neurological: no numbness/tingling, no weakness MEDICATIONS: I agree with the patient medications as charted by the RN. ALLERGIES: I agree with the allergies as charted by the RN. PAST MEDICAL HISTORY/PAST SURGICAL HISTORY: Reviewed and agree as charted by RN. SOCIAL HISTORY: Reviewed and agree as charted by RN. FAMILY HISTORY: No significant familial comorbid conditions directly related to patient complaint EXAM: Reviewed vital signs as charted by RN. CONSTITUTIONAL: Alert and oriented and responds appropriately to questions. Well-appearing; well-nourished HEAD: Normocephalic; atraumatic EYES: Conjunctivae clear, sclerae non-icteric ENT: normal nose; no rhinorrhea; moist mucous membranes NECK: Supple without meningismus; non-tender; no cervical lymphadenopathy, no masses CARD: symmetric distal pulses RESP: Normal chest excursion without splinting or tachypnea ABD/GI: non-distended BACK: The back appears normal EXT: Normal ROM in all joints; no cyanosis, no effusions, no edema. Very mild tenderness over the proximal aspect of the left ankle and foot. No direct tenderness over the medial or lateral malleolus of the left ankle. No tenderness over the tarsals of the left foot. Dorsalis pedis and posterior tibial pulses are present in the left foot and ankle. Sensation is intact in the toes with capillary refill less than 3 seconds. SKIN: Normal color for age and race; warm; dry; good turgor; there is very slight erythema with a clear discharge to the umbilicus with no palpable abscess and no significant surrounding cellulitic change NEURO: Moves all extremities equally; Motor and sensory function intact PSYCH: The patient's mood and manner are appropriate. Grooming and personal hygiene are appropriate. MDM: 30-year-old female with probably a candidal type infection to the umbilicus and a left ankle sprain. Will place an Oscar wrap for comfort on the left ankle. Will place patient on mupirocin and nystatin cream for the umbilical infection follow-up PCP and orthopedics TRAVEL OUTSIDE OF THE [place] IN LAST 30 DAYS: No - Related Data Allergies/Adverse Reactions: amoxicillin [Amoxicillin] Allergy (Severe, Verified 07/17/20 07:51) anaphylaxis/hives ciprofloxacin [From Cipro] Allergy (Severe, Verified 06/14/20 18:09) Anaphylaxis guaifenesin [From Mucinex] Allergy (Severe, Verified 06/14/20 18:09) Anaphylaxis hydrocodone [From [place]] Allergy (Severe, Verified 07/17/20 07:51) Anaphylaxis nitrofurantoin [From Macrobid] Allergy (Severe, Verified 07/17/20 07:51) Anaphylaxis nitrofurantoin macrocrystalline [From Macrobid] Allergy (Severe, Verified 06/14/20 18:09) Anaphylaxis Penicillins Allergy (Severe, Verified 06/14/20 18:09) Anaphylaxis sulfamethoxazole [From Bactrim] Allergy (Severe, Verified 06/14/20 18:09) anaphylaxis/hives tramadol [Tramadol] Allergy (Severe, Verified 06/14/20 18:09) Anaphylaxis trimethoprim [From Bactrim] Allergy (Severe, Verified 07/17/20 07:52) Anaphylaxis hydromorphone HCl [From Dilaudid] Allergy (Intermediate, Verified 06/14/20 18:09) Hives Home Medications: Ambien Past Medical History - General Information source: Patient - Social History Smoking Status: Current Every Day Smoker Family History: Reviewed & Not Pertinent, Hypertension, Malignancy - Past Medical History Cardiac Medical History: Denies: Hx Coronary Artery Disease, Hx Heart Attack, Hx Hypertension Pulmonary Medical History: Reports: Hx Asthma Denies: Hx Bronchitis, Hx COPD, Hx Pneumonia Neurological Medical History: Reports: Hx Migraine. Denies: Hx Cerebrovascular Accident, Hx Seizures Renal/ Medical History: Reports: Hx Kidney Stones, Hx Ovarian Cysts, Hx Peritoneal Dialysis GI Medical History: Reports: Hx Gastroesophageal Reflux Disease. Denies: Hx Hepatitis, Hx Hiatal Hernia, Hx Ulcer Musculoskeletal Medical History: 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, knees, fingers Psychiatric Medical History: Reports: Hx Anxiety, Hx Attention Deficit Hyperactivity Disorder, Hx Bipolar Disorder, Hx Depression, Hx Post Traumatic Stress Disorder Infectious Medical History: Denies: Hx Hepatitis Past Surgical History: Reports: Hx Abdominal Surgery - EXPLORATORY LAP X6, Hx Appendectomy, Hx Section, Hx Neurologic Surgery - Cervical spine surgery , Hx Nose Surgery - Septoplasty, Hx Orthopedic Surgery - Bilateral knee r/t meniscus tears, left foot, Other - septoplasty, bilateral knee surgery (miniscus tears, ) , right foot surgery. Denies: Hx Hysterectomy, Hx Mastectomy, Hx Open Heart Surgery, Hx Pacemaker - Immunizations Hx Diphtheria, Pertussis, Tetanus Vaccination: Yes Physical Exam - Vital signs Vitals: Temp Pulse Resp BP Pulse Ox 98.3 F 106 H 16 112/70 95 07/26/20 01:44 07/26/20 01:44 07/26/20 01:44 07/26/20 01:44 07/26/20 01:44 Course - Vital Signs Vital signs: Temp Pulse Resp BP Pulse Ox 98.3 F 106 H 16 112/70 95 07/26/20 01:44 07/26/20 01:44 07/26/20 01:44 07/26/20 01:44 07/26/20 01:44 Procedures - Immobilization Left Ankle Time completed: 03:59 Pre-Proc Neuro Vasc Exam: Normal Immobilizer type: Oscar wrap Performed by: PCT Post-Proc Neuro Vasc Exam: Normal, Unchanged from pre-exam Alignment checked and good: Yes Discharge - Discharge Clinical Impression: Candidal dermatitis Ankle sprain Qualifiers: Encounter type: initial encounter Involved ligament of ankle: other ligament Laterality: left Qualified Code(s): S93.492A - Sprain of other ligament of left ankle, initial encounter Condition: Stable Disposition: HOME, SELF-CARE Additional Instructions: Oscar wrap for comfort. Ice the left ankle and foot twice daily for 5 to 10 minutes at a time do not place ice directly on the skin. Take Voltaren consistently for pain. Use the mupirocin and nystatin cream together in a 50-50 mixture in the bellybutton 2-3 times daily until healed follow-up with your primary care provider for further evaluation Prescriptions: Mupirocin [Bactroban 2% Ointment 22 gm] 1 applic TP TID #1 tube Nystatin [Mycostatin Cream 15 gm] 1 applic TP BID #15 gm Diclofenac Sodium [Voltaren 50 Mg Tablet.] 50 mg PO BID #20 tablet. Referrals: KILEY SLATER PA-C [Primary Care Provider] - Follow up as needed JITENDRA MARKS JR, DO [ACTIVE PROVISIONAL STAFF] - Follow up as needed
[2020-07-26 04:38] VITALS: BP 106/65
== END 2020-07-26 04:36 | disposition home or self-care (01) ==
LOC: ER 01:37
DX: S93.402A Sprain of unspecified ligament of left ankle, initial encounter (principal); X50.0XXA Overexertion from strenuous movement or load, initial encounter; L30.8 Other specified dermatitis; B37.2 Candidiasis of skin and nail; F17.200 Nicotine dependence, unspecified, uncomplicated; Z87.442 Personal history of urinary calculi; Z88.3 Allergy status to other anti-infective agents; Z88.0 Allergy status to penicillin
CPT/HCPCS: 99283

== ENCOUNTER 2020-07-31 15:58 | Emergency (ER) | payer BC ==
[2020-07-31 16:04] VITALS: BP 112/72
--- NOTE | 2020-07-31 16:38 | ER Document Report ---
ED Medical Screen (RME) - General Chief Complaint: Neck Injury Stated Complaint: NECK INJURY Time Seen by Provider: 07/31/20 16:30 Primary Care Provider: KILEY SLATER PA-C [Primary Care Provider] - Follow up as needed Mode of Arrival: Ambulatory Information source: Patient Notes: 30-year-old female presents to ED for complaint of head injury with pain to head and neck after falling out of the shower hitting her head and neck after freaking out from seeing a spot in the shower. She states she has been taking ibuprofen and Percocet has been changed since she hit her head and neck. She states she is did have loss of consciousness at the time that she would be okay but the headache is not gone. The patient has not improved. She states she also has vaginal discharge. She states she has been seen 07/21/2020 and she was just concerned due to the presence of having a vaginal discharge. She states the vaginal discharge started Tuesday and she has had no fevers since then.. Will get blood urine and order the CT of the head and neck. She has been sexually active since the D&C on the so will get a clean and dirty urine I have greeted and performed a rapid initial assessment of this patient. A comprehensive ED assessment and evaluation of the patient, analysis of test results and completion of medical decision making process will be conducted by an additional ED providers. TRAVEL OUTSIDE OF THE [place] IN LAST 30 DAYS: No - Related Data Allergies/Adverse Reactions: amoxicillin [Amoxicillin] Allergy (Severe, Verified 07/17/20 07:51) anaphylaxis/hives ciprofloxacin [From Cipro] Allergy (Severe, Verified 06/14/20 18:09) Anaphylaxis guaifenesin [From Mucinex] Allergy (Severe, Verified 06/14/20 18:09) Anaphylaxis hydrocodone [From [place]] Allergy (Severe, Verified 07/17/20 07:51) Anaphylaxis nitrofurantoin [From Macrobid] Allergy (Severe, Verified 07/17/20 07:51) Anaphylaxis nitrofurantoin macrocrystalline [From Macrobid] Allergy (Severe, Verified 06/14/20 18:09) Anaphylaxis Penicillins Allergy (Severe, Verified 06/14/20 18:09) Anaphylaxis sulfamethoxazole [From Bactrim] Allergy (Severe, Verified 06/14/20 18:09) anaphylaxis/hives tramadol [Tramadol] Allergy (Severe, Verified 06/14/20 18:09) Anaphylaxis trimethoprim [From Bactrim] Allergy (Severe, Verified 07/17/20 07:52) Anaphylaxis hydromorphone HCl [From Dilaudid] Allergy (Intermediate, Verified 06/14/20 18:09) Hives Past Medical History - General Information source: Patient - Social History Cigarette use (# per day): Yes - 12 ppd Frequency of alcohol use: None Drug Abuse: None Lives with: Spouse/Significant other Family history: Reviewed & Not Pertinent - Past Medical History Cardiac Medical History: Reports: None Pulmonary Medical History: Reports: Hx Asthma EENT Medical History: Reports: None Neurological Medical History: Reports: Hx Migraine Endocrine Medical History: Reports: None Renal/ Medical History: Reports: Hx Kidney Stones, Hx Ovarian Cysts Malignancy Medical History: Reports: None GI Medical History: Reports: Hx Gastroesophageal Reflux Disease Musculoskeltal Medical History: 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, knees, fingers Psychiatric Medical History: Reports: Hx Anxiety, Hx Attention Deficit Hyperactivity Disorder, Hx Bipolar Disorder, Hx Depression, Hx Post Traumatic Stress Disorder Traumatic Medical History: Reports: None Past Surgical History: Reports: Hx Abdominal Surgery - EXPLORATORY LAP X6, Hx Appendectomy, Hx Section, Hx Dilation and Curettage, Hx Neurologic Surgery - Cervical spine surgery 8-2017 x2, Hx Nose Surgery - Septoplasty, Hx Orthopedic Surgery - Bilateral knee r/t meniscus tears, left foot - Immunizations Immunizations up to date: Yes Hx Diphtheria, Pertussis, Tetanus Vaccination: Yes Physical Exam - Vital signs Vitals: Temp Pulse Resp BP Pulse Ox 98.5 F 118 H 16 112/72 100 07/31/20 16:04 07/31/20 16:04 07/31/20 16:04 07/31/20 16:04 07/31/20 16:04 Course - Vital Signs Vital signs: Temp Pulse Resp BP Pulse Ox 98.5 F 118 H 16 112/72 100 07/31/20 16:04 07/31/20 16:04 07/31/20 16:04 07/31/20 16:04 07/31/20 16:04 Doctor's Discharge - Discharge Referrals: KILEY SLATER PA-C [Primary Care Provider] - Follow up as needed
--- NOTE | 2020-07-31 17:07 | ER Document Report ---
ED General - General Chief Complaint: Medical Complaint Stated Complaint: NECK INJURY Time Seen by Provider: 07/31/20 16:30 Primary Care Provider: KILEY SLATER PA-C [Primary Care Provider] - Follow up as needed Mode of Arrival: Ambulatory Notes: 30 old female presents with neck pain back pain and "my hardware feels different in the back of my head" and she fell on the back of her head and neck in the shower avoiding a spider 3 days ago. Positive LOC, did not seek medical care but her Percocet that she takes chronically is not helping the pain. No paresthesias or numbness. No notes smelly vaginal discharge like her prior BV. TRAVEL OUTSIDE OF THE [place] IN LAST 30 DAYS: No - Related Data Allergies/Adverse Reactions: amoxicillin [Amoxicillin] Allergy (Severe, Verified 07/17/20 07:51) anaphylaxis/hives ciprofloxacin [From Cipro] Allergy (Severe, Verified 06/14/20 18:09) Anaphylaxis guaifenesin [From Mucinex] Allergy (Severe, Verified 06/14/20 18:09) Anaphylaxis hydrocodone [From [place]] Allergy (Severe, Verified 07/17/20 07:51) Anaphylaxis nitrofurantoin [From Macrobid] Allergy (Severe, Verified 07/17/20 07:51) Anaphylaxis nitrofurantoin macrocrystalline [From Macrobid] Allergy (Severe, Verified 06/14/20 18:09) Anaphylaxis Penicillins Allergy (Severe, Verified 06/14/20 18:09) Anaphylaxis sulfamethoxazole [From Bactrim] Allergy (Severe, Verified 06/14/20 18:09) anaphylaxis/hives tramadol [Tramadol] Allergy (Severe, Verified 06/14/20 18:09) Anaphylaxis trimethoprim [From Bactrim] Allergy (Severe, Verified 07/17/20 07:52) Anaphylaxis hydromorphone HCl [From Dilaudid] Allergy (Intermediate, Verified 06/14/20 18:09) Hives Past Medical History - General Information source: Patient - Social History Smoking Status: Unknown if Ever Smoked Cigarette use (# per day): Yes - 12 ppd Frequency of alcohol use: None Drug Abuse: None Lives with: Spouse/Significant other Family History: Reviewed & Not Pertinent, Hypertension, Malignancy - Past Medical History Cardiac Medical History: Reports: None Pulmonary Medical History: Reports: Hx Asthma EENT Medical History: Reports: None Neurological Medical History: Reports: Hx Migraine Endocrine Medical History: Reports: None Renal/ Medical History: Reports: Hx Kidney Stones, Hx Ovarian Cysts Malignancy Medical History: Reports: None GI Medical History: Reports: Hx Gastroesophageal Reflux Disease Musculoskeletal Medical History: 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, knees, fingers Psychiatric Medical History: Reports: Hx Anxiety, Hx Attention Deficit Hyperactivity Disorder, Hx Bipolar Disorder, Hx Depression, Hx Post Traumatic Stress Disorder Traumatic Medical History: Reports: None Past Surgical History: Reports: Hx Abdominal Surgery - EXPLORATORY LAP X6, Hx Appendectomy, Hx Section, Hx Dilation and Curettage, Hx Neurologic Surgery - Cervical spine surgery 8-2017 x2, Hx Nose Surgery - Septoplasty, Hx Orthopedic Surgery - Bilateral knee r/t meniscus tears, left foot - Immunizations Immunizations up to date: Yes Hx Diphtheria, Pertussis, Tetanus Vaccination: Yes Review of Systems - Review of Systems Notes: REVIEW OF SYSTEMS GEN: Denies fever, chills, weight loss ENT: Denies sore throat, nasal discharge, ear pain EYES: Denies blurry vision, eye pain, discharge CV: Denies chest pain, palpitations, edema RESP: Denies cough, shortness of breath, wheezing GI: Denies abdominal pain, nausea, vomiting, diarrhea MSK: Neck pain back pain left arm pain SKIN: Denies rash, skin lesions LYMPH: Denies swollen glands/lymph nodes NEURO: Dizziness focal weakness or numbness, dizziness PSYCH: Denies depression, suicidal or homicidal ideation PHYSICAL EXAMINATION General: No acute distress, well-nourished Head: Atraumatic, normocephalic ENT: Mouth normal, oropharynx moist, no exudates or tonsillar enlargement Eyes: Conjunctiva normal, pupils equal, lids normal Neck: No JVD, supple, no guarding midline and paraspinous tenderness, mild. CVS: Normal rate, regular rhythm, no murmurs Resp: No resp distress, equal and normal breath sounds bilaterally GI: Nondistended, soft, no tenderness to palpation, no rebound or guarding Ext: Usual left triceps area with no underlying bony tenderness. No deformities, no edema, normal range of motion in upper and lower ext Back: No CVA or midline TTP Skin: No rash, warm Lymphatic: No lymphadeopathy noted Neuro: Awake, alert. Face symmetric. GCS 15. Medial extremities strongly normal gait. Physical Exam - Vital signs Vitals: Temp Pulse Resp BP Pulse Ox 98.5 F 118 H 16 112/72 100 07/31/20 16:04 07/31/20 16:04 07/31/20 16:04 07/31/20 16:04 07/31/20 16:04 Course - Re-evaluation Re-evalutation: 07/31/20 19:07 Remote fall with LOC no evidence of head trauma negative head and neck CT. No neurologic injury noted. Hardware is intact. Patient is on Percocet which is likely delaying the resolution of her concussion and limiting the capability of outpatient pain control however I let her know that only Motrin and Tylenol heat and time will make this better. I will concern us to follow-up with her pain doctors and spine team. She does have vaginal discharge which she thinks is BV would rather avoid a full pelvic exam so we will do a trial of Flagyl and she will follow-up with [facility] if this does not work. I have discussed with the patient there likely diagnosis, aftercare plan, follow-up plans and my usual and customary return precautions. They verbalized understanding of this. - Vital Signs Vital signs: Temp Pulse Resp BP Pulse Ox 98.5 F 118 H 16 112/72 100 07/31/20 16:04 07/31/20 16:04 07/31/20 16:04 07/31/20 16:04 07/31/20 16:04 - Diagnostic Test Radiology reviewed: Image reviewed, Reports reviewed Discharge - Discharge Clinical Impression: Whiplash Qualifiers: Encounter type: initial encounter Qualified Code(s): S13.4XXA - Sprain of ligaments of cervical spine, initial encounter Concussion with loss of consciousness Qualifiers: Encounter type: initial encounter Qualified Code(s): S06.0X9A - Concussion with loss of consciousness of unspecified duration, initial encounter Condition: Good Disposition: HOME, SELF-CARE Instructions: Post-Concussion Syndrome ([facility]), Vaginosis, Bacterial ([facility]) Additional Instructions: As we discussed, narcotics and muscle relaxers alcohol and drugs are not good for head injuries. Please take ibuprofen Tylenol [id number] in addition to your chronic pain medication to follow-up with your pain provider. There is no issue with your neck hardware today but you certainly have a neck sprain. For your bacterial vaginosis take the Flagyl does not improve follow-up with your primary care doctor. Prescriptions: Metronidazole [Flagyl 500 mg Tablet] 500 mg PO Q6H #40 tablet Referrals: KILEY SLATER PA-C [Primary Care Provider] - Follow up as needed
--- NOTE | 2020-07-31 17:25 | RADIOLOGY REPORT (SQ) ---
EXAM DESCRIPTION: CT HEAD WITHOUT IMAGES COMPLETED DATE/TIME: 07/31/2020 3:53 pm REASON FOR STUDY: Fall hit head and neck LOC change in vision COMPARISON: 12/27/2019 TECHNIQUE: Axial images acquired through the brain without intravenous contrast. Images reviewed wi th bone, brain and subdural windows. Additional sagittal and coronal reconstructions were generated. Images stored on PACS. All CT scanners at this facility use dose modulation, iterative reconstruction, and/or weight based d osing when appropriate to reduce radiation dose to as low as reasonably achievable (ALARA). [facility]: Dose Right [facility]: CareDose [facility]: Dose Right [facility]: Teradose 4D [facility]: Smart [employer] RADIATION DOSE: CT Rad equipment meets quality standard of care and radiation dose reduction techniq ues were employed. CTDIvol: 53.2 mGy. DLP: 964 mGy-cm. mGy. LIMITATIONS: None. FINDINGS: VENTRICLES: Normal size and contour. CEREBRUM: No masses. No hemorrhage. No midline shift. No evidence for acute infarction. Normal gra y/white matter differentiation. No areas of low density in the white matter. CEREBELLUM: No masses. No hemorrhage. No alteration of density. No evidence for acute infarction. EXTRAAXIAL SPACES: No fluid collections. No masses. ORBITS AND GLOBE: No intra- or extraconal masses. Normal contour of globe without masses. CALVARIUM: No fracture. PARANASAL SINUSES: No fluid or mucosal thickening. SOFT TISSUES: No mass or hematoma. OTHER: No other significant finding. IMPRESSION: NO ACUTE INTRACRANIAL IMAGING FINDINGS. EVIDENCE OF ACUTE STROKE: NO. COMMENT: Quality ID # [id number]: Final reports with documentation of one or more dose reduction techniques (e.g., Automated exposure control, adjustment of the mA and/or kV according to patient size, use of iterative reconstruction technique) TECHNICAL DOCUMENTATION: JOB ID: [id number] 2010 [employer]- All Rights Reserved Reading location - IP/workstation name: [email or web address]
--- NOTE | 2020-07-31 17:28 | RADIOLOGY REPORT (SQ) ---
EXAM DESCRIPTION: CT CERVICAL SPINE WITHOUT IMAGES COMPLETED DATE/TIME: 07/31/2020 4:53 pm REASON FOR STUDY: Fall hit head and neck LOC change in vision COMPARISON: None. TECHNIQUE: Axial images acquired through the cervical spine without intravenous contrast. Images re viewed with lung, soft tissue and bone windows. Reconstructed coronal and sagittal MPR images review ed. Images stored on PACS. All CT scanners at this facility use dose modulation, iterative reconstruction, and/or weight based d osing when appropriate to reduce radiation dose to as low as reasonably achievable (ALARA). [facility]: Dose Right [facility]: CareDose [facility]: Dose Right [facility]: Teradose 4D [facility]: [employer] RADIATION DOSE: CT Rad equipment meets quality standard of care and radiation dose reduction techniq ues were employed. CTDIvol: 15.6 mGy. DLP: 295 mGy-cm. mGy. LIMITATIONS: None. FINDINGS: ALIGNMENT: Anatomic. MINERALIZATION: Normal. VERTEBRAL BODIES: No fractures or dislocation. DISCS: Disc implants from C3- C7 FACETS, LATERAL MASSES, POSTERIOR ELEMENTS: No fractures. No dislocation. No acute findings. HARDWARE: Anterior plate from C3-C5 with screws in the vertebral bodies. Disc implants from C3-C7. VISUALIZED RIBS: No fractures. LUNG APICES AND SOFT TISSUES: No significant or acute findings. OTHER: No other significant finding. IMPRESSION: Prior ACDF. Hardware as described. No acute finding. TECHNICAL DOCUMENTATION: JOB ID: [id number] Quality ID # [id number]: Final reports with documentation of one or more dose reduction techniques (e.g., Au tomated exposure control, adjustment of the mA and/or kV according to patient size, use of iterative reconstruction technique) 2010 [employer]- All Rights Reserved Reading location - IP/workstation name: [email or web address]
== END 2020-07-31 17:33 | disposition home or self-care (01) ==
LOC: ER 15:58
DX: S06.0X9A Concussion with loss of consciousness of unspecified duration, initial encounter (principal); S13.4XXA Sprain of ligaments of cervical spine, initial encounter; W18.2XXA Fall in (into) shower or empty bathtub, initial encounter; F17.210 Nicotine dependence, cigarettes, uncomplicated; Z88.0 Allergy status to penicillin; Z88.3 Allergy status to other anti-infective agents; Z88.6 Allergy status to analgesic agent
CPT/HCPCS: 70450; 72125; 99284

== ENCOUNTER 2020-09-27 23:28 | Emergency (ER) | payer BC ==
--- NOTE | 2020-09-28 02:52 | RADIOLOGY REPORT (SQ) ---
EXAM DESCRIPTION: XR HAND 3 OR MORE VIEWS COMPLETED DATE/TME: 09/28/2020 02:21 CLINICAL HISTORY: 30 years, Female, swelling pain bruising to left thumb COMPARISON: None. NUMBER OF VIEWS: 3 TECHNIQUE: 3 view left hand LIMITATIONS: None. FINDINGS: Negative for fracture or dislocation. Soft tissues are unremarkable IMPRESSION: Negative exam copyright 2011 [employer]- All Rights Reserved
--- NOTE | 2020-09-28 03:27 | ER Document Report ---
HPI - HPI Time Seen by Provider: 09/28/20 03:27 Pain Level: 2 Context: Patient is a 30-year-old female presents emergency department with a chief complaint of left thumb pain. Patient is right-handed. She is playing with her children with [employer] guns and was not sure if her finger head bent backward or forward. States that she took some ibuprofen and Tylenol for pain relief. - ROS Systems Reviewed and Negative: Yes All other systems reviewed and negative - CONSTITUTIONAL Constitutional: DENIES: Fever, Chills - RESPIRATORY Respiratory: DENIES: Trouble Breathing, Coughing - REPRODUCTIVE Reproductive: DENIES: : - MUSCULOSKELETAL Musculoskeletal: REPORTS: Extremity pain - Left thumb, Swelling - Left thumb - DERM Skin Color: Normal Skin Problems: Bruise - Left thumb Past Medical History - General Information source: Patient - Social History Smoking Status: Current Every Day Smoker Chew tobacco use (# tins/day): No Frequency of alcohol use: None Drug Abuse: None Family History: Reviewed & Not Pertinent, Hypertension, Malignancy Pulmonary Medical History: Reports: Hx Asthma Neurological Medical History: Reports: Hx Migraine Renal/ Medical History: Reports: Hx Kidney Stones, Hx Ovarian Cysts GI Medical History: Reports: Hx Gastroesophageal Reflux Disease Musculoskeletal Medical History: 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, knees, fingers Psychiatric Medical History: Reports: Hx Anxiety, Hx Attention Deficit Hyperactivity Disorder, Hx Bipolar Disorder, Hx Depression, Hx Post Traumatic Stress Disorder Past Surgical History: Reports: Hx Abdominal Surgery - EXPLORATORY LAP X6, Hx Appendectomy, Hx Section, Hx Dilation and Curettage, Hx Neurologic Surgery - Cervical spine surgery 8-2017 x2, Hx Nose Surgery - Septoplasty, Hx Orthopedic Surgery - Bilateral knee r/t meniscus tears, left foot - Immunizations Immunizations up to date: Yes Hx Diphtheria, Pertussis, Tetanus Vaccination: Yes Vertical Provider Document - CONSTITUTIONAL Agree With Documented VS: Yes Exam Limitations: No Limitations General Appearance: No Apparent Distress - INFECTION CONTROL TRAVEL OUTSIDE OF THE [place] IN LAST 30 DAYS: No - HEENT HEENT: Atraumatic, Normocephalic, PERRLA - CARDIOVASCULAR Cardiovascular: Regular Rate Pulses: Normal: Radial - MUSCULOSKELETAL/EXTREMETIES Musculoskeletal/Extremeties: Tender - Left thumb, Eccymosis - Left thumb. negative: FROM - Decreased to left thumb - NEURO Level of Consciousness: Awake, Alert, Appropriate Motor/Sensory: No Motor Deficit, No Sensory Deficit - DERM Integumentary: Warm, Dry, No Rash Course - Re-evaluation Re-evalutation: 09/28/20 03:37 Finger x-ray is unremarkable. There is no fracture. Patient will be placed in a splint for her thumb. No pain at anatomical snuff box area. Capillary refill less than 3 seconds. Radial pulse 2+. No vascular compromise noted. No evidence of a tendon rupture. Follow-up precautions were given. Verbal discharge instructions were given to the patient. They verbalized understanding. They are stable for discharge. - Vital Signs Vital signs: Temp Pulse Resp BP Pulse Ox 98.4 F 89 16 115/80 100 09/27/20 23:42 09/27/20 23:42 09/27/20 23:42 09/27/20 23:42 09/27/20 23:42 - Laboratory Results Critical Laboratory Results Reviewed: No Critical Results - Radiology Results Critical Radiology Results Reviewed: No Critical Results Discharge - Discharge Clinical Impression: Thumb injury Qualifiers: Encounter type: initial encounter Laterality: left Qualified Code(s): S69.92XA - Unspecified injury of left wrist, hand and finger(s), initial encounter Condition: Stable Disposition: HOME, SELF-CARE Additional Instructions: You were seen in the emergency department for left thumb pain. Your x-ray was normal. Rest, apply ice, and elevate your arm to help with swelling. Wear the splint to protect your finger. Follow-up with your primary care provider in 1 week if it continues to hurt. Continue ibuprofen and Tylenol for pain relief. Referrals: KILEY SLATER PA-C [Primary Care Provider] - Follow up in 1 week
[2020-09-28 03:47] VITALS: BP 120/73
== END 2020-09-28 03:46 | disposition home or self-care (01) ==
LOC: ER 23:28
DX: S69.92XA Unspecified injury of left wrist, hand and finger(s), initial encounter (principal); M79.645 Pain in left finger(s); X50.1XXA Overexertion from prolonged static or awkward postures, initial encounter; F17.200 Nicotine dependence, unspecified, uncomplicated; J45.909 Unspecified asthma, uncomplicated
CPT/HCPCS: 99283